=== PATIENT | female | born 1980 | race Caucasian/White ===

== ENCOUNTER 2020-04-15 11:15 | Emergency (ER) | payer OTHER, SELFPAY ==
--- NOTE | ~2020-04-15 | XR_ITS ---
EXAMINATION: XR hand LT min 3V EXAM DATE: 04/15/2020 11:39 INDICATION: Initial encounter following injury, with pain of the left hand. TECHNIQUE: Left hand frontal, lateral and oblique projections obtained and reviewed. There is no riccardo or study for comparison. FINDINGS: Left metacarpal bones are unremarkable. There are no acute fractures or dislocations ident ified. There is no subcutaneous gas. The soft tissue is unremarkable. There are no radiopaque for eign bodies. IMPRESSION: No acute osseous findings. Reviewed, dictated and finalized at location B. IMPRESSION: No acute osseous findings.
[2020-04-15 11:22] VITALS: BP 133/76; PULSE 82; RESP 18; TEMP 36.8; O2SAT 99
--- NOTE | 2020-04-15 11:28 | ED.GENADULT ---
HPI - General Adult General Chief complaint: Extremity Injury, Upper Stated complaint: left hand vs ceiling fan Time Seen by Provider: 04/15/20 11:31 Source: patient Mode of arrival: ambulatory Limitations: no limitations History of Present Illness HPI narrative: 39-year-old female patient presents to the [facility] with complaints of left hand pain. Patient states that she was making her daughter's bunk bed on the top bunk this morning and states when she went to go and throw up the blanket her left hand hit a ceiling fan that was on. Patient states that she did take some Tylenol about 8 AM this morning after it happen as well has been putting ice on it. Patient states the pain is mostly to the left index and middle fingers. Denies any numbness or tingling to the area. Denies any wrist pain. Related Data Home Medications Medication Instructions Recorded Confirmed celecoxib 100 mg PO DAILY 04/15/20 04/15/20 fluoxetine 20 mg PO DAILY 04/15/20 04/15/20 Allergies Allergy/AdvReac Type Severity Reaction Status Date / Time metoclopramide Allergy Mild ANXIETY Verified 04/15/20 11:32 MEPERIDINE HCL Allergy Intermediate Vomiting Uncoded 06/13/19 19:24 Review of Systems Review of Systems: Narrative: CONSTITUTIONAL: Denies fever, chills, or sweats. EYES: Denies visual changes, redness, or discharge. ENT: Denies rhinorrhea, congestion, sore throat, or otalgia. CARDIOVASCULAR: Denies chest pain, palpitations, or edema. RESPIRATORY: Denies cough or dyspnea. GASTROINTESTINAL: Denies abdominal pain, nausea, vomiting, or diarrhea. GENITOURINARY: Denies dysuria or hematuria. SKIN: Denies rash or itching. MUSCULOSKELETAL: Denies back pain, joint pain, or myalgia. Positive left hand pain NEUROLOGIC: Denies headache, numbness, or weakness. PSYCHIATRIC: Denies anxiety or depression. [facility] Past Medical History Medical History (Updated 04/15/20 @ 12:03 by WYATT Barreto) Anxiety Bipolar disorder Cervical lesion Depression Gastric ulcer GERD (gastroesophageal reflux disease) Gestational diabetes Surgical History Surgical History (Updated 04/15/20 @ 11:33 by WYATT Barreto) History of orthopedic surgery R CTRx2, right ulnar nerve transposition, L CTR Right knee patella fracture Hx of cholecystectomy Hx of tonsillectomy Comments At the time of my signature I agree with nursing past medical history, surgical, social, and family history. There is no relevant family history pertinent to the presenting complaint. Exam Narrative: Exam Narrative: GENERAL: Well-appearing, well-nourished, and in no acute distress. HEAD: Normocephalic, atraumatic. EYES: PERRLA and EOMI. ENT: Nares clear, no rhinorrhea or epistaxis. Mucous membranes moist. NECK: Supple. No lymphadenopathy CHEST: Clear to auscultation. No respiratory distress. HEART: Regular rate and rhythm. No murmur heard. Normal peripheral pulses. ABDOMEN: Soft, nontender, nondistended, normal active bowel sounds. EXTREMITIES: The L hand is without obvious asymmetry or deformity when compared to the R hand. No swelling, erythema, atrophy, or obvious deformity. No open wounds, nail avulsion, tissue avulsion, partial or complete amputation, subungual hematoma, bony deformity. Patient does have swelling and redness noted to the left index finger from the PIP joint to the MIP joint area with tenderness noted to the area. Patient also does have slight swelling but no erythema noted to the left middle finger over the MIP and PIP joint area. Decrease cascade of fingers of the index and middle finger on the left hand. Decrease in flexion and normal extension of fingers. Patient is right-hand dominant. FDS and FDP intact aganist restistance. Pulses and cap refill. SKIN: Warm, dry, no rash. NEURO: No focal deficits. Alert and oriented x3. Course Reevaluation(s) Reevaluation #1: Reevaluated patient after her x-ray had resulted. Discussed with her that her x-ray is negative
== END 2020-04-15 12:05 | disposition home or self-care (01) ==
PROVIDERS: Emergency Provider Nurse Practitioner Family
DX: S69.82XA Other specified injuries of left wrist, hand and finger(s), initial encounter (principal); W22.8XXA Striking against or struck by other objects, initial encounter; F41.9 Anxiety disorder, unspecified; F32.9 Major depressive disorder, single episode, unspecified; K21.9 Gastro-esophageal reflux disease without esophagitis
CPT/HCPCS: 29130; 73130; 99213; G0463

== ENCOUNTER 2022-07-29 10:03 | Emergency (ER) | payer OTHER, SELFPAY ==
[2022-07-29 10:11] VITALS: BP 117/77; PULSE 65; RESP 16; TEMP 36.3; O2SAT 99
--- NOTE | 2022-07-29 10:36 | ED.URI ---
HPI - URI/Sore Throat General Chief Complaint: Upper Respiratory Infection Stated Complaint: Sore Throat Time Seen by Provider: 07/29/22 10:37 Source: patient and RN notes reviewed Mode of arrival: ambulatory Limitations: no limitations History of Present Illness HPI Narrative: 42-year-old female presenting for complaint of sore throat and headache, body aches, sinus pressure/congestion, cough, fever/chills. onset 3 days. Endorses 3 of her children have strep throat. She denies shortness of breath, wheezing, nausea, vomiting, diarrhea. She is taking [id number] medication without relief. Smokes 1PPD. MD elicited complaint: cough Related Data Home Medications Medication Instructions Recorded Confirmed fluoxetine 20 mg capsule 20 mg PO DAILY 04/15/20 07/29/22 baclofen 10 mg tablet 10 mg PO TID 07/29/22 07/29/22 gabapentin 300 mg capsule 300 mg PO BID 07/29/22 07/29/22 Allergies Allergy/AdvReac Type Severity Reaction Status Date / Time metoclopramide Allergy Mild ANXIETY Verified 07/29/22 10:26 MEPERIDINE HCL Allergy Intermediate Vomiting Uncoded 07/29/22 10:26 Review of Systems Review of Systems: ROS per HPI PMFSH Past Medical History Medical History Anxiety Bipolar disorder Cervical lesion Depression Gastric ulcer GERD (gastroesophageal reflux disease) Gestational diabetes Surgical History Surgical History History of orthopedic surgery R CTRx2, right ulnar nerve transposition, L CTR Right knee patella fracture Hx of cholecystectomy Hx of tonsillectomy Exam Narrative: GENERAL: Ill-appearing, nontoxic EYES: PERRLA, conjunctivae clear ENT: Mucous membranes moist. sinus congestion. TMs pearly orellana with light reflex bilaterally; no tragal tenderness. Oropharynx erythematous without lesions or exudate, tonsils absent. no drooling, no hoarseness, no trismus, uvula midline. NECK: Supple. No lymphadenopathy CHEST: Clear to auscultation, breath sounds equal. No wheezing, rhonchi, rales, or stridor. No respiratory distress, speaks in full sentences. HEART: Regular rate and rhythm. No murmur heard. SKIN: Warm, dry, Scattered scabs over arms and legs. NEURO: Alert and oriented x3. PSYCH: Normal mood and affect Course Course Emergency Course: Patient is aware of diagnosis, understands and agrees to treatment plan. Anticipatory guidance given. Patient agrees to follow-up as directed and is aware of reasons to seek care at the emergency department. Portions of this record may have been created with voice recognition software Level of Care: Express Care Visit Vital Signs Vital signs: Vital Signs Temperature 97.3 F L 07/29/22 10:11 Pulse Rate 65 07/29/22 10:11 Respiratory Rate 16 07/29/22 10:11 Blood Pressure 117/77 07/29/22 10:11 Pulse Oximetry 99 07/29/22 10:11 Oxygen Delivery Room Air 07/29/22 10:11 Temperature 97.3 F L 07/29/22 10:11 Pulse Rate 65 07/29/22 10:11 Respiratory Rate 16 07/29/22 10:11 Blood Pressure 117/77 07/29/22 10:11 Pulse Oximetry 99 07/29/22 10:11 Oxygen Delivery Room Air 07/29/22 10:11 reviewed MDM - URI/Sore Throat Differential Diagnosis Differential diagnosis: Likely upper respiratory infection, sinusitis and viral infection Lab Data Labs: Influenza A Screen Negative Reference Range: Negative Influenza B Screen Negative Reference Range: Negative Strep Screen Presumptive Negative *(Reference Range: Negative)* Discharge Plan Discharge Clinical Impression: Upper respiratory infection Patient Disposition: Home, Self-Care Condition: Stable Instructions: Viral Syndrome (ED) Additional Instructions: flu and covid
== END 2022-07-29 11:00 | disposition home or self-care (01) ==
PROVIDERS: Emergency Provider Nurse Practitioner Family
DX: J06.9 Acute upper respiratory infection, unspecified (principal); Z20.822 Contact with and (suspected) exposure to COVID-19; K21.9 Gastro-esophageal reflux disease without esophagitis; F41.9 Anxiety disorder, unspecified; F32.A Depression, unspecified
CPT/HCPCS: 87081; 87426; 87804; 87880; 99213; C9803; G0463

== ENCOUNTER 2022-09-24 12:36 | Emergency (ER) | payer OTHER, SELFPAY ==
--- NOTE | ~2022-09-24 | XR_ITS ---
EXAMINATION: XR chest 2V DATE: 09/24/2022 13:39 INDICATION: Shortness of breath and cough TECHNIQUE: PA and lateral views of the chest were obtained. COMPARISON: None FINDINGS: The lungs are clear with no focal airspace opacities, pulmonary edema, pleural effusion or pneumothor ax. The cardiomediastinal silhouette is normal. Mild thoracic spondylosis. Cholecystectomy clips in t he upper abdomen. IMPRESSION: 1. No acute cardiopulmonary disease. Reviewed, dictated and finalized at location L. EE MACHINE TECHNICIAN
[2022-09-24 12:45] VITALS: BP 119/77; PULSE 82; RESP 20; TEMP 36.7; O2SAT 99
--- NOTE | 2022-09-24 12:59 | ED.URI ---
HPI - URI/Sore Throat General Chief Complaint: Upper Respiratory Infection Stated Complaint: Chest Congestion/Headache Time Seen by Provider: 09/24/22 12:59 Source: patient, RN notes reviewed and old records reviewed Mode of arrival: ambulatory Limitations: no limitations History of Present Illness HPI Narrative: 42 year old female with complaints of chest congestion, cough for the past 2 weeks with some sinus headache and drainage no sore throat with highest fever of 100F..Patient reports that she made appointments with her PCP and got rescheduled 3 times so decided to come to urgent care. Patient reports that she has been taking Mucinex DM, Benadryl and Tylenol and Ibuprofen with no improvement in her symptoms. Patient has long history of tobacco abuse. MD elicited complaint: cough, rhinorrhea and nasal congestion Pertinent past history: pneumonia and other (tobacco abuse) Onset (ago): week(s) (2) Pain scale (0-10): 6 Able to tolerate fluids by mouth: Yes Treatments prior to arrival: other (albuterol inhaler) Related Data Home Medications Medication Instructions Recorded Confirmed fluoxetine 20 mg capsule 20 mg PO DAILY 04/15/20 09/24/22 baclofen 10 mg tablet 10 mg PO TID 07/29/22 09/24/22 gabapentin 300 mg capsule 300 mg PO TID 07/29/22 09/24/22 famotidine 40 mg tablet 40 mg PO DAILY 09/24/22 09/24/22 omeprazole 40 mg capsule,delayed 40 mg PO DAILY 09/24/22 09/24/22 release Allergies Allergy/AdvReac Type Severity Reaction Status Date / Time metoclopramide Allergy Mild ANXIETY Verified 09/24/22 12:52 MEPERIDINE HCL Allergy Intermediate Vomiting Uncoded 09/24/22 12:52 Review of Systems Review of Systems: CONSTITUTIONAL: Reports malaise, chills, sweats, or fever. EYES: Denies visual changes, redness, or discharge. ENT: Reports rhinorrhea, congestion, sinus pain,no otalgia or sore throat. CARDIOVASCULAR: Denies chest pain, palpitations, or edema. RESPIRATORY: Reports harsh cough.? dyspnea and wheezing has been using inhaler GASTROINTESTINAL: Denies abdominal pain, nausea, vomiting, diarrhea SKIN: Denies rash or itching. MUSCULOSKELETAL: Denies myalgia. NEUROLOGIC:reports headache. All systems reviewed & are unremarkable except as noted in HPI and below PMFSH Past Medical History Medical History Anxiety Bipolar disorder Bronchitis Cervical lesion Depression Gastric ulcer GERD (gastroesophageal reflux disease) Gestational diabetes Surgical History Surgical History History of orthopedic surgery R CTRx2, right ulnar nerve transposition, L CTR Right knee patella fracture Hx of cholecystectomy Hx of tonsillectomy Social History Social History Smoking packs per day: 1 Smoking cigarettes per day: 20.0 Smoking status: Current every day smoker Tobacco type: cigarettes Gender identity (if verbalized by the patient): Female Comments At time of signature, agree with nursing past medical, surgical, social and family history. There is no relevant family history pertinent to the presenting complaint Exam Narrative: GENERAL: Well-appearing, well-nourished, and in no acute distress. HEAD: Normocephalic EYES: PERRLA, conjunctivae clear ENT: Nares clear, turbinates edematous and erythematous, clear to light yellow discharge. Mucous membranes moist. TM pearly orellana with dull light reflex bilaterally; no tragal tenderness. Oropharynx erythematous without lesions. Tonsils not present no throat exudate, no drooling, no hoarseness, no trismus, uvula midline post nasal drainage present.. NECK: Supple. No lymphadenopathy CHEST: coarse breath sounds on auscultation, breath sounds equal. No wheezing, rhonchi, rales, or stridor. No respiratory distress, speaks in full sentences,harsh cough dry and productive, SAO2 99% on room air. HE
[2022-09-24] MEDS: ALBUTEROL SULFATE NEB 2.5 MG/3 ML INH INHALATION (13:07)
[2022-09-24] MEDS: IPRATROPIUM BR 0.02% INH SOLN 0.5 MG/2.5 ML VIAL INHALATION (13:08)
[2022-09-24 13:40] VITALS: PULSE 75; RESP 20; O2SAT 100
== END 2022-09-24 14:05 | disposition home or self-care (01) ==
PROVIDERS: Emergency Provider Registered Nurse
DX: J06.9 Acute upper respiratory infection, unspecified (principal); R05.9 Cough, unspecified; K21.9 Gastro-esophageal reflux disease without esophagitis; F17.210 Nicotine dependence, cigarettes, uncomplicated; F41.9 Anxiety disorder, unspecified; F32.A Depression, unspecified
CPT/HCPCS: 71046; 94640; 99213; G0463

== ENCOUNTER 2023-06-06 09:31 | Emergency (ER) | payer OTHER, SELFPAY ==
[2023-06-06 09:44] VITALS: BP 120/76; PULSE 92; RESP 20; TEMP 36.6; O2SAT 97
--- NOTE | 2023-06-06 10:02 | ED.GENADULT ---
HPI - General Adult General Chief complaint: Upper Respiratory Infection Stated complaint: thinks she has flu Source: patient Mode of arrival: ambulatory Limitations: no limitations History of Present Illness HPI narrative: Patient presents for evaluation of sick symptoms for last 4 days. Symptoms include fever, chills, generalized body aches, nonproductive cough, nausea and shortness of breath. No otalgia, chest pain, vomiting or diarrhea. No recent sick contacts to her knowledge. She smokes 1/2 ppd. She has been taking mucinex for her symptoms. Related Data Home Medications Medication Instructions Recorded Confirmed fluoxetine 20 mg capsule 20 mg PO DAILY 04/15/20 06/06/23 baclofen 10 mg tablet 10 mg PO TID 07/29/22 06/06/23 gabapentin 300 mg capsule 300 mg PO TID 07/29/22 06/06/23 famotidine 40 mg tablet 40 mg PO DAILY 09/24/22 06/06/23 omeprazole 40 mg capsule,delayed 40 mg PO DAILY 09/24/22 06/06/23 release Allergies Allergy/AdvReac Type Severity Reaction Status Date / Time metoclopramide Allergy Mild ANXIETY Verified 06/06/23 09:55 MEPERIDINE HCL Allergy Intermediate Vomiting Uncoded 09/24/22 12:52 Review of Systems Review of Systems: CONSTITUTIONAL: Reports fever and chills. EYES: Denies visual changes, redness, or discharge. ENT: Denies rhinorrhea, congestion, sore throat, or otalgia. CARDIOVASCULAR: Denies chest pain, palpitations, or edema. RESPIRATORY: Reports cough and shortness of breath. GASTROINTESTINAL: Reports nausea. Denies abdominal pain, vomiting, or diarrhea. GENITOURINARY: Denies dysuria or hematuria. SKIN: Denies rash or itching. MUSCULOSKELETAL: Reports generalized body aches. NEUROLOGIC: Denies headache, numbness, dizziness, or weakness. PSYCHIATRIC: Denies anxiety or depression. [facility] Past Medical History Medical History (Updated 06/06/23 @ 10:56 by WYATT Stevenson, TANYA) Anxiety Bipolar disorder Bronchitis Cervical lesion Depression Gastric ulcer GERD (gastroesophageal reflux disease) Gestational diabetes Surgical History Surgical History H/O hernia repair History of orthopedic surgery R CTRx2, right ulnar nerve transposition, L CTR Right knee patella fracture Hx of cholecystectomy Hx of tonsillectomy Family History Family History Mother Family history non-contributory Social History Social History Smoking packs per day: 0.5 Smoking cigarettes per day: 10.0 Smoking status: Current every day smoker Tobacco type: cigarettes Substance use: current Substance use type: marijuana Other substance usage details: social use marijuana Living arrangements: with family Gender identity (if verbalized by the patient): Female Sexual Orientation (if Verbalized by the Patient): Straight or Heterosexual Spiritual care concerns: No Exam Narrative: GENERAL: Well-appearing, well-nourished, and in no acute distress. HEAD: Normocephalic, atraumatic. EYES: PERRLA and EOMI. ENT: Nares clear, no rhinorrhea or epistaxis. Mucous membranes moist. Posterior pharyngeal erythema. Oropharynx without tonsillar hypertrophy exudate or other lesions. Bilateral TMs pearly orellana nonbulging NECK: Supple. No adenopathy or masses. No carotid bruits or JVD CHEST: Cough present. Mild wheezing noted in all lung myers posteriorly HEART: Regular rate and rhythm. No murmur heard. Normal peripheral pulses. ABDOMEN: Soft, nontender, nondistended, normal active bowel sounds. EXTREMITIES: Normal range of motion. No edema. SKIN: Warm, dry, no rash. NEURO: No focal deficits. Alert and oriented x3. PSYCH: Normal mood and affect. Course Course Emergency Course: This is a 42-year-old female who presented for evaluation of sick symptoms. Strep, COVID, influenza were all negative. Sh
[2023-06-06] MEDS: methylPREDNISolone SOD SUCC 125 MG VIAL IM (10:18)
[2023-06-06] MEDS: ALBUTEROL SULFATE NEB 2.5 MG/3 ML INH INHALATION (10:19)
[2023-06-06] MEDS: IPRATROPIUM BR 0.02% INH SOLN 0.5 MG/2.5 ML VIAL INHALATION (10:19)
== END 2023-06-06 11:10 | disposition home or self-care (01) ==
PROVIDERS: Emergency Provider Nurse Practitioner
DX: R06.2 Wheezing (principal); J02.9 Acute pharyngitis, unspecified; F41.9 Anxiety disorder, unspecified; F32.A Depression, unspecified; F17.210 Nicotine dependence, cigarettes, uncomplicated; Z79.899 Other long term (current) drug therapy; Z20.822 Contact with and (suspected) exposure to COVID-19
CPT/HCPCS: 87081; 87426; 87804; 87880; 94640; 96372; 99213; C9803; G0463; J2930

== ENCOUNTER 2023-09-02 10:23 | Emergency (ER) | payer OTHER, SELFPAY ==
[2023-09-02 10:38] VITALS: BP 129/82; PULSE 84; RESP 16; TEMP 36.5; O2SAT 100
--- NOTE | 2023-09-02 11:07 | ED.NAVMDI ---
HPI - Nausea/Vomiting/Diarrhea General Chief complaint: Nausea/Vomiting/Diarrhea Stated complaint: nausea Time Seen by Provider: 09/02/23 11:07 Source: patient, RN notes reviewed and old records reviewed Mode of arrival: ambulatory Limitations: no limitations History of Present Illness HPI Narrative: 43-year-old female presents to the [facility] with complaints of nausea vomiting since 4:00 a.m.. States that she took her daily omeprazole, no other treatment prior to arrival Denies eating much of anything yesterday Denies any chest pain, abdominal pain. No urinary symptoms. No CVA tenderness. Denies fevers. Related Data Home Medications Medication Instructions Recorded Confirmed fluoxetine 20 mg capsule 20 mg PO DAILY 04/15/20 06/06/23 baclofen 10 mg tablet 10 mg PO TID 07/29/22 06/06/23 gabapentin 300 mg capsule 300 mg PO TID 07/29/22 06/06/23 famotidine 40 mg tablet 40 mg PO DAILY 09/24/22 06/06/23 omeprazole 40 mg capsule,delayed 40 mg PO DAILY 09/24/22 06/06/23 release Allergies Allergy/AdvReac Type Severity Reaction Status Date / Time metoclopramide Allergy Mild ANXIETY Verified 06/06/23 09:55 MEPERIDINE HCL Allergy Intermediate Vomiting Uncoded 09/24/22 12:52 Review of Systems Review of Systems: All systems reviewed & are unremarkable except as noted in HPI and below Constitutional: Constitutional: Reports no additional constitutional complaints Eyes: Eyes: Reports no additional eye complaints ENT: Reports system reviewed and no additional complaints, except as documented Cardiovascular: Cardiovascular: Reports no additional cardiovascular complaints, Denies chest pain and Denies dyspnea Respiratory: Respiratory: Reports no additional respiratory complaints, Denies chest congestion, Denies cough and Denies dyspnea Gastrointestinal: Gastrointestinal: Reports as per HPI, Denies abdominal pain, Denies diarrhea, Reports nausea and Reports vomiting Musculoskeletal: Musculoskeletal: Reports no additional musculoskeletal complaints Integumentary/Breasts: Skin/Breast: Reports system reviewed and no additional complaints, except as docu Neurologic: Reports system reviewed and no additional complaints, except as documented Psychiatric: Psychiatric: Reports no additional psychiatric complaints Allergic/Immunologic: Allergic/Immunologic: Reports no additional allergic/immunologic complaints PMFSH Past Medical History Medical History Anxiety Bipolar disorder Bronchitis Cervical lesion Depression Gastric ulcer GERD (gastroesophageal reflux disease) Gestational diabetes Surgical History Surgical History H/O hernia repair History of orthopedic surgery R CTRx2, right ulnar nerve transposition, L CTR Right knee patella fracture Hx of cholecystectomy Hx of tonsillectomy Family History Family History Mother Family history non-contributory Social History Social History Smoking packs per day: 0.5 Smoking cigarettes per day: 10.0 Smoking status: Current every day smoker Tobacco type: cigarettes Substance use: current Substance use type: marijuana Other substance usage details: social use marijuana Living arrangements: with family Gender identity (if verbalized by the patient): Female Sexual Orientation (if Verbalized by the Patient): Straight or Heterosexual Spiritual care concerns: No Comments At the time of my signature, I reviewed and agree with the nursing past medical, surgical, social, and family history. There is no relevant family history pertinent to the patient complaint. Exam Const: General: cooperative, healthy appearing, comfortable, no acute distress, well developed, alert and well nourished Nutritional Appearance: well nourished Orientation/co
== END 2023-09-02 11:20 | disposition home or self-care (01) ==
PROVIDERS: Emergency Provider Nurse Practitioner
DX: R11.2 Nausea with vomiting, unspecified (principal); F17.210 Nicotine dependence, cigarettes, uncomplicated; F12.90 Cannabis use, unspecified, uncomplicated; K21.9 Gastro-esophageal reflux disease without esophagitis; F41.9 Anxiety disorder, unspecified; F32.A Depression, unspecified
CPT/HCPCS: 99213; G0463

== ENCOUNTER 2024-05-05 13:19 | Emergency (ER) | payer OTHER, SELFPAY ==
--- NOTE | ~2024-05-05 | XR_ITS ---
XR hip RT min 2V 05/05/2024 13:55 Indication: Hip pain after fall Procedure: 4 views right hip Comparison: No prior studies for comparison. Findings: No fracture, subluxation or dislocation. No significant soft tissue abnormality. No foreign bodies. Impression: 1: No significant bone or joint abnormality. Reviewed, dictated and finalized at location B. Impression: 1: No significant bone or joint abnormality.
--- NOTE | ~2024-05-05 | XR_ITS ---
XR shoulder LT min 2V 05/05/2024 13:56 INDICATION: Left shoulder pain PROCEDURE: 4 views left shoulder COMPARISON: No prior studies for comparison. FINDINGS: Fracture, dislocation or subluxation is not identified. The soft tissues appear within norm al limits. No foreign bodies are identified. IMPRESSION: 1: NO ACUTE BONE OR JOINT ABNORMALITY IDENTIFIED. Reviewed, dictated and finalized at location B.
[2024-05-05 13:25] VITALS: BP 143/86; PULSE 76; RESP 16; TEMP 36.9; O2SAT 98
--- NOTE | 2024-05-05 13:38 | ED.LOWEXIN ---
HPI - Extremity Injury (Lower) General Chief Complaint: Fall Stated Complaint: Fall Injury/Left Shoulder/Right Hip Time Seen by Provider: 05/05/24 13:39 Source: patient Mode of arrival: ambulatory Limitations: no limitations History of Present Illness HPI Narrative: 43 y/o female presented for c/o pain to the left shoulder and right hip following an injury last night. States she tripped over her dog, and fell against the door striking the left shoulder and the back of the right hip. Took a Tylenol #3. Denies pain radiating into the hips or legs, down the left arm, numbness, tingling, weakness of the extremities, or change in gait, saddle paresthesia or loss of bowel or bladder. Related Data Home Medications Medication Instructions Recorded Confirmed fluoxetine 20 mg capsule 20 mg PO DAILY 04/15/20 06/06/23 baclofen 10 mg tablet 10 mg PO TID 07/29/22 06/06/23 gabapentin 300 mg capsule 300 mg PO TID 07/29/22 06/06/23 famotidine 40 mg tablet 40 mg PO DAILY 09/24/22 06/06/23 omeprazole 40 mg capsule,delayed 40 mg PO DAILY 09/24/22 06/06/23 release Allergies Allergy/AdvReac Type Severity Reaction Status Date / Time metoclopramide [From Reglan] Allergy Hallucinati Verified 05/05/24 13:35 ng Review of Systems Review of Systems: CONSTITUTIONAL: Denies body aches, fever, chills CARDIOVASCULAR: Denies chest pain, palpitations, or edema. RESPIRATORY: Denies cough or dyspnea. SKIN: Denies rash, itching, or wounds. MUSCULOSKELETAL: Reports pain to the left shoulder and right hip NEUROLOGIC: Denies headache, numbness, tingling, or weakness. All systems reviewed & are unremarkable except as noted in HPI and below PMFSH Past Medical History Medical History Anxiety Bipolar disorder Bronchitis Cervical lesion Depression Gastric ulcer GERD (gastroesophageal reflux disease) Gestational diabetes Surgical History Surgical History H/O hernia repair History of orthopedic surgery R CTRx2, right ulnar nerve transposition, L CTR Right knee patella fracture Hx of cholecystectomy Hx of tonsillectomy Family History Family History Mother Family history non-contributory Social History Social History Smoking packs per day: 0.5 Smoking cigarettes per day: 10.0 Smoking status: Current every day smoker Tobacco type: cigarettes Substance use: current Substance use type: marijuana Other substance usage details: social use marijuana Living arrangements: with family Gender identity (if verbalized by the patient): Female Sexual Orientation (if Verbalized by the Patient): Straight or Heterosexual Spiritual care concerns: No Comments At time of signature, I have reviewed and agree with nursing past medical, surgical, social and family history unless otherwise noted. Please see nursing chart for further information. There is no relevant family history pertinent to the presenting complaint Exam Narrative: GENERAL: Well-appearing CHEST: Speaks in full sentences. No respiratory distress. HEART: Regular rate and rhythm. Normal and equal peripheral pulses. EXTREMITIES: LUE has normal strength and sensation, normal range of motion at shoulder, but endorses pain with movement. Tender with palpation to posterior deltoid and over scapula. No ecchymosis, No open wounds, skin tenting, or obvious deformity; alignment normal, pulse palpable and equal bilaterally, skin warm, dry, pink. Capillary refill less than 3 seconds. RLE has normal strength and sensation, normal range of motion at hip, able to tolerate sitting to standing but endorses pain with movement. Tender with palpation to posterior hip. Pedal pulses equal bilaterally. No swelling. SKIN: Warm, dry NEURO: Alert and oriented x3.
== END 2024-05-05 14:41 | disposition home or self-care (01) ==
PROVIDERS: Emergency Provider Nurse Practitioner Family
DX: M25.512 Pain in left shoulder (principal); M25.551 Pain in right hip; F17.210 Nicotine dependence, cigarettes, uncomplicated; F12.90 Cannabis use, unspecified, uncomplicated; K21.9 Gastro-esophageal reflux disease without esophagitis; F41.9 Anxiety disorder, unspecified; F32.A Depression, unspecified
CPT/HCPCS: 73030; 73502; 99214; G0463

== ENCOUNTER 2024-10-23 08:24 | Emergency (ER) | payer OTHER, SELFPAY ==
[2024-10-23 08:28] VITALS: BP 119/81; PULSE 75; RESP 20; TEMP 36.5; O2SAT 97
--- NOTE | 2024-10-23 08:31 | ED_ITS ---
HPI - Nausea/Vomiting/Diarrhea General Chief complaint: Nausea/Vomiting/Diarrhea Stated complaint: throwing up,fever,BU[place] Time Seen by Provider: 10/23/24 08:31 Source: family and RN notes reviewed Mode of arrival: ambulatory Limitations: no limitations History of Present Illness HPI Narrative: 44-year-old female presents with concern for nausea and vomiting that started overnight. She denies abdominal pain. Reports an episode of diarrhea. She denies any known sick contacts. She denies taking any medication for her symptoms. She denies cold symptoms, fever. MD elicited complaint: vomiting Related Data Home Medications ?Medication ?Instructions ?Recorded ?Confirmed ?Last Taken ?Type fluoxetine 20 mg capsule 20 mg PO DAILY 04/15/20 10/23/24 Unknown History baclofen 10 mg tablet 10 mg PO TID 07/29/22 10/23/24 Unknown History gabapentin 300 mg capsule 300 mg PO TID 07/29/22 10/23/24 Unknown History famotidine 40 mg tablet 40 mg PO DAILY 09/24/22 06/06/23 Unknown History omeprazole 40 mg capsule,delayed 40 mg PO DAILY 09/24/22 10/23/24 Unknown History release albuterol sulfate 90 mcg/actuation inhalation 10/23/24 Unknown History aerosol inhaler celecoxib 100 mg capsule mg 10/23/24 Unknown History estradiol 0.05 mg/24 hr weekly 10/23/24 Unknown History transdermal patch Allergies Allergy/AdvReac Type Severity Reaction Status Date / Time metoclopramide (From Reglan) Allergy Hallucinati Verified 10/23/24 08:40 ng Review of Systems Review of Systems: CONSTITUTIONAL: Denies malaise, chills, sweats, or fever. ENT: Denies rhinorrhea, congestion, sinus pain, otalgia or sore throat. CARDIOVASCULAR: Denies chest pain, palpitations, or edema. RESPIRATORY: Denies cough or dyspnea. GASTROINTESTINAL: Denies abdominal pain, bloody, or mucous stools. Reports nausea and vomiting, 1 episode of diarrhea GENITOURINARY: Denies dysuria or hematuria. SKIN: Denies rash or itching. MUSCULOSKELETAL: Denies myalgia. NEUROLOGIC: Denies numbness, weakness, or headache. [facility] Past Medical History Medical History Anxiety Bipolar disorder Bronchitis Cervical lesion Depression Gastric ulcer GERD (gastroesophageal reflux disease) Gestational diabetes Surgical History Surgical History H/O hernia repair History of orthopedic surgery R CTRx2, right ulnar nerve transposition, L CTR Right knee patella fracture Hx of cholecystectomy Hx of tonsillectomy Family History Family History Mother Family history non-contributory Social History Social History Smoking packs per day: 0.5 Smoking cigarettes per day: 10.0 Smoking status: Current every day smoker Tobacco type: cigarettes Substance use: current Substance use type: marijuana Other substance usage details: social use marijuana Living arrangements: with family Gender identity (if verbalized by the patient): Female Sexual Orientation (if Verbalized by the Patient): Straight or Heterosexual Spiritual care concerns: No Comments At time of signature, agree with nursing past medical, surgical, social and family history. There is no relevant family history pertinent to the presenting complaint Exam Narrative: GENERAL: Well-appearing, well-nourished, and in no acute distress. HEAD: Normocephalic, atraumatic. EYES: PERRLA, sclera clear, and EOMI. No nystagmus. ENT: Nares clear, turbinates pink, no rhinorrhea or epistaxis. Mucous membranes moist. NECK: Supple. CHEST: No respiratory distress. Clear to auscultation. No bony deformities, no asymmetry. Speaks in full sentences. HEART: Regular rate and rhythm. No murmur heard. Normal peripheral pulses. ABDOMEN: Soft, nontender, nondistended, normal active bowel sounds, no palpable masses. EXTREMITIES: Normal range of motion. No edema. Normal strength and sensation. SKIN: Warm, dry, no visible rash. NEURO: Alert and oriented x3. PSYCH: Normal mood and affect Course Course Emergency Course: Parent understands and agrees to treatment plan. Anticipatory guidance given. Parent agrees to follow-up as directed and understands reasons follow-up with primary care provider or to go the emergency room Portions of this record may have been created with voice recognition software Level of Care: Express Care Visit Vital Signs Vital signs: Vital Signs Temperature 97.7 F 10/23/24 08:28 Pulse Rate 75 10/23/24 08:28 Respiratory Rate 20 10/23/24 08:28 Blood Pressure 119/81 10/23/24 08:28 Pulse Oximetry 97 10/23/24 08:28 Oxygen Delivery Room Air 10/23/24 08:28 Temperature 97.7 F 10/23/24 08:28 Pulse Rate 75 10/23/24 08:28 Respiratory Rate 20 10/23/24 08:28 Blood Pressure 119/81 10/23/24 08:28 Pulse Oximetry 97 10/23/24 08:28 Oxygen Delivery Room Air 10/23/24 08:28 Vital signs reviewed MDM - Nausea/Vomiting/Diarrhea MDM Narrative Medical decision making narrative: No evidence of pancreatitis, AAA, cholecystitis, choledocholithiasis, cholangitis, mesenteric ischemia, small bowel obstruction, diverticulitis, colitis, appendicitis, or pelvic etiology such as ovarian or ectopic . Patient has no history of H. pylori, chronic aspirin NSAID or corticosteroid use, chronic alcohol use, no history of inflammatory bowel disease, no history of active abdominal infection or malignancy. Patient has no history of hernia or intra-abdominal surgeries, patient denies absence of flatus, constipation, melena, hematemesis. Patient denies post-prandial pain. No pain-out of proportion. Exam findings show no acute concerns or changes; patient is non-toxic appearing and is in no distress. Patient is appropriate for outpatient treatment and follow-up. Critical Care Time Critical Care Time Critical Care Time: No Discharge Plan Discharge Clinical Impression: Nausea and vomiting Patient Disposition: Home, Self-Care Condition: Stable Instructions: Acute Nausea and Vomiting (ED) Additional Instructions: Stay hydrated. Take small sips of fluid containing electrolytes frequently. You should go to the hospital if you experience return of persistent nausea and vomiting that does not resolve and does not allow you to tolerate any food or fluids, persistent fevers for greater than 2-3 more days, increasing abdominal pain that persists despite medications, persistent diarrhea, dizziness, syncope (fainting), or for any other concerns. Patient Language: Austrian Prescriptions: New promethazine 25 mg tablet 25 mg PO TID PRN (Reason: nausea and vomiting) Qty: 14 0RF No Action fluoxetine 20 mg capsule 20 mg PO DAILY baclofen 10 mg tablet 10 mg PO TID gabapentin 300 mg capsule 300 mg PO TID famotidine 40 mg tablet 40 mg PO DAILY omeprazole 40 mg capsule,delayed release(DR/EC) 40 mg PO DAILY estradiol 0.05 mg/24 hr patch weekly albuterol sulfate 90 mcg/actuation HFA aerosol inhaler INHALATION celecoxib 100 mg capsule promethazine 25 mg tablet 25 mg PO TID PRN (Reason: nausea and vomiting) Qty: 5 0RF Follow-up/Referrals: PHYSICIAN NOT ON STAFF,NONSTAFF [Primary Care Provider] - Stand Alone Forms: Work/School Release IP Time of Disposition: 08:58 Quality NIHSS Nursing Documentation ED NIHSS nursing documentation: reviewed/agree
--- OUTSIDE RECORDS SUMMARY | 2024-10-23 08:41 | XMS_ITS | Encounter Summary ---
Author Organization [facility] Healthcare Address [address] [place] [id number] Care Team Providers Care Shift Foreman Name Role Phone Hugo Jaquez MD Primary Care Provider [phone] Hugo Jaquez MD Unavailable [phone] Kimberly Jc NP Primary Care Provide r Kimberly Jc NP Primary Care Provide r Encounter Details Date Type Department Care Team (Late st Contact Info) Description 07/16/2019 Documentation [facility] Social Work [address] [place] [address] Jazmyn Levy LCSW Social History Tobacco Use Types Packs/Day Years Used Date Smoking Tobacco: Every Day Cigarettes Smokeless Tobacco: Never Alcohol Use Standard Drinks/Week Comments No 0 (1 standard drink = 0.6 oz pur e alcohol) AUDIT-C Answer Date Recorded Frequency of Alcohol Consumption Never 06/17/2019 Average Number of Drinks Not on file 019 Frequency of Binge Drinking Never 05/30 Comments No Sex and Gender Information Value Date Recorded Sex Assigned at Not on file Legal Sex Female 6:40 PM INTERN ARCHITECT Gender Identity Not on file Sexual Orientation Not on file documented as of this encounter Miscellaneous Notes * Plan of Care - Jazmyn Levy MSW - 07/16/2019 3:07 PM CST SW Assessment Reason for Admission Patient, Barbra Mendez, : 1980, was admitted on 07/13/2019 to L&D for contractions. Patient was positive for THC. Identified problem and Social Work referral for resources. Medical History Barbra Mendez is a 39 y.o. at 36w5d who presented to L&D for contractions. Her was complicated by h/o PP hemorrhage, AMA, h/o PTL, HSV, h/o GDM, Rh- status, and fetus with bilateral club feet. She was found to be 7cm dilated and breech presentation. She was admitted for CS and for a level 1 CS. She underwent a primary low transverse section. Delivery was uncomplicated. Patient has a medical hx of anemia, B12 deficiency, cervical dysplasia, and anxiety disorder. HOSPITAL CLERK at [facility] in [place], [place] with Dr. Hugo Jaquez and pt will call tomorrow 07/17 to make an appointment. Medical insurance coverage is through [facility] [employer] and Medicaid [place]. Information Baby boy was born on 07/13/2019 at EGA 36.5 weeks and named baby Lawrence Hernandez. Delivery was . [place] weighed 5lbs 5oz. will be breast feed. This is mother's fifth child. Patient has a 19 year old girl, 11 year old boy, 8 year old, 15 month old, and . Pt???s 19 year old lives in [place] with her grandmother (pt???s mother). Social History Current address is [address] [place] [address], [facility] where she lives with spouse, Juan Mendez([phone]), and four children. Currently [phone] is the best phone number for future contact. Income source for the household is from employment. Juan works daytime caregiver 4; 12 hour shifts at [employer]. 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 Pt???s sister and Aunt are able to provide assistance with children. Father of the baby, Juna Mendez, phone number [phone]. FOB is supportive and lives in household. Pt and Juan have been for 20 years. Mental Health History MOB describes her mood during as good. Patient does take medication for anxiety. Social Work and MOB discussed the signs and symptoms of both Baby Blues and Depression. Social Work discussed and normalized increase in emotions and the importance of self-care. Social Work reviewed the importance of sleep and acceptance of help from others if available. Resources for counseling discussed and contact encouraged if needed. MOB engaged in conversation and demonstrates knowledge. Substance Use History MOB denies any substance use. MOB smokes daily and denies ETOH use. MOB reported positive THC from being around other who were smoking marijuana and denied using. Strengths MOB is open and receptive to Social Work intervention. MOB has a good support system that consist of her spouse, sister, aunt, and two older children. Barriers to Discharge Transportation and discharge medication have been arranged. No barriers for discharge indicated at this time. Resources Provided and Goals Addressed SW provided MOB with depression resources. Safe Discharge Plan There are no concerns for a safe discharge for with family. Social Work will follow for support and additional needs should they arise. Brass Sorter informed MOB of hotline due to positive THC and possible follow up from [facility]. MOB voiced understanding. Jazmyn Levy LCSW PRJaida RN ARCHITECT * Plan of Care - Jazmyn Levy MSW - 07/16/2019 3:07 PM CST CLARENCE made hotline call to [facility] at . Intake milieu therapist was Charles Wilkinson and report #[id number]. Charles discussed no action would be taken, but it would be noted in the system if there is any other cases open. Jazmyn Levy LCSW PRN RN ARCHITECT documented in this encounter Plan of Treatment Not on file documented as of this encounter Visit Diagnoses Not on filedocumented in this encounter Care Teams Shift Foreman Relationship Specialty Start Date End Date Hugo Jaquez MD PCP - General 03/16/19 11/18/20 Kimberly Jc NP [address] [place] [address] PCP - General Emergency Medicine 11/22/20 Kimberly Jc NP [address] [place] [address] PCP - General 11/19/20 11/21/20 Hugo Jaquez MD Siding Stapler Obstetrics and Gynecology 04/12/19 documented as of this encounter
--- OUTSIDE RECORDS SUMMARY | 2024-10-23 08:41 | XMS_ITS | Encounter Summary ---
Author Organization [facility] Address [address] [place] [address] Phone Care Team Providers Care Digital Solution Architect Name Role Phone Kimberly Jc APRN, CNP Primary Care P rovider Mack Owens MD Unavailable Timmy Ibarra Primary Care Provider [phone] Francisco Javier Ivey MD Unavailable Reason for Visit * Reason Comments Medication Refill Encounter Details Date Type Department Care Team (Late st Contact Info) Description 02/01/2024 Refill [facility] - Primary Care - [facility] [address] [place] [address] Timmy Ibarra PAC [address] [place] [address] Medication Refill Social History Tobacco Use Types Packs/Day Years Used Date Smoking Tobacco: Every Day Cigarettes 1.5 32.1 Started: 1994 Smokeless Tobacco: Never Comments:Down to quarter pac k Alcohol Use Standard Drinks/Week Comments No 0 (1 standard drink = 0.6 oz pur e alcohol) [facility] Utilities Answer Date Recorded In the past 12 months has e electric, gas, oil, or water company threatened to shut off services in your home? Yes 09/03/2023 Social Connection and Isolat ion Panel [NHANES] Answer Date Recorded In a typical week, how many times do you talk on the phone with family, friends, or neighbors? More than three times a week 09/03/2023 How often do you get togethe r with friends or relatives? Once a week 09/03/2023 How often do you attend chur ch or christian services? Never 09/03/2023 Do you belong to any clubs o r organizations such as pentecostal groups, unions, fraternal or athletic groups, or school groups? No 09/03/2023 How often do you attend meet ings of the clubs or organizations you belong to? Never 09/03/2023 Are you , , di vorced, , never , or living with a partner? 09/03/2023 AUDIT-C Answer Date Recorded Q1: How often do you have a drink containing alcohol? Never 09/03/2023 Q2: How many drinks containi ng alcohol do you have on a typical day when you are drinking? Patient does not drink Q3: How often do you have si x or more drinks on one occasion? Never 09/03/2023 Overall Financial Resource Strain (CARDIA) Answe r Date Recorded How hard is it for you to pa y for the very basics like food, housing, medical care, and heating? Hard 09/03/2023 PHQ-2 Answer Date Recorded PHQ-2 Score 0 05/13/2019 [facility] - Occupational Stress Questionnaire Answer Date Recorded Do you feel stress - tense, restless, nervous, or anxious, or unable to sleep at night because your mind is troubled all the time - these days? Very much 09/03/2023 Exercise Vital Sign Answer Date Recorde d On average, how many days pe r week do you engage in moderate to strenuous exercise (like a brisk walk)? 6 days 09/03/2023 On average, how many minutes do you engage in exercise at this level? 100 min 09/03/2023 Hunger Vital Sign Answer Date Recorded Within the past 12 months, y ou worried that your food would run out before you got the money to buy more. Often true 09/03/19 24 Within the past 12 months, t he food you bought just didn't last and you didn't have money to get more. Often true 09/03/2023 PRAPARE - Transportation Answer Date Re corded In the past 12 months, has l ack of transportation kept you from medical appointments or from getting medications? No 12/2023 In the past 12 months, has l ack of transportation kept you from meetings, work, or from getting things needed for daily living? No 09/03/2023 Housing Stability Vital Sign Answer Mike e Recorded In the last 12 months, was t here a time when you were not able to pay the mortgage or rent on time? Yes 09/03/2023 In the last 12 months, how many places have you lived? 1 09/03/2023 In the last 12 months, was t here a time when you did not have a steady place to sleep or slept in a long term (including now)? No 09/03/2023 Education Answer Date Recorded What is the highest level of school you have completed or the highest degree you have received? Some college, no degree 10/16/2021 Sexually Active Control Partners Comments Not Currently Abstinence Male Comments No Sex and Gender Information Value Date Recorded Sex Assigned at Not on file Legal Sex Female 11:15 PM CDT Gender Identity Not on file Sexual Orientation Not on file documented as of this encounter Miscellaneous Notes * Telephone Encounter - Cornelio Harrison RN - 02/01/2024 9:03 AM CDT Medication(s) refilled and signed per [facility] Chronic Medication Refill Standing Order for Pediatricand Adult Patients. Requested Prescriptions Pending Prescriptions Disp Refills celecoxib (CeleBREX) 100 MG Capsule [Pharmacy Med Name: CELECOXIB 100MG CAPSULES] 90 Capsule 1 Sig: TAKE 1 CAPSULE BY MOUTH TWICE DAILY NSAIDs Protocol Passed - 02/01/2024 8:23 AM Passed - Normal serum creatinine in past 12 months CREATININE, BLOOD Date Value Ref Range Status 04/14/2023 0.84 0.60 - 1.00 mg/dL Final Passed - No positive test in the past 12 months or most recent test was negative Passed - Visit with relevant provider in past 12 months or upcoming 90 days Recent Visits Date Type Provider Dept 10/20/23 Office Visit Timmy Ibarra, PAC [facility] 10/08/23 Office Visit Timmy Ibarra, PAC [facility] 09/03/23 Office Visit [facility]my Ibarra, PAC [facility] 07/29/23 Office Visit Arcelia Leija, PAC [facility] 06/17/23 Office Visit Arcelia Leija, PAC [facility] 02/22/23 Office Visit Kimberly Jc APRN, STRATEGY MANAGER [facility] Showing recent visits within past 365 days and meeting all other requirements Future Appointments No visits were found meeting these conditions. Showing future appointments within next 90 days and meeting all other requirements Passed - No active on record Passed - No matching NSAID med order in past 45 days No matching medication orders between 12/18/2023 9:03 AM and 02/01/2024 9:03 AM Passed - AST less than 55 or ALT less than 90 in past 12 months SGOT (AST) Date Value Ref Range Status 02/05/2023 18 <=32 U/L Final SGPT (ALT) Date Value Ref Range Status 02/05/2023 12 <=41 U/L Final Passed - HGB greater than 10 or HCT greater than 30 in past 12 months HEMOGLOBIN (HGB) Date Value Ref Range Status 09/03/2023 15.2 12.0 - 15.8 g/dL Final HEMATOCRIT (HCT) Date Value Ref Range Status 09/03/2023 44.6 36.0 - 47.0 % Final documented in this encounter Plan of Treatment Upcoming Encounters Date Type Department Care Team (Late st Contact Info) Description 11/06/2024 7:00 AM CDT [facility] [place] [id number] Timmy Ibarra, PAC [address] [facility] [place] [id number] Discharge Disposition: Discharged to home or Selfcare documented as of this encounter Visit Diagnoses Diagnosis Pain in both hands documented in this encounter Additional Health Concerns Assessment Noted Time PHQ-9 Depression Total Score: 0 06/10/20 18 9:00 AM CDT documented as of this encounter Care Teams Digital Solution Architect Relationship Specialty Start Date End Date Kimberly Jc APRN, STRATEGY MANAGER [address] [place] [address] PCP - General Advanced Practice Nurse 02/14/20 Timmy Ibarra, PAC [address] [place] [address] PCP - General Physician Water Superintendent 02/17/24 Mack Owens MD [address] [address] Consulting Physician Colon and Rectal Surgery 11/23/22 Francisco Javier Ivey MD [address] [place] [address] Consulting Physician Neurological Surgery 03/07/24 documented as of this encounter
--- OUTSIDE RECORDS SUMMARY | 2024-10-23 08:41 | XMS_ITS | Referral Summary ---
Author Organization [facility] Address [address] [place] [address] Care Team Providers Care Aquatic Laborer Name Role Phone Hugo Jaquez MD Unavailable Kimberly Jc NP Primary Care Provide r Allergies Active Allergy Reactions Criticality Noted Date Comments Bee Pollen Anaphylaxis High 11/08/2020 Metoclopramide Hallucinations Medium 09/01/2017 Medications FLUoxetine (PROzac) 20 mg capsuleIndicati ons:depression, and anxiety Take 1 capsule (20 mg total) by mouth math coach before breakfast 9 Active naloxone (NARCAN) 4 mg/actuation spray,non-aeros ol Administer 1 spray into affected nostril(s) as needed for opioid reversal or respiratory depression 1 each 1 Active Additional Information Patient taking differently:1 spray nasal As needed,opioid reversal, Indications: risk mitigation for opioid overdose, Informant: Self, Reported on 10/25/2023 gabapentin (NEURONTIN) 300 mg capsule TAKE 2 CAPSULES(600 MG) BY MOUTH THREE TIMES DAILY 180 capsule 3 1 Active Additional Information Patient taking differently: 600 mg oral 3 times daily, Indications: Neuropathic Pain, Informant: Self, Reported on 10/25/2023 omeprazole (PriLOSEC) 40 mg capsuleIndicati ons:Laryngeal spasm Take 1 capsule (40 mg total) by mouth daily 30 capsule 11 3 Active Additional Information Patient taking differently:40 mg oralDaily (early AM), Indications: Treatment of Non-Bleeding Gastric Disorder, Informant: Self, Reported on 10/25/2023 baclofen (LIORESAL) 10 mg tabletIndicatio ns:Muscle Spasticity of Spinal Origin Take 1 tablet (10 mg total) by mouth 3 (three) times a day 4 Active albuterol HFA (PROVENTIL HFA,VENTOLIN HFA,PROAIR HFA) 90 mcg/actuation inhalerIndicati ons:Acute Asthma Attack Inhale 2 puffs every 4 (four) hours as needed for wheezing or shortness of breath 4 Active Veozah tablet tablet Take 1 tablet (45 mg total) by mouth daily 4 Active promethazine (PHENERGAN) 25 mg tablet 4 Active ondansetron (ZOFRAN) 4 mg tabletIndicatio ns:n/v Take 1 tablet (4 mg total) by mouth every 8 (eight) hours as needed for nausea or vomiting 4 Active traMADoL (ULTRAM) 50 mg tabletIndicatio ns:Pain Take 1 tablet (50 mg total) by mouth every 6 (six) hours as needed for pain 4 Active acetaminophen (TYLENOL) 500 mg tablet Take 2 tablets (1,000 mg total) by mouth every 6 (six) hours as needed for pain 30 tablet 2 4 Active oxyCODONE (ROXICODONE) 5 mg immediate release tabletIndicatio ns:Pain Take 1 tablet (5 mg total) by mouth every 6 (six) hours as needed for pain 21 tablet 4 Active polyethylene glycol (MIRALAX) 17 gram/dose bulk powder Take 17 g by mouth daily 595 g 4 Active estradioL (CLIMARA) 0.05 mg/24 hrIndications:V asomotor Symptoms associated with Menopause Place 1 patch on the skin once a week 4 patch 11 4 11/22/19 25 Active Active Problems Problem Noted Date Diagnosed Date High grade squamous intraepi thelial lesion (HGSIL), grade 3 ALESSANDRO, on biopsy of cervix 10/12/2023 Non-recurrent bilateral inguinal hernia 05/28/20 23 Laryngeal spasm 09/09/2022 Voice hoarseness 09/09/2022 Assessment & Plan (09/09/2022 12:22 PM COTTON BUYER): Increase omeprazole to 40 mg daily Start Pepcid 40 mg daily Call if no improvement in 3 months LPR discussed and Handout provided Insomnia secondary to chronic pain 01/15/2021 Lumbar radiculopathy 01/10/2021 DDD (degenerative disc disease), lumbar 01/11/20 21 Lumbar disc herniation 12/16/2020 H/O section 07/13/2019 Overview (07/16/2019): # ID: Afebrile. No signs/symptoms of infection. #HSV: on chronic suppression at 36 weeks, BLE negative. Valtrex d/c'ed PP. #HSIL: pap at IOB with primary HSIL, for PP colpo # Heme: EBL 150 mL. No symptoms acute blood loss anemia. Hgb 12.8>10.6 postop. #Rh negative: s/p rhogam with primary, baby Rh+, s/p PP rhogam #h/o PPH: prior delivery she had a large clot and required an immediate D&C and then a repeat D&C a week later, likely retained placenta. Uncomplicated CS this delivery. #Anxiety: on Prozac 20mg qdaily, will continue , mood stable # CV/Pulm: Vital signs stable, within normal limits. # GI/: Tolerating PO. Voiding spontaneously # Pain: Controlled with above regimen. # Post DVT prophylaxis: Patient has the following moderate risk factors: Age>35 and Smoker. Her post prophylaxis plan is SCDs and early ambulation # MOC: s/p BTL # MOF: undecided # Disposition: Desires discharge home today if baby ok to go History of gestational diabetes 04/27/2019 Overview (07/07/2019): In G2, not on insulin. Did not have GDM in more recent pregnancies [x] gtt wnl History of hemorrhage 04/27/2019 Overview (06/23/2019): Patient reports that after placental delivery and epidural removal, but while she was still in her delivery room, she passed a 7 pound blood clot and continued bleeding. She was taken for an emergent D&C. Per op note, there was concern based on manual exam for retained placenta due to focal accreta. The D&C controlled her bleeding and she was discharged. She then represented with bleeding a week or so later with increased bleeding and had another D&C at that time. She then had no further complications. She did not require a blood transfusion. The operative notes from both cases are in the Media tab but the pathology reports are not available. She denies any history of easy bruising and has light periods so is unlikely to have a disorder like vWD. The most likely etiology seems to be retained placenta. Plan for delivery at [facility] Her placentation appears normal on US thus far [x] CBC 06/18/19 HGB 11.7 At time of delivery, we would recommend T&Cx2, active management of the 3rd stage, and uterotonics at the bedside to prevent uterine atony. HSIL on Pap smear of cervix 04/27/2019 Overview (04/27/2019): Pap at IOB with HSIL. S/p colpo with Dr. Jaquez at 11w without bx. Reinforced importance of postprtum f/u for cervical dysplasia and colpo with bx. History of delivery 04/27/2019 Overview (05/23/2019): Reports her son (G2) was born at 36w after ROM and PTL. She states her water always breaks at 36-37w. Given her GA at PTD and GA at presentation, did not offer Ashanti however we did group home counselor patient on recurrence risk of PTD. Anxiety disorder 04/12/2009 Overview (04/27/2019): On Prozac 20mg daily. Stable. S/p counseling of risk of respiratory depression. Assessment & Plan (07/07/2019 1:34 PM COTTON BUYER): Reports mood has been good on current dose. Assessment & Plan (05/25/2019 1:21 PM CDT): Reports mood has been good Resolved Problems Problem Noted Date Diagnosed Date Resolved Date Rule out PTL 06/18/2019 08/10/2019 Overview (06/28/2019): 06/18/19: Patient presented to OSH for painful contractions every 2-3 minutes. Patient was given Magnesium at OSH which helped spaced her contractions to an irregular pattern. -s/p BMZ at 2249 -s/p Mg 4 gram bolus then 3 grams/hour at OSH, stopped in transport -s/p Stadol 1 mg x1 dose -On admission, contractions irregular on toco and patient not subjectively feeling -Will plan to monitor patient through BMZ dosing on cEFM overnight -No indication for tocolysis at this time given patient is not making manager change several OSH checks and admission exam -No indication for PCN at this time. BGS swab collected -GC/CT collected 06/21/19 [facility] visit: Contractions began this morning, are every 10 minutes, and more severe than they were before. Initial SVE 1/L/H, same as previous. Few contractions on toco. Repeat SVE 1/L/H. Patient reports spontaneous subjective improvement in intensity and frequency of contractions. No e/o PTL. Prec given. 06/28/19 [facility] visit: contractions initially Q10-15 minutes in the setting of nausea and vomiting x4 today. Nausea resolved with zofran. Jack po. Contractions resolved with IVF. SVE 1.5/0/Ballot (same as previous). Urine unremarkable. No e/o PTL, abruption, UTI. Likely r/t dehydration. PTL precautions given. Club foot, , affecting care of mother, antepartum 04/27/2019 08/10/2019 Overview (06/23/2019): Specialized anatomy performed with evidence of bilateral club foot. We discussed that club foot can be associated with genetic abnormalities and discussed options for further testing. She had low risk cfDNA. She declines amniocentesis at this time. - Serial growths and assessment of LE movement q4w [x] Peds ortho Unwanted fertility 04/27/2019 9 Overview (05/23/2019): Desires pp BTL (private insurance) previously counseled Rh negative state in antepartum period 04/27/2019 08/10/2019 Overview (07/07/2019): IOB labs without antibody [x] s/p RhoGam with primary HSV (herpes simplex virus) infection 04/27/2019 08/10/2019 Overview (07/07/2019): HSV antibodies positive. Patient denies recent outbreak [x] for suppression at 36w- reports compliance Antepartum multigravida of a dvanced maternal age 0804/18/2019 08/10/2019 Overview (05/23/2019): Previously counseled S/p low risk NIPT For serial growths, twice weekly testing and delivery at 39 weeks unless indicated sooner. Assessment & Plan (07/07/2019 1:36 PM COTTON BUYER): Patient has not been getting 2x/weekly testing. Reviewed importance again today to prevent stillbirth. She has also not been seen by her primary OBGYN in several weeks. Reviewed the importance of weekly f/u appointments to ensure her health and the health of her baby. Of note patient had a scheduled NST today following her appointment and she left without having it done. Assessment & Plan (05/25/2019 1:29 PM CDT): Reviewed with patient plan for 2x/weekly testing Supervision of high-risk pre gnancy, unspecified trimester 04/17/2019 08/10/2019 Overview (07/07/2019): [x] Co-management vs. [] Full [facility] Care; Referring Provider: Hugo Jaquez [x] Dating Criteria: US 12/08/18 with LUCIO 08/05/19 [x] Labs: Rh [B-], Ab [negative], Rubella [immune], HIV [negative], HepBSAg [non-reactive], RPR [non-reactive], GC/CT [negative/negative] [x] Genetic Screening: NIPT negative [x] CBC/Hgb 15.4/46.4/plt 358 [x] UCx: neg [x] Pap: high grade squamous intraepithelial lesion 2nd Tri Labs: [x] Anatomy ultrasound: bilateral club foot, otherwise WNL [x] CBC/1hr gtt at 24-28wks: 12.3/36.4/plt 346; GTT 05/23/19: 129 [x] Flu Shot (Apr-Jul): [x] Tdap (27-36wks): [x] Rhogam at 28 wks (if Rh neg): with primary 3rd Tri Labs: [x] CBC/RPR/T&S: RPR 05/25/19: Non reactive [x] GBS: POSITIVE [] HIV- performed with primary, records requested today Counselling [x] MOD: Anticipate , IOL scheduled 07/29 at 0800 [address]] [address] of delivery: [facility] [x] MOC: desire PP BTL, has both private and [place] medicaid- BTL papers signed 07/07. If she delivers at the time of her scheduled IOL they will not be mature. Patient aware. [x] Method of feeding: breast/bottle [x] Fabric Awning Repairer: [x] PP Depression Discussed: Type 2 diabetes mellitus 01/13/2014 Overview (12/04/2016): DMII WO CMP UNCNTRLD Hyperlipidemia 04/12/2009 04/27/2019 Immunizations Immunization Administration Dates Next Due COVID-19 mRNA (Emulation and Verification Engineering) 0.3 m L (30 mcg) vaccine (12 years and up) 10/08/2023 Influenza, Quadrivalent, Padma l Culture-based MDCK, Antibiotic Free, Intramuscular 05/25/2019 Influenza, Quadrivalent, Spl it, Preservative Free, Intradermal 01/06/2012 Influenza, Quadrivalent, Spl it, Preservative Free, Intramuscular 09/03/2023,06/30/2021,10/03/2020,06/10 Influenza, Trivalent, Adjuva nted, Intramuscular 01/06/2012 Influenza, Trivalent, IM (MDV) 01/06/2012 PPD TEST 06/17/2018 Pneumococcal Conjugate Pcv20 10/08/2023 Pneumococcal Polysaccharide PPV23 06/10/2018,04/2012 Rho (D) Immune Globulin 04/14/2018,03/29/2018 Rho (D) Immune Globulin, IV or IM 04/14/2018, Td, adsorbed 10/08/2010 Tdap 05/25/2019,04/16/2018,10/08/2010 Social History Tobacco Use Types Packs/Day Years Used Date Smoking Tobacco: Every Day Cigarettes 1 32.1 Started: 1992 Passive Smoke Exposure: Past Smokeless Tobacco: Never Tobacco Cessation:Ready to Q uit: Not Asked; Counseling Given: Not Answered Alcohol Use Standard Drinks/Week Comments No 0 (1 standard drink = 0.6 oz pur e alcohol) AUDIT-C Answer Date Recorded Q1: How often do you have a drink containing alcohol? Never 11/05/2023 Q2: How many drinks containi ng alcohol do you have on a typical day when you are drinking? Patient does not drink Q3: How often do you have si x or more drinks on one occasion? Never 11/05/2023 PHQ-2 Answer Date Recorded PHQ-2 Total Score (If total score is 3 or more points, staff should administer the PHQ-9) 0 01/10/2021 Personal Safety Answer Date Recorded Have you ever been in or are you currently in a harmful physical or emotional relationship or is someone making you feel afraid or unsafe? Denies 11/05/2023 Comments No Sex and Gender Information Value Date Recorded Sex Assigned at Not on file Legal Sex Female 6:40 PM COTTON BUYER Gender Identity Not on file Sexual Orientation Not on file Last Filed Vital Signs Vital Sign Reading Time Taken Comments Blood Pressure 138/74 11/22/2023 9:47 AM CDT Pulse 82 11/22/2023 9:47 AM CDT Temperature 36.9 C (98.5 F) 11/22/2023 9:47 AM CDT Respiratory Rate 16 11/22/2023 9:47 AM CDT Oxygen Saturation 97% 11/22/2023 9:47 AM CDT Inhaled Oxygen Concentration - - Weight 69.9 kg (154 lb 1.6 oz) 11/22/2023 9:47 A M CDT Height 167.6 cm (5' 5.98 ) 11/22/2023 9:47 AM CD T Body Mass Index 24.88 11/22/2023 9:47 AM CDT Plan of Treatment Not on file Goals Goal Patient Goal Type Associated Problems Recent Progress Patient-Stated? Author [facility] No Koltno Bowden, RN Note: Bending, standing, lifting, sitting with minimal to no pain. Procedures Procedure Name Priority Date/Time Associated Diagnosis Comments HEPATITIS C ANTIBODY Routine 04/11/2019 from Last 3 Months or Most Recently Relevant to Health Maintenance Results * Hepatitis C antibody (04/11/2019) SCRIBED HCV ab non-reacti ve Blood specimen (specimen) Hugo Jaquez MD LAB MICROBIOLOGY - GENERAL OR DERABLES Final Result from Last 3 Months or Most Recently Relevant to Health Maintenance Insurance Advance Directives For more information, please contact: [phone] Documents on File Type Date Recorded Patient Composing Machine Operator Expl anation ADVANCE DIRECTIVE 11/05/2023 6:51 AM * Full Code (Latest Code Status on File) Date Activated Date Inactivated Comments 07/13/2019 11:56 AM 07/16/2019 6:50 PM * Full Code Date Activated Date Inactivated Comments 07/13/2019 9:24 AM 07/13/2019 11:56 AM Full CPR in case of cardiopulmonary arrest * Full Code Date Activated Date Inactivated Comments 06/17/2019 7:53 PM 06/18/2019 5:47 AM Full CPR i n case of cardiopulmonary arrest Care Teams Aquatic Laborer Relationship Specialty Start Date End Date Kimberly Jc NP [address] [place] [address] PCP - General Emergency Medicine 11/22/20 Hugo Jaquez MD On Air Personality Obstetrics and Gynecology 04/12/19
--- OUTSIDE RECORDS SUMMARY | 2024-10-23 08:41 | XMS_ITS | Encounter Summary ---
Author Organization [facility] Address [address] [place] [address] Phone Care Team Providers Care Spinner Concrete Pipe Name Role Phone Kimberly Jc APRN, SYSTEM CONTROLLER Primary Care P rovider Mack Owens MD Unavailable Timmy Ibarra Primary Care Provider [phone] Francisco Javier Ivey MD Unavailable Reason for Visit * Reason Comments Medication Refill Encounter Details Date Type Department Care Team (Late st Contact Info) Description 05/04/2022 Refill [facility] - [facility] - [place] [address] [place] [address] Kimberly Jc APRN, SYSTEM CONTROLLER [address] [place] [address] Medication Refill Social History Tobacco Use Types Packs/Day Years Used Date Smoking Tobacco: Every Day Cigarettes 0.3 15 Smokeless Tobacco: Never Alcohol Use Standard Drinks/Week Comments No 0 (1 standard drink = 0.6 oz pur e alcohol) PHQ-2 Answer Date Recorded PHQ-2 Score 0 05/13/2019 Education Answer Date Recorded What is the [...] encounter Miscellaneous Notes * Telephone Encounter - Linda Miles RN - 05/05/2022 12:16 PM CDT Refill request too soon. documented in this encounter Plan of Treatment Upcoming Encounters Date Type Department Care Team (Late st Contact Info) Description 11/06/2024 7:00 AM CDT Appointment [facility] [address] [place] [id number] Timmy Ibarra PAC [address] [place] [address] Discharge Disposition: Discharged to home or Selfcare documented as of this encounter Visit Diagnoses Not on filedocumented in this encounter Additional Health Concerns Assessment Noted Time PHQ-9 Depression Total Score: 0 06/10/20 18 9:00 AM CDT documented as of this encounter Care Teams Spinner Concrete Pipe Relationship Specialty Start Date End Date Kimberly Jc APRN, CNP [address] [place], [place] [id number] PCP - General Advanced Practice Nurse 02/14/20 Timmy Ibarra PAC [address] [place] [address] PCP - General Physician Grain Elevator Agent 02/17/24 Mack Owens MD [address] [address] Consulting Physician Colon and Rectal Surgery 11/23/22 Francisco Javier Ivey MD [address] [place] [address] Consulting Physician Neurological Surgery 03/07/24 documented as of this encounter
--- OUTSIDE RECORDS SUMMARY | 2024-10-23 08:41 | XMS_ITS | Clinical Summary ---
Author Organization [facility] Address [address] [place] [address] Phone Care Team Providers Care Insurance Follow Up Rep Name Role Phone FLORES OLIVEIRA, HENRRY Aguilera Unavailable [phone] Reason for Visit and Chief Complaint previous history of abnormal Pap smear - The Chief Complaint is: Eloise pt's Aunt present today. Return in 2 weeks to review colp/bx results Problems Includes: Problems addressed during this encounter and other active Problems Current Visit Onset Date Resolved Date Provider Conditio n Status History of Abnormal Pap Smear 03/27/2019 Unknown HENRRY TANNER MD Resolved Last Documented On 10/29/2021 11:32AM ; [facility] Note: was Closed. History of Depression 03/27/2019 Unknown HENRRY TANNER MD Resolved Last Documented On 10/29/2021 11:32AM ; [facility] Note: was Closed. History of Hematologic Disorders 03/27/2019 Unknown HENRRY TANNER MD Resolved Last Documented On 10/29/2021 11:32AM ; [facility] Note: was Closed. Tobacco Use 03/27/2019 Unknown HENRRY TANNER MD Resolved Last Documented On 10/29/2021 11:32AM ; [facility] Note: was Closed. Past Visits Onset Date Resolved Date Provider Condition Status Cervical Dysplasia: Severe 09/21/2023 HENRRY TANNER MD Active Last Documented On 09/21/2023 5:17PM ; [facility] Note: Unchanged Anal Fissure 03/17/2023 ENDER FRANKLIN R N JOCELYN BC Active Last Documented On 3 12:10PM ; [facility] Intervertebral Disc Degeneration 03/17/2023 CHAPO FRANKLIN RN NP BC Active Last Documented On 3 12:09PM ; [facility] Ovarian Cyst 03/17/2023 ENDER FRANKLIN RN NP B C Active Last Documented On 3 12:10PM ; [facility] Amenorrhea 03/25/2021 HENRRY TANNER MD Active Last Documented On 1 2:52PM ; [facility] Note: Unchanged Contact Dermatitis of Perineum 03/25/2021 HENRRY TANNER MD Active Last Documented On 1 2:52PM ; [facility] Note: Unchanged Oth mental disorders comp pr egnancy, second trimester 04/11/2019 HENRRY TANNER MD Active Last Documented On 9 2:33PM ; [facility] Note: Unchanged Plan of Treatment No Plan of Treatment Recorded Assessments Includes: Assessments from this encounter Findings - Ventral hernia without obstruction or gangrene - Last Documented On 04/26/2023 1:48PM ; [facility] - Cervical dysplasia--moderate (ALESSANDRO II) - Last Documented On 04/26/2023 1:48PM ; [facility] - Cervical dysplasia--severe (ALESSANDRO III) - Last Documented On 04/26/2023 1:48PM ; [facility] Medical Equipment - Implanted Devices Includes: Current Devices No Medical Equipment Recorded Medications Includes: Medications discussed during this encounter and other current Medications Discontinued / Stopped on this date HENRRY TANNER MD on 09/28/2019 PROzac 20 MG Oral Capsule Provider: ALANNA TANNER MD Diagnosis: Other mental dis orders complicating the puerperium Last Documented On 04/26/2023 1:03PM By Taye Bradley Jaja ; [facility] Current Medications (continue as prescribed) Veozah 45 MG Oral Tablet 09/21/2023 Provider: Diagnosis: Last Documented On 4 10:20AM By DOV MAYERS ; [facility] Albuterol Sulfate (5 MG/ML) 0.5% Inhalation Nebulization solution 03/03/2023 Provider: Diagnosis: Last Documented On 03/03/2023 12:59PM By Shalini Price ; [facility] Phenergan 25 mg Oral Tablet 03/03/2023 Provider: Diagnosis: Last Documented On 3 1:28PM By ENDER TESFAYE ; [facility] FLUoxetine HCl 20 MG Oral Capsule 07/21/2021 Provide r: MARIVEL LAW NP Diagnosis: Last Documented On 04/26/2023 1:03PM By Taye Bradley Jaja ; [facility] Gabapentin 300 MG Oral Capsule 03/25/2021 Provider: Diagnosis: 2 capsules tid Last Documented On 1 2:06PM By DOV JOHNSON Jaja ; [facility] Omeprazole 20 MG Oral Capsule Delayed Release 09/28/19 Provider: Diagnosis: Last Documented On 0 10:46AM By DOV JOHNSON Jaja ; [facility] Past Medications on file Veozah 45 MG Oral Tablet 03/17/2023 - 06/15/2023 Provi alvin: ENDER FRANKLIN RN JOCELYN Diagnosis: Flushing One tablet daily Last Documented On 3 11:49AM By ENDER TESFAYE ; [facility] Sulfamethoxazole-Trimethopri m 800-160 MG Oral Tablet 03/03/2023 - 03/10/2023 Provider: ENDER MARTÍNEZ Diagnosis: Furuncle, unspecified One tablet twice a day ONE TAB 2 TIMES A DAY WIT H FOOD Last Documented On 3 1:25PM By ENDER TESFAYE ; [facility] Medications Administered Includes: Administered Medications from this encounter No Administered Medications Recorded Vital Signs Includes: Vital Signs from this encounter Vital Name 04/26/2023 12:58P Blood Pressure Sitting L 116/80 BP Cuff Size Regular Temp-Temporal 98.3 Height (in) 66 Weight (lb) 147 Body Mass Index 23.7 Body Surface Area 1.8 Last Documented: On 04/26/2023 1:05PM ; [facility] Results Includes: Results discussed during this encounter No Results Recorded For Specified Dates History of Present Illness Includes: History of Present Illness from this encounter PIA HIGGINS is a 42 year old female. - Allergy list reviewed - Medication list reviewed - Patient denies any problems from the procedure Pt had discharge for 1-2 days. She is having menstural like cramps. Steady since the bx. Tylenol 1000 mg 2-3 x per day 'everyday' - Previous colposcopy on 04/13/23. No lesions were seen externally to biopsy. An ECC was done. 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 She presents to discuss options for management Social History Description Last Updated Tobacco use was 20 Smoked a pack a day prior to , down to 8-10 a day in preg, back up to one ppd since preg: NTQS 04/26/2023 Last Documented On 3 1:48PM ; [facility] Sexually active 04/13/2023 Last Documented On 3 12:56PM ; [facility] Smoking status : Current everyday smoker 04/13/2023 Last Documented On 3 12:56PM ; [facility] Marital history 03/17/2023 Last Documented On 3 12:56PM ; [facility] Not using alcohol 03/17/2023 Last Documented On 3 12:56PM ; [facility] Not using drugs 03/17/2023 Last Documented On 3 12:56PM ; [facility] Sexually active with 1 partners in the l ast year 03/17/2023 Last Documented On 3 12:56PM ; [facility] control is being practiced BTL Last Documented On 3 12:56PM ; [facility] Procedures and Surgical History Includes: Procedures from this encounter Procedures Code Diagnosis Performing Provider Service L ocation Service Date Clinical summary provided to patient Last Documented On 3 1:32PM ; [facility] abnormal Pap smear: atypical squamous ce lls of undetermined significance Last Documented On 3 1:12PM ; [facility] Surgical History Last Updated Previous colposcopy 9 Dr Veronica Price-Julia No Bx; 04/13/23 TCK 04/26/2023 Last Documented On 3 1:48PM ; [facility] History of tubal ligation bilateral salp ingectomy 04/13/2023 Last Documented On 3 12:56PM ; [facility] Surgical / procedural histor y Laparoscopic marsupialization of ovarian cyst x3 ~left and right hand carpal tunnel- 2009 ~epidural x 2- 202003/25/2021 Last Documented On 3 12:56PM ; [facility] Dilation + Curettage 06/16/17 03/29/2019 Last Documented On 3 12:56PM ; [facility] History of cholecystectomy 03/29/2019 Last Documented On 3 12:56PM ; [facility] Tonsillectomy with adenoidectomy 019 Last Documented On 3 12:56PM ; [facility] History of surgery Tonseilectomy 019 Last Documented On 3 12:56PM ; [facility] Medical History Includes: Medical History addressed during this encounter Description Last Updated Last mammogram date: 201009/21/2023 Last Documented On 3 12:56PM ; [facility] section 09/21/2023 Last Documented On 3 12:56PM ; [facility] Last pap smear date 03/17/2023 09/21/2023 Last Documented On 3 12:56PM ; [facility] LMP: 04/03/2023 and before that was 3 04/13/2023 Last Documented On 3 12:56PM ; [facility] Result: abnormal ASC-US HR HPV+ 04/13/20 23 Last Documented On 3 12:56PM ; [facility] Primary Care Provider: Marivel slaughter NP 03/03/2023 Last Documented On 3 12:56PM ; [facility] Contraception: bilateral salpingectomy w ith c/s 03/25/2021 Last Documented On 3 12:56PM ; [facility] Para 5 03/25/2021 Last Documented On 3 12:56PM ; [facility] History of colonoscopy fiberoptic was pe rformed 2008 [facility] 03/25/2021 Last Documented On 3 12:56PM ; [facility] History of cervical Pap smear 12/04/2018 03/25/2021 Last Documented On 3 12:56PM ; [facility] Baby thriving C/S [facility] 36- 5/7 weeks 6# 0wai Hernandez 09/28/2019 Last Documented On 3 12:56PM ; [facility] Result: normal 03/29/2019 Last Documented On 3 12:56PM ; [facility] Vaginal delivery x 4 03/29/2019 Last Documented On 3 12:56PM ; [facility] History of human papilloma virus infecti on 06/02/17 03/29/2019 Last Documented On 3 12:56PM ; [facility] Aborta 1 03/29/2019 Last Documented On 3 12:56PM ; [facility] 6 03/29/2019 Last Documented On 3 12:56PM ; [facility] History of Abnormal Pap Smear 11/29/2018: HGSIL; 01/18/2019: colp but no bx; 03/27/2019 Last Documented On 3 12:56PM ; [facility] History of depression depres raza dx'd at 13, meds since 19 y old: prior lexapro, effexor in the past, prozac: now for lthe last 10 yrs: pt likes; 03/27/2019 Last Documented On 3 12:56PM ; [facility] History of hematologic disorder B-12 and iron shots after last delivery 03/27/2019 Last Documented On 3 12:56PM ; [facility] Family History Includes: Family History addressed during this encounter Description Last Updated Maternal grandfather's history of diabet es mellitus MGF 03/29/2019 Last Documented On 3 12:56PM ; [facility] Spouse name: Thony 03/29/2019 Last Documented On 3 12:56PM ; [facility] Family history of hypertension mom and d ad 03/29/2019 Last Documented On 3 12:56PM ; [facility] Review of Systems Includes: Review of Systems from this encounter No Review of Systems Recorded Mental Status Includes: Mental Status from this encounter No Mental Status Recorded Functional Status Includes: Functional Status from this encounter No Functional Status Recorded Physical Exam Includes: Physical Exam from this encounter Allergies Includes: Active Allergies Substance Type Reaction Onset Date Resolved Date Statu s Reglan Allergy Hallucinations 03/27/2019 Acti ve Last Documented On 4 10:17AM ; [facility] Chantix Allergy 03/17/2023 Active Last Documented On 4 10:17AM ; [facility] Encounters Encounter Provider Location Date Check-In Time Check-Out Time Diagnosis FOLLOW UP HENRRY TANNER MD [facility] 3 12:49PM 1:45PM Cervical Dysplasia--mode rate (Alessandro II),Cervical Dysplasia--venkata re (Alessandro III),Ventral Hernia Without Obstruction Or Gangrene Insurance Includes: Active Insurance Policies Plan Name Member ID Group # Subscriber Relationship Effect flo Dates 1 - [facility] [id number] THONY HIGGINS Clinical Notes Includes: Clinical Notes from this encounter * Progress note Date Encounter Last Documented by 04/26/2023 FOLLOW UP Last documented on 04/26/2023; 2:54 PM, HENRRY TANNER MD; [facility] Active Problems & Conditions - Amenorrhea - Anal Fissure - Contact Dermatitis of Perineum - Intervertebral Disc Degeneration - Oth mental disorders comp , second trimester - Ovarian Cyst Chief Complaint The Chief Complaint is: Eloise pt's Aunt present today. Return in 2 weeks to review colp/bx results. Reason For Visit Previous history of abnormal Pap smear. History of Present Illness MARTITA HIGGINS is a 42 year old female. - Allergy list reviewed - Medication list reviewed - Patient denies any problems from the procedure Pt had discharge for 1-2 days. She is having menstural like cramps. Steady since the bx. Tylenol 1000 mg 2-3 x per day 'everyday' - Previous colposcopy on 04/13/23. No lesions were seen externally to biopsy. An ECC was done. 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 She presents to discuss options for management Current Medication - Albuterol Sulfate (5 MG/ML) 0.5% Inhalation Nebulization solution 0 days, 0 refills - FLUoxetine HCl 20 MG Oral Capsule 30 days, 0 refills - Gabapentin 300 MG Oral Capsule 2 capsules tid, 0 days, 0 refills - Methocarbamol 500 MG Oral Tablet bid, 0 days, 0 refills - Omeprazole 20 MG Oral Capsule Delayed Release 0 days, 0 refills - Phenergan 25 mg Oral Tablet 25 mg 0 days, 0 refills - Veozah 45 MG Oral Tablet One tablet daily, 30 days, 2 refills Past Medical/Surgical History Other: Primary Care Provider: Marivel Law NP Reported: LMP: 04/03/2023 and before that was 12/2022, Last pap smear date 03/17/2023 result: abnormal ASC-US HR HPV+, Last mammogram date: 2010 result: normal, and Contraception: bilateral salpingectomy with c/s. Surgical / Procedural: Surgical / procedural history Laparoscopic marsupialization of ovarian cyst x3 left and right hand carpal tunnel- 2008 epidural x 2- 2020. Previous colposcopy 01/18/2019 Dr Veronica Hernandez No Bx; 04/13/23 TCK, Tonsillectomy with adenoidectomy, and Dilation + Curettage 06/16/17. : Baby thriving C/S [facility] 36- 5/7 weeks 6# 0oz Lawrence Hernandez , 6, para 5, aborta 1, history of the : vaginal delivery x 4, and section. Other: Colonoscopy fiberoptic was performed 2008 [facility]. Cervical Pap smear 12/04/2018 Diagnoses: Abnormal Pap Smear 11/29/2018: HGSIL; 01/18/2019: colp but no bx; Depression depression dx'd at 13, meds since 19 y old: prior lexapro, effexor in the past, prozac: now for lthe last 10 yrs: pt likes; Human papilloma virus infection 06/02/17. Hematologic disorder B-12 and iron shots after last delivery Surgical: - Surgery Tonseilectomy - Cholecystectomy - Tubal ligation bilateral salpingectomy Social History Tobacco use: Tobacco use was 18 Smoked a pack a day prior to , down to 8-10 a day in preg, back up to one ppd since preg: NTQS and smoking status: Current everyday smoker. Alcohol: Not using alcohol. Drug Use: Not using drugs. Marital: Marital history . Sexual: Sexually active with 1 partners in the last year and control is being practiced BTL. Allergies - Chantix - Reglan Reaction: Hallucinations Family History Spouse name: Thony Systemic hypertension mom and dad Maternal grandfather's: Diabetes mellitus MGF Physical Findings - Vitals taken 04/26/2023 12:58 pm BP-Sitting L 116/80 mmHg BP Cuff Size Regular Temp-Temporal 98.3 F Height 66 in Weight 147 lbs Body Mass Index 23.7 kg/m2 Body Surface Area 1.8 m2 Abdomen: Hernia: - A ventral hernia was discovered on pt's right. It is reproducible with pt cough and pt can feel it as directed. - A tender ventral hernia was discovered. Genitalia: External: - Genitalia showed no abnormalities. Pelvic: Vagina: - Normal. - No vaginal discharge was observed. Cervix: - Normal. - No cervical discharge. - Showed no lesion: open and admits a cytobrush. - Not tender. Uterus: - Normal. - Not enlarged. - Not tender. Uterine Adnexae: - Normal Tenderness is not with the pelvic structures, it is in the anterior abdominal wall. This is the pain pt has been referring to per pt report. No further physical exam is performed Tests Pathology: Cytology: Abnormal Pap smear: atypical squamous cells of undetermined significance. Assessment - Ventral hernia without obstruction or gangrene - Cervical dysplasia--moderate (ALESSANDRO II) - Cervical dysplasia--severe (ALESSANDRO III) Therapy - Clinical summary provided to patient. Discussed Options for management were discussed including doing nothing ---not recommended. Serial pap smears are discussed - doing pap smear every year till we have 3 negatives. LEEP conization is discussed. The [employer] pamphlet on LEEP was given and discussed. A 4th option of hysterectomy had been discussed. Questions were answered. Patient expresses understanding and elects LEEP cone. Reviewed that her hernia hurts more with activity. She confirms that. It is worse with carrying heavy things: groceries, kids with diaper bags, and supplies. It is worse with coughing and sneezing. Discussed that when it hurts bad enough to consider surgery: a general surgeon is who fixes them. Meanwhile she needs to decrease her heavy lifting. She should quit smoking as we have discussed in the past. 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 NTQS. Plan StartCited - Other Follow-up needs LEEP in 5 weeks (60 min/RP) EndCited
--- OUTSIDE RECORDS SUMMARY | 2024-10-23 08:41 | XMS_ITS | Clinical Summary ---
Author Organization [facility] Address [address] [place] [address] Phone Care Team Providers Care Substation Wireman Name Role Phone HENRRY TANNER MD Unavailable [phone] Reason for Visit and Chief Complaint The Chief Complaint is: LEEP Problems Includes: Problems addressed during this encounter and other active Problems Current Visit Onset Date Resolved Date Provider Conditio n Status Cervical Dysplasia: Severe 09/21/2023 HENRRY TANNER MD Active Last Documented On 09/21/2023 5:17PM ; [facility] Note: Unchanged History of Abnormal Pap Smear 03/27/2019 Unknown HENRRY TANNER MD Resolved Last Documented On 10/29/2021 11:32AM ; [facility] Note: was Closed. History of Depression 03/27/2019 Unknown HENRRY TANNER MD Resolved Last Documented On 10/29/2021 11:32AM ; [facility] Note: was Closed. History of Hematologic Disorders 03/27/2019 Unknown HENRRY TANNER MD Resolved Last Documented On 10/29/2021 11:32AM ; [facility] Note: was Closed. Tobacco Use 03/27/2019 Unknown HENRRY TANNER MD Resolved Last Documented On 10/29/2021 11:32AM ; [facility] Note: was Closed. Past Visits Onset Date Resolved Date Provider Condition Status Anal Fissure 03/17/2023 ENDER Farias C Active Last Documented On 07/19/202 3 12:10PM ; [facility] Intervertebral Disc Degeneration 03/17/2023 CHAPO FRANKLIN RN WHNP BC Active Last Documented On 3 12:09PM ; [facility] Ovarian Cyst 03/17/2023 ENDER FRANKLIN RN WHNP B C Active Last Documented On 3 12:10PM ; [facility] Amenorrhea 03/25/2021 HENRRY TANNER MD Active Last Documented On 1 2:52PM ; [facility] Note: Unchanged Contact Dermatitis of Perineum 03/25/2021 HENRRY TANNER MD Active Last Documented On 1 2:52PM ; [facility] Note: Unchanged Oth mental disorders comp pr egnancy, second trimester 04/11/2019 HENRRY TANNER MD Active Last Documented On 9 2:33PM ; [facility] Note: Unchanged Plan of Treatment Pending Tests Order Diagnosis Results Due Ordering Petr rojas In office procedures - OB LEEP Carcinoma in situ of cervix, unspecified 09/07/23 HENRRY TANNER MD Last Documented On 3 2:52PM ; [facility] Education and Decision Aids were provided during visit for: INFORMED CONSENT DISCUSSION: Prior to the procedure the risks of LEEP were discussed with the patient, including but not limited to bleeding (both during the procedure and in the first 2 weeks following), infection, cervical stenosis, and inadequate margins requiring a repeat procedure. The benefits of obtaining excisional biopsy results and possible resolution of cervical dysplasia were communicated. The alternatives of watchful waiting with repeat colposcopy in two months, or cone biopsy in the ambulatory surgery center were discussed. Patient expressed understanding of the above and consented to the procedure Last Documented On 3 2:45PM ; [facility] Assessments Includes: Assessments from this encounter Findings - Severe cervical dysplasia (ALESSANDRO III) - Last Documented On 08/24/2023 2:53PM ; [facility] Instructions Includes: Instructions from this encounter Education and Decision Aids were provided during visit for: INFORMED CONSENT DISCUSSION: Prior to the procedure the risks of LEEP were discussed with the patient, including but not limited to bleeding (both during the procedure and in the first 2 weeks following), infection, cervical stenosis, and inadequate margins requiring a repeat procedure. The benefits of obtaining excisional biopsy results and possible resolution of cervical dysplasia were communicated. The alternatives of watchful waiting with repeat colposcopy in two months, or cone biopsy in the ambulatory surgery center were discussed. Patient expressed understanding of the above and consented to the procedure Last Documented On 3 2:45PM ; [facility] Medical Equipment - Implanted Devices Includes: Current Devices No Medical Equipment Recorded Medications Includes: Medications discussed during this encounter and other current Medications Discontinued / Stopped on this date on 03/25/2021 Methocarbamol 500 MG Oral Tablet Provider : Diagnosis: Last Documented On 3 2:05PM By DOV MAYERS ; [facility] Current Medications (continue as prescribed) Veozah 45 MG Oral Tablet 09/21/2023 Provider: Diagnosis: Last Documented On 4 10:20AM By DOV MAYERS ; [facility] Albuterol Sulfate (5 MG/ML) 0.5% Inhalation Nebulization solution 03/03/2023 Provider: Diagnosis: Last Documented On 03/03/2023 12:59PM By Shalini Price ; [facility] Phenergan 25 mg Oral Tablet 03/03/2023 Provider: Diagnosis: Last Documented On 3 1:28PM By ENDER TESFAYE ; [facility] FLUoxetine HCl 20 MG Oral Capsule 07/21/2021 Provide r: MARIVEL LAW NP Diagnosis: Last Documented On 04/26/2023 1:03PM By Taye MAYERS ; [facility] Gabapentin 300 MG Oral Capsule 03/25/2021 Provider: Diagnosis: 2 capsules tid Last Documented On 1 2:06PM By DOV MAYERS ; [facility] Omeprazole 20 MG Oral Capsule Delayed Release 09/28/19 Provider: Diagnosis: Last Documented On 0 10:46AM By DOV MAYERS ; [facility] Past Medications on file Veozah 45 MG Oral Tablet 03/17/2023 - 06/15/2023 Provi alvin: ENDER TONEY Diagnosis: Flushing One tablet daily Last Documented On 3 11:49AM By ENDER GOULDBC ; [facility] Sulfamethoxazole-Trimethopri m 800-160 MG Oral Tablet 03/03/2023 - 03/10/2023 Provider: ENDER FRANKLIN RN JOCELYN Diagnosis: Furuncle, unspecified One tablet twice a day ONE TAB 2 TIMES A DAY WIT H FOOD Last Documented On 3 1:25PM By ENDER FRANKLIN JOCELYN- ; [facility] Medications Administered Includes: Administered Medications from this encounter No Administered Medications Recorded Vital Signs Includes: Vital Signs from this encounter Vital Name 08/24/2023 01:57P Blood Pressure Sitting (mmHg) 126/78 Temp-Oral (F) 97.8 Height (in) 66 Weight (lb) 148.2 Body Mass Index 23.9 Body Surface Area 1.8 Last Documented: On 08/24/2023 2:07PM ; [facility] Results Includes: Results discussed during this encounter No Results Recorded For Specified Dates History of Present Illness Includes: History of Present Illness from this encounter PIA HIGGINS is a 43 year old female. - Allergy list reviewed - Medication list reviewed - Severe cervical dysplasia (ALESSANDRO III): pt had ASCUS pap with positive HR HPV testing on pap from 03/17/23. She then had colp done on 04/13/23. No lesions were seen to biopsy externally but the ECC was positive for ALESSANDRO 2-3. Options for management are discussed. She has had a chance to review the ACOG LEEP pamphlet and presents back for LEEP Social History Description Last Updated Current smoker 08/24/2023 Last Documented On 3 2:53PM ; [facility] Tobacco use was 20 Smoked a pack a day prior to , down to 8-10 a day in preg, back up to one ppd since preg 08/24/2023 Last Documented On 3 2:53PM ; [facility] Sexually active 04/13/2023 Last Documented On 3 1:55PM ; [facility] Marital history 03/17/2023 Last Documented On 3 1:55PM ; [facility] Not using alcohol 03/17/2023 Last Documented On 3 1:55PM ; [facility] Not using drugs 03/17/2023 Last Documented On 3 1:55PM ; [facility] Sexually active with 1 partners in the l ast year 03/17/2023 Last Documented On 3 1:55PM ; [facility] control is being practiced BTL Last Documented On 3 1:55PM ; [facility] Sexually active 6 weeks 09/28 Last Documented On 3 1:55PM ; [facility] Smoking Status Unknown Procedures and Surgical History Includes: Procedures from this encounter Procedures Code Diagnosis Performing Provider Service Location Service Date Loop electrode excision of cervix (LEEP) : The patient was placed in the dorsal lithotomy position and a LEEP speculum with side wall protection was inserted. The cervix was visualized with and without Acetic acid (5%) wash and with and without green filtered light applied to the cervix to enhance visualization of any visible lesions. 18 ml of 2% lidocaine with epinephrine was injected via a 22 g spinal needle circumferentially in the cervix. A 15 x 12 mm loop electrode was used to excise a cylindrical specimen from the cervix. It is inked at 12 o'clock to orient the tissue for the pathologist. A deeper endocervical pass is taken with a 10 x 10 mm electorode. It is also inked at 12. A ball electrode was used as needed to cauterize any points of bleeding . Monsol's solution was applied to the cervix via a long swab. EBL = 1 mm. Complications: none. Specimens were sent to pathology. She is not to have anything in the vagina till all of the discharge quits. Follow-up will be in 2-3 weeks. The pathology results will be reviewed at that time [id number] Last Documented On 3 2:51PM ; [facility] Surgical History Last Updated Previous colposcopy 9 Dr Veronica Hernandez No Bx; 04/13/23 TCK 04/26/2023 Last Documented On 3 1:55PM ; [facility] History of tubal ligation bilateral salp ingectomy 04/13/2023 Last Documented On 3 1:55PM ; [facility] Surgical / procedural histor y Laparoscopic marsupialization of ovarian cyst x3 ~left and right hand carpal tunnel- 2008 ~epidural x 2- 202003/25/2021 Last Documented On 3 1:55PM ; [facility] Dilation + Curettage 06/16/17 03/29/2019 Last Documented On 3 1:55PM ; [facility] History of cholecystectomy 03/29/2019 Last Documented On 3 1:55PM ; [facility] Tonsillectomy with adenoidectomy 019 Last Documented On 3 1:55PM ; [facility] History of surgery Tonseilectomy 019 Last Documented On 3 1:55PM ; [facility] Medical History Includes: Medical History addressed during this encounter Description Last Updated section 09/21/2023 Last Documented On 3 1:55PM ; [facility] Last pap smear date 03/17/2023 09/21/2023 Last Documented On 3 1:55PM ; [facility] Last mammogram date: 05/04/2023 3 Last Documented On 3 2:53PM ; [facility] LMP: 04/03/2023 and before that was 3 04/13/2023 Last Documented On 3 1:55PM ; [facility] Result: abnormal ASC-US HR HPV+ 04/13/20 23 Last Documented On 3 1:55PM ; [facility] Primary Care Provider: Marivel slaughter NP 03/03/2023 Last Documented On 3 1:55PM ; [facility] Contraception: bilateral salpingectomy w ith c/s 03/25/2021 Last Documented On 3 1:55PM ; [facility] Para 5 03/25/2021 Last Documented On 3 1:55PM ; [facility] History of colonoscopy fiberoptic was pe rformed 2008 [facility] 03/25/2021 Last Documented On 3 1:55PM ; [facility] Baby thriving C/S [facility] 36- 5/7 weeks 6# 0wai Hernandez 09/28/2019 Last Documented On 3 1:55PM ; [facility] Infant is bottle-feeding 09/28/2019 Last Documented On 3 1:55PM ; [facility] Result: normal 03/29/2019 Last Documented On 3 1:55PM ; [facility] Vaginal delivery x 4 03/29/2019 Last Documented On 3 1:55PM ; [facility] History of human papilloma virus infecti on 06/02/17 03/29/2019 Last Documented On 3 1:55PM ; [facility] A colonoscopy was performed 2009 019 Last Documented On 3 1:55PM ; [facility] Aborta 1 03/29/2019 Last Documented On 3 1:55PM ; [facility] 6 03/29/2019 Last Documented On 3 1:55PM ; [facility] History of Abnormal Pap Smear 11/29/2018: HGSIL; 01/18/2019: colp but no bx; 03/27/2019 Last Documented On 3 1:55PM ; [facility] History of depression depres raza dx'd at 13, meds since 19 y old: prior lexapro, effexor in the past, prozac: now for lthe last 10 yrs: pt likes; 03/27/2019 Last Documented On 3 1:55PM ; [facility] History of hematologic disorder B-12 and iron shots after last delivery 03/27/2019 Last Documented On 3 1:55PM ; [facility] Family History Includes: Family History addressed during this encounter Description Last Updated Maternal grandfather's history of diabet es mellitus MGF 03/29/2019 Last Documented On 3 1:55PM ; [facility] Spouse name: Thony 03/29/2019 Last Documented On 3 1:55PM ; [facility] Family history of hypertension mom and d ad 03/29/2019 Last Documented On 3 1:55PM ; [facility] Review of Systems Includes: Review of Systems [...] ve Last Documented On 4 10:17AM ; [facility] Chantix Allergy 03/17/2023 Active Last Documented On 4 10:17AM ; [facility] Encounters Encounter Provider Location Date Check-In Time Check-Out Time Diagnosis PROCEDURE OFFICE HENRRY TANNER MD [facility] 08/24/20 1:54PM 2:47PM Cervical Dysplasia: Severe Insurance Includes: Active Insurance Policies Plan Name Member ID Group # Subscriber Relationship Effect flo Dates 1 - [facility] [id number] THONY HIGGINS Clinical Notes Includes: Clinical Notes from this encounter * Progress note Date Encounter Last Documented by 08/24/2023 PROCEDURE OFFICE Last documented on 08/24/2023; 2:53 PM, HENRRY TANNER MD; [facility] Active Problems & Conditions - Amenorrhea - Anal Fissure - Contact Dermatitis of Perineum - Intervertebral Disc Degeneration - Oth mental disorders comp , second trimester - Ovarian Cyst Chief Complaint The Chief Complaint is: LEEP. History of Present Illness MARTITA HIGGINS is a 43 year old female. - Allergy list reviewed - Medication list reviewed - Severe cervical dysplasia (ALESSANDRO III): pt had ASCUS pap with positive HR HPV testing on pap from 03/17/23. She then had colp done on 04/13/23. No lesions were seen to biopsy externally but the ECC was positive for ALESSANDRO 2-3. Options for management are discussed. She has had a chance to review the ACOG LEEP pamphlet and presents back for LEEP Current Medication - Albuterol Sulfate (5 MG/ML) 0.5% Inhalation Nebulization solution 0 days, 0 refills - FLUoxetine HCl 20 MG Oral Capsule 30 days, 0 refills - Gabapentin 300 MG Oral Capsule 2 capsules tid, 0 days, 0 refills - Omeprazole 20 MG Oral Capsule Delayed Release 0 days, 0 refills - Phenergan 25 mg Oral Tablet 25 mg 0 days, 0 refills Past Medical/Surgical History Other: Primary Care Provider: Marivel Law NP Reported: LMP: 04/03/2023 and before that was 12/2022, Last pap smear date 03/17/2023 result: abnormal ASC-US HR HPV+, Last mammogram date: 05/04/2023 result: normal, and Contraception: bilateral salpingectomy with c/s. Surgical / Procedural: Surgical / procedural history Laparoscopic marsupialization of ovarian cyst x3 left and right hand carpal tunnel- 2008 epidural x 2- 2020. Previous colposcopy 01/18/2019 Dr Veronica Price-Julia No Bx; 04/13/23 TCK, Tonsillectomy with adenoidectomy, and Dilation + Curettage 06/16/17. Tests: A colonoscopy was performed 2009. Dietary: is bottle-feeding. : Baby thriving C/S [facility] 36- 5/7 weeks 6# 0oz Lawrence Hernandez , 6, para 5, aborta 1, history of the : vaginal delivery x 4, and section. Other: Diaignostic fiberoptic colonoscopy 2008 [facility] Diagnoses: Abnormal Pap Smear 11/29/2018: HGSIL; 01/18/2019: [...] preg, back up to one ppd since preg and current smoker. Alcohol: Not using alcohol. Drug Use: Not using drugs. Marital: Marital history . Sexual: Sexually active 6 weeks , with 1 partners in the last year, and control is being practiced BTL. Allergies - Chantix - Reglan Reaction: Hallucinations Family History Spouse name: Thony Systemic hypertension mom and dad Maternal grandfather's: Diabetes mellitus MGF Physical Findings - Vitals taken 08/24/2023 01:57 pm BP-Sitting 126/78 mmHg Temp-Oral 97.8 F Height 66 in Weight 148 lbs 3.2 oz Body Mass Index 23.9 kg/m2 Body Surface Area 1.8 m2 Assessment - Severe cervical dysplasia (ALESSANDRO III) Therapy - Loop electrode excision of cervix (LEEP): The patient was placed in the dorsal lithotomy position and a LEEP speculum with side wall protection was inserted. The cervix was visualized with and without Acetic acid (5%) wash and with and without green filtered light applied to the cervix to enhance visualization of any visible lesions. 18 ml of 2% lidocaine with epinephrine was injected via a 22 g spinal needle circumferentially in the cervix. A 15 x 12 mm loop electrode was used to excise a cylindrical specimen from the cervix. It is inked at 12 o'clock to orient the tissue for the pathologist. A deeper endocervical pass is taken with a 10 x 10 mm electorode. It is also inked at 12. A ball electrode was used as needed to cauterize any points of bleeding . Monsol's solution was applied to the cervix via a long swab. EBL = 1 mm. Complications: none. Specimens were sent to pathology. She is not to have anything in the vagina till all of the discharge quits. Follow-up will be in 2-3 weeks. The pathology results will be reviewed at that time. Counseling/Education INFORMED CONSENT DISCUSSION: Prior to the procedure the risks of LEEP were discussed with the patient, including but not limited to bleeding (both during the procedure and in the first 2 weeks following), infection, cervical stenosis, and inadequate margins requiring a repeat procedure. The benefits of obtaining excisional biopsy results and possible resolution of cervical dysplasia were communicated. The alternatives of watchful waiting with repeat colposcopy in two months, or cone biopsy in the ambulatory surgery center were discussed. Patient expressed understanding of the above and consented to the procedure. Plan StartCited - Carcinoma in situ of cervix, unspecified In office procedures/OB: LEEP EndCited StartCited - Other Follow-up return in 2-3 wks to review LEEP results (30 min) EndCited
--- OUTSIDE RECORDS SUMMARY | 2024-10-23 08:41 | XMS_ITS | Encounter Summary ---
Author Organization [facility] Address [address] [place] [id number] Care Team Providers Care Customer Relations Assistant Name Role Phone Hugo Jaquez MD Unavailable Kimberly Jc NP Primary Care Provide r Encounter Details Date Type Department Care Team (Late st Contact Info) Description 12/18/2020 Telephone [facility] 2 [facility] [address] [place] [address] Vitaly Lopez MD [address] [place] [address] [address] [place] [address] Social History Tobacco Use Types Packs/Day Years [...] on file 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
--- OUTSIDE RECORDS SUMMARY | 2024-10-23 08:41 | XMS_ITS | Clinical Summary ---
Author Organization [facility] Address [address] [place] [address] Phone Care Team Providers Care Pull Up Hand Name Role Phone FLORES OLIVEIRA, HENRRY Aguilera Unavailable [phone] Reason for Visit and Chief Complaint CHART UPDATE Problems Includes: Problems addressed during this encounter and other active Problems Current Visit Onset Date Resolved Date Provider Conditio n Status History of Abnormal Pap Smear 03/27/2019 Unknown HENRRY TANNER MD Resolved Last Documented On 10/29/2021 11:32AM ; [facility] Note: was Closed. History of Depression 03/27/2019 Unknown HENRRY TANNER MD Resolved Last Documented On 10/29/2021 11:32AM ; [facility] Note: was Closed. History of Hematologic Disorders 03/27/2019 Unknown HENRRY TANNER MD Resolved Last Documented On 10/29/2021 11:32AM ; [facility] Note: was Closed. Past Visits Onset Date Resolved Date Provider Condition Status Cervical Dysplasia: Severe 09/21/2023 HENRRY TANNER MD Active Last Documented On 09/21/2023 5:17PM ; [facility] Note: Unchanged Anal Fissure 03/17/2023 ENDER Sena JOCELYN Active Last Documented On 3 12:10PM ; [facility] Intervertebral Disc Degeneration 03/17/2023 CHAPO FRANKLIN RN JOCELYN Active Last Documented On 3 12:09PM ; [facility] Ovarian Cyst 03/17/2023 ENDER TONEY B C Active Last Documented On 3 12:10PM ; [facility] Amenorrhea 03/25/2021 HENRRY TANNER MD Active Last Documented On 1 2:52PM ; [facility] Note: Unchanged Contact Dermatitis of Perineum 03/25/2021 HENRRY TANNER MD Active Last Documented On 1 2:52PM ; [facility] Note: Unchanged Oth mental disorders comp pr egnancy, second trimester 04/11/2019 HENRRY TANNER MD Active Last Documented On 9 2:33PM ; [facility] Note: Unchanged Plan of Treatment Pending Tests Order Diagnosis Results Due Ordering P rovider Radiology @ other - Ultrasound Pelvic U/S w/TVT (TransVag) Unspecified ovarian cyst, unspecified side 05/05/23 ENDER FRANKLIN RN JOCELYN BC Last Documented On 3 8:24AM ; [facility] Lab RENAL FUNCTION PANEL 06/15/23 KAVYA TONEY Last Documented On 3 11:52AM ; [facility] Assessments Includes: Assessments from this encounter Findings - [N83.209 - Unspecified ovarian cyst, unspecified side] Hemorrhagic ovarian cyst - Last Documented On 04/21/2023 8:22AM ; [facility] Medical Equipment - Implanted Devices Includes: Current Devices No Medical Equipment Recorded Medications Includes: Medications discussed during this encounter and other current Medications Current Medications (continue as prescribed) Veozah 45 MG Oral Tablet 09/21/2023 Provider: Diagnosis: Last Documented On 4 10:20AM By DOV MAYERS ; [facility] Albuterol Sulfate (5 MG/ML) 0.5% Inhalation Nebulization solution 03/03/2023 Provider: Diagnosis: Last Documented On 03/03/2023 12:59PM By Shalini Price ; [facility] Phenergan 25 mg Oral Tablet 03/03/2023 Provider: Diagnosis: Last Documented On 3 1:28PM By ENDER TESFAYE ; [facility] FLUoxetine HCl 20 MG Oral Capsule 07/21/2021 Provide r: MARIVEL LAW NP Diagnosis: Last Documented On 04/26/2023 1:03PM By Taye Bradley Jaja ; [facility] Gabapentin 300 MG Oral Capsule 03/25/2021 Provider: Diagnosis: 2 capsules tid Last Documented On 1 2:06PM By DOV MAYERS ; [facility] Omeprazole 20 MG Oral Capsule Delayed Release 09/28/19 Provider: Diagnosis: Last Documented On 0 10:46AM By DOV JOHNSON Jaja ; [facility] Past Medications on file Veozah 45 MG Oral Tablet 03/17/2023 - 06/15/2023 Provi alvin: ENDER FRANKLIN RN JOCELYN Diagnosis: Flushing One tablet daily Last Documented On 3 11:49AM By ENDER FRANKLIN RADHA ; [facility] Sulfamethoxazole-Trimethopri m 800-160 MG Oral Tablet 03/03/2023 - 03/10/2023 Provider: ENDER FRANKLIN RN JOCELYN BC Diagnosis: Furuncle, unspecified One tablet twice a day ONE TAB 2 TIMES A DAY WIT H FOOD Last Documented On 3 1:25PM By ENDER FRANKLIN RADHA ; [facility] Medications Administered Includes: Administered Medications from this encounter No Administered Medications Recorded Results Includes: Results discussed during this encounter No Results Recorded For Specified Dates History of Present Illness Includes: History of Present Illness from this encounter No History of Present Illness Recorded Social History No Social History Recorded - Smoking Status Unknown Procedures and Surgical History Surgical History Last Updated Previous colposcopy 01/18/2019 Dr Anselmo Hernandez No Bx 04/26/2023 Last Documented On 3 8:11AM ; [facility] History of tubal ligation bilateral salp ingectomy 04/13/2023 Last Documented On 3 8:11AM ; [facility] Surgical / procedural histor y Laparoscopic marsupialization of ovarian cyst x3 ~left and right hand carpal tunnel- 2009 ~epidural x 2- 202003/25/2021 Last Documented On 3 8:11AM ; [facility] Dilation + Curettage 06/16/17 03/29/2019 Last Documented On 3 8:11AM ; [facility] History of cholecystectomy 03/29/2019 Last Documented On 3 8:11AM ; [facility] Tonsillectomy with adenoidectomy 019 Last Documented On 3 8:11AM ; [facility] History of surgery Tonseilectomy 019 Last Documented On 3 8:11AM ; [facility] Medical History Includes: Medical History addressed during this encounter Description Last Updated Last mammogram date: 201009/21/2023 Last Documented On 3 8:11AM ; [facility] section 09/21/2023 Last Documented On 3 8:11AM ; [facility] Last pap smear date 03/17/2023 09/21/2023 Last Documented On 3 8:11AM ; [facility] LMP: 04/03/2023 and before that was 3 04/13/2023 Last Documented On 3 8:11AM ; [facility] Result: abnormal ASC-US HR HPV+ 04/13/20 23 Last Documented On 3 8:11AM ; [facility] A mammogram was performed 03/17/2023 Last Documented On 3 8:11AM ; [facility] Primary Care Provider: Marivel slaughter NP 03/03/2023 Last Documented On 3 8:11AM ; [facility] Contraception: bilateral salpingectomy w ith c/s 03/25/2021 Last Documented On 3 8:11AM ; [facility] Para 5 03/25/2021 Last Documented On 3 8:11AM ; [facility] History of colonoscopy fiberoptic was pe rformed 2008 [facility] 03/25/2021 Last Documented On 3 8:11AM ; [facility] History of cervical Pap smear 12/04/2018 03/25/2021 Last Documented On 3 8:11AM ; [facility] Baby thriving C/S [facility] 36- 5/7 weeks 6# 0wai Hernandez 09/28/2019 Last Documented On 3 8:11AM ; [facility] Infant is bottle-feeding 09/28/2019 Last Documented On 3 8:11AM ; [facility] Result: normal 03/29/2019 Last Documented On 3 8:11AM ; [facility] Vaginal delivery x 4 03/29/2019 Last Documented On 3 8:11AM ; [facility] History of human papilloma virus infecti on 06/02/17 03/29/2019 Last Documented On 3 8:11AM ; [facility] A colonoscopy was performed 2009 019 Last Documented On 3 8:11AM ; [facility] Aborta 1 03/29/2019 Last Documented On 3 8:11AM ; [facility] 6 03/29/2019 Last Documented On 3 8:11AM ; [facility] History of Abnormal Pap Smear 11/29/2018: HGSIL; 01/18/2019: colp but no bx; 03/27/2019 Last Documented On 3 8:11AM ; [facility] History of depression depres raza dx'd at 13, meds since 19 y old: prior lexapro, effexor in the past, prozac: now for lthe last 10 yrs: pt likes; 03/27/2019 Last Documented On 3 8:11AM ; [facility] History of hematologic disorder B-12 and iron shots after last delivery 03/27/2019 Last Documented On 3 8:11AM ; [facility] Family History Includes: Family History addressed during this encounter Description Last Updated Maternal grandfather's history of diabet es mellitus MGF 03/29/2019 Last Documented On 3 8:11AM ; [facility] Spouse name: Thony 03/29/2019 Last Documented On 3 8:11AM ; [facility] Family history of hypertension mom and d ad 03/29/2019 Last Documented On 3 8:11AM ; [facility] Review of Systems Includes: Review of Systems from this encounter No Review of Systems Recorded Mental Status Includes: Mental Status from this encounter No Mental Status Recorded Functional Status Includes: Functional Status from this encounter No Functional Status Recorded Physical Exam Includes: Physical Exam from this encounter No Physical Exam Recorded Allergies Includes: Active Allergies Substance Type Reaction Onset Date Resolved Date Statu s Reglan Allergy Hallucinations 03/27/2019 Acti ve Last Documented On 4 10:17AM ; [facility] Chantix Allergy 03/17/2023 Active Last Documented On 4 10:17AM ; [facility] Encounters Encounter Provider Location Date Check-In Time Check- Out Time Diagnosis CHART UPDATE ENDER FRANKLIN RN JOCELYN 3 8:11AM 11:59PM Ovarian Cyst Hemorrhagic Insurance Includes: Active Insurance Policies Plan Name Member ID Group # Subscriber Relationship Effect flo Dates 1 - [facility] [id number] THONY HIGGINS Clinical Notes Includes: Clinical Notes from this encounter * Progress note Date Encounter Last Documented by 04/21/2023 CHART UPDATE Last documented on 04/21/2023; 8:22 AM, ENDER FARNKLIN RN JOCELYN ; [facility] Active Problems & Conditions - N91.2 - Amenorrhea - K60.2 - Anal Fissure - L25.9 - Contact Dermatitis of Perineum - Intervertebral Disc Degeneration - O99.342 - Oth mental disorders comp , second trimester - Ovarian Cyst Current Medication - Albuterol Sulfate (5 MG/ML) 0.5% Inhalation Nebulization solution 0 days, 0 refills - Gabapentin 300 MG Oral Capsule 2 capsules tid, 0 days, 0 refills - Methocarbamol 500 MG Oral Tablet bid, 0 days, 0 refills - Omeprazole 20 MG Oral Capsule Delayed Release 0 days, 0 refills - Phenergan 25 mg Oral Tablet 25 mg 0 days, 0 refills - PROzac 20 MG Oral Capsule 1 capsule daily, 30 days, 3 refills - Veozah 45 MG Oral Tablet [...] 2- 2020. Previous colposcopy 01/18/2019 Dr Veronica Price-Ali No Bx, Tonsillectomy with adenoidectomy, and Dilation + Curettage 06/16/17. Tests: A mammogram was performed and a colonoscopy was performed 2009. Dietary: is bottle-feeding. : Baby thriving C/S [facility] 36- 5/7 weeks 6# 0oz Lawrence Hernandez [...] - Cholecystectomy - Tubal ligation bilateral salpingectomy Allergies - Chantix - Reglan Reaction: Hallucinations Family History Spouse name: Thony Systemic hypertension mom and dad Maternal grandfather's: Diabetes mellitus MGF Tests 04/14/23 TV TA U/S = uterus 4.2 x 4.6 x 7.9 cm endometrial stripe = 6 mm R ovary = 2.0 x 2.3 x 3.6 cm R ovarian cyst = 1.7 cm probable hemorrhagic cyst L ovary = 1.2 x 2.1 x 2.2 cm Assessment - [N83.209 - Unspecified ovarian cyst, unspecified side] Hemorrhagic ovarian cyst Plan StartCited - Other PHY ORDER/COMMENT Please inform pt pelvic U/S indicates R ovarian hemorrhagic cyst. Order in chart to repeat scan in 8 weeks. Please see breast task and inquire if pt has obtained her diagnostic mammogram. Thanks EndCited StartCited - Unspecified ovarian cyst, unspecified side Radiology @ other/Ultrasound: Pelvic U/S w/TVT (TransVag) Instructions: repeat scan in 8 weeks for R ovarian hemorrhagic cyst EndCited
--- OUTSIDE RECORDS SUMMARY | 2024-10-23 08:41 | XMS_ITS | Encounter Summary ---
Author Organization [facility] Address [address] [place] [address] Phone Care Team Providers Care Electric Motor Fitter Name Role Phone Kimberly Jc APRN, FOREIGN EXCHANGE SERVICES MANAGER Primary Care P rovider Mack Owens MD Unavailable Timmy Ibarra Primary Care Provider [phone] Francisco Javier Ivey MD Unavailable [phone] Reason for Visit * Reason Comments Medication Refill Encounter Details Date Type Department Care Team (Late st Contact Info) Description 08/06/2022 Refill [facility] - Primary Care - [place] [address] [place] [address] Kimberly Jc APRN, FOREIGN EXCHANGE SERVICES MANAGER [address] [place] [address] Medication Refill Social History Tobacco [...] on file Sexual Orientation Not on file COVID-19 Exposure Response Date Recorded In the last 10 days, have yo u been in contact with someone who was confirmed or suspected to have Coronavirus/COVID-19? No / Unsure 07/30/2022 11:58 AM WALLPAPER HANGER HELPER documented as of this encounter Miscellaneous Notes * Telephone Encounter - Linda Miles RN - 08/06/2022 11:47 AM WALLPAPER HANGER HELPER Duplicate request. PAPER HANGER HELPER documented in this encounter Plan of Treatment Upcoming Encounters Date Type Department Care Team (Late st Contact Info) Description 11/06/2024 7:00 AM CDT Appointment [facility] [address] [place] [address] Timmy Ibarra PAC [address] [place] [address] Discharge Disposition: Discharged to home or Selfcare documented as of this encounter Visit Diagnoses Not on filedocumented in this encounter Additional Health Concerns Assessment Noted Time PHQ-9 Depression Total Score: 0 06/10/20 18 9:00 AM CDT documented as of this encounter Care Teams Electric Motor Fitter Relationship Specialty Start Date End Date Kimberly Jc APRN, FOREIGN EXCHANGE SERVICES MANAGER [address] [place], [place] [id number] PCP - General Advanced Practice Nurse 02/14/20 Timmy Ibarra PAC [address] [place] [id number] PCP - General Physician Fuel Quality Tech 02/17/24 Mack Owens MD [address] [address] Consulting Physician Colon and Rectal Surgery 11/23/22 Francisco Javier Ivey MD [address] [place] [address] Consulting Physician Neurological Surgery 03/07/24 documented as of this encounter
--- OUTSIDE RECORDS SUMMARY | 2024-10-23 08:41 | XMS_ITS | Encounter Summary ---
Author Organization [facility] Address [address] [place] [address] Phone Care Team Providers Care Resort Desk Clerk Name Role Phone Kimberly Jc APRN, WAITER/WAITRESS COCKTAIL LOUNGE Primary Care P rovider Mack Owens MD Unavailable Timmy Ibrara Primary Care Provider [phone] Francisco Javier Ivey MD Unavailable Reason for Visit * Reason Comments Medication Refill Encounter Details Date Type Department Care Team (Late st Contact Info) Description 05/11/2022 Refill [facility] - Primary Care - [place] [address] [place] [address] Kimberly Jc APRN, WAITER/WAITRESS COCKTAIL LOUNGE [address] [place] [address] Medication Refill Social History Tobacco [...] encounter Miscellaneous Notes * Telephone Encounter - Alexa Arreaga RN - 05/11/2022 10:29 AM CDT Refill too soon. Patient should have a refill on file at pharmacy. documented in this encounter Plan of Treatment Upcoming Encounters Date Type Department Care Team (Late st Contact Info) Description 11/06/2024 7:00 AM CDT Appointment [facility] MRI [address] [place] [phone] Timmy Ibarra PAC [address] [place] [address] Discharge Disposition: Discharged to home or Selfcare documented as of this encounter Visit Diagnoses Not on filedocumented in this encounter Additional Health Concerns Assessment Noted Time PHQ-9 Depression Total Score: 0 06/10/20 18 9:00 AM CDT documented as of this encounter Care Teams Resort Desk Clerk Relationship Specialty Start Date End Date Kimberly Jc APRN, WAITER/WAITRESS COCKTAIL LOUNGE [address] [place] [address] PCP - General Advanced Practice Nurse 02/14/20 Timmy Ibarra PAC [address] [place] [address] PCP - General Physician Application Development Consultant 02/17/24 Mack Owens MD [address] [address] Consulting Physician Colon and Rectal Surgery 11/23/22 Francisco Javier Ivey MD [address] [place] [address] Consulting Physician Neurological Surgery 03/07/24 documented as of this encounter
--- OUTSIDE RECORDS SUMMARY | 2024-10-23 08:41 | XMS_ITS ---
Care Plan - [facility] Created on: October 23, 2024 MARTITA HIGGINS : 1980 Sex: Female Author Organization [facility] Address [address] [place] [address] Phone Care Team Providers Care Animator Name Role Phone FLORES OLIVEIRA, HENRRY C Unavailable [phone]
--- OUTSIDE RECORDS SUMMARY | 2024-10-23 08:41 | XMS_ITS | Encounter Summary ---
Author Organization [facility] Address [address] [place] [address] Phone Care Team Providers Care Extracorporeal Technician Name Role Phone Kimberly Jc APRN, GENERAL ADMINISTRATOR Primary Care P rovider Mack Owens MD Unavailable Timmy Ibarra Primary Care Provider [phone] Francisco Javier Ivey MD Unavailable Reason for Visit * Reason Comments Medication Refill Encounter Details Date Type Department Care Team (Late st Contact Info) Description 05/06/[address] [facility] - Primary Care - [place] [address] [place] [address] Kimberly Jc APRN, GENERAL ADMINISTRATOR [address] [place] [address] Medication Refill Social History Tobacco [...] encounter Miscellaneous Notes * Telephone Encounter - Ranjana Hernandez RN - 05/06/2022 8:15 AM CDT Refill too soon documented in this encounter Plan of Treatment Upcoming Encounters Date Type Department Care Team (Late st Contact Info) Description 11/06/2024 7:00 AM CDT [facility] [address] [place] [phone] Timmy Ibarra PAC [address] [place] [address] Discharge Disposition: Discharged to home or Selfcare documented as of this encounter Visit Diagnoses Diagnosis Generalized anxiety disorder documented in this encounter Additional Health Concerns Assessment Noted Time PHQ-9 Depression Total Score: 0 06/10/20 18 9:00 AM CDT documented as of this encounter Care Teams Extracorporeal Technician Relationship Specialty Start Date End Date Kimberly Jc APRN, CNP [address] [place], [place] [id number] PCP - General Advanced Practice Nurse 02/14/20 Timmy Ibarra PAC [address] [place] [address] PCP - General Physician Pantograph I Engraver 02/17/24 Mack Owens MD [address] [facility] [address] [address] Consulting Physician Colon and Rectal Surgery 11/23/22 Francisco Javier Ivey MD [address] [place] [address] Consulting Physician Neurological Surgery 03/07/24 documented as of this encounter
--- OUTSIDE RECORDS SUMMARY | 2024-10-23 08:41 | XMS_ITS ---
Author Organization [facility] Address [address] [place] [address] Care Team Providers Care Supervisor Braiding Name Role Phone Hugo Jaquez MD Unavailable [phone] Kimberly Jc NP Primary Care Provide r Active Problems Problem Noted Date Diagnosed Date High grade squamous intraepi thelial lesion (HGSIL), grade 3 ALESSANDRO, on biopsy of cervix 10/12/2023 Non-recurrent bilateral inguinal hernia 05/28/20 23 Laryngeal spasm 09/09/2022 Voice hoarseness 09/09/2022 Assessment & Plan (09/09/2022 12:22 PM ZANJERO): Increase omeprazole to 40 mg daily Start [...] be retained placenta. Plan for delivery at [facility] Her placentation appears normal on US [...] and GA at presentation, did not offer [place] however we did family service counselor patient on recurrence risk of PTD. Anxiety disorder 04/12/2009 Overview (04/27/2019): On Prozac 20mg daily. Stable. S/p counseling of risk of respiratory depression. Assessment & Plan (07/07/2019 1:34 PM ZANJERO): Reports mood has been good on current dose. Assessment & Plan (05/25/2019 1:21 PM CDT): Reports mood has been good Current Treatment and Therapy Plans No current plan information found. Past Treatment and Therapy Plans No past plan information found. Lifetime Dose Tracking * Chemical Lifetime Dose Automatic Entry Manual Entr y Fluoro Time 0.717 minutes 0.717 minutes 0 minutes Air kerma at the reference point (Ka,r) 10.75 mGy 1 0.75 mGy 0 mGy Resolved Problems Problem Noted Date Diagnosed Date [...] this time given patient is not making mash filter cloth changer several OSH checks and admission exam -No indication for PCN at this time. BGS swab collected -GC/CT collected 06/21/19 [facility] visit: Contractions began this morning, are every 10 minutes, and more severe than they were before. Initial SVE 1/L/H, same as previous. Few contractions on toco. Repeat SVE 1/L/H. Patient reports spontaneous subjective improvement in intensity and frequency of contractions. No e/o PTL. Prec given. 06/28/19 [facility] visit: contractions initially Q10-15 minutes in the [...] sooner. Assessment & Plan (07/07/2019 1:36 PM ZANJERO): Patient has not been getting 2x/weekly testing. [...] Overview (07/07/2019): [x] Co-management vs. [] Full [facility] Care; Referring Provider: Hugo Jaquez [x] [...] aware. [x] Method of feeding: breast/bottle [x] System Safety Engineer: [x] PP Depression Discussed: Type 2 diabetes mellitus 01/13/2014 Overview (12/04/2016): DMII WO CMP UNCNTRLD Hyperlipidemia 04/12/2009 04/27/2019
--- OUTSIDE RECORDS SUMMARY | 2024-10-23 08:41 | XMS_ITS | Clinical Summary ---
Author Organization [facility] Address [address] [place] [address] Care Team Providers Care Staff Appraiser Name Role Phone Hugo Jaquez MD Unavailable Kimberly Jc NP Primary Care Provide r Allergies Active Allergy Reactions Criticality Noted Date Comments Bee Pollen Anaphylaxis High 11/08/2020 Metoclopramide Hallucinations Medium 09/01/2017 Medications FLUoxetine (PROzac) 20 mg capsuleIndicati ons:depression, and anxiety Take 1 capsule (20 mg total) by mouth early childhood educator aide before breakfast 9 Active naloxone (NARCAN) 4 [...] 09/09/2022 Assessment & Plan (09/09/2022 12:22 PM WINDOW/DISTRIBUTION CLERK): Increase omeprazole to 40 mg daily Start [...] be retained placenta. Plan for delivery at [facility] Her placentation appears normal on US thus [...] did not offer Ashanti however we did director of counseling patient on recurrence risk of PTD. Anxiety disorder 04/12/2009 Overview (04/27/2019): On Prozac 20mg daily. Stable. S/p counseling of risk of respiratory depression. 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 BGS swab collected -GC/CT collected 06/21/19 [facility] visit: Contractions began this morning, are every 10 minutes, and more severe than they were before. Initial SVE 1/L/H, same as previous. Few contractions on toco. Repeat SVE 1/L/H. Patient reports spontaneous subjective improvement in intensity and frequency of contractions. No e/o PTL. Prec given. 06/28/19 [facility] visit: contractions initially Q10-15 minutes in the [...] sooner. Assessment & Plan (07/07/2019 1:36 PM WINDOW/DISTRIBUTION CLERK): Patient has not been getting 2x/weekly testing. [...] Overview (07/07/2019): [x] Co-management vs. [] Full [facility] Care; Referring Provider: Hugo Jaquez [x] [...] aware. [x] Method of feeding: breast/bottle [x] Transliterator: [x] PP Depression Discussed: Type 2 diabetes mellitus 01/13/2014 Overview (12/04/2016): DMII WO CMP UNCNTRLD Hyperlipidemia 04/12/2009 04/27/2019 Immunizations Immunization Administration Dates Next Due COVID-19 mRNA (Clay.io) 0.3 m L (30 mcg) vaccine (12 [...] IM 04/14/2018, Td, adsorbed 10/08/2010 Tdap 05/25/2019,04/16/2018,10/08/2010 Surgical History Surgery Date Site/Laterality Comments CARPAL TUNNEL RELEASE Carpal tunnel release CARPAL TUNNEL RELEASE 08/30/1997 - 08/29/1998 Carpal tunnel release CHOLECYSTECTOMY DILATION AND CURETTAGE OF UTERUS 2016 and 2017 TONSILLECTOMY 08/30/1980 - 08/29/1981 OVARIAN CYST SURGERY x2 Medical History Medical History Date Comments Hx Other Medical 2011 bi-polar Hx Other Medical 2002 ulna nerve relo cation Endometriosis Endometriosis - (Added by TW Conv) Depression HPV (human papilloma virus) infection Abnormal ECG Anemia Anxiety Bipolar disorder (HCC) Cancer (CMS/HCC) (HCC) Rheumatoid arthritis (HCC) Peptic ulceration PONV (postoperative nausea and vomiting) Family History Medical History Relation Name Comments Heart disease Father Heart disease; Hypertension Father Hypertension; Thyroid disease Father Thyroid diso rder; Diabetes Maternal Grandfather Breast cancer Mother Cancer, breast ; Hypertension Mother Hypertension; Thyroid disease Mother Thyroid diso rder; Diabetes type II Paternal Grandfather Sophie betes -Type 2; Hypertension Sister Hypertension; Relation Name Status Comments Father Maternal Grandfather Mother Paternal Grandfather Sister Social History Tobacco Use Types Packs/Day Years [...] on file Legal Sex Female 6:40 PM WINDOW/DISTRIBUTION CLERK Gender Identity Not on file Sexual Orientation Not on file Obstetrics History Para Term AB IAB SAB Ectopic Multiple Livin g Live Births 6 5 3 2 1 1 0 5 5 Date Outcome GA Total Labor Labor/2nd/3rd Weight Sex Type Anes PTL Almaz A1 A5 Name Clin 1999 Term 38w 0d 2.523 kg (5 lb 9 oz) F Vag-S pont Local Livin g Leon 2007 36w 0d 2.551 kg (5 lb 10 oz) M Vag-S pont Epidur al Y Livin g [place] 2010 Term 39w 0d 2.41 kg (5 lb 5 oz) F Vag-S pont Livin g Hanna 2017 Term 37w 0d 2.807 kg (6 lb 3 oz) F Vag-S pont Epidur al Livin g Maribel Complications:Post He morrhage 2017 SAB D&C 2018 36w 5d 0h 03m 0h 03m 2.722 kg (6 lb) M CS-LT ranv Spinal N Livin g 8 9 Dinora GUPTA OMARIA D I Scot michel, Aleksandra Dorsey MD Complications:None Delivery Location:[facility] Main C ampus ([facility] L AND D PROCEDURE) Last Filed Vital Signs Vital Sign Reading [...] 11/22/2023 9:47 AM CDT Plan of Treatment Health Maintenance Due Date Last Done Comments Cervical Cancer Screening 1978 Colon Cancer Screening-Colonoscopy 1978 Hepatitis B Screening 1996 Regular Well Visit/Exam 18-64 1996 Depression Screening 01/10/2022 01/10/2021, 01/11/20 21 Covid-19 Vaccine (2023- season) 2024 10/08/2023, 04/14/2021, 03/17/2021 Breast Cancer Screening-Mammogram 05/04/2024 05/04/2023, 05/04/2023 DTaP/Tdap/Td Vaccine (4 - Td or Tdap) 05/25/2029 05/25/2019, 04/16/2018, 10/08/2010, Additional history exists Hepatitis C Screening Completed 04/11/2019 Pneumococcal vaccine <65 Completed 024, 06/10/2018, 01/06/2012 Influenza Vaccine Completed 05/19/2024, , 06/30/2021, Additional history exists HPV Vaccines Aged Out No longer eligi ble based on patient's age to complete this topic Goals Goal Patient Goal Type Associated Problems Recent Progress Patient-Stated? Author [facility] Kolton Hendricks, RN Note: Bending, standing, lifting, sitting with [...] Advance Directives For more information, please contact: [phone] Documents on File Type Date Recorded Patient Portable Irrigation Operator Expl anation ADVANCE DIRECTIVE 11/05/2023 6:51 [...] n case of cardiopulmonary arrest Care Teams Staff Appraiser Relationship Specialty Start Date End Date Kimberly Jc NP [address] [place] [address] PCP - General Emergency Medicine 11/22/20 Hugo Jaquez MD [facility] Obstetric[facility] Gynecology 04/12/19
--- OUTSIDE RECORDS SUMMARY | 2024-10-23 08:41 | XMS_ITS | Encounter Summary ---
Author Organization [facility] Address [address] [place] [address] Phone Care Team Providers Care Rotary Drill Rig Operator Name Role Phone Kimberly Jc APRN, FRANCHISE BROKER Primary Care P rovider Mack Owens MD Unavailable Timmy Ibarra Primary Care Provider [phone] Francisco Javier Ivey MD Unavailable Reason for Visit * Reason Comments Medication Refill Encounter Details Date Type Department Care Team (Late st Contact Info) Description 11/18/2022 Refill [facility] - Primary Care - [facility] [address] [place] [address] Kimberly Jc APRN, FRANCHISE BROKER [address] [place] [address] Medication Refill Social History Tobacco [...] suspected to have Coronavirus/COVID-19? No / Unsure 11/18/2022 9:16 AM CDT documented as of this encounter Miscellaneous Notes * Telephone Encounter - Ranjana Hernandez RN - 11/18/2022 11:19 AM CDT gabapentin (NEURONTIN) 300 MG Capsule 270 Capsule 1 08/06/2022 Refill too soon documented in this encounter Plan of Treatment Upcoming Encounters Date Type Department Care Team (Late st Contact Info) Description 11/06/2024 7:00 AM CDT Appointment [facility] MRI [address] [place] [address] Timmy Ibarra PAC [address] [place] [address] Discharge Disposition: Discharged to home or Selfcare documented as of this encounter Visit Diagnoses Not on filedocumented in this encounter Additional Health Concerns Assessment Noted Time PHQ-9 Depression Total Score: 0 06/10/20 18 9:00 AM CDT documented as of this encounter Care Teams Rotary Drill Rig Operator Relationship Specialty Start Date End Date Kimberly Jc, HYDROGENATION OPERATOR, FRANCHISE BROKER [address] [place] [address] PCP - General Advanced Practice Nurse 02/14/20 Timmy Ibarra PAC [address] [place] [address] PCP - General Physician Casino Manager 02/17/24 Mack Owens MD [id number] [address] Consulting Physician Colon and Rectal Surgery 11/23/22 Francisco Javier Ivey MD [address] [place] [address] Consulting Physician Neurological Surgery 03/07/24 documented as of this encounter
--- OUTSIDE RECORDS SUMMARY | 2024-10-23 08:41 | XMS_ITS | Clinical Summary ---
Author Organization [facility] Address [address] [place] [address] Phone Care Team Providers Care Coppersmith Apprentice Name Role Phone FLORES OLIVEIRA, HENRRY Aguilera Unavailable [phone] Reason for Visit and Chief Complaint [Patient Encounter] Problems Includes: Problems addressed during this encounter and other active Problems All Visits Onset Date Resolved Date Provider Condition S tatus Cervical Dysplasia: Severe 09/21/2023 HENRRY TANNER MD Active Last Documented On 09/21/2023 5:17PM ; [facility] Note: Unchanged Anal Fissure 03/17/2023 ENDER Sena JOCELYN MARTÍNEZ Active Last Documented On 3 12:10PM ; [facility] Intervertebral Disc Degeneration 03/17/2023 CHAPO FRANKLIN RN JOCELYN BC Active Last Documented On 3 12:09PM ; [facility] Ovarian Cyst 03/17/2023 ENDER FRANKLIN RN JOCELYN B C Active Last Documented On 3 12:10PM ; [facility] Amenorrhea 03/25/2021 HENRRY TANNER MD Active Last Documented On 1 2:52PM ; [facility] Note: Unchanged Contact Dermatitis of Perineum 03/25/2021 HENRRY TANNER MD Active Last Documented On 1 2:52PM ; [facility] Note: Unchanged Oth mental disorders comp pr egnancy, second trimester 04/11/2019 HENRRY TANNER MD Active Last Documented On 9 2:33PM ; [facility] Note: Unchanged Plan of Treatment No Plan of Treatment Recorded Assessments Includes: Assessments from this encounter No Assessments Recorded Medical Equipment - Implanted Devices Includes: Current Devices No Medical Equipment Recorded Medications Includes: Medications discussed during this encounter and other current Medications Current Medications (continue as prescribed) Veozah 45 MG Oral Tablet 09/21/2023 Provider: Diagnosis: Last Documented On 4 10:20AM By DOV MAYERS ; [facility] Albuterol Sulfate (5 MG/ML) 0.5% Inhalation Nebulization solution 03/03/2023 Provider: Diagnosis: Last Documented On 03/03/2023 12:59PM By Shalini Price ; [facility] Phenergan 25 mg Oral Tablet 03/03/2023 Provider: Diagnosis: Last Documented On 3 1:28PM By ENDER GOULD ; [facility] FLUoxetine HCl 20 MG Oral Capsule 07/21/2021 Provide r: MARIVEL LAW NP Diagnosis: Last Documented On 04/26/2023 1:03PM By Taye MAYERS ; [facility] Gabapentin 300 MG Oral Capsule 03/25/2021 Provider: Diagnosis: 2 capsules tid Last Documented On 1 2:06PM By DOV MAYERS ; [facility] Omeprazole 20 MG Oral Capsule Delayed Release 09/28/19 Provider: Diagnosis: Last Documented On 0 10:46AM By DOV MAYERS ; [facility] Medications Administered Includes: Administered Medications from this encounter No Administered Medications Recorded Results Includes: Results discussed during this encounter No Results Recorded For Specified Dates History of Present Illness Includes: History of Present Illness from this encounter No History of Present Illness Recorded Social History No Social History Recorded - Smoking Status Unknown Medical History Includes: Medical History addressed during this encounter No Medical History Recorded Family History Includes: Family History addressed during this encounter No Family History Recorded Review of Systems Includes: Review of Systems [...] ve Last Documented On 4 10:17AM ; [facility] Chantix Allergy 03/17/2023 Active Last Documented On 4 10:17AM ; [facility] Encounters Encounter Provider Location Date Check-In Time Check- Out Time Diagnosis [Patient Encounter] HENRRY TANNER MD [facility] 3 10:02AM 11:59PM Insurance Includes: Active Insurance Policies Plan Name Member ID Group # Subscriber Relationship Effect flo Dates 1 - R [id number] THONY HIGGINS Clinical Notes Includes: Clinical Notes from this encounter No Clinical Notes Recorded
--- OUTSIDE RECORDS SUMMARY | 2024-10-23 08:42 | XMS_ITS | Encounter Summary ---
Author Organization [facility] Address [address] [place] [address] Phone Care Team Providers Care Kiln Drawer Name Role Phone Kimberly Jc APRN, CNP Primary Care P rovider Mack Owens MD Unavailable Timmy Ibarra [facility] Primary Care Provider [phone] Francisco Javier Ivey MD Unavailable Reason for Visit * Reason Comments Medication Refill Encounter Details Date Type Department Care Team (Late st Contact Info) Description 10/07/2023 Refill [facility] - General Surgery [facility] [address] [phone] Mack Owens MD [address] [address] Medication Refill Social History Tobacco Use Types Packs/Day Years Used Date Smoking Tobacco: Every Day Cigarettes 1.5 32.1 Started: 1994 Smokeless Tobacco: Never Comments:Down to quarter [facility] k Alcohol Use Standard Drinks/Week Comments No 0 (1 standard drink = 0.6 oz pur e alcohol) [facility] Utilities Answer Date Recorded In the past [...] often do you attend chur ch or lutheran services? Never 09/03/2023 Do you belong to any clubs o r organizations such as advent groups, unions, fraternal or athletic groups, or [...] Answer Date Recorded PHQ-2 Score 0 05/13/2019 [facility] - Occupational Stress [...] place to sleep or slept in a usp (including now)? No 09/03/2023 Education Answer Date [...] encounter Miscellaneous Notes * Telephone Encounter - Sydni Lindsey RN - 10/08/2023 8:21 AM ANTIQUE CLOCKS REPAIRER Spoke with patient via telephone call, patient stated that she has an appt with PCP today and will request refill from her. QUE CLOCKS REPAIRER documented in this encounter Plan of Treatment Upcoming Encounters Date Type Department Care Team (Late st Contact Info) Description 11/06/2024 7:00 AM CDT Appointment [facility] MRI [address] [place] [phone] Timmy Ibarra, PAC [address] [place] [address] Discharge Disposition: Discharged to home or Selfcare documented as of this encounter Visit Diagnoses Diagnosis Non-recurrent bilateral inguinal hernia without obstruction or gangrene documented in this encounter Additional Health Concerns Assessment Noted Time PHQ-9 Depression Total Score: 0 06/10/20 18 9:00 AM CDT documented as of this encounter Care Teams Kiln Drawer Relationship Specialty Start Date End Date Kimberly Jc APRN, RESIDENTIAL SUPERVISOR [address] [place] [address] PCP - General Advanced Practice Nurse 02/14/20 Timmy Ibarra, PAC [address] [place] [address] PCP - General Physician Manager Oncology 02/17/24 Mack Owens MD [address] [address] Consulting Physician Colon and Rectal Surgery 11/23/22 Francisco Javier Ivey MD [address] [place] [address] Consulting Physician Neurological Surgery 03/07/24 documented as of this encounter
--- OUTSIDE RECORDS SUMMARY | 2024-10-23 08:42 | XMS_ITS | Encounter Summary ---
Author Organization [facility] Address [address] [place] [address] Phone Care Team Providers Care Dressage Judge Name Role Phone Mack Owens MD Unavailable Timmy Ibarra [facility] Primary Care Provider Francisco Javier Ivey MD Unavailable [phone] Reason for Visit * Reason Comments Medication Refill Encounter Details Date Type Department Care Team (Late st Contact Info) Description 10/05/2024 Refill [facility] - Primary Care - [facility] [address] [place] [address] [facility] [address] [place] [address] Medication Refill Social History Tobacco Use Types Packs/Day Years Used Date Smoking Tobacco: Every Day Cigarettes 1 32.1 Started: 1992 Smokeless Tobacco: Never Comments:Down to quarter pac k Alcohol Use Standard Drinks/Week Comments No 0 (1 standard drink = 0.6 oz pur e alcohol) [facility] Utilities Answer Date Recorded In the past 12 months has [employer], gas, oil, or water company threatened to shut off services in your home? Yes 03/05/2024 Social Connection and Isolation Panel [NHANES] A nswer Date Recorded In a typical week, how many times do you talk on the phone with family, friends, or neighbors? Twice a week 03/05/2024 How often do you get together with friends or re latives? Once a week 03/05/2024 How often do you attend taoism or pentecostal serv ices? Never 03/05/2024 Do you belong to any clubs o r organizations such as taoism groups, unions, fraternal or athletic groups, or school groups? No 03/05/2024 How often do you attend meet ings of the clubs or organizations you belong to? Never 03/05/2024 Are you , , di vorced, , never , or living with a partner? 03/05/2024 AUDIT-C Answer Date Recorded Q1: How often do you have a drink containing alcohol? Never 03/05/2024 Q2: How many drinks containi ng alcohol do you have on a typical day when you are drinking? Patient does not drink Q3: How often do you have si x or more drinks on one occasion? Never 03/05/2024 Overall Financial Resource Strain (CARDIA) Answe r Date Recorded How hard is it for you to pa y for the very basics like food, housing, medical care, and heating? Very hard 03/05/2024 PHQ-2 Answer Date Recorded Total Score - Questions 1-9 0 05/30 [facility] - Occupational Stress Questionnaire Answer Date Recorded Do you feel stress - tense, restless, nervous, or anxious, or unable to sleep at night because your mind is troubled all the time - these days? Very much 03/05/2024 Exercise Vital Sign Answer Date Recorde d On average, how many days pe r week do you engage in moderate to strenuous exercise (like a brisk walk)? 4 days 03/05/2024 On average, how many minutes do you engage in exercise at this level? 60 min 03/05/2024 Hunger Vital Sign Answer Date Recorded Within the past 12 months, y ou worried that your food would run out before you got the money to buy more. Often true 03/05/20 24 Within the past 12 months, t he food you bought just didn't last and you didn't have money to get more. Often true 03/05/2024 PRAPARE - Transportation Answer Date Re corded In the past 12 months, has l ack of transportation kept you from medical appointments or from getting medications? No 02/2024 In the past 12 months, has l ack of transportation kept you from meetings, work, or from getting things needed for daily living? No 03/05/2024 Housing Stability Vital Sign Answer Mike e [...] place to sleep or slept in a half-way (including now)? No 09/03/2023 Housing Stability Vital Sign Answer Mike e Recorded In the last 12 months, was t here a time when you were not able to pay the mortgage or rent on time? Yes 03/05/2024 In the past 12 months, how m any times have you moved where you were living? 0 03/05/2024 At any time in the past [address] [facility], were you homeless or living in a half-way (including now)? No 03/05/2024 Education Answer Date Recorded What is the [...] encounter Miscellaneous Notes * Telephone Encounter - Ara Hanna RN - 10/05/2024 3:45 PM SENIOR COPYWRITER duplicate OR COPYWRITER documented in this encounter Plan of Treatment Upcoming Encounters Date Type Department Care Team (Late st Contact Info) Description 11/06/2024 7:00 AM CDT Appointment [facility] MRI [address] [place] [phone] Timmy Ibarra, PAC [address] [place] [address] Discharge Disposition: Discharged to home or Selfcare documented as of this encounter Visit Diagnoses Diagnosis Bronchitis Bronchitis, not specified as acute or chronic Acute cough SOB (shortness of breath) Shortness of breath documented in this encounter Additional Health Concerns Assessment Noted Time PHQ-9 Depression Total Score: 0 06/15/20 9:15 AM CDT documented as of this encounter Care Teams Dressage Judge Relationship Specialty Start Date End Date Timmy Ibarra, PAC [address] [place] [address] PCP - General Physician Preparatory Technician 02/17/24 Mack Owens MD #[address] [address] Consulting Physician Colon and Rectal Surgery 11/23/22 Francisco Javier Ivey MD [address] [place] [address] Consulting Physician Neurological Surgery 03/07/24 documented as of this encounter
--- OUTSIDE RECORDS SUMMARY | 2024-10-23 08:42 | XMS_ITS | Clinical Summary ---
Author Organization [facility] Address [address] [place] [address] Phone Care Team Providers Care Real Estate Broker Name Role Phone Mack Owens MD Unavailable Timmy Ibarra Primary Care Provider Francisco Javier Ivey MD Unavailable [phone] Allergies Active Allergy Reactions Criticality Noted Date Comments Bee Pollen Anaphylaxis 11/08/2020 Metoclopramide Hallucinations 09/01/2017 Medications fluticasone (Flonase) 50 MCG/ACT SuspensionIndicat ions:Acute non-recurrent maxillary sinusitis 1-2 Sprays by Nasal route daily. Use in each nostril as directed. 16 g 2 07/30/20 22 Active omeprazole (PriLOSEC) 40 MG CAPSULE DELAYED RELEASE daily. 06/05/20 23 Active estradiol (CLIMARA) 0.05 MG/24HR PATCH WEEKLY APPLY 1 PATCH TOPICALLY TO THE SKIN 1 TIME A WEEK Active traMADol (ULTRAM) 50 MG TabletIndications :Contusion of left shoulder, initial encounter,Contusi on of left hip, initial encounter Take 1 Tablet by mouth every 8 hours as needed for Moderate or more severe pain. 12 Tablet 05/27/20 24 Active Additional Information Patient not taking.Reported on 10/12/2024 losartan (COZAAR) 50 MG TabletIndications :Primary hypertension Take 1 Tablet by mouth daily. 90 Tablet 3 06/15/20 24 Active gabapentin (NEURONTIN) 300 MG Capsule TAKE 2 CAPSULES BY MOUTH THREE TIMES DAILY 540 Capsule 1 07/03/20 24 Active celecoxib (CeleBREX) 100 MG CapsuleIndication s:Pain in both hands TAKE 1 CAPSULE BY MOUTH TWICE DAILY 90 Capsule 1 07/31/20 24 Active FLUoxetine (PROzac) 20 MG CapsuleIndication s:Generalized anxiety disorder TAKE 1 CAPSULE BY MOUTH DAILY 90 Capsule 08/20/20 24 Active albuterol 108 (90 Base) MCG/ACT Aerosol SolutionIndicatio ns:Cough, unspecified type INHALE 2 PUFFS EVERY 4 HOURS NEEDED FOR WHEEZING OR COUGH 18 g 2 09/14/19 25 Active baclofen (LIORESAL) 10 MG TabletIndications :Chronic left-sided low back pain with left-sided sciatica TAKE 1 TABLET BY MOUTH THREE TIMES DAILY 270 Tablet 09/19/19 25 Active naproxen (NAPROSYN) 500 MG Tablet Take 1 Tablet by mouth 2 times daily as needed for Moderate or more severe pain. 20 Tablet 05/27/20 24 025 Discontin ued(Med List Clean Up) predniSONE (DELTASONE) 10 MG TabletIndications :Bronchitis,Acute cough,SOB (shortness of breath) Take 4 tab PO daily x 2 days, 3 tab PO daily x 2 days, 2 tab PO daily x 2 day, 1 tab PO daily x 2 days. 20 Tablet 06/22/20 24 025 Discontin ued(Med List Clean Up) LORazepam (ATIVAN) 0.5 MG TabletIndications :Claustrophobia Take one tablet 60 min prior to MRI 1 Tablet 08/03/20 24 025 Discontin ued(Med List Clean Up) HYDROcodone-aceta minophen (NORCO) 5-325 MG TabletIndications :Acute bilateral low back pain with bilateral sciatica,Lumbar radiculopathy Take 1 Tablet by mouth every 8 hours as needed for Severe pain. 30 Tablet 09/11/19 25 025 Discontin ued(Reord er) HYDROcodone-aceta minophen (NORCO) 5-325 MG TabletIndications :Acute bilateral low back pain with bilateral sciatica,Lumbar radiculopathy Take 1 Tablet by mouth every 8 hours as needed for Severe pain. 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 S/p colpo with Dr. Jaquez at 11w without bx. Reinforced importance of postprtum f/u for cervical dysplasia and colpo with bx. History of hemorrhage 04/27/2019 Overview (10/02/2019): In G2, not on insulin. Did not have GDM in more recent pregnancies [x] gtt wnl Patient reports that after placental delivery and [...] be retained placenta. Plan for delivery at [facility] Her placentation appears normal on US thus far [x] CBC 06/18/19 HGB 11.7 At time of delivery, we would recommend T&Cx2, active management of the 3rd stage, and uterotonics at the bedside to prevent uterine atony. Iron deficiency anemia 06/17/2018 B12 deficiency 06/17/2018 Cervical dysplasia 06/10/2018 Anxiety disorder 04/12/2009 Encounters Date Type Department Care Team Description 10/21/2024 Refill [facility] - [facility] - [place] [address] [place] [address] Timmy Ibarra, PAC Medication Refill 10/12/2024 1:45 PM ONLINE FACILITATOR Office Visit [facility] - [facility] - [place] [address] [place] [phone] Timmy Ibarra, PAC Abrasion of left upper extremity, initial encounter (Primary Dx); Strain of abdominal muscle, initial encounter; Positive DA (antinuclear antibody); History of hernia repair Discharge Disposition: Discharged to home or Selfcare 10/12/2024 Travel 10/12/2024 Nurse Triage [address] [phone] Timmy Ibarra, PAC Advice Only; Fall 10/05/2024 [facility] [place] [address] [place] [address] Timmy Ibarra, PAC Medication Refill 10/05/2024 MyChart RX Renewal [facility] [place] [address] [place] [address] Timmy Ibarra, PAC Medication Renewal Declined 10/05/2024 Nurse Triage [address] [phone] Timmy Ibarra, PAC Shortness of Breath 09/23/2024 Refill [facility] [place] [address] [place] [address] Timmy Ibarra, PAC Medication Refill 09/19/2024 Refill [facility] [place] [address] [place] [address] Timmy Ibarra, PAC Medication Refill 09/14/2024 Refill [facility] [place] [address] [place] [address] Kimberly Jc APRN, UNIVERSITY TUTOR Medication Refill 08/17/2024 Refill [facility] - [place] [address] [place] [address] Timmy Ibarra, PAC Medication Refill 07/29/2024 [facility] [place] [address] [place] [address] Timmy Ibarra, PAC Medication Refill 07/25/2024 [facility] [address] [place] [phone] Timmy Ibarra, PAC Medication Refill 07/25/2024 Telephone [facility] [address] [place] [phone] Timmy Ibarra, PAC Referral 07/25/2024 MyChart RX Renewal [facility] - [address] [address] Timmy Ibarra, PAC Medication Renewal Reviewed 07/24/2024 Telephone [facility] [address] [place] [phone] Timmy Ibarra, PAC Advice Only from Last 3 Months Immunizations Immunization Administration Dates Next Due Covid-19, Mrna, Lnp-s, PF, 1 00 mcg/0.5 mL Dose ([facility]) 04/14/2021,03/17/2021 Covid-19, Mrna, Lnp-s, Pf, Greg-sucrose, 30 Mcg/0.3 Ml (Pfizer) 10/08/2023 Influenza Vaccine greater than 3 yrs 05/25/2019 Influenza Vaccine, Quadrivalent, PF 12/2023,06/30/2021,10/03/2020,06/10 Influenza, Injectable, Mdck,quadrivalent,with Preservative 05/25/2019 Influenza, Seasonal, Injecta ble, Undefined 01/06/2012 Influenza, Trivalent, Adjuvanted, PF 01/06/2012 Influenza,Split Virus,Trivalent,Injectable,PF 05/19/2024 Pneumococcal Vaccine Adult - 23 Valent 8,01/06/2012 Pneumococcal conjugate PCV20 , polysaccharide RUF360 conjugate, adjuvant, PF 10/08/2023 RHO(D) Immune Globulin- IV Or IM 04/14/2018,03/01 Rho(d) Immune Globulin - Im 04/14/2018, TDAP Vaccine 05/25/2019,04/16/2018,10/08/2010 Td (Adult) 10/08/2010 Tuberculin Skin Test; Purifi ed Protein Derivative Solutiol 06/17/2018 Family History Medical History Relation Name Comments No Known Problems Brother 1 No Known Problems Brother 2 Autism Daughter 1 No Known Problems Daughter 2 No Known Problems Daughter 3 Hypertension Father Erich fairless Diabetes Maternal Grandfather Shree Holloway Hypertension Maternal Grandfather Shree Holloway Cirrhosis Maternal Grandmother Hypertension Mother Shree Holloway No Known Problems Paternal Grandfather Alzheimer's Disease Paternal Grandmother No Known Problems Sister Autism Son 1 Autism Son 2 Relation Name Status Comments Brother 1 Alive Brother 2 Alive Daughter 1 Alive Daughter 2 Alive Daughter 3 Alive Father Erich fairless Alive Maternal Grandfather Shree Holloway Maternal Grandmother Mother Shree Holloway Alive Paternal Grandfather Alive Paternal Grandmother Sister Alive Son 1 Alive Son 2 Alive Social History Tobacco Use Types Packs/Day Years Used Date Smoking Tobacco: Every Day Cigarettes 1 32.1 Started: 1992 Smokeless Tobacco: Never Tobacco Cessation:Ready to Q uit: Not Asked; Counseling Given: Not Answered Comments:Down to quarter pack Alcohol Use Standard Drinks/Week Comments No 0 (1 standard drink = 0.6 oz pur e alcohol) [facility] Serious USAities Answer Date Recorded In the past 12 months has [employer] electric, gas, oil, or water company threatened to shut off services in your home? Yes 10/12/2024 Social Connection and Isolat ion Panel [NHANES] Answer Date Recorded In a typical week, how many times do you talk on the phone with family, friends, or neighbors? More than three times a week 10/12/2024 How often do you get togethe r with friends or relatives? Once a week 10/12/2024 How often do you attend chur ch or lutheran services? Never 10/12/2024 Do you belong to any clubs o r organizations such as gnosticist groups, unions, fraternal or athletic groups, or school groups? No 10/12/2024 How often do you attend meet ings of the clubs or organizations you belong to? Never 10/12/2024 Are you , , di vorced, , never , or living with a partner? 10/12/2024 AUDIT-C Answer Date Recorded Q1: How often do you have a drink containing alcohol? Never 10/12/2024 Q2: How many drinks containi ng alcohol do you have on a typical day when you are drinking? Patient does not drink Q3: How often do you have si x or more drinks on one occasion? Never 10/12/2024 Overall Financial Resource Strain (CARDIA) Answe r Date Recorded How hard is it for you to pa y for the very basics like food, housing, medical care, and heating? Hard 10/12/2024 PHQ-2 Answer Date Recorded Total Score - Questions 1-9 0 09/30 [facility] - Occupational Stress Questionnaire Answer Date Recorded Do you feel stress - tense, restless, nervous, or anxious, or unable to sleep at night because your mind is troubled all the time - these days? To some extent 10/12/2024 Exercise Vital Sign Answer Date Recorde d On average, how many days pe r week do you engage in moderate to strenuous exercise (like a brisk walk)? 7 days 10/12/2024 On average, how many minutes do you engage in exercise at this level? 30 min 10/12/2024 Hunger Vital Sign Answer Date Recorded Within the past 12 months, y ou worried that your food would run out before you got the money to buy more. Often true 10/12/19 25 Within the past 12 months, t he food you bought just didn't last and you didn't have money to get more. Often true 10/12/2024 PRAPARE - Transportation Answer Date Re corded In the past 12 months, has l ack of transportation kept you from medical appointments or from getting medications? No 09/30 In the past 12 months, has l ack of transportation kept you from meetings, work, or from getting things needed for daily living? No 10/12/2024 Housing Stability Vital Sign Answer Mike e [...] place to sleep or slept in a care home (including now)? No 09/03/2023 Housing Stability Vital Sign Answer Mike e Recorded In the last 12 months, was t here a time when you were not able to pay the mortgage or rent on time? Yes 10/12/2024 In the past 12 months, how m any times have you moved where you were living? 0 10/12/2024 At any time in the past 12 m [facility], were you homeless or living in a care home (including now)? No 10/12/2024 Education Answer Date Recorded What is the [...] Sign Reading Time Taken Comments Blood Pressure 174/88 10/12/2024 1:31 PM ONLINE FACILITATOR Pulse 76 10/12/2024 1:31 PM ONLINE FACILITATOR Temperature 36.9 C (98.4 F) 10/12/2024 1:31 PM ONLINE FACILITATOR Respiratory Rate 18 10/12/2024 1:31 PM ONLINE FACILITATOR Oxygen Saturation 98% 10/12/2024 1:31 PM ONLINE FACILITATOR Inhaled Oxygen Concentration - - Weight 69.4 kg (153 lb) 10/12/2024 1:31 PM ONLINE FACILITATOR Height 167.6 cm (5' 6 ) 06/09/2024 12:08 PM CDT Body Mass Index 24.69 06/09/2024 12:08 PM CDT Plan of Treatment Upcoming Encounters Date Type Department Care Team (Late st Contact Info) Description 11/06/2024 7:00 AM CDT Appointment [facility] [place] [address] Timmy Ibarra, PAC [address] [place] [address] Discharge Disposition: Discharged to home or Selfcare Health Maintenance Due Date Last Done Comments Hepatitis C Virus (HCV) Screening 1978 Hepatitis B Immunization (1 of 3 - 19+ 3-dose series) 1997 HPV/Cotest 2008 Cervical Cancer Screening (CCS) 06/11/2021 Pap Smear 06/11/2021 06/11/2018 SARS-COV-2 Immunization ( season) 2024 10/08/2023, 04/14/2021, 03/17/2021 Mammogram 05/04/2024 05/04/2023 Colonoscopy 08/05/2028 08/05/2023, 08/05/2023 Colorectal Cancer Screening 08/05/2028 Td Immunization Every 10 Years (Adults With 1 Tdap) 05/25/2029 05/25/2019, 04/16/2018, 10/08/2010, Additional history exists Respiratory Syncytial Virus (RSV) Immunization (Adult) (1 - 1-dose 75+ series) 2053 08/05/2023 DTaP/Tdap/Td Immunization Discontinued 2018, 04/16/2018, 10/08/2010, Additional history exists Discussion re Starting/Frequency of Mammograms Completed 05/04/2023 Pneumococcal Immunization Combined Completed 10/08/2023, 06/10/2018, 01/06/2012 Influenza Immunization Completed , 09/03/2023, 06/30/2021, Additional history exists Meningococcal Immunization (ACWY) Aged Out No longer eligible based on patient's age to complete this topic Rotavirus Immunization Aged Out No lo nger eligible based on patient's age to complete this topic Medical Devices Implanted Type Area Plastic Extruding Machine Operator Device Identifier Shelf Expiration Date Model / Serial / Lot Staple Tacker Optifix At - [id number] Implanted:Qty : 1 on 05/28/2023 by Mack Owens MD at [facility] IMPLANT Bilateral: Inguinal [employer] 10/27/2024 [id number] / [id number] / [id number] Mesh Srg 3dmax 6x4in Groin Left Contour Seal Edge Strl Polyp Lg 3d Curve Lapscp Inguinal Hernia - [id number] Implanted:Qty : 1 on 05/28/2023 by Mack Owens MD at [facility] IMPLANT Left: Inguinal [employer] 10/27/2027 [id number] / [id number] / [id number] Mesh Srg 3dmax 6x4in Groin Right Contour Seal Edge Strl Polyp Lg 3d Curve Lapscp Inguinal Hernia - [id number] Implanted:Qty : 1 on 05/28/2023 by Mack Owens MD at [facility] IMPLANT Left: Inguinal [employer] 06/26/2025 [id number] / [id number] / [id number] Procedures Procedure Name Priority Date/Time Associated Diagnosis Comments BRENNAN DIAG BILATERAL DIGITAL W CAD W ZOE Routine 05/04/2023 2:15 PM CDT Mastodynia from Last 3 Months or Most Recently Relevant to Health Maintenance Results * BRENNAN DIAG BILATERAL DIGITAL W CAD W ZOE (05/04/2023 2:15 PM CDT) Anatomical Region Laterality Modality breast Bilateral Mammography 05/04/2023 1:48 PM CDT Narrative 05/04/2023 3:09 PM CDT - BRENNAN DIAG BILATERAL DIGITAL W CAD W ZOE - BRENNAN US BREAST LIMITED LT BILATERAL DIGITAL DIAGNOSTIC MAMMOGRAM 3D/2D WITH CAD WITH MEDIOLATERAL OBLIQUE CRANIOCAUDAL AND LEFT ULTRASOUND: 05/04/2023 The study was acquired using digital technology and interpreted from soft copy. Current study was also evaluated with ICAD version 7.2. 2D digital mammographic views, as well as 3D digital tomosynthesis were performed in the CC and MLO projections. CLINICAL: Provider noticed a red warm bump on the patient's left breast 6-8 weeks ago. She took antibotics and it seems to have resolved. The area was marked with a palpable marker today. Personal history of cervical cancer. Maternal grandmother had breast and ovarian cancers. COMPARISONS: Comparison is made to exams dated: 10/05/2012 and 12/20/2012 [facility]. BREAST TISSUE:The tissue of both breasts is heterogeneously dense. This may lower the sensitivity of mammography. FINDINGS: No significant masses or calcifications are seen in either breast on the mammogram or targeted left ultrasound. At the palpable area of concern at the 12 o'clock position of the left breast, 3 cm from the nipple, dense breast tissue is present. The technologist measured a possible lymph node at the 1 o'clock position, 4 cm from nipple. IMPRESSION: OVERALL STUDY BIRADS: 2 BENIGN There is no mammographic or sonographic evidence of malignancy. A 1 year screening mammogram is recommended. The results and recommendations were discussed with the patient. Electronically signed by: Cain Donohue M.D. ll/:05/04/2023 14:50:03 Criminal Justice Program Director(s): Kristie Bradley, RT(R)(M), [facility]; Cathy Clarke RDMS OBGYN, [facility] letter sent: Normal Exam Reading location: [place] OVERALL STUDY BIRADS: 2 Benign Procedure Note Cain Donohue MD - 05/04/2023 - BRENNNA DIAG BILATERAL DIGITAL W CAD W ZOE - BRENNAN US BREAST LIMITED LT BILATERAL DIGITAL DIAGNOSTIC MAMMOGRAM 3D/2D WITH CAD WITH MEDIOLATERAL OBLIQUE CRANIOCAUDAL AND LEFT ULTRASOUND: 05/04/2023 The study was acquired using digital technology and interpreted from soft copy. Current study was also evaluated with ICAD version 7.2. 2D digital mammographic views, as well as 3D digital tomosynthesis were performed in the CC and MLO projections. CLINICAL: Provider noticed a red warm bump on the patient's left breast 6-8 weeks ago. She took antibotics and it seems to have resolved. The area was marked with a palpable marker today. Personal history of cervical cancer. Maternal grandmother had breast and ovarian cancers. COMPARISONS: Comparison is made to exams dated: 10/05/2012 and 12/20/2012 [facility]. BREAST TISSUE:The tissue of both breasts is heterogeneously dense. This may lower the sensitivity of mammography. FINDINGS: No significant masses or calcifications are seen in either breast on the mammogram or targeted left ultrasound. At the palpable area of concern at the 12 o'clock position of the left breast, 3 cm from the nipple, dense breast tissue is present. The technologist measured a possible lymph node at the 1 o'clock position, 4 cm from nipple. IMPRESSION: OVERALL STUDY BIRADS: 2 BENIGN There is no mammographic or sonographic evidence of malignancy. A 1 year screening mammogram is recommended. The results and recommendations were discussed with the patient. Electronically signed by: Cain Donohue M.D. ll/:05/04/2023 14:50:03 Criminal Justice Program Director(s): Kristie Bradley, RT(R)(M), [facility]; Cathy Clarke, SERVANDO OBGYN, [facility] letter sent: Normal Exam Reading location: [place] OVERALL STUDY BIRADS: 2 Benign us Cynthia Serrano APRN, UNIVERSITY TUTOR IMG MAMMO ORDERABLES Fi nal Result from Last 3 Months or Most Recently Relevant to Health Maintenance Insurance [facility] Advance Directives * Full Code (Latest Code Status on File) Date Activated Date Inactivated Comments 04/01/2018 5:30 PM 04/02/2018 12:35 AM CPR-Full Flora tment: FULL ARREST: Attempt Resuscitation/CPR wit intubation and mechanical ventilation. PRE-ARREST: Use entire range of life support measures to stabilize the patient. Care Teams Real Estate Broker Relationship Specialty Start Date End Date Timmy Ibarra, PAC [address] [place] [phone] PCP - General Physician Washroom Cleaner 02/17/24 Mack Owens MD [address] [address] Consulting Physician Colon and Rectal Surgery 11/23/22 Francisco Javier Ivey MD [address] [place] [address] Consulting Physician Neurological Surgery 03/07/24
--- OUTSIDE RECORDS SUMMARY | 2024-10-23 08:42 | XMS_ITS | Encounter Summary ---
Author Organization [facility] Address [address] [place] [address] Phone Care Team Providers Care Table Keeper Name Role Phone Kimberly Jc APRN, KIRILL Primary Care P rovider Mack Owens MD Unavailable Timmy Ibarra [facility] Primary Care Provider [phone] Francisco Javier Ivey MD Unavailable Reason for Visit * Reason Comments Medication Refill Encounter Details Date Type Department Care Team (Late st Contact Info) Description 11/07/2023 Refill [facility] - Primary Care - [place] [address] [place] [address] Kimberly Jc APRN, SHIP PAINTER HELPER [address] [place] [address] Medication Refill Social History Tobacco Use Types Packs/Day Years Used Date Smoking Tobacco: Every Day Cigarettes 1.5 32.1 Started: 1992 Smokeless Tobacco: Never Comments:Down to quarter [facility] Alcohol Use Standard Drinks/Week Comments No 0 (1 standard drink = 0.6 oz pur e alcohol) [facility] Utilities Answer Date Recorded In [...] often do you attend chur ch or buddhism services? Never 09/03/2023 Do you belong to any clubs o r organizations such as evangelical groups, unions, fraternal or athletic groups, or [...] Answer Date Recorded PHQ-2 Score 0 05/13/2019 [facility] ional Health - Occupational [...] in a half-way (including now)? No 09/03/2023 Education Answer Date [...] as of this encounter Plan of Treatment Upcoming Encounters Date Type Department Care Team (Late st Contact Info) Description 11/06/2024 7:00 AM CDT Appointment [facility] MRI [address] [place] [address] Timmy Ibarra PAC [address] [place] [phone] Discharge Disposition: Discharged to home or Selfcare documented as of this encounter Visit Diagnoses Diagnosis Cough, unspecified type documented in this encounter Additional Health Concerns Assessment Noted Time PHQ-9 Depression Total Score: 0 06/10/20 18 9:00 AM CDT documented as of this encounter Care Teams Table Keeper Relationship Specialty Start Date End Date Kimberly Jc APRN, KIRILL [address] [place] [address] PCP - General Advanced Practice Nurse 02/14/20 Timmy Ibarra, PAC [address] [place] [address] PCP - General Physician Line Fisher 02/17/24 Mack Owens MD [address] [address] Consulting Physician Colon and Rectal Surgery 11/23/22 Francisco Javier Ivey MD [address] [place] [address] Consulting Physician Neurological Surgery 03/07/24 documented as of this encounter
--- OUTSIDE RECORDS SUMMARY | 2024-10-23 08:42 | XMS_ITS | Encounter Summary ---
Author Organization [facility] Address [address] [place] [address] Phone Care Team Providers Care Wheelchair Van Operator First Responder Name Role Phone Kimberly Jc APRN, INVESTOR RELATIONS ANALYST Primary Care P rovider Mack Owens MD Unavailable Timmy Ibarra Primary Care Provider [phone] Francisco Javier Ivey MD Unavailable [phone] Reason for Visit * Reason Comments Medication Refill Encounter Details Date Type Department Care Team (Late st Contact Info) Description 03/04/2023 Refill [facility] - Primary Care - [facility] [address] [place] [address] Kimberly Jc APRN, INVESTOR RELATIONS ANALYST [address] [place] [address] Medication Refill Social History Tobacco Use Types Packs/Day Years Used Date Smoking Tobacco: Every Day Cigarettes 1.5 32.1 Started: 1994 Smokeless Tobacco: Never Alcohol Use Standard Drinks/Week [...] suspected to have Coronavirus/COVID-19? No / Unsure 02/22/2023 1:43 PM CDT documented as of this encounter Plan of Treatment Upcoming Encounters Date Type Department Care Team (Late st Contact Info) Description 11/06/2024 7:00 AM CDT Appointment [facility] MRI [address] [place] [address] Timmy Ibarra PAC [address] [place] [address] Discharge Disposition: Discharged to home or Selfcare documented as of this encounter Visit Diagnoses Not on filedocumented in this encounter Additional Health Concerns Assessment Noted Time PHQ-9 Depression Total Score: 0 06/10/20 18 9:00 AM CDT documented as of this encounter Care Teams Wheelchair Van Operator First Responder Relationship Specialty Start Date End Date Kimberly Jc APRN, CNP [address] [place], [place] [id number] PCP - General Advanced Practice Nurse 02/14/20 Timmy Ibarra PAC [address] [place] [address] PCP - General Physician Information Assurance Specialist 02/17/24 Mack Owens MD [address] [address] Consulting Physician Colon and Rectal Surgery 11/23/22 Francisco Javier Ivey MD [address] [place] [address] Consulting Physician Neurological Surgery 03/07/24 documented as of this encounter
--- OUTSIDE RECORDS SUMMARY | 2024-10-23 08:42 | XMS_ITS | Encounter Summary ---
Author Organization [facility] Address [address] [place] [address] Phone Care Team Providers Care Foundry Worker Name Role Phone Mack Owens MD Unavailable Timmy Ibarra [facility] Primary Care Provider [phone] Francisco Javier Ivey MD Unavailable Reason for Visit * Reason Comments Medication Refill Encounter Details Date Type Department Care Team (Late st Contact Info) Description 10/21/2024 Refill [facility] - Primary Care - [place] [address] [place] [address] [facility] [address] [place] [address] Medication Refill Social History Tobacco Use Types Packs/Day Years Used Date Smoking Tobacco: Every Day Cigarettes 1 32.1 Started: 1994 Smokeless Tobacco: Never Comments:Down to quarter pac k Alcohol Use Standard Drinks/Week Comments No 0 (1 standard drink = 0.6 oz pur e alcohol) [facility] Utilities Answer Date Recorded In the past 12 months has [employer], gas, oil, or water company threatened to [...] often do you attend chur ch or scientologist services? Never 10/12/2024 Do you belong to any clubs o r organizations such as yazdanism groups, unions, fraternal or athletic groups, or [...] Total Score - Questions 1-9 0 09/30 [facility] [place] of Occupat ional Health - Occupational Stress [...] place to sleep or slept in a jail (including now)? No 09/03/2023 Housing Stability Vital Sign Answer Mike e Recorded In the last 12 months, was t here a time when you were not able to pay the mortgage or rent on time? Yes 10/12/2024 In the past 12 months, how m any times have you moved where you were living? 0 10/12/2024 At any time in the past 12 m [facility], were you homeless or living in a jail (including now)? No 10/12/2024 Education Answer Date [...] encounter Miscellaneous Notes * Telephone Encounter - Nadeen Stone RN - 10/23/2024 7:55 AM CONDITIONER TUMBLER OPERATOR Refill not appropriate. Refused. ITIONER TUMBLER OPERATOR documented in this encounter Plan of Treatment Upcoming Encounters Date Type Department Care Team (Late st Contact Info) Description 11/06/2024 7:00 AM CDT [facility] [address] [place] [address] Timmy Ibarra, PAC [address] [place] [address] Discharge Disposition: Discharged to home or Selfcare documented as of this encounter Visit Diagnoses Diagnosis Selina documented in this encounter Additional Health Concerns Assessment Noted Time PHQ-9 Depression Total Score: 0 10/12/19 25 1:31 PM CONDITIONER TUMBLER OPERATOR documented as of this encounter Care Teams Foundry Worker Relationship Specialty Start Date End Date Timmy Ibarra, PAC [address] [place] [id number] PCP - General Physician Brusher Operator 02/17/24 Mack Owens MD [address] [address] Consulting Physician Colon and Rectal Surgery 11/23/22 Francisco Javier Ivey MD [address] [place] [address] Consulting Physician Neurological Surgery 03/07/24 documented as of this encounter
--- OUTSIDE RECORDS SUMMARY | 2024-10-23 08:42 | XMS_ITS | Encounter Summary ---
Author Organization [facility] Address [address] [place] [address] Phone Care Team Providers Care Reliability Engineer Name Role Phone Kimberly Jc APRN, BASKET TURNER Primary Care P rovider Mack Owens MD Unavailable Timmy Ibarra Primary Care Provider [phone] Francisco Javier Ivey MD Unavailable Reason for Visit * Reason Comments Medication Refill Encounter Details Date Type Department Care Team (Late st Contact Info) Description 01/12/2022 Refill [facility] - Primary Care - [facility] [address] [place] [address] Kimberly Jc APRN, BASKET TURNER [address] [place] [address] Medication Refill Social History Tobacco [...] suspected to have Coronavirus/COVID-19? No / Unsure 12/17/2021 10:31 AM CDT documented as of this encounter Miscellaneous Notes * Telephone Encounter - Linda Miles RN - 01/12/2022 9:06 AM CDT Refill request too soon. documented in this encounter Plan of Treatment Upcoming Encounters Date Type Department Care Team (Late st Contact Info) Description 11/06/2024 7:00 AM CD[facility] [address] [place] [address] Timmy Ibarra PAC [address] [place] [address] Discharge Disposition: Discharged to home or Selfcare documented as of this encounter Visit Diagnoses Diagnosis Chronic left-sided low back pain with left-sided sciatica documented in this encounter Additional Health Concerns Infection Onset Date Last Indicated Resolved Time COVID - 19 02/02/2022 02/02/2022 02/12/2022 12:1 6 AM CDT Assessment Noted Time PHQ-9 Depression Total Score: 0 06/10/20 18 9:00 AM CDT documented as of this encounter Care Teams Reliability Engineer Relationship Specialty Start Date End Date Kimberly Jc APRN, BASKET TURNER [address] [place] [address] PCP - General Advanced Practice Nurse 02/14/20 Timmy Ibarra PAC [address] [place] [address] PCP - General Physician Account Manager [employer] 02/17/24 Mack Owens MD [address] [address] Consulting Physician Colon and Rectal Surgery 11/23/22 Francisco Javier Ivey MD [address] [place] [address] Consulting Physician Neurological Surgery 03/07/24 documented as of this encounter
--- OUTSIDE RECORDS SUMMARY | 2024-10-23 08:42 | XMS_ITS | Encounter Summary ---
Author Organization [facility] Address [address] [place] [address] Phone Care Team Providers Care Vat Operator Name Role Phone Kimberly Jc APRN, HOSPITALITY JOB TITLES Primary Care P rovider Mack Owens MD Unavailable Timmy Ibarra Primary Care Provider [phone] Francisco Javier Ivey MD Unavailable [phone] Reason for Visit * Reason Comments Medication Refill Encounter Details Date Type Department Care Team (Late st Contact Info) Description 03/04/2023 Refill [facility] - Primary Care - [facility] [address] [place] [address] Kimberly Jc APRN, HOSPITALITY JOB TITLES [address] [place] [address] Medication Refill Social History Tobacco [...] PM CDT documented as of this encounter Miscellaneous Notes * Telephone Encounter - Kierra Pickard, RN - 03/04/2023 10:54 AM CDT Duplicate request. documented in this encounter Plan of Treatment Upcoming Encounters Date Type Department Care Team (Late st Contact Info) Description 11/06/2024 7:00 AM CDT Appointment [facility] MRI [address] [place] [address] Timmy Ibarra PAC [address] [place] [address] Discharge Disposition: Discharged to home or Selfcare documented as of this encounter Visit Diagnoses Diagnosis Chronic left-sided low back pain with left-sided sciatica documented in this encounter Additional Health Concerns Assessment Noted Time PHQ-9 Depression Total Score: 0 06/10/20 18 9:00 AM CDT documented as of this encounter Care Teams Vat Operator Relationship Specialty Start Date End Date Kimberly Jc APRN, HOSPITALITY JOB TITLES [address] [place] [address] PCP - General Advanced Practice Nurse 02/14/20 Timmy Ibarra PAC [address] [place] [address] PCP - General Physician Doughnut Maker 02/17/24 Mack Owens MD [id number] [address] Consulting Physician Colon and Rectal Surgery 11/23/22 Francisco Javier Ivey MD [address] [place] [address] Consulting Physician Neurological Surgery 03/07/24 documented as of this encounter
--- OUTSIDE RECORDS SUMMARY | 2024-10-23 08:42 | XMS_ITS | Clinical Summary ---
Author Organization [facility] Address [address] [place] [address] Phone Care Team Providers Care Forder Operator Name Role Phone HENRRY TANNER MD Unavailable [phone] Reason for Visit and Chief Complaint The Chief Complaint is: 2-3 weeks to review Leep results; Leep on 08/24/23 Problems Includes: Problems addressed during this encounter and other active Problems Current Visit Onset Date Resolved Date Provider Conditio n Status Cervical Dysplasia: Severe 09/21/2023 HENRRY TANNER MD Active Last Documented On 09/21/2023 5:17PM ; [facility] Note: Unchanged History of Abnormal Pap Smear 03/27/2019 Unknown HENRRY TANNER MD Resolved Last Documented On 10/29/2021 11:32AM ; [facility] Note: was Closed. History of Depression 03/27/2019 Unknown HENRRY TANNER MD Resolved Last Documented On 10/29/2021 11:32AM ; [facility] Note: was Closed. History of Hematologic Disorders 03/27/2019 Unknown HENRRY TANNER MD Resolved Last Documented On 10/29/2021 11:32AM ; [facility] Note: was Closed. Past Visits Onset Date Resolved Date Provider Condition Status Anal Fissure 03/17/2023 ENDER TONEY B C Active Last Documented On 12:10PM ; [facility] Intervertebral Disc Degeneration 03/17/2023 CHAPO TONEY BC Active Last Documented On 3 12:09PM ; [facility] Ovarian Cyst 03/17/2023 ENDER TONEY B C Active Last Documented On 3 12:10PM ; [facility] Amenorrhea 03/25/2021 HENRRY TANNER MD Active Last Documented On 1 2:52PM ; [facility] Note: Unchanged Contact Dermatitis of Perineum 03/25/2021 HENRRY TANNER MD Active Last Documented On 1 2:52PM ; [facility] Note: Unchanged Oth mental disorders comp pr egnancy, second trimester 04/11/2019 HENRRY TANNER MD Active Last Documented On 9 2:33PM ; [facility] Note: Unchanged Plan of Treatment No Plan of Treatment Recorded Assessments Includes: Assessments from this encounter Findings - Severe cervical dysplasia (ALESSANDRO III) - Last Documented On 09/21/2023 5:19PM ; [facility] Medical Equipment - Implanted Devices Includes: Current Devices No Medical Equipment Recorded Medications Includes: Medications discussed during this encounter and other current Medications Current Medications (continue as prescribed) Veozah 45 MG Oral Tablet 09/21/2023 Provider: Diagnosis: Last Documented On 4 10:20AM By DOV MAYERS ; [facility] Albuterol Sulfate (5 MG/ML) 0.5% Inhalation Nebulization solution 03/03/2023 Provider: Diagnosis: Last Documented On 03/03/2023 12:59PM By Shalini Pirce ; [facility] Phenergan 25 mg Oral Tablet 03/03/2023 Provider: Diagnosis: Last Documented On 3 1:28PM By ENDER TESFAYE ; [facility] FLUoxetine HCl 20 MG Oral Capsule 07/21/2021 Provide r: MARIVEL LAW NP Diagnosis: Last Documented On 04/26/2023 1:03PM By Taye MAYERS ; [facility] Gabapentin 300 MG Oral Capsule 03/25/2021 Provider: Diagnosis: 2 capsules tid Last Documented On 1 2:06PM By DOV MAYERS ; [facility] Omeprazole 20 MG Oral Capsule Delayed Release 09/28/19 Provider: Diagnosis: Last Documented On 0 10:46AM By DOV MAYERS ; [facility] Past Medications on file Veozah 45 MG Oral Tablet 03/17/2023 - 06/15/2023 Provi alvin: ENDER FRANKLIN RN JOCELYN Diagnosis: Flushing One tablet daily Last Documented On 3 11:49AM By ENDER FRANKLIN GURU ; [facility] Sulfamethoxazole-Trimethopri m 800-160 MG Oral Tablet 03/03/2023 - 03/10/2023 Provider: ENDER TONEY Diagnosis: Furuncle, unspecified One tablet twice a day ONE TAB 2 TIMES A DAY WIT H FOOD Last Documented On 3 1:25PM By ENDER TESFAYE ; [facility] Medications Administered Includes: Administered Medications from this encounter No Administered Medications Recorded Vital Signs Includes: Vital Signs from this encounter Vital Name 09/21/2023 10:08A Blood Pressure Sitting (mmHg) 104/60 Temp-Oral (F) 98.2 Height (in) 66 Weight (lb) 148 Body Mass Index 23.9 Body Surface Area 1.8 Last Documented: On 09/21/2023 10:17A M ; [facility] Results Includes: Results discussed during this encounter No Results Recorded For Specified Dates History of Present Illness Includes: History of Present Illness from this encounter PIA HIGGINS is a 43 year old female. - Allergy list reviewed - Medication list reviewed Pt had LEEP done on 08/24/23. Pt denies any problems with the LEEP. Path report shows ALESSANDRO 2 in the cone. The deeper pass has ALESSANDRO 2-3 that extends to the endocervical margin. Options for management are discussed Social History Description Last Updated Sexually active 04/13/2023 Last Documented On 4 10:09AM ; [facility] Smoking status : Current everyday smoker 04/13/2023 Last Documented On 4 10:09AM ; [facility] Marital history 03/17/2023 Last Documented On 4 10:09AM ; [facility] Not using alcohol 03/17/2023 Last Documented On 4 10:09AM ; [facility] Not using drugs 03/17/2023 Last Documented On 4 10:09AM ; [facility] Sexually active with 1 partners in the l ast year 03/17/2023 Last Documented On 4 10:09AM ; [facility] control is being practiced BTL Last Documented On 4 10:09AM ; [facility] Sexually active 6 weeks 09/28 Last Documented On 4 10:09AM ; [facility] Procedures and Surgical History Includes: Procedures from this encounter Procedures Code Diagnosis Performing Provider Service L ocation Service Date Clinical summary provided to patient Last Documented On 4 5:14PM ; [facility] Surgical History Last Updated History of Loop electrode excision of ce rvix (LEEP) 08/24/23 TK 09/21/2023 Last Documented On 4 5:19PM ; [facility] Previous colposcopy 01/18/2019 Dr Anselmo Hernandez No Bx; 04/13/23 TCK 04/26/2023 Last Documented On 4 10:09AM ; [facility] History of tubal ligation bilateral salp ingectomy 04/13/2023 Last Documented On 4 10:09AM ; [facility] Surgical / procedural histor y Laparoscopic marsupialization of ovarian cyst x3 ~left and right hand carpal tunnel- 2008 ~epidural x 2- 202003/25/2021 Last Documented On 4 10:09AM ; [facility] Dilation + Curettage 06/16/17 03/29/2019 Last Documented On 4 10:09AM ; [facility] History of cholecystectomy 03/29/2019 Last Documented On 4 10:09AM ; [facility] Tonsillectomy with adenoidectomy 019 Last Documented On 4 10:09AM ; [facility] History of surgery Tonseilectomy 019 Last Documented On 4 10:09AM ; [facility] Medical History Includes: Medical History addressed during this encounter Description Last Updated Last mammogram date: 05/04/2023 [facility] 09/21 Last Documented On 4 5:19PM ; [facility] section x 1 09/21/2023 Last Documented On 4 5:19PM ; [facility] Last pap smear date 03/17/2023 09/21/2023 Last Documented On 4 5:19PM ; [facility] LMP: 04/03/2023 and before that was 3 04/13/2023 Last Documented On 4 10:09AM ; [facility] Result: abnormal ASC-US HR HPV+ 04/13/20 Last Documented On 4 10:09AM ; [facility] Primary Care Provider: Marivel slaughter NP 03/03/2023 Last Documented On 4 10:09AM ; [facility] Contraception: bilateral salpingectomy w ith c/s 03/25/2021 Last Documented On 4 10:09AM ; [facility] Para 5 03/25/2021 Last Documented On 4 10:09AM ; [facility] History of colonoscopy fiberoptic was pe rformed 2008 [facility] 03/25/2021 Last Documented On 4 10:09AM ; [facility] Baby thriving C/S [facility] 36- 5/7 weeks 6# 0oz Lawrence David 09/28/2019 Last Documented On 4 10:09AM ; [facility] is bottle-feeding 09/28/2019 Last Documented On 4 10:09AM ; [facility] Result: normal 03/29/2019 Last Documented On 4 10:09AM ; [facility] Vaginal delivery x 4 03/29/2019 Last Documented On 4 10:09AM ; [facility] History of human papilloma virus infecti on 06/02/17 03/29/2019 Last Documented On 4 10:09AM ; [facility] A colonoscopy was performed 2009 019 Last Documented On 4 10:09AM ; [facility] Aborta 1 03/29/2019 Last Documented On 4 10:09AM ; [facility] 6 03/29/2019 Last Documented On 4 10:09AM ; [facility] History of Abnormal Pap Smear 11/29/2018: HGSIL; 01/18/2019: colp but no bx; 03/27/2019 Last Documented On 4 10:09AM ; [facility] History of depression depres raza dx'd at 13, meds since 19 y old: prior lexapro, effexor in the past, prozac: now for lthe last 10 yrs: pt likes; 03/27/2019 Last Documented On 4 10:09AM ; [facility] History of hematologic disorder B-12 and iron shots after last delivery 03/27/2019 Last Documented On 4 10:09AM ; [facility] Family History Includes: Family History addressed during this encounter Description Last Updated Maternal grandfather's history of diabet es mellitus MGF 03/29/2019 Last Documented On 4 10:09AM ; [facility] Spouse name: Thony 03/29/2019 Last Documented On 4 10:09AM ; [facility] Family history of hypertension mom and d ad 03/29/2019 Last Documented On 4 10:09AM ; [facility] Review of Systems Includes: Review of [...] ve Last Documented On 4 10:17AM ; [facility] Chantix Allergy 03/17/2023 Active Last Documented On 4 10:17AM ; [facility] Encounters Encounter Provider Location Date Check-In Time Check-Out Time Diagnosis FOLLOW UP HENRRY TANNER MD [facility] 4 10:01AM 10:44AM Cervical Dysplasia: Severe Insurance Includes: Active Insurance Policies Plan Name Member ID Group # Subscriber Relationship Effect flo Dates 1 - R [id number] THONY HIGGINS Clinical Notes Includes: Clinical Notes from this encounter * Progress note Date Encounter Last Documented by 09/21/2023 FOLLOW UP Last documented on 09/21/2023; 5:19 PM, HENRRY TANNER MD; [facility] Active Problems & Conditions - Amenorrhea - Anal Fissure - Cervical Dysplasia: Severe - Contact Dermatitis of Perineum - Intervertebral Disc Degeneration - Oth mental disorders comp , second trimester - Ovarian Cyst Chief Complaint The Chief Complaint is: 2-3 weeks to review Leep results; Leep on 08/24/23. History of Present Illness MARTITA HIGGINS is a 43 year old female. - Allergy list reviewed - Medication list reviewed Pt had LEEP done on 08/24/23. Pt denies any problems with the LEEP. Path report shows ALESSANDRO 2 in the cone. The deeper pass has ALESSANDRO 2-3 that extends to the endocervical margin. Options for management are discussed Current Medication - Albuterol Sulfate (5 MG/ML) [...] refills - Veozah 45 MG Oral Tablet 0 days, 0 refills Pt also reports taking doxycycline, medro pack, tessalon pearls, all for pneumonia.......09/21/22 ed Past Medical/Surgical History Other: Primary Care Provider: Marivel Law NP Reported: LMP: 04/03/2023 and before that was 12/2022, Last pap smear date 03/17/2023 result: abnormal ASC-US HR HPV+, Last mammogram date: 05/04/2023 [facility], result: normal, and Contraception: bilateral salpingectomy with c/s. Surgical / Procedural: Surgical / procedural history Laparoscopic marsupialization of ovarian cyst x3 left and right hand carpal tunnel- 2008 epidural x 2- 2020. Previous colposcopy 01/18/2019 Dr Veronica Price-Julia No Bx; 04/13/23 TCK, Tonsillectomy with adenoidectomy, and Dilation + Curettage 06/16/17. Tests: A colonoscopy was performed 2009. Dietary: is bottle-feeding. : Baby thriving C/S [facility] 36- 5/7 weeks 6# 0wai Hernandez , 6, para 5, aborta 1, history of the : vaginal delivery x 4, and section x 1. Other: Diaignostic fiberoptic colonoscopy 2008 [facility] Diagnoses: [...] - Cholecystectomy - Tubal ligation bilateral salpingectomy - Loop electrode excision of cervix (LEEP) 08/24/23 TK Social History Tobacco use: Smoking status: Current everyday smoker. Alcohol: Not using alcohol. Drug Use: Not using drugs. Marital: Marital history . Sexual: Sexually active 6 weeks , with 1 partners in the last year, and control is being practiced BTL. Allergies - Chantix - Reglan Reaction: Hallucinations Family History Spouse name: Thony Systemic hypertension mom and dad Maternal grandfather's: Diabetes mellitus MGF Physical Findings - Vitals taken 09/21/2023 10:08 am BP-Sitting 104/60 mmHg Temp-Oral 98.2 F Height 66 in Weight 148 lbs Body Mass Index 23.9 kg/m2 Body Surface Area 1.8 m2 No further exam is performed. Assessment - Severe cervical dysplasia (ALESSANDRO III) Therapy - Clinical summary provided to patient. Discussed Options for management are discussed. We could ignore the findings of a positive deeper endocervical margin and hope everything will be fine----not recommended. We could hope that the deeper pass got the very last bad cells or that any remaining bad cells got destroyed by the cautery effecto fo the LEEP electrode: no bad cells remain. We could follow this by simply repeating the pap smear yearly till we have 3 negatives. This could be done with an accompaning ECC. We could go back and do a bigger LEEP to check out that deep margin, but it may already be negative. Hysterectomy could be done. Vag hyst vs LAVH vs TLH could be done with or without robot assistance. We do not have a robot here and if invasion is suspected we don't have the ability to do sentinal lymph node identification. Hysterectomy may be better done by FRAME TENDER/oncology at one of the [facility]. Pt has familiarization with [facility] as she had her last c/s there with bilateral salpingectomy. We will start the consultation process for surgery there. Plan StartCited - Other Follow-up TCK Team will be sending pt to FRAME TENDER/oncology at [facility]; return in 6 months for f/u from FRAME TENDER/oncology (30 min). PHY ORDER/COMMENT need to send referral to FRAME TENDER/oncology at [facility] U: ALESSANDRO 2-3 with positive margins on deeper LEEP tissue: pt already had bilat salpingectomy and at 43 wants hyst. EndCited Practice Management [[id number]] Established outpatient, medically appropriate H&P, low level decision making, 20-29 minutes.
--- OUTSIDE RECORDS SUMMARY | 2024-10-23 08:42 | XMS_ITS | Encounter Summary ---
Author Organization [facility] Address [address] [place] [address] Phone Care Team Providers Care Sql Report Analyst Name Role Phone Kimberly Jc APRN, KIRILL Primary Care P rovider Makc Owens MD Unavailable Timmy Ibarra [facility] Primary Care Provider [phone] Francisco Javier Ivey MD Unavailable Reason for Visit * Reason Comments Medication Refill Encounter Details Date Type Department Care Team (Late st Contact Info) Description 01/19/2024 Refill [facility] - Primary Care - [place] [address] [place] [address] Kimberly Jc APRN, CRACKER AND COOKIE MACHINE OPERATOR [address] [place] [address] Medication Refill Social History Tobacco Use Types Packs/Day Years Used Date Smoking Tobacco: Every Day Cigarettes 1.5 32.1 Started: 1992 Smokeless Tobacco: Never Comments:Down to quarter formerly [facility] k Alcohol Use Standard Drinks/Week Comments No 0 (1 standard drink = 0.6 oz pur e alcohol) [facility] Utilities Answer Date Recorded In the past [...] often do you attend chur ch or gnosticism services? Never 09/03/2023 Do you belong to any clubs o r organizations such as mosque groups, unions, fraternal or athletic groups, or [...] Answer Date Recorded PHQ-2 Score 0 05/13/2019 [facility] - [...] place to sleep or slept in a assisted (including now)? No 09/03/2023 Education Answer Date [...] Telephone Encounter - Cornelio Harrison RN - 01/19/2024 9:41 AM CDT Medication failed the protocol, provider to review and approve the medication order if appropriate. Requested Prescriptions Pending Prescriptions Disp Refills gabapentin (NEURONTIN) 300 MG Capsule [Pharmacy Med Name: GABAPENTIN 300MG CAPSULES] 540 Capsule 1 Sig: TAKE 2 CAPSULES BY MOUTH THREE TIMES DAILY Not Delegated - Anticonvulsants Excluding Benzodiazepines Protocol Failed - 01/19/2024 9:40 AM Failed - This refill cannot be delegated Passed - Visit with relevant provider in past 12 months or upcoming 90 days Recent Visits Date Type Provider Dept 10/20/23 Office Visit Timmy Ibarra, [facility] 10/08/23 Office Visit [facility] Ibarra, [facility] 09/03/23 Office Visit Timmy Ibarra, [facility] 07/29/23 Office Visit Arcelia Leija, [facility] 06/17/23 Office Visit Arcelia Leija, N[facility] 02/22/23 Office Visit Kimberly Jc APRN, [facility] Showing recent visits within past 365 days and meeting all other requirements Future Appointments No visits were found meeting these conditions. Showing future appointments within next 90 days and meeting all other requirements documented in this encounter Plan of Treatment Upcoming Encounters Date Type Department Care Team (Late st Contact Info) Description 11/06/2024 7:00 AM CDT Appointment [facility] [address] [place] [id number] Timmy Ibarra PAC [address] [place] [id number] Discharge Disposition: Discharged to home or Selfcare documented as of this encounter Visit Diagnoses Not on filedocumented in this encounter Additional Health Concerns Assessment Noted Time PHQ-9 Depression Total Score: 0 06/10/20 18 9:00 AM CDT documented as of this encounter Care Teams Sql Report Analyst Relationship Specialty Start Date End Date Kimberly Jc APRN, KIRILL [address] [place], [place] [id number] PCP - General Advanced Practice Nurse 02/14/20 Timmy Ibarra PAC [address] [place] [address] PCP - General Physician S3B Multi Sensor Operator 02/17/24 Mack Owens MD [address] [address] Consulting Physician Colon and Rectal Surgery 11/23/22 Francisco Javier Ivey MD [address] [place] [address] Consulting Physician Neurological Surgery 03/07/24 documented as of this encounter
--- OUTSIDE RECORDS SUMMARY | 2024-10-23 08:42 | XMS_ITS ---
Author Organization [facility] Address [address] [place] [address] Phone Care Team Providers Care Resident Care Director Name Role Phone FLORES OLIVEIRA, HENRRY Aguilera Unavailable [phone] Problems Includes: Active, inactive, and resolved Problems All Visits Onset Date Resolved Date Provider Condition S tatus Cervical Dysplasia: Severe 09/21/2023 HENRRY TANNER MD Active Last Documented On 09/21/2023 5:17PM ; [facility] Note: Unchanged Anal Fissure 03/17/2023 ENDER Sena JOCELYN MARTÍNEZ Active Last Documented On 3 12:10PM ; [facility] Intervertebral Disc Degeneration 03/17/2023 CHAPO FRANKLIN RN JOCELYN MARTÍNEZ Active Last Documented On 3 12:09PM ; [facility] Ovarian Cyst 03/17/2023 ENDER FRANKLIN RN JOCELYN B C Active Last Documented On 3 12:10PM ; [facility] Amenorrhea 03/25/2021 HENRRY TANNER MD Active Last Documented On 03/25/2021 2:52PM ; [facility] Note: Unchanged Contact Dermatitis of Perineum 03/25/2021 HENRRY TANNER MD Active Last Documented On 03/25/2021 2:52PM ; [facility] Note: Unchanged Oth mental disorders comp , second trimester 04/11/2019 HENRRY TANNER MD Active Last Documented On 04/11/2019 2:33PM ; [facility] Note: Unchanged Age 35+ During 03/27/2019 Unknown HENRRY CORTEZ MD Resolved Last Documented On 10/29/2021 11:32AM ; [facility] Note: was Closed. History of Abnormal Pap Smear 03/27/2019 Unknown HENRRY TANNER MD Resolved Last Documented On 10/29/2021 11:32AM ; [facility] Note: was Closed. History of Depression 03/27/2019 Unknown HENRRY TANNER MD Resolved Last Documented On 10/29/2021 11:32AM ; [facility] Note: was Closed. History of Hematologic Disorders 03/27/2019 Unknown HENRRY TANNER MD Resolved Last Documented On 10/29/2021 11:32AM ; [facility] Note: was Closed. Medical History Infections 03/27/2019 Unknown HENRRY LUGO MD Resolved Last Documented On 10/29/2021 11:32AM ; [facility] Note: was Closed. Smoking During 03/27/2019 Unknown HENRRY CORTEZ MD Resolved Last Documented On 10/29/2021 11:32AM ; [facility] Note: was Closed. Tobacco Use 03/27/2019 Unknown HENRRY TANNER MD Resolv ed Last Documented On 10/29/2021 11:32AM ; [facility] Note: was Closed. Plan of Treatment Findings Encounter Date Ordered Clinical summary pro vided to patient WELL WOMAN - ESTABLISHED PT with ENDER FRANKLIN RN JOCELYN 03/17/2023 Last Documented On 3 12:56PM ; [facility] Pending Tests Order Diagnosis Results Due Ordering P rovider Radiology @ other - Ultrasound Pelvic U/S w/TVT (TransVag) Unspecified ovarian cyst, unspecified side 05/05/23 ENDER FRANKLIN RN JOCELYN Last Documented On 3 8:24AM ; [facility] Lab RENAL FUNCTION PANEL 06/15/23 KAVYA FRANKLIN RN JOCELNY Last Documented On 3 11:52AM ; [facility] Instructions to patient Intervention and counseling on cessation of tobacco use Last Documented On 3 11:04AM ; [facility] Instructed to call if excess flo bleeding or abdominal/pelvic pain Last Documented On 3 11:14AM ; [facility] Instructions For Patient: Mo nthly Self Breast Exam Last Documented On 3 11:14AM ; [facility] Recommend diet and exercise at least 30 min three times per week Last Documented On 3 11:14AM ; [facility] Intervention and counseling on cessation of tobacco use Last Documented On 3 1:02PM ; [facility] Education and Decision Aids were provided [...] procedure Last Documented On 3 2:45PM ; [facility] INFORMED CONSENT DISCUSSION: Colposcopy was discussed in detail including risk of post procedure bleeding and infection. Patient is not to have anything in the vagina till all of the discharge quits following the procedure. Patient expressed understanding of the above and consented to the procedure Last Documented On 3 11:56AM ; [facility] Patient Education: Daily adam cium and vitamin D Last Documented On 3 11:14AM ; [facility] INFORMED CONSENT DISCUSSION: Colposcopy was discussed in detail including risk of post procedure bleeding, infection, and risk of pre term labor. Patient is not to have anything in the vagina till all of the disharge quits following the procedure. Patient expressed understanding of the above and consented to the procedure Last Documented On 9 10:42AM ; [facility] Assessments Includes: Assessments for all patient encounters Findings Encounter Date Severe cervical dysplasia (ALESSANDRO III) FOLLOW UP [facility] HENRRY TANNER MD 09/21/2023 Last Documented On 4 5:19PM ; [facility] Severe cervical dysplasia (ALESSANDRO III) PROC EDURE OFFICE with HENRRY TANNER MD 08/24/2023 Last Documented On 3 2:53PM ; [facility] Cervical dysplasia--moderate (ALESSANDRO II) FOLLOW UP with HENRRY TANNER MD 04/26/2023 Last Documented On 3 1:48PM ; [facility] Cervical dysplasia--severe (ALESSANDRO III) FOLLOW UP w ith HENRRY TANNER MD 04/26/2023 Last Documented On 3 1:48PM ; [facility] Ventral hernia without obstr uction or gangrene FOLLOW UP with HENRRY TANNER MD 04/26/2023 Last Documented On 3 1:48PM ; [facility] Hemorrhagic ovarian cyst CHART UPDATE with ENDER FRANKLIN RN [facility] 04/21/2023 Last Documented On 3 8:22AM ; [facility] [Atypical squamous cells of undetermined significance on cytologic smear of cervix (ASC-US)] abnormal Pap smear: atypical squamous cells of undetermined significance COLPOSCOPY with HENRRY TANNER MD 04/13/2023 Last Documented On 3 11:58AM ; [email or web address]] Female pelvic pain WELL WOMAN - ESTABLI SHED PT with ENDER FRANKLIN RN [facility] 03/17/2023 Last Documented On 3 12:56PM ; [facility] Routine gynecological exam w ith abnormal findings WELL WOMAN - ESTABLISHED PT with ENDER FRANKLIN RN [facility] 03/17/2023 Last Documented On 3 12:56PM ; [facility] Screen malignant neoplasm cervix WELL WO MAN - ESTABLISHED PT with ENDER FRANKLIN RN JOCELYN 03/17/2023 Last Documented On 3 12:56PM ; [facility] Furuncle PROBLEM VISIT with ENDER FRANKLIN RN JOCELYN 03/03/2023 Last Documented On 3 1:34PM ; [facility] Skin disorder PROBLEM VISIT with ENDER FRANKLIN RN JOCELYN 03/03/2023 Last Documented On 3 1:34PM ; [facility] [[email or web address]] Amenorrhea PROBLEM VISIT with HENRRY Vergara MD 03/25/2021 Last Documented On 1 2:53PM ; [facility] Contact dermatitis of perineum PROBLEM VISIT trevor TANNER MD 03/25/2021 Last Documented On 1 2:53PM ; [facility] Routine history a nd physical POST VISIT with HENRRY TANNER MD 09/28/2019 Last Documented On 0 11:23AM ; [facility] Abnormal Pap smear: high gra de squamous intraepithelial lesion present COLPOSCOPY with HENRRY TANNER MD 03/29/2019 Last Documented On 9 10:43AM ; [facility] Instructions Includes: Instructions for all patient encounters Instructions to patient Intervention and counseling on cessation of tobacco use Last Documented On 3 11:04AM ; [facility] Instructed to call if excess flo bleeding or abdominal/pelvic pain Last Documented On 3 11:14AM ; [facility] Instructions For Patient: Mo nthly Self Breast Exam Last Documented On 3 11:14AM ; [facility] Recommend diet and exercise at least 30 min three times per week Last Documented On 3 11:14AM ; [facility] Intervention and counseling on cessation of tobacco use Last Documented On 3 1:02PM ; [facility] Education and Decision Aids were provided [...] procedure Last Documented On 3 2:45PM ; [facility] INFORMED CONSENT DISCUSSION: Colposcopy was discussed in detail including risk of post procedure bleeding and infection. Patient is not to have anything in the vagina till all of the discharge quits following the procedure. Patient expressed understanding of the above and consented to the procedure Last Documented On 3 11:56AM ; [facility] Patient Education: Daily adam cium and vitamin D Last Documented On 3 11:14AM ; [facility] INFORMED CONSENT DISCUSSION: Colposcopy was discussed in detail including risk of post procedure bleeding, infection, and risk of pre term labor. Patient is not to have anything in the vagina till all of the disharge quits following the procedure. Patient expressed understanding of the above and consented to the procedure Last Documented On 9 10:42AM ; [facility] Medical Equipment - Implanted Devices Includes: Current and historical Devices No Medical Equipment Recorded Medications Includes: Current and historical Medications Current Medications (continue as prescribed) Veozah 45 MG Oral Tablet 09/21/2023 Provider: Diagnosis: Last Documented On 4 10:20AM By DOV JOHNSON [facility] ; [facility] Albuterol Sulfate (5 MG/ML) 0.5% Inhalation Nebulization solution 03/03/2023 Provider: Diagnosis: Last Documented On 03/03/2023 12:59PM By Shalini Price ; [facility] Phenergan 25 mg Oral Tablet 03/03/2023 Provider: Diagnosis: Last Documented On 3 1:28PM By ENDER GOULD ; [facility] FLUoxetine HCl 20 MG Oral Capsule 07/21/2021 Provide r: MARIVEL LAW NP Diagnosis: Last Documented On 04/26/2023 1:03PM By Taye Bradley Jaja ; [facility] Gabapentin 300 MG Oral Capsule 03/25/2021 Provider: Diagnosis: 2 capsules tid Last Documented On 1 2:06PM By DOV JOHNSON Jaja ; [facility] Omeprazole 20 MG Oral Capsule Delayed Release 09/28/19 20 Provider: Diagnosis: Last Documented On 0 10:46AM By DOV JOHNSON Jaja ; [facility] Past Medications on file Veozah 45 MG Oral Tablet 03/17/2023 - 06/15/2023 Provi alvin: ENDER FRANKLIN RN JOECLYN Diagnosis: Flushing One tablet daily Last Documented On 3 11:49AM By ENDER TESFAYE ; [facility] Sulfamethoxazole-Trimethopri m 800-160 MG Oral Tablet 03/03/2023 - 03/10/2023 Provider: ENDER FRANKLIN RN DAWNA Diagnosis: Furuncle, unspecified One tablet twice a day ONE TAB 2 TIMES A DAY WIT H FOOD Last Documented On 3 1:25PM By ENDER TONEY- ; [facility] HYDROcodone-Acetaminophen 5-325 MG Oral Tablet 0 03/25/2021 - 03/03/2023 Provider: Diagnosis: Last Documented On 03/03/2023 12:58PM By Shalini Price ; [facility] Lisinopril-hydroCHLOROthiazi de 20-12.5 MG Oral Tablet 03/25/2021 - 03/03/2023 Provider: Diagnosis: Last Documented On 03/03/2023 12:57PM By Shalini Price ; [facility] traMADol HCl 50 MG Oral Tablet 03/25/2021 - 03/03/2023 Provider: Diagnosis: tid Last Documented On 03/03/2023 12:57PM By Shalini Price ; [facility] Methocarbamol 500 MG Oral Tablet 03/25/2021 - 08/24/20 Provider: Diagnosis: bid Last Documented On 3 2:05PM By DOV MAYERS ; [facility] PROzac 20 MG Oral Capsule 09/28/2019 - 04/26/2023 Provider: HENRRY Hannah Diagnosis: Other mental dis orders complicating the puerperium 1 capsule daily Last Documented On 04/26/2023 1:03PM By Taye MAYERS ; [facility] PROzac 20 MG Oral Capsule 08/02/2019 - 09/28/2019 Provider: HENRRY Hannah Diagnosis: Other mental dis orders complicating the puerperium 1 capsule daily Last Documented On 09/28/2019 11:22AM By HENRRY TANNER MD ; [facility] Zithromax Z-Ravin 250 MG Oral Tablet 05/12/2019 - 09/28/2019 Provider: HENRRY Hannah Diagnosis: Encounter for alvarez prvsn of normal , third trimester as directed Last Documented On 0 10:45AM By DOV MAYERS ; [facility] PROzac 20MG Oral Capsule 04/11/2019 - 08/02/2019 Provider: HENRRY Hannah Diagnosis: Oth mental disor ders comp , second trimester 1 capsule daily Last Documented On 08/02/2019 12:22PM By HENRRY TANNER MD ; [facility] Multivitamin + DHA 28-0.8 & 200MG Oral Miscellaneous 03/27/2019 - 09/28/2019 Provider: Diagnosis: 1 tablet daily Last Documented On 0 10:45AM By DOV MAYERS ; [facility] PROzac 20MG Oral Capsule 03/27/2019 - 04/11/2019 Provi alvin: Diagnosis: 1 capsule daily Last Documented On 04/11/2019 2:32PM By HENRRY TANNER MD ; [facility] Zantac 150 Maximum Strength Oral Tablet 03/27/2019 - 0 09/28/2019 Provider: Diagnosis: 1 tablet twice daily Last Documented On 0 10:45AM By DOV MAYERS ; [facility] Medications Administered Includes: Administered Medications in patient's chart Medications Administered Diagnosis Date Pro vider RhoGAM Ultra-Filtered Plus 1500 UNIT IM SOSY 05/26/2019 HENRRY TANNER MD Last Documented On 9 3:41PM By LORI TRAVIS LPN ; [facility] Results Includes: Results from 10/23/2023 through 10/23/2024 No Results Recorded For Specified Dates History of Present Illness History of Present Illness not supported for this document type No History of Present Illness Recorded Social History Description Last Updated Current smoker 08/24/2023 Last Documented On 3 2:53PM ; [facility] Tobacco use was 20 Smoked a pack a day prior to , down to 8-10 a day in preg, back up to one ppd since preg 08/24/2023 Last Documented On 3 2:53PM ; [facility] Sexually active 04/13/2023 Last Documented On 3 11:58AM ; [facility] Smoking status : Current everyday smoker 04/13/2023 Last Documented On 3 11:58AM ; [facility] Marital history 03/17/2023 Last Documented On 3 12:56PM ; [facility] Not using alcohol 03/17/2023 Last Documented On 3 12:56PM ; [facility] Not using drugs 03/17/2023 Last Documented On 3 12:56PM ; [facility] Sexually active with 1 partners in the l ast year 03/17/2023 Last Documented On 3 12:56PM ; [facility] control is being practiced BTL Last Documented On 3 12:56PM ; [facility] Sexually active 6 weeks 09/28 Last Documented On 0 11:23AM ; [facility] Procedures and Surgical History Surgical History Last Updated History of Loop electrode excision of ce rvix (LEEP) 08/24/23 TK 09/21/2023 Last Documented On 4 5:19PM ; [facility] Previous colposcopy 01/18/2019 Dr Anselmo Hernandez No Bx; 04/13/23 TCK 04/26/2023 Last Documented On 3 1:48PM ; [facility] History of tubal ligation bilateral salp ingectomy 04/13/2023 Last Documented On 3 11:58AM ; [facility] Surgical / procedural histor y Laparoscopic marsupialization of ovarian cyst x3 ~left and right hand carpal tunnel- 2008 ~epidural x 2- 202003/25/2021 Last Documented On 1 2:53PM ; [facility] Dilation + Curettage 06/16/17 03/29/2019 Last Documented On 9 10:43AM ; [facility] History of cholecystectomy 03/29/2019 Last Documented On 9 10:43AM ; [facility] Tonsillectomy with adenoidectomy 019 Last Documented On 9 10:43AM ; [facility] [[email or web address]] History of surgery 03/27/2019 Last Documented On 9 5:21PM ; [facility] Medical History Includes: Medical History in patient's chart Description Last Updated Last mammogram date: 05/04/2023 [facility] 09/21 Last Documented On 4 5:19PM ; [facility] section x 1 09/21/2023 Last Documented On 4 5:19PM ; [facility] Last pap smear date 03/17/2023 09/21/2023 Last Documented On 4 5:19PM ; [facility] LMP: 04/03/2023 and before that was 3 04/13/2023 Last Documented On 3 11:58AM ; [facility] Result: abnormal ASC-US HR HPV+ 04/13/20 23 Last Documented On 3 11:58AM ; [facility] A mammogram was performed 03/17/2023 Last Documented On 3 12:56PM ; [facility] Primary Care Provider: Marivel slaughter NP 03/03/2023 Last Documented On 3 1:34PM ; [facility] Contraception: bilateral salpingectomy w ith c/s 03/25/2021 Last Documented On 1 2:53PM ; [facility] Para 5 03/25/2021 Last Documented On 1 2:53PM ; [facility] History of colonoscopy fiberoptic was pe rformed 2008 [facility] 03/25/2021 Last Documented On 1 2:53PM ; [facility] History of cervical Pap smear 12/04/2018 03/25/2021 Last Documented On 1 2:53PM ; [facility] Baby thriving C/S [facility] 36- 5/7 weeks 6# 0oz Lawrence Hernandez 09/28/2019 Last Documented On 0 11:23AM ; [facility] is bottle-feeding 09/28/2019 Last Documented On 0 11:23AM ; [facility] Result: normal 03/29/2019 Last Documented On 9 10:43AM ; [facility] Vaginal delivery x 4 03/29/2019 Last Documented On 9 10:43AM ; [facility] History of human papilloma virus infecti on 06/02/17 03/29/2019 Last Documented On 9 10:43AM ; [facility] A colonoscopy was performed 2009 019 Last Documented On 9 10:43AM ; [facility] Aborta 1 03/29/2019 Last Documented On 9 10:43AM ; [facility] 6 03/29/2019 Last Documented On 9 10:43AM ; [facility] History of Abnormal Pap Smear 03/27/2019 Last Documented On 9 5:21PM ; [facility] History of depression 03/27/2019 Last Documented On 9 5:21PM ; [facility] History of hematologic disorder 03/27/20 19 Last Documented On 9 5:21PM ; [facility] Family History Includes: Family History in patient's chart Description Last Updated Maternal grandfather's history of diabet es mellitus MGF 03/29/2019 Last Documented On 9 10:43AM ; [facility] Spouse name: Thony 03/29/2019 Last Documented On 9 10:43AM ; [facility] Family history of hypertension mom and d ad 03/29/2019 Last Documented On 9 10:43AM ; [facility] Review of Systems Review of Systems not supported for this document type No Review of Systems Recorded Mental Status No Mental Status Recorded Functional Status No Functional Status Recorded Physical Exam Physical Exam not supported for this document type No Physical Exam Recorded Allergies Includes: Active, inactive, and resolved Allergies Substance Type Reaction Onset Date Resolved Date Statu s Reglan Allergy Hallucinations 03/27/2019 Acti ve Last Documented On 4 10:17AM ; [facility] Chantix Allergy 03/17/2023 Active Last Documented On 4 10:17AM ; [facility] Insurance Includes: Active Insurance Policies Plan Name Member ID Group # Subscriber Relationship Effect flo Dates 1 - [facility] [id number] THONY HIGGINS Clinical Notes Includes: Signed Clinical Notes starting from 09/18/2022 No Clinical Notes Recorded
== END 2024-10-23 09:01 | disposition home or self-care (01) ==
PROVIDERS: Emergency Provider Nurse Practitioner
DX: R11.2 Nausea with vomiting, unspecified (principal); F17.210 Nicotine dependence, cigarettes, uncomplicated; F12.90 Cannabis use, unspecified, uncomplicated; K21.9 Gastro-esophageal reflux disease without esophagitis; F41.9 Anxiety disorder, unspecified; F32.A Depression, unspecified
CPT/HCPCS: 99211; 99213; G0463

== ENCOUNTER 2024-12-11 12:15 | Emergency (ER) | payer OTHER, SELFPAY ==
[2024-12-11 12:20] VITALS: BP 132/86; PULSE 90; RESP 20; TEMP 36.3; O2SAT 98
--- NOTE | 2024-12-11 12:33 | ED.NAVMDI ---
HPI - Nausea/Vomiting/Diarrhea General Chief complaint: Nausea/Vomiting/Diarrhea Stated complaint: Vomiting Time Seen by Provider: 12/11/24 12:33 Source: patient Mode of arrival: ambulatory Limitations: no limitations History of Present Illness HPI Narrative: 44 yo F presents with c/o N/V/D since 1am. Concerned she has stomach flu or food poisoning. No ABD pain. No fever but states she has had sweats and chills. vomiting stopped approximately 1 hour ago, has been able to keep down water. Reports headache and fatigue. Has not ate any food that concerns her for food poisoning. All systems reviewed and negative except as noted above. Related Data Home Medications ?Medication ?Instructions ?Recorded ?Confirmed ?Last Taken ?Type fluoxetine 20 mg capsule 20 mg PO DAILY 04/15/20 10/23/24 Unknown History baclofen 10 mg tablet 10 mg PO TID 07/29/22 10/23/24 Unknown History gabapentin 300 mg capsule 300 mg PO TID 07/29/22 10/23/24 Unknown History omeprazole 40 mg capsule,delayed 40 mg PO DAILY 09/24/22 10/23/24 Unknown History release albuterol sulfate 90 mcg/actuation inhalation 10/23/24 Unknown History aerosol inhaler celecoxib 100 mg capsule mg 10/23/24 Unknown History estradiol 0.05 mg/24 hr weekly 10/23/24 Unknown History transdermal patch losartan 50 mg tablet mg 12/11/24 Unknown History Allergies Allergy/AdvReac Type Severity Reaction Status Date / Time metoclopramide (From Reglan) Allergy Hallucinati Verified 12/11/24 12:27 ng Review of Systems Review of Systems: CONSTITUTIONAL: Denies fever, Reports chills and sweats. Reports fatigue. EYES: Denies visual changes, redness, or discharge. ENT: Denies rhinorrhea, congestion, sore throat, or otalgia. CARDIOVASCULAR: Denies chest pain, palpitations, or edema. RESPIRATORY: Denies cough or dyspnea. GASTROINTESTINAL: Denies abdominal pain. Reports nausea, vomiting, or diarrhea. GENITOURINARY: Denies dysuria or hematuria. SKIN: Denies rash or itching. MUSCULOSKELETAL: Denies back pain, joint pain, or myalgia. NEUROLOGIC: Denies headache, numbness, or weakness. PSYCHIATRIC: Denies anxiety or depression. All other systems reviewed are negative, except as documented in HPI. [facility] Past Medical History Medical History Anxiety Bipolar disorder Bronchitis Cervical lesion Depression Gastric ulcer GERD (gastroesophageal reflux disease) Gestational diabetes Surgical History Surgical History H/O hernia repair History of orthopedic surgery R CTRx2, right ulnar nerve transposition, L CTR Right knee patella fracture Hx of cholecystectomy Hx of tonsillectomy Family History Family History Mother Family history non-contributory Social History Social History Smoking packs per day: 0.5 Smoking cigarettes per day: 10.0 Smoking status: Current every day smoker Tobacco type: cigarettes Substance use: current Substance use type: marijuana Other substance usage details: social use marijuana Living arrangements: with family Gender identity (if verbalized by the patient): Female Sexual Orientation (if Verbalized by the Patient): Straight or Heterosexual Spiritual care concerns: No Comments At time of signature, agree with nursing past medical, surgical, social and family history. There is no relevant family history pertinent to the presenting complaint. Exam Narrative: GENERAL: This is a well-nourished, well-developed patient, in no apparent distress. HEAD: normocephalic, atraumatic. EYES: PERRL. Sclera clear/white. Vision is grossly intact. EARS: External ears normal, auditory canals clear and without drainage, TMs normal without perforation. Hearing grossly intact. NOSE: External nose normal with no obvious nasal discharge, nares without redness, no rhinorrhea. THROAT: Mucous membranes moist, posterior pharynx clear. NECK: Neck supple, non-tender without lymphadenopathy, masses or thyromegaly. CARDIOVASCULAR: Regular rate and rhythm without murmurs, gallops, or rubs. RESPIRATORY: Clear to auscultation. Breath sounds equal bilaterally. No wheezes, rales, or rhonchi. GASTROINTESTINAL: Abdomen soft, non-tender, nondistended. Bowel sounds are active. No hepato-splenomegaly, or palpable masses. No guarding. SKIN: warm, Dry, intact with no suspicious lesions or rash, good texture and turgor. NEURO: awake, alert, and oriented to person, place and time. There were no obvious focal neurologic abnormalities. EXTREMITIES: No joint tenderness, effusion, or edema noted. Course Course Level of Care: Express Care Visit Vital Signs Vital signs: Vital Signs Temperature 36.3 C L 12/11/24 12:20 Pulse Rate 90 12/11/24 12:20 Respiratory Rate 20 12/11/24 12:20 Blood Pressure 132/86 12/11/24 12:20 Pulse Oximetry 98 12/11/24 12:20 Oxygen Delivery Room Air 12/11/24 12:20 Temperature 36.3 C L 12/11/24 12:20 Pulse Rate 90 12/11/24 12:20 Respiratory Rate 20 12/11/24 12:20 Blood Pressure 132/86 12/11/24 12:20 Pulse Oximetry 98 12/11/24 12:20 Oxygen Delivery Room Air 12/11/24 12:20 reviewed MDM - Nausea/Vomiting/Diarrhea MDM Narrative Medical decision making narrative: patient is well-appearing, nontoxic. Able to keep down Water. No abdominal tenderness on palpation. will treat symptoms with Zofran. Recommend hydration. Please be advised this is a medical document. It is intended for [id number] communication. It is written in medical language and may contain unfamiliar abbreviations or verbiage. Medical documents are intended to carry relevant information, facts as evident, and the clinical opinion of the practitioner at the time of the encounter. This report may have been done utilizing a voice recognition system. Attempts have been made to correct errors. However, there may be uncorrected grammatical, spelling, and recognition errors present. The file time of this note does not necessarily represent the time of service. Differential Diagnosis Differential diagnosis: Likely food poisoning, gastroenteritis and dehydration Discharge Plan Discharge Clinical Impression: Viral gastroenteritis Patient Disposition: Home Condition: Stable Instructions: Gastroenteritis (ED) Additional Instructions: your COVID and influenza test was negative today. Take Zofran as prescribed To treat nausea and vomiting. Take ibuprofen or Tylenol every 6-8 hours as needed for pain. Drink at least 64 oz of water a day. see your doctor if symptoms are not improving. Patient Language: Kiswahili Prescriptions: New ondansetron 4 mg tablet,disintegrating 4 mg PO Q8H PRN (Reason: nausea and vomiting) Qty: 12 0RF No Action fluoxetine 20 mg capsule 20 mg PO DAILY baclofen 10 mg tablet 10 mg PO TID gabapentin 300 mg capsule 300 mg PO TID omeprazole 40 mg capsule,delayed release(DR/EC) 40 mg PO DAILY estradiol 0.05 mg/24 hr patch weekly albuterol sulfate 90 mcg/actuation HFA aerosol inhaler INHALATION celecoxib 100 mg capsule losartan 50 mg tablet Follow-up/Referrals: Fred,Timmy Lorenzo [Primary Care Provider] - Time of Disposition: 12:50
[2024-12-11 12:44] LABS: EDCOVIDSCREEN Negative (Negative)
[2024-12-11 12:45] LABS: EDINFLUASCREEN Negative (Negative); EDINFLUBSCREEN Negative (Negative)
--- OUTSIDE RECORDS SUMMARY | 2024-12-11 13:29 | XMS_ITS | Encounter Summary ---
Author Organization [facility] Address [address] [facility] [place] [address] Phone Care Team Providers Care Winder Helper Name Role Phone Kimberly Jc APRN, CNP Primary Care P rovider Mack Owens MD Unavailable Timmy Ibarra [facility] Primary Care Provider Francisco Javier Ivey MD Unavailable Reason for Visit * Reason Comments Medication Refill Encounter Details Date Type Department Care Team (Late Contact Info) Description 01/19/2024 Refill [facility] - Primary Care - [place] [address] [place] [address] Kimberly Jc APRN, CNP [address] [place] [address] Medication Refill Social History Tobacco Use Types Packs/Day Years Used Date Smoking Tobacco: Every Day Cigarettes 1.5 32.3 Started: 1994 Smokeless Tobacco: Never Comments:Down to quarter pac k Alcohol Use Standard Drinks/Week Comments No 0 (1 standard drink = 0.6 oz pur e alcohol) [facility] Utilities Answer Date Recorded In [...] often do you attend chur ch or church services? Never 09/03/2023 Do you belong to any clubs o r organizations such as cheondoism groups, unions, fraternal or athletic groups, or [...] Answer Date Recorded PHQ-2 Score 0 05/13/2019 [facility] ional Health - [...] place to sleep or slept in a fpc (including now)? No 09/03/2023 Education Answer Date [...] Dept 10/20/23 Office Visit Timmy Ibarra, PAC [facility] 10/08/23 Office Visit Timmy Ibarra, [facility] 09/03/23 Office Visit Timmy Ibarra, [facility] 07/29/23 Office Visit Arcelia Leija, PAC [facility] 06/17/23 Office Visit Arcelia Leija, [facility] 02/22/23 Office Visit Kimberly Jc APRN, [facility] Showing recent visits within past 365 [...] documented as of this encounter Care Teams Winder Helper Relationship Specialty Start Date End Date Kimberly Jc APRN, HAT BLOCKING MACHINE OPERATOR [address] [place] [address] PCP - General Advanced Practice Nurse 02/14/20 Timmy Ibarra, [facility] [address] [place] [address] PCP - General Physician Auto Wash Buffer 02/17/24 Mack Owens MD [address] [address] Consulting Physician Colon and Rectal Surgery 11/23/22 Francisco Javier Ivey MD [address] [place] [address] Consulting Physician Neurological Surgery 03/07/24 documented as of this encounter
--- OUTSIDE RECORDS SUMMARY | 2024-12-11 13:29 | XMS_ITS | Encounter Summary ---
Author Organization [facility] Address [address] [place] [address] Phone Care Team Providers Care Steam Power Plant Operator Name Role Phone Kimberly Jc APRN, CNP Primary Care P rovider Mack Owens MD Unavailable Timmy Ibarra [facility] Primary Care Provider [phone] Francisco Javier Ivey MD Unavailable Reason for Visit * Reason Comments Medication Refill Encounter Details Date Type Department Care Team (Late st Contact Info) Description 11/07/2023 Refill [facility] - Primary Care - [place] [address] [place] [address] Kimberly Jc APRN, CNP [address] [place] [address] Medication Refill Social History Tobacco Use Types Packs/Day Years Used Date Smoking Tobacco: Every Day Cigarettes 1.5 32.3 Started: 1992 Smokeless Tobacco: Never Comments:Down to quarter pac k Alcohol Use Standard Drinks/Week Comments No 0 (1 standard drink = 0.6 oz pur e alcohol) [facility] Utilities Answer Date Recorded In the [...] often do you attend chur ch or worship services? Never 09/03/2023 Do you belong to any clubs o r organizations such as jewish groups, unions, fraternal or athletic groups, or [...] Answer Date Recorded PHQ-2 Score 0 05/13/2019 [facility] Occupat ional Health - Occupational Stress [...] place to sleep or slept in a [place] facility (including now)? No 09/03/2023 Education Answer Date [...] documented as of this encounter Care Teams Steam Power Plant Operator Relationship Specialty Start Date End Date Kimberly Jc APRN, DEVELOPMENT DIRECTOR [address] [place] [address] PCP - General Advanced Practice Nurse 02/14/20 Timmy Ibarra PAC [address] [place] [address] PCP - General Physician Group Underwriter 02/17/24 Mack Owens MD [address] [address] Consulting Physician Colon and Rectal Surgery 11/23/22 Francisco Javier Ivey MD [address] [place] [address] Consulting Physician Neurological Surgery 03/07/24 documented as of this encounter
--- OUTSIDE RECORDS SUMMARY | 2024-12-11 13:29 | XMS_ITS | Encounter Summary ---
Author Organization [facility] Address [address] [place] [address] Care Team Providers Care Freight Service Inspector Name Role Phone Hugo Jaquez MD Primary Care Provider Hugo Jaquez MD Unavailable [phone] Kimberly Jc NP Primary Care Provide r Kimberly Jc NP Primary Care Provide r Encounter Details Date Type Department Care Team (Late st Contact Info) Description 07/16/2019 Documentation [facility] Social Work [address] [place] [address] Jazmyn Levy LCSW Social History Tobacco Use [...] on file Legal Sex Female 6:40 PM PSYCH RN Gender Identity Not on file Sexual Orientation [...] B12 deficiency, cervical dysplasia, and anxiety disorder. RAILROAD COOK at [facility] in [place], [place] with Dr. Hugo Jaquez and pt will call tomorrow 07/17 to make an appointment. Medical insurance coverage is through [facility] [employer] and Medicaid [place]. Information Baby boy was born on 07/13/2021 at EGA 36.5 weeks and named baby Lawrence Hernandez. Delivery was . [place] weighed 5lbs 5oz. [place] will be breast feed. This is mother's fifth child. Patient has a 19 year old girl, 11 year old boy, 8 year old, 15 month old, and . Pt???s 19 year old lives in [place] with her grandmother (pt???s mother). Social History Current address is [address] [place] [address], [facility] where she lives with spouse, Juan Mendez([phone]), and four children. Currently [phone] is the best phone number for future contact. Income source for the household is from employment. Juan works bottom brusher 4; 12 hour shifts at [employer]. 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 Pt???s sister and Aunt are able to provide assistance with children. Father of the baby, Juan Mendez, phone number [phone]. FOB is supportive and lives in household. [...] support and additional needs should they arise. Software Architect informed MOB of hotline due to positive THC and possible follow up from [facility]. MOB voiced understanding. Jazmyn Levy LCSW PRJaida H RN * Plan of Care - Jazmyn Levy MSW - 07/16/2019 3:07 PM CST CLARENCE made hotline call to [facility] at . Intake blaster helper was Charles Wilkinson and report #[id number]. Charles discussed no action would be taken, but it would be noted in the system if there is any other cases open. Jazmyn Levy LCSW PRN H RN documented in this encounter Plan of Treatment Not on file documented as of this encounter Visit Diagnoses Not on filedocumented in this encounter Care Teams Freight Service Inspector Relationship Specialty Start Date End Date Hugo Jaquez MD PCP - General 03/16/19 11/18/20 Kimberly Jc NP [address] [place] [address] PCP - General Emergency Medicine 11/22/20 Kimberly Jc NP [address] [place] [address] PCP - General 11/19/20 11/21/20 Hugo Jaquez MD Executive Administrator Obstetrics and Gynecology 04/12/19 documented as of this encounter
--- OUTSIDE RECORDS SUMMARY | 2024-12-11 13:29 | XMS_ITS | Clinical Summary ---
Author Organization [facility] Address [address] [place] [address] Phone Care Team Providers Care Professor Of Latin American Studies Name Role Phone HENRRY TANNER MD Unavailable [phone] Reason for Visit and Chief Complaint The Chief Complaint is: 2-3 weeks to review Leep results; Leep on 08/24/23 Problems Includes: Problems addressed during this encounter and other active Problems Current Visit Onset Date Resolved Date Provider Conditio n Status Cervical Dysplasia: Severe 09/21/2023 HENRRY TANNER MD Active Last Documented On 09/21/2023 5:17PM ; [facility] Note: Unchanged History of Abnormal Pap Smear 03/27/2019 Unknown HENRRY TANNER MD Resolved Last Documented On 10/29/2021 11:32AM ; [facility] Note: was Closed. History of Depression 03/27/2019 Unknown HENRRY TANNER MD Resolved Last Documented On 10/29/2021 11:32AM ; [facility] Note: was Closed. History of Hematologic Disorders 03/27/2019 Unknown HENRRY TANNER MD Resolved Last Documented On 10/29/2021 11:32AM ; [facility] Note: was Closed. Past Visits Onset Date Resolved Date Provider Condition Status Anal Fissure 03/17/2023 ENDER TONEY B C Active Last Documented On 12:10PM ; [facility] Intervertebral Disc Degeneration 03/17/2023 CHAPO TONEY BC Active Last Documented On 3 12:09PM ; [facility] Ovarian Cyst 03/17/2023 ENDER TONEY B C Active Last Documented On 3 12:10PM ; [facility] Amenorrhea 03/25/2021 HENRRY TANNER MD Active Last Documented On 1 2:52PM ; [facility] Note: Unchanged Contact Dermatitis of Perineum 03/25/2021 HENRRY TANNER MD Active Last Documented On 1 2:52PM ; [facility] Note: Unchanged Oth mental disorders comp pr egnancy, second trimester 04/11/2019 HENRRY TANNER MD Active Last Documented On 9 2:33PM ; [facility] Note: Unchanged Plan of Treatment No Plan of Treatment Recorded Assessments Includes: Assessments from this encounter Findings - Severe cervical dysplasia (ALESSANDRO III) - Last Documented On 09/21/2023 5:19PM ; [facility] Medical Equipment - Implanted Devices Includes: Current Devices No Medical Equipment Recorded Medications Includes: Medications discussed during this encounter and other current Medications Current Medications (continue as prescribed) Veozah 45 MG Oral Tablet 09/21/2023 Provider: Diagnosis: Last Documented On 4 10:20AM By DOV MAYERS ; [facility] Albuterol Sulfate (5 MG/ML) 0.5% Inhalation Nebulization solution 03/03/2023 Provider: Diagnosis: Last Documented On 03/03/2023 12:59PM By Shalini Price ; [facility] Phenergan 25 mg Oral Tablet 03/03/2023 Provider: Diagnosis: Last Documented On 3 1:28PM By ENDER TESFAYE ; [facility] FLUoxetine HCl 20 MG Oral Capsule 07/21/2021 Provide r: MARIVEL LAW NP Diagnosis: Last Documented On 04/26/2023 1:03PM By Taye MAYERS ; [facility] Gabapentin 300 MG Oral Capsule 03/25/2021 Provider: Diagnosis: 2 capsules tid Last Documented On 1 2:06PM By DOV MAYERS ; [facility] Omeprazole 20 MG Oral Capsule Delayed Release 09/28/19 Provider: Diagnosis: Last Documented On 0 10:46AM By DOV MAYERS ; [facility] Past Medications on file Veozah 45 MG Oral Tablet 03/17/2023 - 06/15/2023 Provi alvin: ENDER FRANKLIN RN JOCELYN Diagnosis: Flushing One tablet daily Last Documented On 3 11:49AM By ENDER FRANKLIN GURU ; [facility] Sulfamethoxazole-Trimethopri m 800-160 MG Oral Tablet 03/03/2023 - 03/10/2023 Provider: ENDER TOENY Diagnosis: Furuncle, unspecified One tablet twice a day ONE TAB 2 TIMES A DAY WIT H FOOD Last Documented On 3 1:25PM By ENDER TESFAYE ; [facility] Medications Administered Includes: Administered Medications from this encounter No Administered Medications Recorded Vital Signs Includes: Vital Signs from this encounter Vital Name 09/21/2023 10:08A Blood Pressure Sitting (mmHg) 104/60 Temp-Oral (F) 98.2 Height (in) 66 Weight (lb) 148 Body Mass Index 23.9 Body Surface Area 1.8 Last Documented: On 09/21/2023 10:17A M ; [facility] Results Includes: Results discussed during this [...] 04/13/2023 Last Documented On 4 10:09AM ; [facility] Smoking status : Current everyday smoker 04/13/2023 Last Documented On 4 10:09AM ; [facility] Marital history 03/17/2023 Last Documented On 4 10:09AM ; [facility] Not using alcohol 03/17/2023 Last Documented On 4 10:09AM ; [facility] Not using drugs 03/17/2023 Last Documented On 4 10:09AM ; [facility] Sexually active with 1 partners in the l ast year 03/17/2023 Last Documented On 4 10:09AM ; [facility] control is being practiced BTL Last Documented On 4 10:09AM ; [facility] Sexually active 6 weeks 09/28 Last Documented On 4 10:09AM ; [facility] Procedures and Surgical History Includes: Procedures from this encounter Procedures Code Diagnosis Performing Provider Service L ocation Service Date Clinical summary provided to patient Last Documented On 4 5:14PM ; [facility] Surgical History Last Updated History of Loop electrode excision of ce rvix (LEEP) 08/24/23 TK 09/21/2023 Last Documented On 4 5:19PM ; [facility] Previous colposcopy 01/18/2019 Dr Anselmo Hernandez No Bx; 04/13/23 TCK 04/26/2023 Last Documented On 4 10:09AM ; [facility] History of tubal ligation bilateral salp ingectomy 04/13/2023 Last Documented On 4 10:09AM ; [facility] Surgical / procedural histor y Laparoscopic marsupialization of ovarian cyst x3 ~left and right hand carpal tunnel- 2008 ~epidural x 2- 202003/25/2021 Last Documented On 4 10:09AM ; [facility] Dilation + Curettage 06/16/17 03/29/2019 Last Documented On 4 10:09AM ; [facility] History of cholecystectomy 03/29/2019 Last Documented On 4 10:09AM ; [facility] Tonsillectomy with adenoidectomy 019 Last Documented On 4 10:09AM ; [facility] History of surgery Tonseilectomy 019 Last Documented On 4 10:09AM ; [facility] Medical History Includes: Medical History addressed during this encounter Description Last Updated Last mammogram date: 05/04/2023 [facility] 09/21 Last Documented On 4 5:19PM ; [facility] section x 1 09/21/2023 Last Documented On 4 5:19PM ; [facility] Last pap smear date 03/17/2023 09/21/2023 Last Documented On 4 5:19PM ; [facility] LMP: 04/03/2023 and before that was 3 04/13/2023 Last Documented On 4 10:09AM ; [facility] Result: abnormal ASC-US HR HPV+ 04/13/20 Last Documented On 4 10:09AM ; [facility] Primary Care Provider: Marivel slaughter NP 03/03/2023 Last Documented On 4 10:09AM ; [facility] Contraception: bilateral salpingectomy w ith c/s 03/25/2021 Last Documented On 4 10:09AM ; [facility] Para 5 03/25/2021 Last Documented On 4 10:09AM ; [facility] History of colonoscopy fiberoptic was pe rformed 2008 [facility] 03/25/2021 Last Documented On 4 10:09AM ; [facility] Baby thriving C/S [facility] 36- 5/7 weeks 6# 0oz Lawrence David 09/28/2019 Last Documented On 4 10:09AM ; [facility] is bottle-feeding 09/28/2019 Last Documented On 4 10:09AM ; [facility] Result: normal 03/29/2019 Last Documented On 4 10:09AM ; [facility] Vaginal delivery x 4 03/29/2019 Last Documented On 4 10:09AM ; [facility] History of human papilloma virus infecti on 06/02/17 03/29/2019 Last Documented On 4 10:09AM ; [facility] A colonoscopy was performed 2009 019 Last Documented On 4 10:09AM ; [facility] Aborta 1 03/29/2019 Last Documented On 4 10:09AM ; [facility] 6 03/29/2019 Last Documented On 4 10:09AM ; [facility] History of Abnormal Pap Smear 11/29/2018: HGSIL; 01/18/2019: colp but no bx; 03/27/2019 Last Documented On 4 10:09AM ; [facility] History of depression depres raza dx'd at 13, meds since 19 y old: prior lexapro, effexor in the past, prozac: now for lthe last 10 yrs: pt likes; 03/27/2019 Last Documented On 4 10:09AM ; [facility] History of hematologic disorder B-12 and iron shots after last delivery 03/27/2019 Last Documented On 4 10:09AM ; [facility] Family History Includes: Family History addressed during this encounter Description Last Updated Maternal grandfather's history of diabet es mellitus MGF 03/29/2019 Last Documented On 4 10:09AM ; [facility] Spouse name: Thony 03/29/2019 Last Documented On 4 10:09AM ; [facility] Family history of hypertension mom and d ad 03/29/2019 Last Documented On 4 10:09AM ; [facility] Review of Systems Includes: Review of [...] ve Last Documented On 4 10:17AM ; [facility] Chantix Allergy 03/17/2023 Active Last Documented On 4 10:17AM ; [facility] Encounters Encounter Provider Location Date Check-In Time Check-Out Time Diagnosis FOLLOW UP HENRRY TANNER MD [facility] 4 10:01AM 10:44AM Cervical Dysplasia: Severe Insurance Includes: Active Insurance Policies Plan Name Member ID Group # Subscriber Relationship Effect flo Dates 1 - R [id number] THONY HIGGINS Clinical Notes Includes: Clinical Notes from this encounter * Progress note Date Encounter Last Documented by 09/21/2023 FOLLOW UP Last documented on 09/21/2023; 5:19 PM, HENRRY TANNER MD; [facility] Active Problems & Conditions [...] Tests: A colonoscopy was performed 2009. Dietary: Infant is bottle-feeding. : Baby thriving C/S [facility] 36- 5/7 weeks 6# 0wai Hernandez , [...] identification. Hysterectomy may be better done by EXHIBITIONS AND COLLECTIONS MANAGER/oncology at one of the [facility]. Pt has familiarization with [facility] as she had her last c/s there with bilateral salpingectomy. We will start the consultation process for surgery there. Plan StartCited - Other Follow-up TCK Team will be sending pt to EXHIBITIONS AND COLLECTIONS MANAGER/oncology at [place]; return in 6 months for f/u from EXHIBITIONS AND COLLECTIONS MANAGER/oncology (30 min). PHY ORDER/COMMENT need to send referral to EXHIBITIONS AND COLLECTIONS MANAGER/oncology at [facility] U: ALESSANDRO 2-3 with positive margins on deeper LEEP tissue: pt already had bilat salpingectomy and at 43 wants hyst. EndCited Practice Management [[id number]] Established outpatient, medically appropriate H&P, low level decision making, 20-29 minutes.
--- OUTSIDE RECORDS SUMMARY | 2024-12-11 13:29 | XMS_ITS ---
Care Plan - [facility] Created on: December 11, 2024 MARTITA HIGGINS : 1980 Sex: Female Author Organization [facility] Address [address] [place] [address] Phone Care Team Providers Care Knocker Out Name Role Phone FLORES OLIVEIRA, HENRRY C Unavailable [phone]
--- OUTSIDE RECORDS SUMMARY | 2024-12-11 13:29 | XMS_ITS | Encounter Summary ---
Author Organization [facility] Address [address] [facility] [place] [address] Phone Care Team Providers Care Doweler Name Role Phone Kimberly Jc APRN, CNP Primary Care P rovider Mack Owens MD Unavailable Timmy Ibarra [facility] Primary Care Provider Francisco Javier Ivey MD Unavailable Reason for Visit * Reason Comments Medication Refill Encounter Details Date Type Department Care Team (Late st Contact Info) Description 10/07/2023 Refill [facility] - General Surgery [facility] [address] [phone] Mack Owens MD [address] [address] Medication Refill Social History Tobacco Use Types Packs/Day Years Used Date Smoking Tobacco: Every Day Cigarettes 1.5 32.3 Started: 1992 Smokeless Tobacco: Never Comments:Down to [facility] Alcohol Use Standard Drinks/Week Comments No 0 (1 standard drink = 0.6 oz pur e alcohol) [facility] Utilities Answer Date Recorded In the past 12 months has [employer], gas, oil, or water company threatened [...] often do you attend chur ch or religion services? Never 09/03/2023 Do you belong to any clubs o r organizations such as anabaptist groups, unions, fraternal or athletic groups, or [...] Answer Date Recorded PHQ-2 Score 0 05/13/2019 [facility] - Occupational [...] place to sleep or slept in a alf (including now)? No 09/03/2023 Education Answer Date [...] Sydni Lindsey RN - 10/08/2023 8:21 AM SLUDGE FILTRATION ATTENDANT Spoke with patient via telephone call, patient stated that she has an appt with PCP today and will request refill from her. GE FILTRATION ATTENDANT documented in this encounter Plan of Treatment Not on file documented as of this encounter Visit Diagnoses Diagnosis Non-recurrent bilateral inguinal hernia without obstruction or gangrene documented in this encounter Additional Health Concerns Assessment Noted Time PHQ-9 Depression Total Score: 0 06/10/20 18 9:00 AM CDT documented as of this encounter Care Teams Doweler Relationship Specialty Start Date End Date Kimberly Jc APRN, CERAMICS MACHINE OPERATOR [address] [place] [address] PCP - General Advanced Practice Nurse 02/14/20 Timmy Ibarra, PAC [address] [place] [address] PCP - General Physician Dairy Management Specialist 02/17/24 Mack Owens MD [address] [address] Consulting Physician Colon and Rectal Surgery 11/23/22 Francisco Javier Ivey MD [address] [place] [address] Consulting Physician Neurological Surgery 03/07/24 documented as of this encounter
--- OUTSIDE RECORDS SUMMARY | 2024-12-11 13:29 | XMS_ITS | Encounter Summary ---
Author Organization [facility] Address [address] [place] [address] Care Team Providers Care Clinical Account Liaison Name Role Phone Hugo Jaquez MD Unavailable Kimberly Jc NP Primary Care Provide r Encounter Details Date Type Department Care Team (Late st Contact Info) Description 12/18/2020 Telephone [facility] 2 [facility], [facility] [address] [place] [address] Vitaly Lopez MD [address] [place] [address] [address] [place] [address] Social History Tobacco Use Types Packs/Day Years [...] on file Legal Sex Female 6:40 PM CERTIFIED PROCEDURAL CODER Gender Identity Not on file Sexual Orientation Not on file documented as of this encounter Plan of Treatment Not on file documented as of this encounter Visit Diagnoses Not on filedocumented in this encounter Care Teams Clinical Account Liaison Relationship Specialty Start Date End Date Kimberly Jc NP [address] [place] [address] PCP - General Emergency Medicine 11/22/20 Hugo Jaquez MD Carry In Worker Obstetrics and Gynecology 04/12/19 documented as of this encounter
--- OUTSIDE RECORDS SUMMARY | 2024-12-11 13:29 | XMS_ITS | Clinical Summary ---
Author Organization [facility] Address [address] [place] [address] Care Team Providers Care Railroad Track Mechanic Name Role Phone Hugo Jaquez MD Unavailable Kimberly Jc NP Primary Care Provide r Allergies Active Allergy Reactions Criticality Noted Date Comments Bee Pollen Anaphylaxis High 11/08/2020 Metoclopramide Hallucinations Medium 09/01/2017 Medications FLUoxetine (PROzac) 20 mg capsuleIndicat ions:depressio n,and anxiety Take 1 capsule (20 mg total) by mouth security operations engineer before breakfast 03/10/20 19 Active naloxone (NARCAN) 4 mg/actuation spray,non-aero castro Administer 1 spray into affected nostril(s) as needed for opioid reversal or respiratory depression 1 each 03/18/20 21 Active Additional Information Patient taking differently:1 spray nasal As needed,opioid reversal, Indications: risk mitigation for opioid overdose, Informant: Self, Reported on 10/25/2023 gabapentin (NEURONTIN) 300 mg capsule TAKE 2 CAPSULES(600 MG) BY MOUTH THREE TIMES DAILY 180 capsule 3 05/22/20 21 Active Additional Information Patient taking differently: 600 mg oral 3 times daily, Indications: Neuropathic Pain, Informant: Self, Reported on 10/25/2023 omeprazole (PriLOSEC) 40 mg capsuleIndicat ions:Laryngeal spasm Take 1 capsule (40 mg total) by mouth daily 30 capsule 11 09/09/19 23 Active Additional Information Patient taking differently:40 mg oralDaily (early AM), Indications: Treatment of Non-Bleeding Gastric Disorder, Informant: Self, Reported on 10/25/2023 baclofen (LIORESAL) 10 mg tabletIndicati ons:Muscle Spasticity of Spinal Origin Take 1 tablet (10 mg total) by mouth 3 (three) times a day 09/16/19 24 Active albuterol HFA (PROVENTIL HFA,VENTOLIN HFA,PROAIR HFA) 90 mcg/actuation inhalerIndicat ions:Acute Asthma Attack Inhale 2 puffs every 4 (four) hours as needed for wheezing or shortness of breath 09/05/19 24 Active Veozah tablet tablet Take 1 tablet (45 mg total) by mouth daily 09/06/19 24 Active promethazine (PHENERGAN) 25 mg tablet 09/02/19 24 Active ondansetron (ZOFRAN) 4 mg tabletIndicati ons:n/v Take 1 tablet (4 mg total) by mouth every 8 (eight) hours as needed for nausea or vomiting 10/21/19 24 Active traMADoL (ULTRAM) 50 mg tabletIndicati ons:Pain Take 1 tablet (50 mg total) by mouth every 6 (six) hours as needed for pain 10/20/19 24 Active acetaminophen (TYLENOL) 500 mg tablet Take 2 tablets (1,000 mg total) by mouth every 6 (six) hours as needed for pain 30 tablet 2 11/05/19 24 Active oxyCODONE (ROXICODONE) 5 mg immediate release tabletIndicati ons:Pain Take 1 tablet (5 mg total) by mouth every 6 (six) hours as needed for pain 21 tablet 11/05/19 24 Active polyethylene glycol (MIRALAX) 17 gram/dose bulk powder Take 17 g by mouth daily 595 g 11/05/19 24 Active estradioL (CLIMARA) 0.05 mg/24 hr APPLY 1 PATCH TOPICALLY TO THE SKIN 1 TIME A WEEK 4 patch 11 12/09/19 25 Active estradioL (CLIMARA) 0.05 mg/24 hrIndications: Vasomotor Symptoms associated with Menopause Place 1 patch on the skin once a week 4 patch 11 11/22/19 24 025 Discontinued Active Problems Problem Noted Date Diagnosed Date High grade squamous intraepi thelial lesion (HGSIL), grade 3 ALESSANDRO, on biopsy of cervix 10/12/2023 Non-recurrent bilateral inguinal hernia 05/28/20 23 Laryngeal spasm 09/09/2022 Voice hoarseness 09/09/2022 Assessment & Plan (09/09/2022 12:22 PM AUTO JOB ESTIMATOR): Increase omeprazole to 40 mg daily Start [...] be retained placenta. Plan for delivery at [facility] Her placentation appears normal on US thus [...] did not offer Ashanti however we did corporate travel counselor patient on recurrence risk of PTD. Anxiety disorder 04/12/2009 Overview (04/27/2019): On Prozac 20mg daily. Stable. S/p counseling of risk of respiratory depression. Assessment & Plan (07/07/2019 1:34 PM AUTO JOB ESTIMATOR): Reports mood has been good on current [...] this time given patient is not making pack changer several OSH checks and admission exam -No indication for PCN at this time. BGS swab collected -GC/CT collected 06/21/19 [facility] visit: Contractions began this morning, are every 10 minutes, and more severe than they were before. Initial SVE 1/L/H, same as previous. Few contractions on toco. Repeat SVE 1/L/H. Patient reports spontaneous subjective improvement in intensity and frequency of contractions. No e/o PTL. Prec given. 06/28/19 [facility] visit: contractions initially Q10-15 minutes in the [...] sooner. Assessment & Plan (07/07/2019 1:36 PM AUTO JOB ESTIMATOR): Patient has not been getting 2x/weekly testing. [...] Overview (07/07/2019): [x] Co-management vs. [] Full M Care; Referring Provider: Hugo Jaquez [x] Dating [...] aware. [x] Method of feeding: breast/bottle [x] Hob Machine Operator: [x] PP Depression Discussed: Type 2 diabetes mellitus 01/13/2014 Overview (12/04/2016): DMII WO CMP UNCNTRLD Hyperlipidemia 04/12/2009 04/27/2019 Immunizations Immunization Administration Dates Next Due COVID-19 mRNA ([employer]) 0.3 m L (30 mcg) vaccine (12 [...] ECG Anemia Anxiety Bipolar disorder (HCC) Cancer (HCC) Rheumatoid arthritis (HCC) Peptic ulceration PONV [...] Date Smoking Tobacco: Every Day Cigarettes 1 32.3 Started: 1992 Passive Smoke Exposure: Past Smokeless [...] on file Legal Sex Female 6:40 PM AUTO JOB ESTIMATOR Gender Identity Not on file Sexual Orientation [...] Spinal N Livin g 8 9 Dinora GUPTA, Aleksandra Dorsey MD Complications:None Delivery Location:[facility] Main C ampus ([facility] L AND D PROCEDURE) Last Filed Vital [...] Screening 01/10/2022 01/10/2021, 01/11/20 21 Covid-19 Vaccine (4 - 2023- season) 2024 10/08/2023, 04/14/2021, 03/17/2021 Breast Cancer [...] Progress Patient-Stated? Author [facility] No Kolton Bowden, RN Note: Bending, standing, lifting, sitting [...] Most Recently Relevant to [place] [address] Advance Directives For more information, please contact: [phone] Documents on File Type Date Recorded Patient School Coordinator Expl anation ADVANCE DIRECTIVE 11/05/2023 6:51 AM [...] n case of cardiopulmonary arrest Care Teams Railroad Track Mechanic Relationship Specialty Start Date End Date Kimberly Jc NP [address] [place] [address] PCP - General Emergency Medicine 11/22/20 Hugo Jaquez MD School Program Director Obstetrics and Gynecology 04/12/19
--- OUTSIDE RECORDS SUMMARY | 2024-12-11 13:29 | XMS_ITS | Encounter Summary ---
Author Organization [facility] Address [address] [place] [address] Phone Care Team Providers Care Hobbing Press Operator Name Role Phone Kimberly Jc APRN, KIRILL Primary Care P rovider Mack Owens MD Unavailable Timmy Ibarra Primary Care Provider [phone] Francisco Javier Ivey MD Unavailable Reason for Visit * Reason Comments Medication Refill Encounter Details Date Type Department Care Team (Late st Contact Info) Description 11/18/2022 Refill [facility] - Primary Care - [place] [address] [place] [address] Kimberly Jc APRN, STAMP MACHINE SERVICER [address] [place] [address] Medication Refill Social History Tobacco [...] documented as of this encounter Care Teams Hobbing Press Operator Relationship Specialty Start Date End Date Kimberly Jc APRN, STAMP MACHINE SERVICER [address] [place] [address] PCP - General Advanced Practice Nurse 02/14/20 Timmy Ibarra, PAC [address] [place] [phone] PCP - General Physician Career Development Facilitator 02/17/24 Mack Owens MD [address] [address] Consulting Physician Colon and Rectal Surgery 11/23/22 Francisco Javier Ivey MD [address] [place] [address] Consulting Physician Neurological Surgery 03/07/24 documented as of this encounter
--- OUTSIDE RECORDS SUMMARY | 2024-12-11 13:29 | XMS_ITS | Clinical Summary ---
Author Organization [facility] Address [address] [place] [address] Phone Care Team Providers Care Brazer Furnace Name Role Phone FLORES OLIVEIRA, HENRRY Aguilera Unavailable [phone] Reason for Visit and Chief [...] Resolved Last Documented On 10/29/2021 11:32AM ; [facility] Note: was Closed. History of Depression 03/27/2019 Unknown HENRRY TANNER MD Resolved Last Documented On 10/29/2021 11:32AM ; [facility] Note: was Closed. History of Hematologic Disorders 03/27/2019 Unknown HENRRY TANNER MD Resolved Last Documented On 10/29/2021 11:32AM ; [facility] Note: was Closed. Tobacco Use 03/27/2019 Unknown HENRRY TANNER MD Resolved Last Documented On 10/29/2021 11:32AM ; [facility] Note: was Closed. Past Visits Onset Date Resolved Date Provider Condition Status Cervical Dysplasia: Severe 09/21/2023 HENRRY TANNER MD Active Last Documented On 09/21/2023 5:17PM ; [facility] Note: Unchanged Anal Fissure 03/17/2023 ENDER FRANKLIN R N JOCELYN BC Active Last Documented On 3 12:10PM ; [facility] Intervertebral Disc Degeneration 03/17/2023 CHAPO FRANKLIN RN NP BC Active Last Documented On 3 12:09PM ; [facility] Ovarian Cyst 03/17/2023 ENDER FRANKLIN RN NP B C Active Last Documented On 3 12:10PM ; [facility] Amenorrhea 03/25/2021 HENRRY TANNER MD Active Last Documented On 1 2:52PM ; [facility] Note: Unchanged Contact Dermatitis of Perineum 03/25/2021 HENRRY TANNER MD Active Last Documented On 1 2:52PM ; [facility] Note: Unchanged Oth mental disorders comp pr egnancy, second trimester 04/11/2019 HENRRY TANNER MD Active Last Documented On 9 2:33PM ; [facility] Note: Unchanged Plan of Treatment No Plan of Treatment Recorded Assessments Includes: Assessments from this encounter Findings - Ventral hernia without obstruction or gangrene - Last Documented On 04/26/2023 1:48PM ; [facility] - Cervical dysplasia--moderate (ALESSANDRO II) - Last Documented On 04/26/2023 1:48PM ; [facility] - Cervical dysplasia--severe (ALESSANDRO III) - Last Documented On 04/26/2023 1:48PM ; [facility] Medical Equipment - Implanted Devices Includes: Current Devices No Medical Equipment Recorded Medications Includes: Medications discussed during this encounter and other current Medications Discontinued / Stopped on this date HENRRY TANNER MD on 09/28/2019 PROzac 20 MG Oral Capsule Provider: ALANNA TANNER MD Diagnosis: Other mental dis orders complicating the puerperium Last Documented On 04/26/2023 1:03PM By Taye Bradley Jaja ; [facility] Current Medications (continue as prescribed) Veozah 45 MG Oral Tablet 09/21/2023 Provider: Diagnosis: Last Documented On 4 10:20AM By DOV MAYERS ; [facility] Albuterol Sulfate (5 MG/ML) 0.5% Inhalation Nebulization solution 03/03/2023 Provider: Diagnosis: Last Documented On 03/03/2023 12:59PM By Shalini Price ; [facility] Phenergan 25 mg Oral Tablet 03/03/2023 Provider: Diagnosis: Last Documented On 3 1:28PM By ENDER TESFAYE ; [facility] FLUoxetine HCl 20 MG Oral Capsule 07/21/2021 Provide r: MARIVEL ALW NP Diagnosis: Last Documented On 04/26/2023 1:03PM By Taye Bradley Jaja ; [facility] Gabapentin 300 MG Oral Capsule 03/25/2021 Provider: Diagnosis: 2 capsules tid Last Documented On 1 2:06PM By DOV JOHNSON Jaja ; [facility] Omeprazole 20 MG Oral Capsule Delayed Release 09/28/19 Provider: Diagnosis: Last Documented On 0 10:46AM By DOV JOHNSON Jaja ; [facility] Past Medications on file Veozah 45 MG Oral Tablet 03/17/2023 - 06/15/2023 Provi alvin: ENDER FRANKLIN RN JOCELYN Diagnosis: Flushing One tablet daily Last Documented On 3 11:49AM By ENDER TESFAYE ; [facility] Sulfamethoxazole-Trimethopri m 800-160 MG Oral Tablet 03/03/2023 - 03/10/2023 Provider: ENDER MARTÍNEZ Diagnosis: Furuncle, unspecified One tablet twice a day ONE TAB 2 TIMES A DAY WIT H FOOD Last Documented On 3 1:25PM By ENDER TESFAYE ; [facility] Medications Administered Includes: Administered Medications from this encounter No Administered Medications Recorded Vital Signs Includes: Vital Signs from this encounter Vital Name 04/26/2023 12:58P Blood Pressure Sitting L 116/80 BP Cuff Size Regular Temp-Temporal 98.3 Height (in) 66 Weight (lb) 147 Body Mass Index 23.7 Body Surface Area 1.8 Last Documented: On 04/26/2023 1:05PM ; [facility] Results Includes: Results discussed during this encounter [...] 04/26/2023 Last Documented On 3 1:48PM ; [facility] Sexually active 04/13/2023 Last Documented On 3 12:56PM ; [facility] Smoking status : Current everyday smoker 04/13/2023 Last Documented On 3 12:56PM ; [facility] Marital history 03/17/2023 Last Documented On 3 12:56PM ; [facility] Not using alcohol 03/17/2023 Last Documented On 3 12:56PM ; [facility] Not using drugs 03/17/2023 Last Documented On 3 12:56PM ; [facility] Sexually active with 1 partners in the l ast year 03/17/2023 Last Documented On 3 12:56PM ; [facility] control is being practiced BTL Last Documented On 3 12:56PM ; [facility] Procedures and Surgical History Includes: Procedures from this encounter Procedures Code Diagnosis Performing Provider Service L ocation Service Date Clinical summary provided to patient Last Documented On 3 1:32PM ; [facility] abnormal Pap smear: atypical squamous ce lls of undetermined significance Last Documented On 3 1:12PM ; [facility] Surgical History Last Updated Previous colposcopy 9 Dr Veronica Price-Julia No Bx; 04/13/23 TCK 04/26/2023 Last Documented On 3 1:48PM ; [facility] History of tubal ligation bilateral salp ingectomy 04/13/2023 Last Documented On 3 12:56PM ; [facility] Surgical / procedural histor y Laparoscopic marsupialization of ovarian cyst x3 ~left and right hand carpal tunnel- 2009 ~epidural x 2- 202003/25/2021 Last Documented On 3 12:56PM ; [facility] Dilation + Curettage 06/16/17 03/29/2019 Last Documented On 3 12:56PM ; [facility] History of cholecystectomy 03/29/2019 Last Documented On 3 12:56PM ; [facility] Tonsillectomy with adenoidectomy 019 Last Documented On 3 12:56PM ; [facility] History of surgery Tonseilectomy 019 Last Documented On 3 12:56PM ; [facility] Medical History Includes: Medical History addressed during this encounter Description Last Updated Last mammogram date: 201009/21/2023 Last Documented On 3 12:56PM ; [facility] section 09/21/2023 Last Documented On 3 12:56PM ; [facility] Last pap smear date 03/17/2023 09/21/2023 Last Documented On 3 12:56PM ; [facility] LMP: 04/03/2023 and before that was 3 04/13/2023 Last Documented On 3 12:56PM ; [facility] Result: abnormal ASC-US HR HPV+ 04/13/20 23 Last Documented On 3 12:56PM ; [facility] Primary Care Provider: Marivel slaughter NP 03/03/2023 Last Documented On 3 12:56PM ; [facility] Contraception: bilateral salpingectomy w ith c/s 03/25/2021 Last Documented On 3 12:56PM ; [facility] Para 5 03/25/2021 Last Documented On 3 12:56PM ; [facility] History of colonoscopy fiberoptic was pe rformed 2008 [facility] 03/25/2021 Last Documented On 3 12:56PM ; [facility] History of cervical Pap smear 12/04/2018 03/25/2021 Last Documented On 3 12:56PM ; [facility] Baby thriving C/S [facility] 36- 5/7 weeks 6# 0wai Hernandez 09/28/2019 Last Documented On 3 12:56PM ; [facility] Result: normal 03/29/2019 Last Documented On 3 12:56PM ; [facility] Vaginal delivery x 4 03/29/2019 Last Documented On 3 12:56PM ; [facility] History of human papilloma virus infecti on 06/02/17 03/29/2019 Last Documented On 3 12:56PM ; [facility] Aborta 1 03/29/2019 Last Documented On 3 12:56PM ; [facility] 6 03/29/2019 Last Documented On 3 12:56PM ; [facility] History of Abnormal Pap Smear 11/29/2018: HGSIL; 01/18/2019: colp but no bx; 03/27/2019 Last Documented On 3 12:56PM ; [facility] History of depression depres raza dx'd at 13, meds since 19 y old: prior lexapro, effexor in the past, prozac: now for lthe last 10 yrs: pt likes; 03/27/2019 Last Documented On 3 12:56PM ; [facility] History of hematologic disorder B-12 and iron shots after last delivery 03/27/2019 Last Documented On 3 12:56PM ; [facility] Family History Includes: Family History addressed during this encounter Description Last Updated Maternal grandfather's history of diabet es mellitus MGF 03/29/2019 Last Documented On 3 12:56PM ; [facility] Spouse name: Thony 03/29/2019 Last Documented On 3 12:56PM ; [facility] Family history of hypertension mom and d ad 03/29/2019 Last Documented On 3 12:56PM ; [facility] Review of Systems Includes: Review of Systems [...] ve Last Documented On 4 10:17AM ; [facility] Chantix Allergy 03/17/2023 Active Last Documented On 4 10:17AM ; [facility] Encounters Encounter Provider Location Date Check-In Time Check-Out Time Diagnosis FOLLOW UP HENRRY TANNER MD [facility] 3 12:49PM 1:45PM Cervical Dysplasia--mode rate (Alessandro II),Cervical Dysplasia--venkata re (Alessandro III),Ventral Hernia Without Obstruction Or Gangrene Insurance Includes: Active Insurance Policies Plan Name Member ID Group # Subscriber Relationship Effect flo Dates 1 - [facility] [id number] THONY HIGGINS Clinical Notes Includes: Clinical Notes from this encounter * Progress note Date Encounter Last Documented by 04/26/2023 FOLLOW UP Last documented on 04/26/2023; 2:54 PM, HENRRY TANNER MD; [facility] Active Problems & Conditions - Amenorrhea - [...] + Curettage 06/16/17. : Baby thriving C/S [facility] 36- 5/7 weeks 6# 0oz [...]
--- OUTSIDE RECORDS SUMMARY | 2024-12-11 13:29 | XMS_ITS | Clinical Summary ---
Author Organization [facility] Address [address] [place] [address] Phone Care Team Providers Care Aircraft Instrument Repairer Name Role Phone FLORES OLIVEIRA, HENRRY Aguilera Unavailable [phone] Reason for Visit and Chief Complaint [Patient Encounter] Problems Includes: Problems addressed during this encounter and other active Problems All Visits Onset Date Resolved Date Provider Condition S tatus Cervical Dysplasia: Severe 09/21/2023 HENRRY TANNER MD Active Last Documented On 09/21/2023 5:17PM ; [facility] Note: Unchanged Anal Fissure 03/17/2023 ENDER Sena JOCELYN MARTÍNEZ Active Last Documented On 3 12:10PM ; [facility] Intervertebral Disc Degeneration 03/17/2023 CHAPO FRANKLIN RN JOCELYN BC Active Last Documented On 3 12:09PM ; [facility] Ovarian Cyst 03/17/2023 ENDER FRANKLIN RN JOCELYN B C Active Last Documented On 3 12:10PM ; [facility] Amenorrhea 03/25/2021 HENRRY TANNER MD Active Last Documented On 1 2:52PM ; [facility] Note: Unchanged Contact Dermatitis of Perineum 03/25/2021 HENRRY TANNER MD Active Last Documented On 1 2:52PM ; [facility] Note: Unchanged Oth mental disorders comp pr egnancy, second trimester 04/11/2019 HENRRY TANNER MD Active Last Documented On 9 2:33PM ; [facility] Note: Unchanged Plan of [...] On 4 10:20AM By DOV MAYERS ; [facility] Albuterol Sulfate (5 MG/ML) 0.5% Inhalation Nebulization solution 03/03/2023 Provider: Diagnosis: Last Documented On 03/03/2023 12:59PM By Shalini Price ; [facility] Phenergan 25 mg Oral Tablet 03/03/2023 Provider: Diagnosis: Last Documented On 3 1:28PM By ENDER GOULD ; [facility] FLUoxetine HCl 20 MG Oral Capsule 07/21/2021 Provide r: MARIVEL LAW NP Diagnosis: Last Documented On 04/26/2023 1:03PM By Taye MAYERS ; [facility] Gabapentin 300 MG Oral Capsule 03/25/2021 Provider: Diagnosis: 2 capsules tid Last Documented On 1 2:06PM By DOV MAYERS ; [facility] Omeprazole 20 MG Oral Capsule Delayed Release 09/28/19 Provider: Diagnosis: Last Documented On 0 10:46AM By DOV MAYERS ; [facility] Medications Administered Includes: Administered Medications from [...] ve Last Documented On 4 10:17AM ; [facility] Chantix Allergy 03/17/2023 Active Last Documented On 4 10:17AM ; [facility] Encounters Encounter Provider Location Date Check-In Time Check- Out Time Diagnosis [Patient Encounter] HENRRY TANNER MD [facility] 3 10:02AM 11:59PM Insurance Includes: Active Insurance Policies Plan Name Member ID Group # Subscriber Relationship Effect flo Dates 1 - R [id number] THONY HIGGINS Clinical Notes Includes: Clinical Notes from this encounter No Clinical Notes Recorded
--- OUTSIDE RECORDS SUMMARY | 2024-12-11 13:29 | XMS_ITS | Encounter Summary ---
Author Organization [facility] Address [address] [place] [address] Phone Care Team Providers Care Pupil Personnel Services Director Name Role Phone Kimberly Jc APRN, BOX SPRING MAKER Primary Care P rovider Mack Owens MD Unavailable Timmy Ibarra Primary Care Provider [phone] Francisco Javier Ivey MD Unavailable [phone] Reason for Visit * Reason Comments Medication Refill Encounter Details Date Type Department Care Team (Late st Contact Info) Description 01/12/2022 Refill [facility] - Primary Care - [place] [address] [place] [address] Kimberly Jc APRN, BOX SPRING MAKER [address] [place] [address] Medication Refill Social History Tobacco [...] documented as of this encounter Care Teams Pupil Personnel Services Director Relationship Specialty Start Date End Date Kimberly Jc APRN, [employer] SPRING MAKER [address] [place] [address] PCP - General Advanced Practice Nurse 02/14/20 Timmy Ibarra PAC [address] [place] [phone] PCP - General Physician Medical Biller 02/17/24 Mack Owens MD [address] [address] Consulting Physician Colon and Rectal Surgery 11/23/22 Francisco Javier Ivey MD [address] [place] [address] Consulting Physician Neurological Surgery 03/07/24 documented as of this encounter
--- OUTSIDE RECORDS SUMMARY | 2024-12-11 13:29 | XMS_ITS | Encounter Summary ---
Author Organization [facility] Address [address] [place] [address] Phone Care Team Providers Care Food And Beverage Manager Name Role Phone Kimberly Jc APRN, KIRILL Primary Care P rovider Mack Owens MD Unavailable Timmy Ibarra Primary Care Provider [phone] Francisco Javier Ivey MD Unavailable [phone] Reason for Visit * Reason Comments Medication Refill Encounter Details Date Type Department Care Team (Late st Contact Info) Description 05/11/2022 Refill [facility] - Primary Care - [place] [address] [place] [address] Kimberly Jc APRN, DINING SERVICES DIRECTOR [address] [place] [address] Medication Refill Social History Tobacco [...] documented as of this encounter Care Teams Food And Beverage Manager Relationship Specialty Start Date End Date Kimberly Jc APRN, DINING SERVICES DIRECTOR [address] [place] [address] PCP - General Advanced Practice Nurse 02/14/20 Timmy Ibarra, [facility] [address] [place] [address] PCP - General Physician Commercial Drafter 02/17/24 Mack Owens MD [address] [address] Consulting Physician Colon and Rectal Surgery 11/23/22 Francisco Javier Ivey MD [address] [place] [address] Consulting Physician Neurological Surgery 03/07/24 documented as of this encounter
--- OUTSIDE RECORDS SUMMARY | 2024-12-11 13:29 | XMS_ITS | Clinical Summary ---
Author Organization [facility] Address [address] [place] [address] Phone Care Team Providers Care Machine Heddle Cleaner Name Role Phone HENRRY TANNER MD Unavailable [phone] Reason for Visit and Chief Complaint The Chief Complaint is: LEEP Problems Includes: Problems addressed during this encounter and other active Problems Current Visit Onset Date Resolved Date Provider Conditio n Status Cervical Dysplasia: Severe 09/21/2023 HENRRY TANNER MD Active Last Documented On 09/21/2023 5:17PM ; [facility] Note: Unchanged History of Abnormal Pap Smear 03/27/2019 Unknown HENRRY TANNER MD Resolved Last Documented On 10/29/2021 11:32AM ; [facility] Note: was Closed. History of Depression 03/27/2019 Unknown HENRRY TANNER MD Resolved Last Documented On 10/29/2021 11:32AM ; [facility] Note: was Closed. History of Hematologic Disorders 03/27/2019 Unknown HENRRY TANNER MD Resolved Last Documented On 10/29/2021 11:32AM ; [facility] Note: was Closed. Tobacco Use 03/27/2019 Unknown HENRRY TANNER MD Resolved Last Documented On 10/29/2021 11:32AM ; [facility] Note: was Closed. Past Visits Onset Date Resolved Date Provider Condition Status Anal Fissure 03/17/2023 ENDER Farias C Active Last Documented On 07/19/202 3 12:10PM ; [facility] Intervertebral Disc Degeneration 03/17/2023 CHAPO FRANKLIN RN [facility] BC Active Last Documented On 3 12:09PM ; [facility] Ovarian Cyst 03/17/2023 ENDER FRANKLIN RN [facility] B C Active Last Documented On 3 12:10PM ; [facility] Amenorrhea 03/25/2021 HENRRY TANNER MD Active Last Documented On 1 2:52PM ; [facility] Note: Unchanged Contact Dermatitis of Perineum 03/25/2021 HENRRY TANNER MD Active Last Documented On 1 2:52PM ; [facility] Note: Unchanged Oth mental disorders comp pr egnancy, second trimester 04/11/2019 HENRRY TANNER MD Active Last Documented On 9 2:33PM ; [facility] Note: Unchanged Plan of Treatment Pending Tests Order Diagnosis Results Due Ordering Petr rjoas In office procedures - OB LEEP Carcinoma in situ of cervix, unspecified 09/07/23 HENRRY TANNER MD Last Documented On 3 2:52PM ; [facility] Education and Decision Aids were provided during [...] procedure Last Documented On 3 2:45PM ; [facility] Assessments Includes: Assessments from this encounter Findings - Severe cervical dysplasia (ALESSANDRO III) - Last Documented On 08/24/2023 2:53PM ; [facility] Instructions Includes: Instructions from this encounter Education [...] procedure Last Documented On 3 2:45PM ; [facility] Medical Equipment - Implanted Devices Includes: Current Devices No Medical Equipment Recorded Medications Includes: Medications discussed during this encounter and other current Medications Discontinued / Stopped on this date on 03/25/2021 Methocarbamol 500 MG Oral Tablet Provider : Diagnosis: Last Documented On 3 2:05PM By DOV MAYERS ; [facility] Current Medications (continue as prescribed) Veozah 45 MG Oral Tablet 09/21/2023 Provider: Diagnosis: Last Documented On 4 10:20AM By DOV MAYERS ; [facility] Albuterol Sulfate (5 MG/ML) 0.5% Inhalation Nebulization solution 03/03/2023 Provider: Diagnosis: Last Documented On 03/03/2023 12:59PM By Shalini Price ; [facility] Phenergan 25 mg Oral Tablet 03/03/2023 Provider: Diagnosis: Last Documented On 3 1:28PM By ENDER TESFAYE ; [facility] FLUoxetine HCl 20 MG Oral Capsule 07/21/2021 Provide r: MARIVEL LAW NP Diagnosis: Last Documented On 04/26/2023 1:03PM By Taye MAYERS ; [facility] Gabapentin 300 MG Oral Capsule 03/25/2021 Provider: Diagnosis: 2 capsules tid Last Documented On 1 2:06PM By DOV MAYERS ; [facility] Omeprazole 20 MG Oral Capsule Delayed Release 09/28/19 Provider: Diagnosis: Last Documented On 0 10:46AM By DOV MAYERS ; [facility] Past Medications on file Veozah 45 MG Oral Tablet 03/17/2023 - 06/15/2023 Provi alvin: ENDER TONEY Diagnosis: Flushing One tablet daily Last Documented On 3 11:49AM By ENDER GOULDBC ; [facility] Sulfamethoxazole-Trimethopri m 800-160 MG Oral Tablet 03/03/2023 - 03/10/2023 Provider: ENDER FRANKLIN RN JOCELYN Diagnosis: Furuncle, unspecified One tablet twice a day ONE TAB 2 TIMES A DAY WIT H FOOD Last Documented On 3 1:25PM By ENDER FRANKLIN JOCELYN- ; [facility] Medications Administered Includes: Administered Medications from this encounter No Administered Medications Recorded Vital Signs Includes: Vital Signs from this encounter Vital Name 08/24/2023 01:57P Blood Pressure Sitting (mmHg) 126/78 Temp-Oral (F) 97.8 Height (in) 66 Weight (lb) 148.2 Body Mass Index 23.9 Body Surface Area 1.8 Last Documented: On 08/24/2023 2:07PM ; [facility] Results Includes: Results discussed during this [...] 08/24/2023 Last Documented On 3 2:53PM ; [facility] Tobacco use was 20 Smoked a pack a day prior to , down to 8-10 a day in preg, back up to one ppd since preg 08/24/2023 Last Documented On 3 2:53PM ; [facility] Sexually active 04/13/2023 Last Documented On 3 1:55PM ; [facility] Marital history 03/17/2023 Last Documented On 3 1:55PM ; [facility] Not using alcohol 03/17/2023 Last Documented On 3 1:55PM ; [facility] Not using drugs 03/17/2023 Last Documented On 3 1:55PM ; [facility] Sexually active with 1 partners in the l ast year 03/17/2023 Last Documented On 3 1:55PM ; [facility] control is being practiced BTL Last Documented On 3 1:55PM ; [facility] Sexually active 6 weeks 09/28 Last Documented On 3 1:55PM ; [facility] Smoking Status Unknown Procedures and Surgical History [...] results will be reviewed at that time [id number] Last Documented On 3 2:51PM ; [facility] Surgical History Last Updated Previous colposcopy 9 Dr Veronica Hernandez No Bx; 04/13/23 TCK 04/26/2023 Last Documented On 3 1:55PM ; [facility] History of tubal ligation bilateral salp ingectomy 04/13/2023 Last Documented On 3 1:55PM ; [facility] Surgical / procedural histor y Laparoscopic marsupialization of ovarian cyst x3 ~left and right hand carpal tunnel- 2008 ~epidural x 2- 202003/25/2021 Last Documented On 3 1:55PM ; [facility] Dilation + Curettage 06/16/17 03/29/2019 Last Documented On 3 1:55PM ; [facility] History of cholecystectomy 03/29/2019 Last Documented On 3 1:55PM ; [facility] Tonsillectomy with adenoidectomy 019 Last Documented On 3 1:55PM ; [facility] History of surgery Tonseilectomy 019 Last Documented On 3 1:55PM ; [facility] Medical History Includes: Medical History addressed during this encounter Description Last Updated section 09/21/2023 Last Documented On 3 1:55PM ; [facility] Last pap smear date 03/17/2023 09/21/2023 Last Documented On 3 1:55PM ; [facility] Last mammogram date: 05/04/2023 3 Last Documented On 3 2:53PM ; [facility] LMP: 04/03/2023 and before that was 3 04/13/2023 Last Documented On 3 1:55PM ; [facility] Result: abnormal ASC-US HR HPV+ 04/13/20 23 Last Documented On 3 1:55PM ; [facility] Primary Care Provider: Marivel slaughter NP 03/03/2023 Last Documented On 3 1:55PM ; [facility] Contraception: bilateral salpingectomy w ith c/s 03/25/2021 Last Documented On 3 1:55PM ; [facility] Para 5 03/25/2021 Last Documented On 3 1:55PM ; [facility] History of colonoscopy fiberoptic was pe rformed 2008 [facility] 03/25/2021 Last Documented On 3 1:55PM ; [facility] Baby thriving C/S [facility] 36- 5/7 weeks 6# 0wai Hernandez 09/28/2019 Last Documented On 3 1:55PM ; [facility] Infant is bottle-feeding 09/28/2019 Last Documented On 3 1:55PM ; [facility] Result: normal 03/29/2019 Last Documented On 3 1:55PM ; [facility] Vaginal delivery x 4 03/29/2019 Last Documented On 3 1:55PM ; [facility] History of human papilloma virus infecti on 06/02/17 03/29/2019 Last Documented On 3 1:55PM ; [facility] A colonoscopy was performed 2009 019 Last Documented On 3 1:55PM ; [facility] Aborta 1 03/29/2019 Last Documented On 3 1:55PM ; [facility] 6 03/29/2019 Last Documented On 3 1:55PM ; [facility] History of Abnormal Pap Smear 11/29/2018: HGSIL; 01/18/2019: colp but no bx; 03/27/2019 Last Documented On 3 1:55PM ; [facility] History of depression depres raza dx'd at 13, meds since 19 y old: prior lexapro, effexor in the past, prozac: now for lthe last 10 yrs: pt likes; 03/27/2019 Last Documented On 3 1:55PM ; [facility] History of hematologic disorder B-12 and iron shots after last delivery 03/27/2019 Last Documented On 3 1:55PM ; [facility] Family History Includes: Family History addressed during this encounter Description Last Updated Maternal grandfather's history of diabet es mellitus MGF 03/29/2019 Last Documented On 3 1:55PM ; [facility] Spouse name: Thony 03/29/2019 Last Documented On 3 1:55PM ; [facility] Family history of hypertension mom and d ad 03/29/2019 Last Documented On 3 1:55PM ; [facility] Review of Systems Includes: Review [...] ve Last Documented On 4 10:17AM ; [facility] Chantix Allergy 03/17/2023 Active Last Documented On 4 10:17AM ; [facility] Encounters Encounter Provider Location Date Check-In Time Check-Out Time Diagnosis PROCEDURE OFFICE HENRRY TANNER MD [facility] 08/24/20 1:54PM 2:47PM Cervical Dysplasia: Severe Insurance Includes: Active Insurance Policies Plan Name Member ID Group # Subscriber Relationship Effect flo Dates 1 - [facility] [id number] THONY HIGGINS Clinical Notes Includes: Clinical Notes from this encounter * Progress note Date Encounter Last Documented by 08/24/2023 PROCEDURE OFFICE Last documented on 08/24/2023; 2:53 PM, HENRRY TANNER MD; [facility] Active Problems & Conditions - Amenorrhea - [...] Infant is bottle-feeding. : Baby thriving C/S [facility] 36- 5/7 weeks 6# 0oz Lawrence Hernandez [...]
--- OUTSIDE RECORDS SUMMARY | 2024-12-11 13:29 | XMS_ITS | Encounter Summary ---
Author Organization [facility] Address [address] [place] [address] Phone Care Team Providers Care Yield Improvement Engineer Name Role Phone Kimberly Jc APRN, DIRECTOR ALUMNI RELATIONS Primary Care P rovider Mack Owens MD Unavailable Timmy Ibarra Primary Care Provider Francisco Javier Ivey MD Unavailable Reason for Visit * Reason Comments Medication Refill Encounter Details Date Type Department Care Team (Late st Contact Info) Description 05/06/2022 Refill [facility] - Primary Care - [place] [address] [place] [address] Kimberly Jc APRN, DIRECTOR ALUMNI RELATIONS [address] [place] [address] Medication Refill Social History Tobacco [...] documented as of this encounter Care Teams Yield Improvement Engineer Relationship Specialty Start Date End Date Kimberly Jc APRN, CNP [address] [place] [address] PCP - General Advanced Practice Nurse 02/14/20 Timmy Ibarra PAC [address] [place] [id number] PCP - General Physician Civil Division Deputy Sheriff 02/17/24 Mack Owens MD [address] [address] Consulting Physician Colon and Rectal Surgery 11/23/22 Francisco Javier Ivey MD [address] [place] [address] Consulting Physician Neurological Surgery 03/07/24 documented as of this encounter
--- OUTSIDE RECORDS SUMMARY | 2024-12-11 13:29 | XMS_ITS ---
Author Organization [facility] Address [address] [place] [address] Care Team Providers Care Laser Print Operator Name Role Phone Hugo Jaquez MD Unavailable Kimberly Jc NP Primary Care Provide r Active Problems Problem Noted Date Diagnosed Date High grade squamous intraepi thelial lesion (HGSIL), grade 3 ALESSANDRO, on biopsy of cervix 10/12/2023 Non-recurrent bilateral inguinal hernia 05/28/20 23 Laryngeal spasm 09/09/2022 Voice hoarseness 09/09/2022 Assessment & Plan (09/09/2022 12:22 PM CARPET INSTALLER): Increase omeprazole to 40 mg daily Start [...] placenta. Plan for delivery at [facility] Her placentation appears normal on US [...] and [place] at presentation, did not offer [place] however we did auto travel counselor patient on recurrence risk of PTD. Anxiety disorder 04/12/2009 Overview (04/27/2019): On Prozac 20mg daily. Stable. S/p counseling of risk of respiratory depression. Assessment & Plan (07/07/2019 1:34 PM CARPET INSTALLER): Reports mood has been good on current [...] this time given patient is not making shredding machine knife changer several OSH checks and admission exam -No indication for PCN at this time. BGS swab collected -GC/CT collected 06/21/19 [facility] visit: Contractions began this morning, are every 10 minutes, and more severe than they were before. Initial SVE 1/L/H, same as previous. Few contractions on toco. Repeat SVE 1/L/H. Patient reports spontaneous subjective improvement in intensity and frequency of contractions. No e/o PTL. Prec given. 06/28/19 [facility] visit: contractions initially Q10-15 minutes in the [...] sooner. Assessment & Plan (07/07/2019 1:36 PM CARPET INSTALLER): Patient has not been getting 2x/weekly testing. [...] aware. [x] Method of feeding: breast/bottle [x] Ski Tow Operator: [x] PP Depression Discussed: Type 2 diabetes mellitus 01/13/2014 Overview (12/04/2016): DMII WO CMP UNCNTRLD Hyperlipidemia 04/12/2009 04/27/2019
--- OUTSIDE RECORDS SUMMARY | 2024-12-11 13:29 | XMS_ITS | Clinical Summary ---
Author Organization [facility] Address [address] [place] [address] Phone Care Team Providers Care Senior Oracle Applications Developer Name Role Phone FLORES OLIVEIRA, HENRRY Aguilera Unavailable [phone] Reason for Visit and Chief Complaint CHART UPDATE Problems Includes: Problems addressed during this encounter and other active Problems Current Visit Onset Date Resolved Date Provider Conditio n Status History of Abnormal Pap Smear 03/27/2019 Unknown HENRRY TANNER MD Resolved Last Documented On 10/29/2021 11:32AM ; [facility] Note: was Closed. History of Depression 03/27/2019 Unknown HENRRY TANNER MD Resolved Last Documented On 10/29/2021 11:32AM ; [facility] Note: was Closed. History of Hematologic Disorders 03/27/2019 Unknown HENRRY TANNER MD Resolved Last Documented On 10/29/2021 11:32AM ; [facility] Note: was Closed. Past Visits Onset Date Resolved Date Provider Condition Status Cervical Dysplasia: Severe 09/21/2023 HENRRY TANNER MD Active Last Documented On 09/21/2023 5:17PM ; [facility] Note: Unchanged Anal Fissure 03/17/2023 ENDER Sena JOCELYN Active Last Documented On 3 12:10PM ; [facility] Intervertebral Disc Degeneration 03/17/2023 CHAPO FRANKLIN RN JOCELYN Active Last Documented On 3 12:09PM ; [facility] Ovarian Cyst 03/17/2023 ENDER TONEY B C Active Last Documented On 3 12:10PM ; [facility] Amenorrhea 03/25/2021 HENRRY TANNER MD Active Last Documented On 1 2:52PM ; [facility] Note: Unchanged Contact Dermatitis of Perineum 03/25/2021 HENRRY TANNER MD Active Last Documented On 1 2:52PM ; [facility] Note: Unchanged Oth mental disorders comp pr egnancy, second trimester 04/11/2019 HENRRY TANNER MD Active Last Documented On 9 2:33PM ; [facility] Note: Unchanged Plan of Treatment Pending Tests Order Diagnosis Results Due Ordering P rovider Radiology @ other - Ultrasound Pelvic U/S w/TVT (TransVag) Unspecified ovarian cyst, unspecified side 05/05/23 ENDER FRANKLIN RN JOCELYN BC Last Documented On 3 8:24AM ; [facility] Lab RENAL FUNCTION PANEL 06/15/23 KAVYA TONEY Last Documented On 3 11:52AM ; [facility] Assessments Includes: Assessments from this encounter Findings - [N83.209 - Unspecified ovarian cyst, unspecified side] Hemorrhagic ovarian cyst - Last Documented On 04/21/2023 8:22AM ; [facility] Medical Equipment - Implanted Devices Includes: Current Devices No Medical Equipment Recorded Medications Includes: Medications discussed during this encounter and other current Medications Current Medications (continue as prescribed) Veozah 45 MG Oral Tablet 09/21/2023 Provider: Diagnosis: Last Documented On 4 10:20AM By DOV MAYERS ; [facility] Albuterol Sulfate (5 MG/ML) 0.5% Inhalation Nebulization solution 03/03/2023 Provider: Diagnosis: Last Documented On 03/03/2023 12:59PM By Shalini Price ; [facility] Phenergan 25 mg Oral Tablet 03/03/2023 Provider: Diagnosis: Last Documented On 3 1:28PM By ENDER TESFAYE ; [facility] FLUoxetine HCl 20 MG Oral Capsule 07/21/2021 Provide r: MARIVEL LAW NP Diagnosis: Last Documented On 04/26/2023 1:03PM By Taye Bradley Jaja ; [facility] Gabapentin 300 MG Oral Capsule 03/25/2021 Provider: Diagnosis: 2 capsules tid Last Documented On 1 2:06PM By DOV MAYERS ; [facility] Omeprazole 20 MG Oral Capsule Delayed Release 09/28/19 Provider: Diagnosis: Last Documented On 0 10:46AM By DOV JOHNSON Jaja ; [facility] Past Medications on file Veozah 45 MG Oral Tablet 03/17/2023 - 06/15/2023 Provi alvin: ENDER FRANKLIN RN JOCELYN Diagnosis: Flushing One tablet daily Last Documented On 3 11:49AM By ENDER FRANKLIN RADHA ; [facility] Sulfamethoxazole-Trimethopri m 800-160 MG Oral Tablet 03/03/2023 - 03/10/2023 Provider: ENDER FRANKLIN RN JOCELYN BC Diagnosis: Furuncle, unspecified One tablet twice a day ONE TAB 2 TIMES A DAY WIT H FOOD Last Documented On 3 1:25PM By ENDER FRANKLIN RADHA ; [facility] Medications Administered Includes: Administered Medications [...] 04/26/2023 Last Documented On 3 8:11AM ; [facility] History of tubal ligation bilateral salp ingectomy 04/13/2023 Last Documented On 3 8:11AM ; [facility] Surgical / procedural histor y Laparoscopic marsupialization of ovarian cyst x3 ~left and right hand carpal tunnel- 2009 ~epidural x 2- 202003/25/2021 Last Documented On 3 8:11AM ; [facility] Dilation + Curettage 06/16/17 03/29/2019 Last Documented On 3 8:11AM ; [facility] History of cholecystectomy 03/29/2019 Last Documented On 3 8:11AM ; [facility] Tonsillectomy with adenoidectomy 019 Last Documented On 3 8:11AM ; [facility] History of surgery Tonseilectomy 019 Last Documented On 3 8:11AM ; [facility] Medical History Includes: Medical History addressed during this encounter Description Last Updated Last mammogram date: 201009/21/2023 Last Documented On 3 8:11AM ; [facility] section 09/21/2023 Last Documented On 3 8:11AM ; [facility] Last pap smear date 03/17/2023 09/21/2023 Last Documented On 3 8:11AM ; [facility] LMP: 04/03/2023 and before that was 3 04/13/2023 Last Documented On 3 8:11AM ; [facility] Result: abnormal ASC-US HR HPV+ 04/13/20 23 Last Documented On 3 8:11AM ; [facility] A mammogram was performed 03/17/2023 Last Documented On 3 8:11AM ; [facility] Primary Care Provider: Marivel slaughter NP 03/03/2023 Last Documented On 3 8:11AM ; [facility] Contraception: bilateral salpingectomy w ith c/s 03/25/2021 Last Documented On 3 8:11AM ; [facility] Para 5 03/25/2021 Last Documented On 3 8:11AM ; [facility] History of colonoscopy fiberoptic was pe rformed 2008 [facility] 03/25/2021 Last Documented On 3 8:11AM ; [facility] History of cervical Pap smear 12/04/2018 03/25/2021 Last Documented On 3 8:11AM ; [facility] Baby thriving C/S [facility] 36- 5/7 weeks 6# 0wai Hernandez 09/28/2019 Last Documented On 3 8:11AM ; [facility] Infant is bottle-feeding 09/28/2019 Last Documented On 3 8:11AM ; [facility] Result: normal 03/29/2019 Last Documented On 3 8:11AM ; [facility] Vaginal delivery x 4 03/29/2019 Last Documented On 3 8:11AM ; [facility] History of human papilloma virus infecti on 06/02/17 03/29/2019 Last Documented On 3 8:11AM ; [facility] A colonoscopy was performed 2009 019 Last Documented On 3 8:11AM ; [facility] Aborta 1 03/29/2019 Last Documented On 3 8:11AM ; [facility] 6 03/29/2019 Last Documented On 3 8:11AM ; [facility] History of Abnormal Pap Smear 11/29/2018: HGSIL; 01/18/2019: colp but no bx; 03/27/2019 Last Documented On 3 8:11AM ; [facility] History of depression depres raza dx'd at 13, meds since 19 y old: prior lexapro, effexor in the past, prozac: now for lthe last 10 yrs: pt likes; 03/27/2019 Last Documented On 3 8:11AM ; [facility] History of hematologic disorder B-12 and iron shots after last delivery 03/27/2019 Last Documented On 3 8:11AM ; [facility] Family History Includes: Family History addressed during this encounter Description Last Updated Maternal grandfather's history of diabet es mellitus MGF 03/29/2019 Last Documented On 3 8:11AM ; [facility] Spouse name: Thony 03/29/2019 Last Documented On 3 8:11AM ; [facility] Family history of hypertension mom and d ad 03/29/2019 Last Documented On 3 8:11AM ; [facility] Review of Systems Includes: Review [...] ve Last Documented On 4 10:17AM ; [facility] Chantix Allergy 03/17/2023 Active Last Documented On 4 10:17AM ; [facility] Encounters Encounter Provider Location Date Check-In Time Check- Out Time Diagnosis CHART UPDATE ENDER FRANKLIN RN JOCELYN 3 8:11AM 11:59PM Ovarian Cyst Hemorrhagic Insurance Includes: Active Insurance Policies Plan Name Member ID Group # Subscriber Relationship Effect flo Dates 1 - [facility] [id number] THONY HIGGINS Clinical Notes Includes: Clinical Notes from this encounter * Progress note Date Encounter Last Documented by 04/21/2023 CHART UPDATE Last documented on 04/21/2023; 8:22 AM, ENDER FRANKLIN RN JOCELYN ; [facility] Active Problems & Conditions - N91.2 - [...] Dietary: is bottle-feeding. : Baby thriving C/S [facility] 36- 5/7 weeks 6# 0oz Lawrence Hernandez [...]
--- OUTSIDE RECORDS SUMMARY | 2024-12-11 13:29 | XMS_ITS | Referral Summary ---
Author Organization [facility] Address [address] [place] [address] Care Team Providers Care Budget Officer Name Role Phone Hugo Jaquez MD Unavailable Kimberly Jc NP Primary Care Provide r Allergies Active Allergy Reactions Criticality Noted Date Comments Bee Pollen Anaphylaxis High 11/08/2020 Metoclopramide Hallucinations Medium 09/01/2017 Medications FLUoxetine (PROzac) 20 mg capsuleIndicat ions:depressio n,and anxiety Take 1 capsule (20 mg total) by mouth program evaluation consultant before breakfast 03/10/20 19 Active naloxone (NARCAN) [...] 09/09/2022 Assessment & Plan (09/09/2022 12:22 PM GAME DESIGNER): Increase omeprazole to 40 mg daily Start [...] be retained placenta. Plan for delivery at [facility] Her placentation appears normal on US [...] did not offer Ashanti however we did financial aid counselor patient on recurrence risk of PTD. Anxiety disorder 04/12/2009 Overview (04/27/2019): On Prozac 20mg daily. Stable. S/p counseling of risk of respiratory depression. Assessment & Plan (07/07/2019 1:34 PM GAME DESIGNER): Reports mood has been good on current [...] this time given patient is not making guide changer several OSH checks and admission exam -No indication for PCN at this time. BGS swab collected -GC/CT collected 06/21/19 [facility] visit: Contractions began this morning, are every 10 minutes, and more severe than they were before. Initial SVE 1/L/H, same as previous. Few contractions on toco. Repeat SVE 1/L/H. Patient reports spontaneous subjective improvement in intensity and frequency of contractions. No e/o PTL. Prec given. 06/28/19 [facility] visit: contractions initially Q10-15 minutes in the [...] sooner. Assessment & Plan (07/07/2019 1:36 PM GAME DESIGNER): Patient has not been getting 2x/weekly testing. [...] aware. [x] Method of feeding: breast/bottle [x] Bag Tester: [x] PP Depression Discussed: Type 2 diabetes mellitus 01/13/2014 Overview (12/04/2016): DMII WO CMP UNCNTRLD Hyperlipidemia 04/12/2009 04/27/2019 Immunizations Immunization Administration Dates Next Due COVID-19 mRNA ([employer]) 0.3 m L (30 mcg) vaccine (12 [...] on file Legal Sex Female 6:40 PM GAME DESIGNER Gender Identity Not on file Sexual Orientation [...] Author [facility] No Kolton Bowden, JACINDA Note: Bending, standing, lifting, sitting with minimal [...] Advance Directives For more information, please contact: [phone] Documents on File Type Date Recorded Patient Putty And Patch Worker Expl anation ADVANCE DIRECTIVE 11/05/2023 6:51 AM [...] n case of cardiopulmonary arrest Care Teams Budget Officer Relationship Specialty Start Date End Date Kimberly Jc NP [address] [place] [address] PCP - General Emergency Medicine 11/22/20 Hugo Jaquez MD Fusion Operator Obstetrics and Gynecology 04/12/19
--- OUTSIDE RECORDS SUMMARY | 2024-12-11 13:29 | XMS_ITS | Encounter Summary ---
Author Organization [facility] Address [address] [address] Phone Care Team Providers Care Wood Lathe Operator Name Role Phone Kimberly Jc APRN, CNP Primary Care P rovider Mack Owens MD Unavailable Timmy Ibarra [facility] Primary Care Provider Francisco Javier Ivey MD Unavailable Reason for Visit * Reason Comments Medication Refill Encounter Details Date Type Department Care Team (Late st Contact Info) Description 02/01/2024 Refill [facility] - Primary Care - [place] [address] [place] [address] Timmy Ibarra, [facility] [address] [place] [address] Medication Refill Social History Tobacco Use Types Packs/Day Years Used Date Smoking Tobacco: Every Day Cigarettes 1.5 32.3 Started: 1992 Smokeless Tobacco: Never Comments:Down to quarter pac k Alcohol Use Standard Drinks/Week Comments No 0 (1 standard drink = 0.6 oz pur e alcohol) [facility] Utilities Answer Date Recorded In the [...] often do you attend chur ch or episcopal services? Never 09/03/2023 Do you belong to any clubs o r organizations such as yarsani groups, unions, fraternal or athletic groups, or [...] Answer Date Recorded PHQ-2 Score 0 05/13/2019 [facility] - [...] Date Type Provider Dept 10/20/23 Office Visit iTmmy Ibarra, NAYA [facility] 10/08/23 Office Visit Timmy Ibarra, PAC [facility] 09/03/23 Office Visit Timmy Ibarra, PAC [facility] 07/29/23 Office Visit Arcelia Leija, PAC [facility] 06/17/23 Office Visit Arcelia Leija, [facility] 02/22/23 Office Visit Kimberly Jc APRN, KIRILL [facility] Showing recent visits within past 365 [...] documented as of this encounter Care Teams Wood Lathe Operator Relationship Specialty Start Date End Date Kimberly Jc APRN, KIRILL [address] [place] [address] PCP - General Advanced Practice Nurse 02/14/20 Timmy Ibarra, PAC [address] [place] [id number] PCP - General Physician Sample Book Maker 02/17/24 Mack Owens MD [address] [address] Consulting Physician Colon and Rectal Surgery 11/23/22 Francisco Javier Ivey MD [address] [place] [address] Consulting Physician Neurological Surgery 03/07/24 documented as of this encounter
--- OUTSIDE RECORDS SUMMARY | 2024-12-11 13:29 | XMS_ITS | Encounter Summary ---
Author Organization [facility] Address [address] [place] [place] [address] Phone Care Team Providers Care Fruit Harvest Worker Name Role Phone Kimberly Jc APRN, NATIONAL GUARD MEMBER Primary Care P rovider Mack Owens MD Unavailable Timmy Ibarra Primary Care Provider [phone] Francisco Javier Ivey MD Unavailable Reason for Visit * Reason Comments Medication Refill Encounter Details Date Type Department Care Team (Late st Contact Info) Description 05/04/2022 Refill [facility] - Primary Care - [place] [address] [place] [address] Kimberly Jc APRN, NATIONAL GUARD MEMBER [address] [place] [address] Medication Refill Social History Tobacco [...] documented as of this encounter Care Teams Fruit Harvest Worker Relationship Specialty Start Date End Date Kimberly Jc APRN, NATIONAL GUARD MEMBER [address] [place] [address] PCP - General Advanced Practice Nurse 02/14/20 Timmy Ibarra, PAC [address] [place] [phone] PCP - General Physician Hopper Attendant 02/17/24 Mack Owens MD [address] [address] Consulting Physician Colon and Rectal Surgery 11/23/22 Francisco Javier Ivey MD [address] [place] [address] Consulting Physician Neurological Surgery 03/07/24 documented as of this encounter
--- OUTSIDE RECORDS SUMMARY | 2024-12-11 13:29 | XMS_ITS | Encounter Summary ---
Author Organization [facility] Address [address] [place] [place] [address] Phone Care Team Providers Care Architect Internship Name Role Phone Kimberly Jc APRN, TANK TRUCK ENGINE MECHANIC Primary Care P rovider Mack Owens MD Unavailable Timmy Ibarra Primary Care Provider [phone] Francisco Javier Ivey MD Unavailable Reason for Visit * Reason Comments Medication Refill Encounter Details Date Type Department Care Team (Late st Contact Info) Description 08/06/2022 Refill [facility] - Primary Care - [place] [address] [place] [address] Kimberly Jc APRN, TANK TRUCK ENGINE MECHANIC [address] [place], [place] [id number] Medication Refill Social History Tobacco Use Types [...] Coronavirus/COVID-19? No / Unsure 07/30/2022 11:58 AM SORTING SUPERVISOR documented as of this encounter Miscellaneous Notes * Telephone Encounter - Linda Miles RN - 08/06/2022 11:47 AM SORTING SUPERVISOR Duplicate request. ING SUPERVISOR documented in this encounter Plan of Treatment Not on file documented as of this encounter Visit Diagnoses Not on filedocumented in this encounter Additional Health Concerns Assessment Noted Time PHQ-9 Depression Total Score: 0 06/10/20 18 9:00 AM CDT documented as of this encounter Care Teams Architect Internship Relationship Specialty Start Date End Date Kimberly cJ APRN, TANK TRUCK ENGINE MECHANIC [address] [place] [address] PCP - General Advanced Practice Nurse 02/14/20 Timmy Ibarra, PAC [address] [place] [phone] PCP - General Physician Breakfast And Room Attendant 02/17/24 Mack Owens MD [address] [address] Consulting Physician Colon and Rectal Surgery 11/23/22 Francisco Javier Ivey MD [address] [place] [address] Consulting Physician Neurological Surgery 03/07/24 documented as of this encounter
--- OUTSIDE RECORDS SUMMARY | 2024-12-11 13:29 | XMS_ITS | Clinical Summary ---
Author Organization [facility] Address [address] [place] [address] Phone Care Team Providers Care Setup Technician Name Role Phone Mack Owens MD Unavailable Timmy Ibarra PAC Primary Care Provider Francisco Javier Ivey MD Unavailable [phone] Allergies Active Allergy Reactions Criticality Noted Date Comments Bee Pollen Anaphylaxis 11/08/2020 Metoclopramide Hallucinations 09/01/2017 Medications fluticasone (Flonase) 50 MCG/ACT SuspensionIndic ations:Acute non-recurrent maxillary sinusitis 1-2 Sprays by Nasal route daily. Use in each nostril as directed. 16 g 2 07/30/20 22 Active omeprazole (PriLOSEC) 40 MG CAPSULE DELAYED RELEASE daily. 06/05/20 23 Active estradiol (CLIMARA) 0.05 MG/24HR PATCH WEEKLY APPLY 1 PATCH TOPICALLY TO THE SKIN 1 TIME A WEEK Active traMADol (ULTRAM) 50 MG TabletIndicatio ns:Contusion of left shoulder, initial encounter,Contu raza of left hip, initial encounter Take 1 Tablet by mouth every 8 hours as needed for Moderate or more severe pain. 12 Tablet 05/27/20 24 Active Additional Information Patient not taking.Reported on 10/12/2024 losartan (COZAAR) 50 MG TabletIndicatio ns:Primary hypertension Take 1 Tablet by mouth daily. 90 Tablet 3 06/15/20 24 Active celecoxib (CeleBREX) 100 MG CapsuleIndicati ons:Pain in both hands Take 1 Capsule by mouth 2 times daily. 90 Capsule 1 10/26/19 25 Active gabapentin (NEURONTIN) 300 MG Capsule TAKE 2 CAPSULES BY MOUTH THREE TIMES DAILY 540 Capsule 1 11/14/19 25 Active FLUoxetine (PROzac) 20 MG CapsuleIndicati ons:Generalized anxiety disorder TAKE 1 CAPSULE BY MOUTH DAILY 90 Capsule 11/28/19 25 Active albuterol 108 (90 Base) MCG/ACT Aerosol SolutionIndicat ions:Cough, unspecified type INHALE 2 PUFFS BY MOUTH EVERY 4 HOURS NEEDED FOR WHEEZING OR COUGH 8.5 g 2 11/29/19 25 Active HYDROcodone-rosendo taminophen (NORCO) 5-325 MG TabletIndicatio ns:Chronic bilateral low back pain with bilateral sciatica,Centra l stenosis of spinal canal,Lumbar herniated disc Take 1 Tablet by mouth every 8 hours as needed for Severe pain for up to 14 days. 42 Tablet 11/30/19 25 025 Active baclofen (LIORESAL) 10 MG TabletIndicatio ns:Chronic left-sided low back pain with left-sided sciatica TAKE 1 TABLET BY MOUTH THREE TIMES DAILY 270 Tablet 12/05/19 25 Active gabapentin (NEURONTIN) 300 MG Capsule TAKE 2 CAPSULES BY MOUTH THREE TIMES DAILY 540 Capsule 1 07/03/20 24 025 Discontinued FLUoxetine (PROzac) 20 MG CapsuleIndicati ons:Generalized anxiety disorder TAKE 1 CAPSULE BY MOUTH DAILY 90 Capsule 08/20/20 24 025 Discontinued albuterol 108 (90 Base) MCG/ACT Aerosol SolutionIndicat ions:Cough, unspecified type INHALE 2 PUFFS EVERY 4 HOURS NEEDED FOR WHEEZING OR COUGH 18 g 2 09/14/19 25 025 Discontinued baclofen (LIORESAL) 10 MG TabletIndicatio ns:Chronic left-sided low back pain with left-sided sciatica TAKE 1 TABLET BY MOUTH THREE TIMES DAILY 270 Tablet 09/19/19 25 025 Discontinued Active Problems Problem Noted Date [...] be retained placenta. Plan for delivery at T Her placentation appears normal on US thus far [x] CBC 06/18/19 HGB 11.7 At time of delivery, we would recommend T&Cx2, active management of the 3rd stage, and uterotonics at the bedside to prevent uterine atony. Iron deficiency anemia 06/17/2018 B12 deficiency 06/17/2018 Cervical dysplasia 06/10/2018 Anxiety disorder 04/12/2009 Encounters Date Type Department Care Team Description 12/03/2024 Refill [facility] [place] [address] [place] [address] Timmy Ibarra, [facility] Medication Refill 11/28/2024 10:44 AM CDT - 11/28/2024 11:59 PM CDT Hospital [facility] [address] [place] [address] Timmy Ibarra, PAC Discharge Disposition: Discharged to home or Selfcare 11/28/2024 Results Follow-Up [facility] [place] [address] [place] [phone] Timmy Ibarra, PAC Central stenosis of spinal canal (Primary Dx); Chronic bilateral low back pain with bilateral sciatica; Lumbar herniated disc 11/27/[address] [address] Kimberly Jc APRN, TRAVEL GUIDE Medication Refill 11/27/2024 Travel 11/26/2024 [address] [place] [phone] Timmy Ibarra, PAC Medication Refill 11/13/2024 Refill [facility] - [address] [address] Timmy Ibarra, PAC Medication Refill 11/07/2024 1:23 PM CDT - 11/07/2024 11:59 PM CDT Hospital [facility] [address] [place] [address] Meeta Puri MD Discharge Disposition: Discharged to home or Selfcare 11/07/2024 1:23 PM CDT - 11/07/2024 11:59 PM CDT Hospital [facility] [address] [place] [address] Meeta Puri MD Discharge Disposition: Discharged to home or Selfcare 11/07/2024 1:23 PM CDT - 11/07/2024 11:59 PM CDT Hospital [facility] [address] [place] [address] Meeta Puri MD Discharge Disposition: Discharged to home or Selfcare 11/07/2024 1:23 PM CDT Hospital Encounter [facility] [address] [place] [phone] Meeta Puri MD Discharge Disposition: Discharged to home or Selfcare 11/07/2024 Travel 11/07/2024 Transcribe Orders Formerly named [facility] Patient Access Admitting [address] [place] [phone] Meeta Puri MD Polyarthritis, unspecified (Primary Dx); Raised antibody titer 10/26/2024 MyChart RX Renewal [facility] [address] [place] [address] Timmy Ibarra, PAC Medication Renewal Declined 10/26/2024 Refill [facility] [place] [address] [place] [address] Timmy Ibarra, PAC Medication Refill 10/21/2024 Refill [facility] [place] [address] [place] [address] Timmy Ibarra, PAC Medication Refill 10/12/2024 1:45 PM SOFTWARE TEAM LEADER Office Visit [facility] [place] [address] [place] [address] Timmy Ibarra, PAC Abrasion of left upper extremity, initial encounter (Primary Dx); Strain of abdominal muscle, initial encounter; Positive DA (antinuclear antibody); History of hernia repair Discharge Disposition: Discharged to home or Selfcare 10/12/2024 Travel 10/12/2024 Nurse Triage [facility] [address] [place] [phone] Timmy Ibarra, PAC Advice Only; Fall 10/05/2024 Refill [facility] [place] [address] [place] [address] Timmy Ibarra, PAC Medication Refill 10/05/2024 MyChart RX Renewal [facility] [place] [address] [place] [address] Timmy Ibarra, PAC Medication Renewal Declined 10/05/2024 Nurse Triage [facility] [address] [place] [address] Timmy Ibarra, PAC Shortness of Breath 09/23/2024 [facility] [place] [address] [place] [address] Timmy Ibarra, PAC Medication Refill 09/19/2024 Refill [facility] [place] [address] [place] [address] Timmy Ibarra, PAC Medication Refill 09/14/2024 [facility] [place] [address] [place] [place] [address] Kimberly Jc, REJI, TRAVEL GUIDE Medication Refill from Last 3 Months Immunizations Immunization Administration Dates Next Due Covid-19, Mrna, Lnp-s, PF, 1 00 mcg/0.5 mL Dose ([facility] 04/14/2021,03/17/2021 Covid-19, Mrna, Lnp-s, Pf, Greg-sucrose, 30 Mcg/0.3 Ml (Pfizer) 10/08/2023 Influenza Vaccine greater than 3 yrs 05/25/2019 Influenza Vaccine, Quadrivalent, PF 12/2023,06/30/2021,10/03/2020,06/10 Influenza, Injectable, Mdck,quadrivalent,with Preservative 05/25/2019 Influenza, Seasonal, Injecta ble, Undefined 01/06/2012 Influenza, Trivalent, Adjuvanted, PF 01/06/2012 Influenza,Split Virus,Trivalent,Injectable,PF 05/19/2024 Pneumococcal Vaccine Adult - 23 Valent 8,01/06/2012 Pneumococcal conjugate PCV20 , polysaccharide [id number] conjugate, adjuvant, PF 10/08/2023 RHO(D) Immune Globulin- IV Or IM 04/14/2018,03/01 Rho(d) Immune Globulin - Im 04/14/2018, 8 TDAP Vaccine 05/25/2019,04/16/2018,10/08/2010 Td (Adult) 10/08/2010 Tuberculin [...] Every Day Cigarettes 1 32.3 Started: 1992 Smokeless Tobacco: Never Tobacco Cessation:Ready to Q uit: Not Asked; Counseling Given: Not Answered Comments:Down to quarter pack Alcohol Use Standard Drinks/Week Comments No 0 (1 standard drink = 0.6 oz pur e alcohol) [employer] Answer Date Recorded In the past 12 months has [employer], [employer], or water [employer] threatened to shut off services in your [...] 10/12/2024 How often do you attend chur or yazidism services? Never 10/12/2024 Do you belong to [...] Total Score - Questions 1-9 0 09/30 [facility] Occupational Stress Questionnaire Answer Date Recorded [...] place to sleep or slept in a penitentiary (including now)? No 09/03/2023 Housing Stability Vital Sign Answer Mike e Recorded In the last 12 months, was t here a time when you were not able to pay the mortgage or rent on time? Yes 10/12/2024 In the past 12 months, how m any times have you moved where you were living? 0 10/12/2024 At any time in the past 12 m [facility], were you homeless or living in a penitentiary (including now)? No 10/12/2024 Education Answer Date [...] Comments Blood Pressure 174/88 10/12/2024 1:31 PM SOFTWARE TEAM LEADER Pulse 76 10/12/2024 1:31 PM SOFTWARE TEAM LEADER Temperature 36.9 C (98.4 F) 10/12/2024 1:31 PM SOFTWARE TEAM LEADER Respiratory Rate 18 10/12/2024 1:31 PM SOFTWARE TEAM LEADER Oxygen Saturation 98% 10/12/2024 1:31 PM SOFTWARE TEAM LEADER Inhaled Oxygen Concentration - - Weight 69.4 kg (153 lb) 10/12/2024 1:31 PM SOFTWARE TEAM LEADER Height 167.6 cm (5' 6 ) 06/09/2024 12:08 PM CDT Body Mass Index 24.69 06/09/2024 12:08 PM CDT Plan of Treatment Health Maintenance Due Date Last Done Comments Hepatitis B Immunization (1 of 3 - 19+ 3-dose series) 1997 SARS-COV-2 Immunization ( season) 2024 10/08/2023, 04/14/2021, 03/17/2021 Mammogram 05/04/2024 05/04/2023 Colonoscopy 08/05/2028 08/05/2023, 08/05/2023 Colorectal Cancer Screening 08/05/2028 Td Immunization Every 10 Years (Adults With 1 Tdap) 05/25/2029 05/25/2019, 04/16/2018, 10/08/2010, Additional history exists Respiratory Syncytial Virus (RSV) Immunization (Adult) (1 - 1-dose 75+ series) 2053 08/05/2023 Cervical Cancer Screening (CCS) Discontinued Pap Smear Discontinued 06/11/2018 DTaP/Tdap/Td Immunization Discontinued 2018, 04/16/2018, 10/08/2010, Additional history exists Discussion re Starting/Frequency of Mammograms Completed 05/04/2023 Pneumococcal Immunization Combined Completed 10/08/2023, 06/10/2018, 01/06/2012 Influenza Immunization Completed , 09/03/2023, 06/30/2021, Additional history exists Hepatitis C Virus (HCV) Screening Completed 11/07/2024 HPV/Cotest Discontinued Meningococcal Immunization (ACWY) Aged Out No longer eligible based on patient's age to complete this topic Rotavirus Immunization Aged Out No lo nger eligible based on patient's age to complete this topic Medical Devices Implanted Type Area Jewelry Coater Device Identifier Shelf Expiration Date Model / Serial / Lot Staple Tacker Optifix At - [id number] Implanted:Qty : 1 on 05/28/2023 by Mack Owens MD at [facility] IMPLANT Bilateral: Inguinal [employer] 10/27/2024 [id number] / [id number] / [id number] Mesh Srg 3dmax 6x4in Groin Left Contour Seal Edge Strl Polyp Lg 3d Curve Lapscp Inguinal Hernia - [id number] Implanted:Qty : 1 on 05/28/2023 by Mack Owens MD at [facility] IMPLANT Left: Inguinal [employer] 10/27/2027 [id number] / [id number] / [id number] Mesh Srg 3dmax 6x4in Groin Right Contour Seal Edge Strl Polyp Lg 3d Curve Lapscp Inguinal Hernia - [id number] Implanted:Qty : 1 on 05/28/2023 by Mack Owens MD at [facility] IMPLANT Left: Inguinal [employer] 06/26/2025 [id number] / [id number] / [id number] Procedures Procedure Name Priority Date/Time Associated Diagnosis Comments MRI L-SPINE W/O CONTRAST Routine 11/28/2024 11:29 AM CDT Acute bilateral low back pain with bilateral sciatica XR CERVICAL SPINE LIMITED 2 OR 3 VIEWS (3V OR LESS) Routine 11/07/2024 1:41 PM CDT Polyarthritis, unspecified Raised antibody titer XR HAND 2 VIEWS BILATERAL Routine 11/07/2024 1:40 PM CDT Polyarthritis, unspecified Raised antibody titer XR SACROILIAC JOINTS, COMPLETE Routine 11/07/2024 1:40 PM CDT Polyarthritis, unspecified Raised antibody titer XR FOOT 2 VIEWS BILATERAL Routine 11/07/2024 1:40 PM CDT Polyarthritis, unspecified Raised antibody titer CBC WITH AUTO DIFFERENTIAL Today 11/07/2024 1:26 PM CDT Polyarthropathy Raised antibody titer RHEUMATOID FACTOR (RFQT) QUANT Routine 11/07/2024 1:26 PM CDT Polyarthropathy Raised antibody titer PHOSPHORUS (PO4) Today 11/07/2024 1:26 PM CDT Polyarthropathy Raised antibody titer ANCA SCR, TITER IF POS Today 1:26 PM CDT Polyarthropathy Raised antibody titer SACCHAROMYCES CEREVISIAE ANTIBODY (ASCA), IGA & IGG, SERUM Today 11/07/2024 1:26 PM CDT Polyarthropathy Raised antibody titer CMP (COMPREHENSIVE METABOLIC PANEL) Today 11/07/2024 1:26 PM CDT Polyarthropathy Raised antibody titer IMMUNOGLOBULIN A (IGA) Today 1:26 PM CDT Polyarthropathy Raised antibody titer IMMUNOGLOBULIN G (IGG) Today 1:26 PM CDT Polyarthropathy Raised antibody titer CYCLIC CITRULLINATED PEPTIDE 3 Today 11/07/2024 1:26 PM CDT Polyarthropathy Raised antibody titer INFLAMMATORY BOWEL DISEASE PANEL, SERUM Today 11/07/2024 1:26 PM CDT Polyarthropathy Raised antibody titer KENDALL PANEL Today 11/07/2024 1:26 PM CDT Polyarthropathy Raised antibody titer COMPLETE BLOOD COUNT (CBC) WITH DIFF Today 11/07/2024 1:26 PM CDT Polyarthropathy Raised antibody titer DA SCREEN MULTIPLEX W/REFLEX KENDALL Today 11/07/2024 1:26 PM CDT Polyarthropathy Raised antibody titer C-REACTIVE PROTEIN (CRP) QUANT Today 11/07/2024 1:26 PM CDT Polyarthropathy Raised antibody titer HEPATITIS B SURFACE ANTIBODY (HBSAB) Today 11/07/2024 1:26 PM CDT Polyarthropathy Raised antibody titer HEPATITIS PANEL ACUTE (AHP) Today 11/07/2024 1:26 PM CDT Polyarthropathy Raised antibody titer ERYTHROCYTE SEDIMENTATION RATE (ESR) Today 11/07/2024 1:26 PM CDT Polyarthropathy Raised antibody titer THYROID STIMULATING HORMONE (TSH) Today 11/07/2024 1:26 PM CDT Polyarthropathy Raised antibody titer URIC ACID (BLOOD ASSAY) Today 11/08/19 25 1:26 PM CDT Polyarthropathy Raised antibody titer QUANTIFERON-TB GOLD PLUS Today 11/07/2024 1:26 PM CDT Polyarthropathy Raised antibody titer ANGIOTENSIN CONVERTING ENZYME, ROSENDO Today 11/07/2024 1:26 PM CDT Polyarthropathy Raised antibody titer C3 COMPLEMENT GLOBULIN B-1C Today 11/07/2024 1:26 PM CDT Polyarthropathy Raised antibody titer C4 COMPLEMENT Today 11/07/2024 1:26 PM CDT Polyarthropathy Raised antibody titer HLA B 27 Today 11/07/2024 1:26 PM CDT Polyarthropathy Raised antibody titer ALDOLASE, S, LUZ ALS Today 11/07/2024 1:26 PM CDT Polyarthropathy Raised antibody titer CREATINE KINASE (CK) TOTAL Today 11/07/2024 1:26 PM CDT Polyarthropathy Raised antibody titer BRENNAN DIAG BILATERAL DIGITAL W CAD W ZOE Routine 05/04/2023 2:15 PM CDT Mastodynia from Last 3 Months or Most Recently Relevant to Health Maintenance Results * MRI L-SPINE W/O CONTRAST (11/28/2024 11:29 AM CDT) Anatomical Region Laterality Modality Spine, L-spine N/A Magnetic Resonan ce 11/28/2024 11:5 1 AM CDT Impressions 11/28/2024 11:53 AM CDT IMPRESSION: 1. Numbering schema as discussed above. Radiographic and/or CT imaging of the entirety of the spinal axis to allow for top down counting recommended in advance of any spinal surgeries and/or procedures. 2. Constellation of spondylolisthesis, spondylolysis, spondylosis, and degenerative disc disease of the lumbar spine producing multilevel variable, to include severe, spinal canal stenosis and neural foraminal stenosis as detailed level by level above. 3. Neurosurgery versus Orthopedic Spine Surgery follow-up recommended for further evaluation. Narrative 11/28/2024 11:53 AM CDT EXAM DESCRIPTION: MRI LUMBAR SPINE WITHOUT CONTRAST REASON FOR STUDY: Chronic low back pain with radiation of the bilateral legs to unspecified toes, exacerbated in April 2024 pursuant to trip and fall. Symptoms exacerbated with standing up straight and alleviated when bending over. No provided past medical history. No provided past surgical history. History of steroid injections of unspecified sites (recently?). TECHNIQUE: Sagittal and axial imaging of the lumbar spine includes T1, T2, STIR sequences. Images saved to PACS. Patient motion artifact variably spanning multiple sequences, noting sagittal STIR sequence repeated, compromises evaluation. COMPARISON: Relevant portions of cervical spine radiograph 11/07/2024; relevant portions of two-view chest radiograph 11/07/2024 and 06/06/2024; lumbar spine radiograph 06/06/2024 and 05/19/2024; relevant portions of sacroiliac joints radiograph 11/07/2024; relevant portions of pelvis and left hip radiograph 05/27/2024. FINDINGS: SEGMENTATION: For the purposes of this study, the lowest fully formed intervertebral disc level is labeled L5-S1 (thus preserving numbering schema utilized on prior lumbar spine imaging). Radiographic and/or CT imaging of the entirety of the spinal axis to allow for top down counting recommended in advance of any spinal surgeries and/or procedures. ALIGNMENT: Redemonstration of mild dextrocurvature sweeping the lumbar spine in association with minimal retrolisthesis L4 on L5, grade 1 anterolisthesis L5 on S1, and bilateral L5 pars interarticularis defects. VERTEBRAE: No MR evidence of acute-subacute fracture. Vertebral body heights unchanged. Spondylosis. Marrow signal within normal limits. DISC HEIGHT: Multilevel variable intervertebral disc desiccation and loss of intervertebral disc height of the lower thoracic through lumbar spine. HARDWARE: None in the lumbar spine. CORD/CAUDA: Normal in size and signal intensity with conus medullaris termination at L1, noting bunching of the cauda equina pursuant to below-described compressive disc disease and spondylosis at L1-2. LOWER THORACIC: Incompletely imaged. No stenosis demonstrated. INDIVIDUAL DISC LEVELS: T12-L1: Mild annular disc bulge. Bilateral facet arthropathy. No spinal canal stenosis. No neural foraminal stenosis. L1-2: Annular disc bulge with large central disc protrusion with 1.1 cm inferior migration. Bilateral hypertrophic facet arthropathy, noting slight fluid in the facet joints suggestive of facet synovitis. Marked compromise of the [id number]-[id number]-ydun-right lateral recesses, noting combination of disc and arthropathic facet variable impingement upon the descending bilateral L2 nerve roots. Severe slightly right eccentric spinal canal stenosis with resultant aggregation of the traversing cauda equina in the posteriorly-displaced residual thecal sac. Mild bilateral inferior neural foraminal stenosis. L2-3: Annular disc bulge with left foraminal disc protrusion. Bilateral hypertrophic facet arthropathy, noting slight fluid in the facet joints suggestive of facet synovitis. Mild ligamentum flavum thickening eccentric to the left. Slight compromise of the lgai-mawujmz-dlhk-right lateral recesses. No spinal canal stenosis. Severe proximal left and mild inferior right neural foraminal stenosis, noting variable slight disc contact with the exiting bilateral L2 nerve roots. L3-4: Annular disc bulge with shallow right eccentric central-right foraminal disc protrusion. Bilateral hypertrophic facet arthropathy, noting slight fluid in the facet joints suggestive of facet synovitis. Slight compromise of the bilateral lateral recesses. No spinal canal stenosis. Mild bilateral neural foraminal stenosis. L4-5: Slightly overhanging posterior cortical margin with annular disc bulge and central-right subarticular disc protrusion. Bilateral hypertrophic facet arthropathy. No spinal canal stenosis. No significant neural foraminal stenosis. L5-S1: Uncovering of the intervertebral disc with annular disc bulge. Bilateral hypertrophic facet arthropathy. No spinal canal stenosis. Severe bilateral neural foraminal stenosis, noting combination of inferior pedicular surface, disc, and arthropathic facet variable deformation of the exiting bilateral L5 nerve roots. SACRUM: Visualized upper sacrum intact. VISUALIZED UPPER ABDOMEN: Within limitations of patient motion artifact, no overt evidence of acute abnormality. OTHER: No other significant findings. THIS IS AN ELECTRONICALLY VERIFIED FINAL REPORT 11/28/2024 11:51 AM - Electronically signed by Javi Oliveros M.D. EMILIO: EMILIO Report ID: [id number] [place] Location: [id number] Procedure Note Javi Oliveros MD - 11/28/2024 EXAM DESCRIPTION: MRI LUMBAR SPINE WITHOUT CONTRAST REASON FOR STUDY: Chronic low back pain with radiation of the bilateral legs to unspecified toes, exacerbated in April 2024 pursuant to trip and fall. Symptoms exacerbated with standing up straight and alleviated when bending over. No provided past medical history. No provided past surgical history. History of steroid injections of unspecified sites (recently?). TECHNIQUE: Sagittal and axial imaging of the lumbar spine includes T1, T2, STIR sequences. Images saved to PACS. Patient motion artifact variably spanning multiple sequences, noting sagittal STIR sequence repeated, compromises evaluation. COMPARISON: Relevant portions of cervical spine radiograph 11/07/2024; relevant portions of two-view chest radiograph 11/07/2024 and 06/06/2024; lumbar spine radiograph 06/06/2024 and 05/19/2024; relevant portions of sacroiliac joints radiograph 11/07/2024; relevant portions of pelvis and left hip radiograph 05/27/2024. FINDINGS: SEGMENTATION: For the purposes of this study, the lowest fully formed intervertebral disc level is labeled L5-S1 (thus preserving numbering schema utilized on prior lumbar spine imaging). Radiographic and/or CT imaging of the entirety of the spinal axis to allow for top down counting recommended in advance of any spinal surgeries and/or procedures. ALIGNMENT: Redemonstration of mild dextrocurvature sweeping the lumbar spine in association with minimal retrolisthesis L4 on L5, grade 1 anterolisthesis L5 on S1, and bilateral L5 pars interarticularis defects. VERTEBRAE: No MR evidence of acute-subacute fracture. Vertebral body heights unchanged. Spondylosis. Marrow signal within normal limits. DISC HEIGHT: Multilevel variable intervertebral disc desiccation and loss of intervertebral disc height of the lower thoracic through lumbar spine. HARDWARE: None in the lumbar spine. CORD/CAUDA: Normal in size and signal intensity with conus medullaris termination at L1, noting bunching of the cauda equina pursuant to below-described compressive disc disease and spondylosis at L1-2. LOWER THORACIC: Incompletely imaged. No stenosis demonstrated. INDIVIDUAL DISC LEVELS: T12-L1: Mild annular disc bulge. Bilateral facet arthropathy. No spinal canal stenosis. No neural foraminal stenosis. L1-2: Annular disc bulge with large central disc protrusion with 1.1 cm inferior migration. Bilateral hypertrophic facet arthropathy, noting slight fluid in the facet joints suggestive of facet synovitis. Marked compromise of the wxku-bcvmszf-hhon-right lateral recesses, noting combination of disc and arthropathic facet variable impingement upon the descending bilateral L2 nerve roots. Severe slightly right eccentric spinal canal stenosis with resultant aggregation of the traversing cauda equina in the posteriorly-displaced residual thecal sac. Mild bilateral inferior neural foraminal stenosis. L2-3: Annular disc bulge with left foraminal disc protrusion. Bilateral hypertrophic facet arthropathy, noting slight fluid in the facet joints suggestive of facet synovitis. Mild ligamentum flavum thickening eccentric to the left. Slight compromise of the xbli-axrbzed-erbu-right lateral recesses. No spinal canal stenosis. Severe proximal left and mild inferior right neural foraminal stenosis, noting variable slight disc contact with the exiting bilateral L2 nerve roots. L3-4: Annular disc bulge with shallow right eccentric central-right foraminal disc protrusion. Bilateral hypertrophic facet arthropathy, noting slight fluid in the facet joints suggestive of facet synovitis. Slight compromise of the bilateral lateral recesses. No spinal canal stenosis. Mild bilateral neural foraminal stenosis. L4-5: Slightly overhanging posterior cortical margin with annular disc bulge and central-right subarticular disc protrusion. Bilateral hypertrophic facet arthropathy. No spinal canal stenosis. No significant neural foraminal stenosis. L5-S1: Uncovering of the intervertebral disc with annular disc bulge. Bilateral hypertrophic facet arthropathy. No spinal canal stenosis. Severe bilateral neural foraminal stenosis, noting combination of inferior pedicular surface, disc, and arthropathic facet variable deformation of the exiting bilateral L5 nerve roots. SACRUM: Visualized upper sacrum intact. VISUALIZED UPPER ABDOMEN: Within limitations of patient motion artifact, no overt evidence of acute abnormality. OTHER: No other significant findings. THIS IS AN ELECTRONICALLY VERIFIED FINAL REPORT 11/28/2024 11:51 AM - Electronically signed by Javi Oliveros M.D. EMILIO: EMILIO Report ID: [id number] Reading Location: [place] [id number] IMPRESSION: 1. Numbering schema as discussed above. Radiographic and/or CT imaging of the entirety of the spinal axis to allow for top down counting recommended in advance of any spinal surgeries and/or procedures. 2. Constellation of spondylolisthesis, spondylolysis, spondylosis, and degenerative disc disease of the lumbar spine producing multilevel variable, to include severe, spinal canal stenosis and neural foraminal stenosis as detailed level by level above. 3. Neurosurgery versus Orthopedic Spine Surgery follow-up recommended for further evaluation. Timmy Ibarra [facility] IMG MR ORDERABLES Final Resu lt * XR CERVICAL SPINE LIMITED 2 OR 3 VIEWS (3V OR LESS) (11/07/2024 1:41 PM CDT) Anatomical Region Laterality Modality Spine, C-spine N/A Digital Radiogra phy 11/08/2024 9:30 PM CDT Impressions 11/08/2024 9:33 PM CDT IMPRESSION: No radiographic evidence of inflammatory arthritis. Mild C3-C4, severe C4-C5 and vqih-mh-ngstjqrb C5-C7 degenerative disc disease with bilateral cervical facet and uncovertebral osteoarthritis. Mild bilateral sacroiliac joint osteoarthritis. Soft tissue prominence at the radial aspect of the left long finger distal interphalangeal joint. This is nonspecific and can be correlated with physical exam, and further evaluated with MRI or ultrasound if clinically indicated. Narrative 11/08/2024 9:33 PM CDT EXAM DESCRIPTION: XR HAND 2 VIEWS BILATERAL; XR CERVICAL SPINE LIMITED 2 OR 3 VIEWS (3V OR LESS); XR FOOT 2 VIEWS BILATERAL; XR SACROILIAC JOINTS, COMPLETE REASON FOR STUDY: patient states she recently had blood work done that showed RA. intermittent pain and swelling to joints x 1 year. FINDINGS: Two views each hand, three views sacroiliac joints, three views cervical spine, and two views each foot submitted without comparison. Cervical spine: No acute fracture. No prevertebral soft tissue swelling. Mild straightening of the cervical spine. Mild retrolisthesis of C4 on C6. Mild C3-C4, severe C4-C5 and uyys-vv-duoazvwd C5-C7 degenerative disc disease. Bilateral cervical facet osteoarthritis. Bilateral C4-C5 uncovertebral osteoarthritis. Sacroiliac joints: No erosions. No acute fracture. The foraminal arcades are intact. There is mild sacroiliac joint osteoarthritis. Right hand: No erosions. No acute fracture. Ulnar positive variance is present. Old healed 5th metacarpal fracture is noted. The joint spaces are normal. Left hand: No erosions. No acute fracture. The joint spaces are normal. Soft tissue prominence at the radial aspect of the long finger distal interphalangeal joint is noted. Feet: No erosions. No acute fracture. The joint spaces are normal. THIS IS AN ELECTRONICALLY VERIFIED FINAL REPORT 11/08/2024 9:30 PM - Electronically signed by Chuy RÍOS: MICHOACANO Report ID: [id number] Reading Location: [id number] Procedure Note Chuy Overton MD - 11/08/2024 EXAM DESCRIPTION: XR HAND 2 VIEWS BILATERAL; XR CERVICAL SPINE LIMITED 2 OR 3 VIEWS (3V OR LESS); XR FOOT 2 VIEWS BILATERAL; XR SACROILIAC JOINTS, COMPLETE REASON FOR STUDY: patient states she recently had blood work done that showed RA. intermittent pain and swelling to joints x 1 year. FINDINGS: Two views each hand, three views sacroiliac joints, three views cervical spine, and two views each foot submitted without comparison. Cervical spine: No acute fracture. No prevertebral soft tissue swelling. Mild straightening of the cervical spine. Mild retrolisthesis of C4 on C6. Mild C3-C4, severe C4-C5 and kitr-xn-qvrnxrhr C5-C7 degenerative disc disease. Bilateral cervical facet osteoarthritis. Bilateral C4-C5 uncovertebral osteoarthritis. Sacroiliac joints: No erosions. No acute fracture. The foraminal arcades are intact. There is mild sacroiliac joint osteoarthritis. Right hand: No erosions. No acute fracture. Ulnar positive variance is present. Old healed 5th metacarpal fracture is noted. The joint spaces are normal. Left hand: No erosions. No acute fracture. The joint spaces are normal. Soft tissue prominence at the radial aspect of the long finger distal interphalangeal joint is noted. Feet: No erosions. No acute fracture. The joint spaces are normal. THIS IS AN ELECTRONICALLY VERIFIED FINAL REPORT 11/08/2024 9:30 PM - Electronically signed by Chuy RÍOS: MICHOACANO Report ID: [id number] Reading Location: [id number] IMPRESSION: No radiographic evidence of inflammatory arthritis. Mild C3-C4, severe C4-C5 and bvyn-vi-vzmzpjwc C5-C7 degenerative disc disease with bilateral cervical facet and uncovertebral osteoarthritis. Mild bilateral sacroiliac joint osteoarthritis. Soft tissue prominence at the radial aspect of the left long finger distal interphalangeal joint. This is nonspecific and can be correlated with physical exam, and further evaluated with MRI or ultrasound if clinically indicated. Meeta Puri MD IMG DIAGNOSTIC ORDERABLES Delaney l Result * XR HAND 2 VIEWS BILATERAL (11/07/2024 1:40 PM CDT) Anatomical Region Laterality Modality UPPER EXTREMITY, hand Bilateral Digital Ra diography 11/08/2024 9:30 PM CDT Impressions 11/08/2024 9:33 PM CDT IMPRESSION: No radiographic evidence of inflammatory arthritis. Mild C3-C4, severe C4-C5 and wvoh-dj-bigpuzvx C5-C7 degenerative disc disease with bilateral cervical facet and uncovertebral osteoarthritis. Mild bilateral sacroiliac joint osteoarthritis. Soft tissue prominence at the radial aspect of the left long finger distal interphalangeal joint. This is nonspecific and can be correlated with physical exam, and further evaluated with MRI or ultrasound if clinically indicated. Narrative 11/08/2024 9:33 PM CDT EXAM DESCRIPTION: XR HAND 2 VIEWS BILATERAL; XR CERVICAL SPINE LIMITED 2 OR 3 VIEWS (3V OR LESS); XR FOOT 2 VIEWS BILATERAL; XR SACROILIAC JOINTS, COMPLETE REASON FOR STUDY: patient states she recently had blood work done that showed RA. intermittent pain and swelling to joints x 1 year. FINDINGS: Two views each hand, three views sacroiliac joints, three views cervical spine, and two views each foot submitted without comparison. Cervical spine: No acute fracture. No prevertebral soft tissue swelling. Mild straightening of the cervical spine. Mild retrolisthesis of C4 on C6. Mild C3-C4, severe C4-C5 and vxdn-cc-dmnpuwlv C5-C7 degenerative disc disease. Bilateral cervical facet osteoarthritis. Bilateral C4-C5 uncovertebral osteoarthritis. Sacroiliac joints: No erosions. No acute fracture. The foraminal arcades are intact. There is mild sacroiliac joint osteoarthritis. Right hand: No erosions. No acute fracture. Ulnar positive variance is present. Old healed 5th metacarpal fracture is noted. The joint spaces are normal. Left hand: No erosions. No acute fracture. The joint spaces are normal. Soft tissue prominence at the radial aspect of the long finger distal interphalangeal joint is noted. Feet: No erosions. No acute fracture. The joint spaces are normal. THIS IS AN ELECTRONICALLY VERIFIED FINAL REPORT 11/08/2024 9:30 PM - Electronically signed by Chuy Overton M.D. MF: MICHOACANO Report ID: [id number] Reading Location: [id number] Procedure Note Chuy Overton MD - 11/08/2024 EXAM DESCRIPTION: XR HAND 2 VIEWS BILATERAL; XR CERVICAL SPINE LIMITED 2 OR 3 VIEWS (3V OR LESS); XR FOOT 2 VIEWS BILATERAL; XR SACROILIAC JOINTS, COMPLETE REASON FOR STUDY: patient states she recently had blood work done that showed RA. intermittent pain and swelling to joints x 1 year. FINDINGS: Two views each hand, three views sacroiliac joints, three views cervical spine, and two views each foot submitted without comparison. Cervical spine: No acute fracture. No prevertebral soft tissue swelling. Mild straightening of the cervical spine. Mild retrolisthesis of C4 on C6. Mild C3-C4, severe C4-C5 and iqxl-eo-twhpaatz C5-C7 degenerative disc disease. Bilateral cervical facet osteoarthritis. Bilateral C4-C5 uncovertebral osteoarthritis. Sacroiliac joints: No erosions. No acute fracture. The foraminal arcades are intact. There is mild sacroiliac joint osteoarthritis. Right hand: No erosions. No acute fracture. Ulnar positive variance is present. Old healed 5th metacarpal fracture is noted. The joint spaces are normal. Left hand: No erosions. No acute fracture. The joint spaces are normal. Soft tissue prominence at the radial aspect of the long finger distal interphalangeal joint is noted. Feet: No erosions. No acute fracture. The joint spaces are normal. THIS IS AN ELECTRONICALLY VERIFIED FINAL REPORT 11/08/2024 9:30 PM - Electronically signed by Chuy Overton M.D. MF: MICHOACANO Report ID: [id number] Reading Location: [id number] IMPRESSION: No radiographic evidence of inflammatory arthritis. Mild C3-C4, severe C4-C5 and aldw-by-inthhywx C5-C7 degenerative disc disease with bilateral cervical facet and uncovertebral osteoarthritis. Mild bilateral sacroiliac joint osteoarthritis. Soft tissue prominence at the radial aspect of the left long finger distal interphalangeal joint. This is nonspecific and can be correlated with physical exam, and further evaluated with MRI or ultrasound if clinically indicated. Meeta Puri MD IMTello DIAGNOSTIC ORDERABLES Delaney l Result * XR SACROILIAC JOINTS, COMPLETE (11/07/2024 1:40 PM CDT) Anatomical Region Laterality Modality Spine, Sacroiliac joint N/A Digital Radiography 11/08/2024 9:30 PM CDT Impressions 11/08/2024 9:33 PM CDT IMPRESSION: No radiographic evidence of inflammatory arthritis. Mild C3-C4, severe C4-C5 and hhch-xe-pbviigkk C5-C7 degenerative disc disease with bilateral cervical facet and uncovertebral osteoarthritis. Mild bilateral sacroiliac joint osteoarthritis. Soft tissue prominence at the radial aspect of the left long finger distal interphalangeal joint. This is nonspecific and can be correlated with physical exam, and further evaluated with MRI or ultrasound if clinically indicated. Narrative 11/08/2024 9:33 PM CDT EXAM DESCRIPTION: XR HAND 2 VIEWS BILATERAL; XR CERVICAL SPINE LIMITED 2 OR 3 VIEWS (3V OR LESS); XR FOOT 2 VIEWS BILATERAL; XR SACROILIAC JOINTS, COMPLETE REASON FOR STUDY: patient states she recently had blood work done that showed RA. intermittent pain and swelling to joints x 1 year. FINDINGS: Two views each hand, three views sacroiliac joints, three views cervical spine, and two views each foot submitted without comparison. Cervical spine: No acute fracture. No prevertebral soft tissue swelling. Mild straightening of the cervical spine. Mild retrolisthesis of C4 on C6. Mild C3-C4, severe C4-C5 and uaro-jp-jkbezgxa C5-C7 degenerative disc disease. Bilateral cervical facet osteoarthritis. Bilateral C4-C5 uncovertebral osteoarthritis. Sacroiliac joints: No erosions. No acute fracture. The foraminal arcades are intact. There is mild sacroiliac joint osteoarthritis. Right hand: No erosions. No acute fracture. Ulnar positive variance is present. Old healed 5th metacarpal fracture is noted. The joint spaces are normal. Left hand: No erosions. No acute fracture. The joint spaces are normal. Soft tissue prominence at the radial aspect of the long finger distal interphalangeal joint is noted. Feet: No erosions. No acute fracture. The joint spaces are normal. THIS IS AN ELECTRONICALLY VERIFIED FINAL REPORT 11/08/2024 9:30 PM - Electronically signed by Chuy RÍOS: MICHOACANO Report ID: [id number] Reading Location: [place] [id number] Procedure Note Chuy Overton MD - 11/08/2024 EXAM DESCRIPTION: XR HAND 2 VIEWS BILATERAL; XR CERVICAL SPINE LIMITED 2 OR 3 VIEWS (3V OR LESS); XR FOOT 2 VIEWS BILATERAL; XR SACROILIAC JOINTS, COMPLETE REASON FOR STUDY: patient states she recently had blood work done that showed RA. intermittent pain and swelling to joints x 1 year. FINDINGS: Two views each hand, three views sacroiliac joints, three views cervical spine, and two views each foot submitted without comparison. Cervical spine: No acute fracture. No prevertebral soft tissue swelling. Mild straightening of the cervical spine. Mild retrolisthesis of C4 on C6. Mild C3-C4, severe C4-C5 and dxhe-ny-lsuefssl C5-C7 degenerative disc disease. Bilateral cervical facet osteoarthritis. Bilateral C4-C5 uncovertebral osteoarthritis. Sacroiliac joints: No erosions. No acute fracture. The foraminal arcades are intact. There is mild sacroiliac joint osteoarthritis. Right hand: No erosions. No acute fracture. Ulnar positive variance is present. Old healed 5th metacarpal fracture is noted. The joint spaces are normal. Left hand: No erosions. No acute fracture. The joint spaces are normal. Soft tissue prominence at the radial aspect of the long finger distal interphalangeal joint is noted. Feet: No erosions. No acute fracture. The joint spaces are normal. THIS IS AN ELECTRONICALLY VERIFIED FINAL REPORT 11/08/2024 9:30 PM - Electronically signed by Chuy Overton M.D. MF: MICHOACANO Report ID: [id number] Reading Location: [id number] IMPRESSION: No radiographic evidence of inflammatory arthritis. Mild C3-C4, severe C4-C5 and gikm-zy-ahyfryzy C5-C7 degenerative disc disease with bilateral cervical facet and uncovertebral osteoarthritis. Mild bilateral sacroiliac joint osteoarthritis. Soft tissue prominence at the radial aspect of the left long finger distal interphalangeal joint. This is nonspecific and can be correlated with physical exam, and further evaluated with MRI or ultrasound if clinically indicated. us Meeta Puri MD IMG DIAGNOSTIC ORDERABLES Delaney l Result * XR FOOT 2 VIEWS BILATERAL (11/07/2024 1:40 PM CDT) Anatomical Region Laterality Modality LOWER EXTREMITY, foot Bilateral Digital Ra diography 11/08/2024 9:30 PM CDT Impressions 11/08/2024 9:33 PM CDT IMPRESSION: No radiographic evidence of inflammatory arthritis. Mild C3-C4, severe C4-C5 and bhuv-dv-jwlswryu C5-C7 degenerative disc disease with bilateral cervical facet and uncovertebral osteoarthritis. Mild bilateral sacroiliac joint osteoarthritis. Soft tissue prominence at the radial aspect of the left long finger distal interphalangeal joint. This is nonspecific and can be correlated with physical exam, and further evaluated with MRI or ultrasound if clinically indicated. Narrative 11/08/2024 9:33 PM CDT EXAM DESCRIPTION: XR HAND 2 VIEWS BILATERAL; XR CERVICAL SPINE LIMITED 2 OR 3 VIEWS (3V OR LESS); XR FOOT 2 VIEWS BILATERAL; XR SACROILIAC JOINTS, COMPLETE REASON FOR STUDY: patient states she recently had blood work done that showed RA. intermittent pain and swelling to joints x 1 year. FINDINGS: Two views each hand, three views sacroiliac joints, three views cervical spine, and two views each foot submitted without comparison. Cervical spine: No acute fracture. No prevertebral soft tissue swelling. Mild straightening of the cervical spine. Mild retrolisthesis of C4 on C6. Mild C3-C4, severe C4-C5 and sfsx-ak-srybdkik C5-C7 degenerative disc disease. Bilateral cervical facet osteoarthritis. Bilateral C4-C5 uncovertebral osteoarthritis. Sacroiliac joints: No erosions. No acute fracture. The foraminal arcades are intact. There is mild sacroiliac joint osteoarthritis. Right hand: No erosions. No acute fracture. Ulnar positive variance is present. Old healed 5th metacarpal fracture is noted. The joint spaces are normal. Left hand: No erosions. No acute fracture. The joint spaces are normal. Soft tissue prominence at the radial aspect of the long finger distal interphalangeal joint is noted. Feet: No erosions. No acute fracture. The joint spaces are normal. THIS IS AN ELECTRONICALLY VERIFIED FINAL REPORT 11/08/2024 9:30 PM - Electronically signed by Chuy Overton M.D. MF: MICHOACANO Report ID: [id number] Reading Location: [id number] Procedure Note Chuy Overton MD - 11/08/2024 EXAM DESCRIPTION: XR HAND 2 VIEWS BILATERAL; XR CERVICAL SPINE LIMITED 2 OR 3 VIEWS (3V OR LESS); XR FOOT 2 VIEWS BILATERAL; XR SACROILIAC JOINTS, COMPLETE REASON FOR STUDY: patient states she recently had blood work done that showed RA. intermittent pain and swelling to joints x 1 year. FINDINGS: Two views each hand, three views sacroiliac joints, three views cervical spine, and two views each foot submitted without comparison. Cervical spine: No acute fracture. No prevertebral soft tissue swelling. Mild straightening of the cervical spine. Mild retrolisthesis of C4 on C6. Mild C3-C4, severe C4-C5 and kbks-zl-snnjyxfe C5-C7 degenerative disc disease. Bilateral cervical facet osteoarthritis. Bilateral C4-C5 uncovertebral osteoarthritis. Sacroiliac joints: No erosions. No acute fracture. The foraminal arcades are intact. There is mild sacroiliac joint osteoarthritis. Right hand: No erosions. No acute fracture. Ulnar positive variance is present. Old healed 5th metacarpal fracture is noted. The joint spaces are normal. Left hand: No erosions. No acute fracture. The joint spaces are normal. Soft tissue prominence at the radial aspect of the long finger distal interphalangeal joint is noted. Feet: No erosions. No acute fracture. The joint spaces are normal. THIS IS AN ELECTRONICALLY VERIFIED FINAL REPORT 11/08/2024 9:30 PM - Electronically signed by Chuy Overton M.D. MF: MICHOACANO Report ID: [id number] Reading Location: [place] [id number] IMPRESSION: No radiographic evidence of inflammatory arthritis. Mild C3-C4, severe C4-C5 and buxt-ti-trcgwdkf C5-C7 degenerative disc disease with bilateral cervical facet and uncovertebral osteoarthritis. Mild bilateral sacroiliac joint osteoarthritis. Soft tissue prominence at the radial aspect of the left long finger distal interphalangeal joint. This is nonspecific and can be correlated with physical exam, and further evaluated with MRI or ultrasound if clinically indicated. us Meeta Puri MD IMG DIAGNOSTIC ORDERABLES Delaney l Result * CYCLIC CITRULLINATED PEPTIDE 3 (11/07/2024 1:26 PM CDT) CCP IGG <0.5 <3.0 U/mL 11/07/2024 10:22 PM CDT [facility] Blood Venipuncture / Unknown 11/07/2024 1:26 PM CDT 11/07/2024 1:51 PM CDT Narrative [facility] - 11/07/2024 10:22 PM CDT Antibody testing was performed by multiplex flow immunoassay on the [employer] platform. us Meeta Puri MD IMMUNOLOGY ORDERABLES Final Re sult [facility] [address] [place] [address], * (ABNORMAL) SACCHAROMYCES CEREVISIAE ANTIBODY (ASCA), IGA & IGG, SERUM (11/07/2024 1:26 PM CDT) ASCA IGA 7.3 <20.1 Units 11/09/2024 1:02 PM CDT [facility] Comment: 0.0-20.0 Negative 20.1-24.9 Equivocal >=25.0 Positive ASCA IGG 49.1(H) <20.1 Units 11/09/2024 1:02 PM CDT [facility] Comment: 0.0-20.0 Negative 20.1-24.9 Equivocal >=25.0 Positive Blood Venipuncture / Unknown 11/07/2024 1:26 PM CDT 11/07/2024 1:51 PM CDT Narrative [facility] - 11/09/2024 1:02 PM CDT Performed by enzyme-linked immunosorbent assay (BRITNEY). us Meeta Puri MD IMMUNOLOGY ORDERABLES Final Re sult [facility] [address] [place] [address], [place] * QUANTIFERON-TB GOLD PLUS (11/07/2024 1:26 PM CDT) NIL CONTROL 0.01 <8.01 IU/mL 11/09/2024 9:12 AM CDT [facility] TB ANTIGEN 1 0.01 <0.35 IU/mL 11/09/2024 9:12 AM CDT [facility] TB ANTIGEN 2 0.02 <0.35 IU/mL 11/09/2024 9:12 AM CDT [facility] MITOGEN CONTROL 9.99 >0.49 IU/mL 11/10/19 9:12 AM CDT [facility] INTEPRETATION TB NEGATIVE NEGATIVE, NEGATIVE (TB antigen response less than 25% of internal negative control value) 11/09/2024 9:12 AM CDT [facility] Comment:No immune response t o Mycobacterium tuberculosis antigens was noted. M. tuberculosis infection unlikely. Blood Venipuncture / Unknown 11/07/2024 1:26 PM CDT 11/07/2024 1:52 PM CDT Narrative [facility] - 11/09/2024 9:12 AM CDT A POSITIVE QUANTIFERON-TB GOLD PLUS RESULT SHOULD NOT BE THE SOLE OR DEFINITIVE BASIS FOR DETERMINING INFECTION WITH M.TUBERCULOSIS. Diagnosing or excluding tuberculosis disease, and assessing the probability of LTBI, requires a combination of epidemiological, historical, medical and diagnostic findings (e.g., acid fast bacilli (AFB) smear and culture, chest xray) that should be taken into account when interpreting QFT-Plus results. Furthermore, the magnitude of the measured gamma interferon level cannot be correlated to stage or degree of infection, level of immune responsiveness, or likelihood for progression to active disease. The Nil control adjusts for background (e.g., elevated levels of circulating gamma interferon or presence of heterophile antibodies). The Mitogen control serves as an internal positive control and verifies each specimen tested can produce a gamma interferon response. Low mitogen may occur with insufficient lymphocytes, reduced lymphocyte activity due to improper specimen handling, filling/mixing of the mitogen tube, or inability of the patient's lymphocytes to generate gamma interferon. Infection with other Mycobacteria, including M. kansasii, M. szulgai, and M. marinum, may cause false positive results. A negative QuantiFERON-TB Gold Plus result does not preclude the possibility of M. tuberculosis infection or tuberculosis disease: false negative results can be due to incorrect blood sample collection/ improper handling of the specimen, stage of infection (e.g., specimen obtained prior to the development of cellular immune response), co-morbid conditions which affect immune function, or other individual immunological factors. The minimum number of lymphocytes required for a reliable test has not been established and may also be variable. Diagnostic testing for Mycobacterium tuberculosis using Interferon Gamma Release Assays should follow applicable published guidelines, including when testing in populations such as children, women, and HIV-infected or otherwise immunocompromised individuals. https://www.cdc.gov/tb/publications/guidelines/testing.htm Meeta Puri MD IMMUNOLOGY ORDERABLES Final Re sult [facility] [address] [place] [address], * CBC WITH AUTO DIFFERENTIAL (11/07/2024 1:26 PM CDT) WBC 9.51 4.00 - 12.00 10(3)/mcL 11/07/2024 2:43 PM CDT [facility] RBC 4.65 3.80 - 5.30 10(6)/mcL 11/07/2024 2:43 PM CDT [facility] HEMOGLOBIN (HGB) 14.4 12.0 - 15.8 g/dL 11/07/2024 2:43 PM CDT [facility] HEMATOCRIT (HCT) 41.6 36.0 - 47.0 % 11/07/2024 2:43 PM CDT [facility] MCV 89.5 82.0 - 96.0 fL 11/07/2024 2:43 PM CDT [facility] MCH 31.0 26.0 - 34.0 pg 11/07/2024 2:43 PM CDT [facility] MCHC 34.6 31.0 - 36.0 g/dL 11/07/2024 2:43 PM CDT [facility] PLATELET COUNT 269 140 - 440 10(3)/mcL 11/07/2024 2:43 PM CDT [facility] RDW 14.1 11.8 - 15.5 % 11/07/2024 2:43 PM CDT [facility] MPV 10.3 9.7 - 12.4 fL 11/07/2024 2:43 PM CDT [facility] NEUTROPHILS 67.6 47.0 - 73.0 % 11/07/2024 2:43 PM CDT [facility] LYMPHOCYTES 24.2 18.0 - 42.0 % 11/07/2024 2:43 PM CDT [facility] MONOCYTES 5.7 4.0 - 12.0 % 11/07/2024 2:43 PM CDT [facility] EOSINOPHILS 1.9 0.0 - 5.0 % 11/07/2024 2:43 PM CDT [facility] BASOPHILS 0.6 0.0 - 1.0 % 11/07/2024 2:43 PM CDT [facility] ABSOLUTE NEUTROPHILS 6.43 1.60 - 7.70 10(3)/mcL 11/07/2024 2:43 PM CDT [facility] ABSOLUTE LYMPHOCYTES 2.30 1.30 - 3.20 10(3)/mcL 11/07/2024 2:43 PM CDT [facility] ABSOLUTE MONOCYTES 0.54 0.20 - 1.00 10(3)/mcL 11/07/2024 2:43 PM CDT [facility] ABSOLUTE EOSINOPHIL 0.18 0.00 - 0.40 10(3)/mcL 11/07/2024 2:43 PM CDT [facility] ABSOLUTE BASOPHILS 0.06 0.00 - 0.10 10(3)/mcL 11/07/2024 2:43 PM CDT [facility] NRBC PER 100 WBC 0 11/08/19 2:43 PM CDT [facility] RESULTS ARE CONSISTENT WITH PERIPHERAL SMEAR REVIEW Yes 11/07/2024 2:43 PM CDT [facility] Blood Venipuncture / Unknown 11/07/2024 1:26 PM CDT 11/07/2024 1:52 PM CDT Narrative [facility] - 11/07/2024 2:43 PM CDT macrocytes Meeta Puri MD HEMATOLOGY ORDERABLES Final Re sult [facility] [address] [place] [address] * HLA B 27 (11/07/2024 1:26 PM CDT) Pathologist [facility] HLA B27 Negative Negative 11/08/2024 2:07 PM CDT [facility] Blood Venipuncture / Unknown 11/07/2024 1:26 PM CDT 11/07/2024 1:52 PM CDT Meeta Puri MD IMMUNOLOGY ORDERABLES Final Re sult [facility] [address] [place] [address], [place] * ANCA SCR, TITER IF POS (11/07/2024 1:26 PM CDT) ANCA IFA SCREEN <1:20 <1:20 titer 11/09/19 25 1:43 PM CDT [facility] ANCA TITER Not Applicable <1:20, Not Applicable titer 11/08/2024 1:43 PM CDT [facility] ANCA PATTERN Not Applicable 11/08/2024 1:43 PM CDT [facility] Comment: Antineutrophil cytoplasmic antibodies (ANCA) are found in the sera of patients with necrotizing vasculitides and hence, serve as an aid to the diagnosis of these disorders. ANCA react with enzymes in the cytoplasmic granules of human neutrophils including proteinase 3 (PR3), myeloperoxidase (MPO), elastase, and cathepsin G. ANCA can occur in patients with autoimmune vasculitis including Granulomatosis with polyangiitis (GPA) (formerly Dhaval's granulomatosis) , microscopic polyangiitis (MPA), or organ limited variants, and bowel diseases and other autoimmune disorders. Detection of ANCA is a well-established diagnostic test for the evaluation of patients suspected of having autoimmune vasculitis. Antibodies to PR3 occur in patients with WG (both classical WG and limited WG) and produce a characteristic pattern of granular cytoplasmic fluorescence on ethanol-fixed neutrophils called the cANCA pattern. Antibodies to MPO occur predominantly in patients with MPA and produce a pattern of perinuclear cytoplasmic fluorescence on ethanol-fixed neutrophils called the pANCA pattern. The presence of an antinuclear antibody (DA) may mimic a pANCA on ethanol-fixed neutrophils. When used for diagnosis, it is recommended that specific tests for proteinase 3 (PR3) ANCA and myelperoxidase (MPO) ANCA be performed in addition to testing for cANCA and pANCA. cANCA titer may be useful for monitoring treatment response in patients with WG (systemic or organ-limited disease). Increasing titer suggests relapse of disease while a decreasing titer suggests successful treatment. Blood Venipuncture / Unknown 11/07/2024 1:26 PM CDT 11/07/2024 1:51 PM CDT us Meeta Puri MD IMMUNOLOGY ORDERABLES Final Re sult [facility] [address] [place] [address], [place] * ALDOLASE, S, LUZ ALS (11/07/2024 1:26 PM CDT) ALDOLASE 6.5 <7.7 U/L 11/09/2024 9:14 AM CDT [facility] Comment: ADDITIONAL INFORMATION This test has been modified from the community development coordinator's instructions. Its performance characteristics were determined by [facility] in a manner consistent with CLIA requirements. This test has not been cleared or approved by the U.S. Food and Drug Administration. Test Performed by: [place] [id number] Oven Stripper: Tree Galeana Ph.D.; CLIA# [id number] Blood Venipuncture / Unknown 11/07/2024 1:26 PM CDT 11/07/2024 1:52 PM CDT Meeta Puri MD LAB SEND OUTS Final Result Performing Organization Address City/[facility]/ZIP Co de Phone Number [facility] [place] * ANGIOTENSIN CONVERTING ENZYME, ROSENDO (11/07/2024 1:26 PM CDT) Pathologist [facility] ANGIO CONV ENZY 36 16 - 85 U/L 11/09/2024 1:45 PM CDT [facility] Comment: Test Performed by: [place] [id number] Oven Stripper: Tree Galeana Ph.D.; CLIA# [id number] Blood Venipuncture / Unknown 11/07/2024 1:26 PM CDT 11/07/2024 1:51 PM CDT Meeta Puri MD LAB SEND OUTS Final Result Performing Organization Address [facility]/ZIP Co de Phone Number [facility] [place] * URIC ACID (BLOOD ASSAY) (11/07/2024 1:26 PM CDT) Pathologist [facility] URIC ACID 4.4 2.5 - 6.2 mg/dL 11/07/2024 2:21 PM CDT [facility] Blood Venipuncture / Unknown 11/07/2024 1:26 PM CDT 11/07/2024 1:51 PM CDT us Meeta Puri MD CHEMISTRY ORDERABLES Final Res ult Performing Organization Address City/[facility]/ZIP Co de Phone Number [facility] [address] [place] [address] * THYROID STIMULATING HORMONE (TSH) (11/07/2024 1:26 PM CDT) TSH 0.605 0.300 - 5.000 mIU/L 11/07/2024 2:35 PM CDT [facility] Blood Venipuncture / Unknown 11/07/2024 1:26 PM CDT 11/07/2024 1:51 PM CDT Meeta Puri MD CHEMISTRY ORDERABLES Final Res ult Performing Organization Address [facility] Co de Phone Number [facility] [address] [place] [address] * (ABNORMAL) ERYTHROCYTE SEDIMENTATION RATE (ESR) (11/07/2024 1:26 PM CDT) ESR (SED RATE, ERYTHROCYTE SEDIMENTATION RATE) 32(H) <20 mm/h 11/07/2024 2:10 PM CDT [facility] Comment: Patients presenting with increased level of fibrinogen, gamma globulins, or abnormally shaped RBCs could affect the results for the erythrocyte sedimentation rate (ESR). Results should be clinically correlated. Blood Venipuncture / Unknown 11/07/2024 1:26 PM CDT 11/07/2024 1:52 PM CDT us Meeta Puri MD HEMATOLOGY ORDERABLES Final Re sult [facility] [address] [place] [address] * RHEUMATOID FACTOR (RFQT) QUANT (11/07/2024 1:26 PM CDT) [facility] RHEUMATOID FACTOR QT <13 <30 IU/mL 11/07/2024 2:18 PM CDT [facility] Blood Venipuncture / Unknown 11/07/2024 1:26 PM CDT 11/07/2024 1:51 PM CDT Narrative [facility] - 11/07/2024 2:18 PM CDT RHEUMATOID FACTORS CAN BE FOUND IN RHEUMATOID ARTHRITIS, SYPHILIS, VIRAL INFECTIONS, LEPROSY, CHRONIC LIVER DISEASE, NEOPLASMS, AND OTHER INFLAMMATORY CONDITIONS. RF PREVALENCE ALSO INCREASES WITH AGE. THUS A POSITIVE TEST IS NOT RESTRICTED TO RA. CONVERSELY, A NEGATIVE TEST DOES NOT RULE OUT RA, RHEUMATOID FACTORS ARE NOT DETECTABLE IN 10% OF ADULTS WITH THE DISEASE. Meeta Puri MD CHEMISTRY ORDERABLES Final Res ult [facility] [address] [place] [address] * PHOSPHORUS (PO4) (11/07/2024 1:26 PM CDT) [facility] PHOSPHORUS 3.5 2.5 - 4.5 mg/dL 11/07/2024 2:21 PM CDT [facility] Blood Venipuncture / Unknown 11/07/2024 1:26 PM CDT 11/07/2024 1:51 PM CDT Meeta uPri MD CHEMISTRY ORDERABLES Final Res ult [facility] [address] [place] [address] * IMMUNOGLOBULIN G (IGG) (11/07/2024 1:26 PM CDT) [facility] IMMUNOGLOBULIN G 788 552 - 1,631 mg/dL 11/07/2024 11:19 PM CDT [facility] Blood Venipuncture / Unknown 11/07/2024 1:26 PM CDT 11/07/2024 1:52 PM CDT us Meeta Puri MD CHEMISTRY ORDERABLES Final Res ult Performing Organization Address City/[facility]/ZIP Co de Phone Number [facility] [address] [place] [address], [place] * IMMUNOGLOBULIN A (IGA) (11/07/2024 1:26 PM CDT) [facility] IMMUNOGLOBULIN A 94 65 - 421 mg/dL 11/07/2024 9:36 PM CDT [facility] Blood Venipuncture / Unknown 11/07/2024 1:26 PM CDT 11/07/2024 1:51 PM CDT us Meeta Puri MD CHEMISTRY ORDERABLES Final Res ult Performing Organization Address City/[facility] Co de Phone Number [facility] [address] [place] [address], [place] * HEPATITIS PANEL ACUTE (AHP) (11/07/2024 1:26 PM CDT) [facility] HEPATITIS A IGM ANTIBODY NON DETECTED NON DETECTED 11/07/2024 9:54 PM CDT [facility] Comment: IGM Antibodies to HAV not detected. Does not exclude early acute or recovered HAV infection. HEP B CORE AB (IGM) NON DETECTED NON DETECTED 11/07/2024 9:54 PM CDT [facility] Comment:IGM anti-HBC not det ected. Does not exclude the possibility of exposure to or infection with HBV. HEPATITIS B SURFACE ANTIGEN NON DETECTED NON DETECTED 11/07/2024 9:54 PM CDT [facility] Comment:A nonreactive test r esult does not exclude the possibility of exposure to or infection with Hepatitis B virus. A nonreactive test result in individuals with prior exposure to hepatitis B may be due to antigen levels below the detection limit of this assay or lack of antigen reactivity to the antibodies in this assay. hepatitis C antibody 0.21 <1 S/CO 11/07/2024 9:54 PM CDT [facility] Comment: Signal/Cutoff ratio < 0.79 is Nondetected Signal/Cutoff ratio 0.80-0.99 is Grayzone Signal/Cutoff ratio > 0.99 is Detected Supplemental assays are recommended if signal/cutoff ratio is >/=1.00. Signal/cutoff ratio result >/= 5.00 is 97% predictive of positivity for recombinant immunoblot assay (RIBA) and will be reported to the [place] Department of Public [facility] as required. Blood Venipuncture / Unknown 11/07/2024 1:26 PM CDT 11/07/2024 1:51 PM CDT Meeta Puri MD HEMATOLOGY ORDERABLES Final Re sult Performing Organization Address City/[facility]/ZIP Co de Phone Number [facility] [address] [place] [address], [place] * HEPATITIS B SURFACE ANTIBODY (HBSAB) (11/07/2024 1:26 PM CDT) HEPATITIS B SURFACE ANTIBODY 3,617.89 mIU/mL 11/07/2024 11:55 PM CDT [facility] Comment: Detected Range: >12.00 Individual is considered immune to HBV infection Blood Venipuncture / Unknown 11/07/2024 1:26 PM CDT 11/07/2024 1:51 PM CDT Meeta Puri MD CHEMISTRY ORDERABLES Final Res ult Performing Organization Address [facility] Co de Phone Number [facility] [address] [place] [address], [place] * (ABNORMAL) KENDALL PANEL (11/07/2024 1:26 PM CDT) DNA AB, DOUBLE STRAND 8(H) <5 IU/mL 11/07/2024 10:22 PM CDT [facility] Comment: <= 4 Negative 5-9 Indeterminate >= 10 Positive CHROMATIN AB <0.2 <1.0 AI 11/07/2024 10:22 PM CDT [facility] RIBOSOMAL P AB <0.2 <1.0 AI 11/07/2024 10:22 PM CDT [facility] SS-A <0.2 <1.0 AI 11/07/2024 10:22 PM CDT [facility] SS-B <0.2 <1.0 AI 11/07/2024 10:22 PM CDT [facility] CENTROMERE B AB <0.2 <1.0 AI 10:22 PM CDT [facility] SM ANTIBODY <0.2 <1.0 AI 11/07/2024 10:22 PM CDT [facility] SM HOB MILL OPERATOR <0.2 <1.0 AI 11/07/2024 10:22 PM CDT [facility] HOB MILL OPERATOR AB <0.2 <1.0 AI 11/07/2024 10:22 PM CDT [facility] SCL-70 <0.2 <1.0 AI 11/07/2024 10:22 PM CDT [facility] ENA-1 <0.2 <1.0 AI 11/07/2024 10:22 PM CDT [facility] Blood Venipuncture / Unknown 11/07/2024 1:26 PM CDT 11/07/2024 1:51 PM CDT Narrative [facility] - 11/07/2024 10:22 PM CDT Antibody testing was performed by multiplex flow immunoassay on the tenfarms platform. us Meeta Puir MD IMMUNOLOGY ORDERABLES Final Re sult [facility] [address] [place] [address], * CREATINE KINASE (CK) TOTAL (11/07/2024 1:26 PM CDT) CK (CPK) 83 29 - 168 U/L 11/07/2024 2:21 PM CDT [facility] Blood Venipuncture / Unknown 11/07/2024 1:26 PM CDT 11/07/2024 1:51 PM CDT us Meeta Puri MD HEMATOLOGY ORDERABLES Final Re sult [facility] [address] [place] [address] * (ABNORMAL) CMP (COMPREHENSIVE METABOLIC PANEL) (11/07/2024 1:26 PM CDT) SODIUM 139 136 - 145 mmol/L 11/07/2024 2:21 PM CDT [facility] POTASSIUM 4.3 3.5 - 5.1 mmol/L 11/07/2024 2:21 PM CDT [facility] CHLORIDE 109(H) 98 - 107 mmol/L 11/07/2024 2:21 PM CDT [facility] CO2, VENOUS 22 22 - 30 mmol/L 11/07/2024 2:21 PM CDT [facility] ANION GAP 12.3 <18.0 mmol/L 11/07/2024 2:21 PM CDT [facility] GLUCOSE 73 70 - 99 mg/dL 11/07/2024 2:21 PM CDT [facility] BUN 11 5 - 18 mg/dL 11/07/2024 2:21 PM CDT [facility] CREATININE, BLOOD 0.87 0.60 - 1.00 mg/dL 11/07/2024 2:21 PM CDT [facility] BUN/CREATININE RATIO 13 12 - 20 ratio 11/07/2024 2:21 PM CDT [facility] TOTAL PROTEIN 7.0 6.0 - 8.0 g/dL 11/07/2024 2:21 PM CDT [facility] ALBUMIN 4.0 3.5 - 5.0 g/dL 11/07/2024 2:21 PM CDT [facility] A/G RATIO 1.3 1.0 - 2.2 11/07/2024 2:21 PM CDT [facility] CALCIUM 8.9 8.7 - 10.5 mg/dL 11/07/2024 2:21 PM CDT [facility] T BILI 0.2 0.2 - 1.2 mg/dL 11/07/2024 2:21 PM CDT [facility] SGOT (AST) 23 <43 U/L 11/07/2024 2:21 PM CDT [facility] SGPT (ALT) 22 <56 U/L 11/07/2024 2:21 PM CDT [facility] ALKALINE PHOSPHATASE 113 40 - 150 U/L 11/07/2024 2:21 PM CDT [facility] IS THE PATIENT REQUIRED TO BE FASTING? No 11/07/2024 2:21 PM CDT [facility] GFR, ESTIMATED >60 >=60 11/07/2024 2:21 PM CDT [facility] Comment: Creatinine Clearance is the preferred criteria for selecting drug dose adjustments in renally impaired patients. The GFR is provided as additional pertinent clinical information. GFR is reported in mL/min/1.73 sq m. Calculation based on the Chronic Kidney Disease Epidemiology Collaboration (CKD- EPI) equation refit without adjustment for race. GFR, EST. >60 >=60 025 2:21 PM CDT [facility] GFR, EST. NONAFRICAN >60 >=60 11/07/2024 2:21 PM CDT [facility] Blood Venipuncture / Unknown 11/07/2024 1:26 PM CDT 11/07/2024 1:51 PM CDT us Meeta Puri MD CHEMISTRY ORDERABLES Final Res ult [facility] [address] [place] [address] * C4 COMPLEMENT (11/07/2024 1:26 PM CDT) C4 COMPLEMENT 21 15 - 57 mg/dL 11/07/2024 9:36 PM CDT [facility] Blood Venipuncture / Unknown 11/07/2024 1:26 PM CDT 11/07/2024 1:51 PM CDT Meeta Puri MD CHEMISTRY ORDERABLES Final Res ult [facility] [address] [place] [address], [place] * C3 COMPLEMENT GLOBULIN B-1C (11/07/2024 1:26 PM CDT) C3 COMPLEMENT 126 83 - 193 mg/dL 11/07/2024 9:36 PM CDT [facility] Blood Venipuncture / Unknown 11/07/2024 1:26 PM CDT 11/07/2024 1:51 PM CDT Meeta Puri MD CHEMISTRY ORDERABLES Final Res ult Performing Organization Address [facility]/ZIP Co de Phone Number [facility] [address] [place] [address], [place] * C-REACTIVE PROTEIN (CRP) QUANT (11/07/2024 1:26 PM CDT) C-REACTIVE PROTEIN 0.47 <0.50 mg/dL 11/07/2024 2:21 PM CDT [facility] Blood Venipuncture / Unknown 11/07/2024 1:26 PM CDT 11/07/2024 1:51 PM CDT us Meeta Puri MD CHEMISTRY ORDERABLES Final Res ult [facility] [address] [place] [address] * DA SCREEN MULTIPLEX W/REFLEX KENDALL (11/07/2024 1:26 PM CDT) DA SCR MULTIPLEX Negative Negative, See comment 11/07/2024 10:22 PM CDT [facility] Blood Venipuncture / Unknown 11/07/2024 1:26 PM CDT 11/07/2024 1:51 PM CDT Narrative [facility] - 11/07/2024 10:22 PM CDT Antibody testing was performed by multiplex flow immunoassay on the tenfarms platform. us Meeta Puri MD IMMUNOLOGY ORDERABLES Final Re sult [facility] [address] [place] [address], [place] * BRENNAN DIAG BILATERAL DIGITAL W CAD [...] made to exams dated: 10/05/2012 and 12/20/2012 [facility]. BREAST TISSUE:The tissue of both breasts is [...] signed by: Cain Donohue M.D. ll/:05/04/2023 14:50:03 Sail Repairer(s): Kristie Bradley, RT(R)(M), [facility]; Cathy Clarke, SKYEIL OBGYN, [facility] letter sent: Normal Exam Reading location: [facility]: 2 Benign Procedure Note Cain Donohue MD - 05/04/2023 - BRENNAN DIAG BILATERAL DIGITAL W CAD [...] made to exams dated: 10/05/2012 and 12/20/2012 [facility]. BREAST TISSUE:The tissue of both breasts is [...] signed by: Cain Donohue M.D. ll/:05/04/2023 14:50:03 Sail Repairer(s): RT Sisi(R)(M), [facility]; Cathy Clarke RDMS OBGYN, [facility] letter sent: Normal Exam Reading location: [facility]: 2 Benign us Cynthia Serrano APRN, TRAVEL GUIDE IMG MAMMO ORDERABLES Fi nal Result from Last 3 Months or Most Recently Relevant to Health Maintenance Insurance [facility] Advance Directives * Full Code (Latest Code Status on File) Date Activated Date Inactivated Comments 04/01/2018 5:30 PM 04/02/2018 12:35 AM CPR-Full Flora tment: FULL ARREST: Attempt Resuscitation/CPR wit intubation and mechanical ventilation. PRE-ARREST: Use entire range of life support measures to stabilize the patient. Care Teams Setup Technician Relationship Specialty Start Date End Date Timmy Ibarra, PAC [address] [place] [phone] PCP - General Physician Drying Tunnel Operator 02/17/24 Mack Owens MD [address] [place] [id number] Consulting Physician Colon and Rectal Surgery 11/23/22 Francisco Javier Ivey MD [address] [place] [address] Consulting Physician Neurological Surgery 03/07/24
--- OUTSIDE RECORDS SUMMARY | 2024-12-11 13:30 | XMS_ITS | Encounter Summary ---
Author Organization [facility] Address [address] [place] [address] Phone Care Team Providers Care Roll Weigher Name Role Phone Mack Owens MD Unavailable Timmy Ibarra [facility] Primary Care Provider [phone] Francisco Javier Ivey MD Unavailable Reason for Visit * Reason Comments Medication Refill Encounter Details Date Type Department Care Team (Late st Contact Info) Description 10/05/2024 Refill [facility] - Primary Care - [place] [address] [place] [address] Timmy Ibarra, [facility] [address] [place] [address] Medication Refill Social History Tobacco Use Types Packs/Day Years Used Date Smoking Tobacco: Every Day Cigarettes 1 32.3 Started: 1994 Smokeless Tobacco: Never Comments:Down to quarter pac k Alcohol Use Standard Drinks/Week Comments No 0 (1 standard drink = 0.6 oz pur e alcohol) [facility] Utilities Answer Date Recorded In [...] week 03/05/2024 How often do you attend buddhism or buddhist serv ices? Never 03/05/2024 Do you belong to any clubs o r organizations such as buddhism groups, unions, fraternal or athletic groups, or [...] Total Score - Questions 1-9 0 05/30 [facility]at [facility] - Occupational Stress Questionnaire Answer Date [...] place to sleep or slept in a mcc (including now)? No 09/03/2023 Housing Stability Vital Sign Answer Mike e Recorded In the last 12 months, was t here a time when you were not able to pay the mortgage or rent on time? Yes 03/05/2024 In the past 12 months, how m any times have you moved where you were living? 0 03/05/2024 At any time in the past 12 m [facility], were you homeless or living in a mcc (including now)? No 03/05/2024 Education Answer Date [...] Ara Hanna RN - 10/05/2024 3:45 PM COP WINDER duplicate WINDER documented in this encounter Plan of Treatment Not on file documented as of this encounter Visit Diagnoses Diagnosis Bronchitis Bronchitis, not specified as acute or chronic Acute cough SOB (shortness of breath) Shortness of breath documented in this encounter Additional Health Concerns Assessment Noted Time PHQ-9 Depression Total Score: 0 06/15/20 24 9:15 AM CDT documented as of this encounter Care Teams Roll Weigher Relationship Specialty Start Date End Date Timmy Ibarra, PAC [address] [place] [phone] PCP - General Physician Corset Maker 02/17/24 Mack Owens MD [address] [address] Consulting Physician Colon and Rectal Surgery 11/23/22 Francisco Javier Ivey MD [address] [place] [address] Consulting Physician Neurological Surgery 03/07/24 documented as of this encounter
--- OUTSIDE RECORDS SUMMARY | 2024-12-11 13:30 | XMS_ITS | Encounter Summary ---
Author Organization [facility] Address [address] [place] [address] Phone Care Team Providers Care Buckle Attacher Name Role Phone Kimberly Jc APRN, KIRILL Primary Care P rovider Mack Owens MD Unavailable Timmy Ibarra Primary Care Provider Francisco Javier Ivey MD Unavailable Reason for Visit * Reason Comments Medication Refill Encounter Details Date Type Department Care Team (Late st Contact Info) Description 03/04/2023 Refill [facility] - Primary Care - [place] [address] [place] [address] Kimberly Jc APRN, FLOOR SCRUBBER [address] [place], [place] [id number] Medication Refill Social History Tobacco Use Types Packs/Day Years Used Date Smoking Tobacco: Every Day Cigarettes 1.5 32.3 Started: 1994 Smokeless Tobacco: Never Alcohol Use [...] documented as of this encounter Care Teams Buckle Attacher Relationship Specialty Start Date End Date Kimberly Jc, SNACK STEWARDESS, FLOOR SCRUBBER [address] [place] [address] PCP - General Advanced Practice Nurse 02/14/20 Timmy Ibarra, PAC [address] [place] [phone] PCP - General Physician Assistant Professor Of Psychology 02/17/24 Mack Owens MD [address] [address] Consulting Physician Colon and Rectal Surgery 11/23/22 Francisco Javier Ivey MD [address] [place] [address] Consulting Physician Neurological Surgery 03/07/24 documented as of this encounter
--- OUTSIDE RECORDS SUMMARY | 2024-12-11 13:30 | XMS_ITS | Clinical Summary ---
Author Organization [facility] Address [address] [place] [address] Phone Care Team Providers Care Dairy Inspector Name Role Phone FLORES OLIVEIRA, HENRRY Aguilera Unavailable [phone] Reason for Visit and Chief Complaint CHART UPDATE Problems Includes: Problems addressed during this encounter and other active Problems Current Visit Onset Date Resolved Date Provider Conditio n Status History of Abnormal Pap Smear 03/27/2019 Unknown HENRRY TANNER MD Resolved Last Documented On 10/29/2021 11:32AM ; [facility] Note: was Closed. History of Depression 03/27/2019 Unknown HENRRY TANNER MD Resolved Last Documented On 10/29/2021 11:32AM ; [facility] Note: was Closed. History of Hematologic Disorders 03/27/2019 Unknown HENRRY TANNER MD Resolved Last Documented On 10/29/2021 11:32AM ; [facility] Note: was Closed. Past Visits Onset Date Resolved Date Provider Condition Status Cervical Dysplasia: Severe 09/21/2023 HENRRY TANNER MD Active Last Documented On 09/21/2023 5:17PM ; [facility] Note: Unchanged Anal Fissure 03/17/2023 ENDER Sena JOCELYN Active Last Documented On 3 12:10PM ; [facility] Intervertebral Disc Degeneration 03/17/2023 CHAPO FRANKLIN RN JOCELYN Active Last Documented On 3 12:09PM ; [facility] Ovarian Cyst 03/17/2023 ENDER TONEY B C Active Last Documented On 3 12:10PM ; [facility] Amenorrhea 03/25/2021 HENRRY TANNER MD Active Last Documented On 1 2:52PM ; [facility] Note: Unchanged Contact Dermatitis of Perineum 03/25/2021 HENRRY TANNER MD Active Last Documented On 1 2:52PM ; [facility] Note: Unchanged Oth mental disorders comp pr egnancy, second trimester 04/11/2019 HENRRY TANNER MD Active Last Documented On 9 2:33PM ; [facility] Note: Unchanged Plan of Treatment Pending Tests Order Diagnosis Results Due Ordering P rovider Radiology @ other - Ultrasound Pelvic U/S w/TVT (TransVag) Unspecified ovarian cyst, unspecified side 05/05/23 ENDER FRANKLIN RN JOCELYN BC Last Documented On 3 8:24AM ; [facility] Lab RENAL FUNCTION PANEL 06/15/23 KAVYA TONEY Last Documented On 3 11:52AM ; [facility] Assessments Includes: Assessments from this encounter Findings - [N83.209 - Unspecified ovarian cyst, unspecified side] Hemorrhagic ovarian cyst - Last Documented On 04/21/2023 8:22AM ; [facility] Medical Equipment - Implanted Devices Includes: Current Devices No Medical Equipment Recorded Medications Includes: Medications discussed during this encounter and other current Medications Current Medications (continue as prescribed) Veozah 45 MG Oral Tablet 09/21/2023 Provider: Diagnosis: Last Documented On 4 10:20AM By DOV MAYERS ; [facility] Albuterol Sulfate (5 MG/ML) 0.5% Inhalation Nebulization solution 03/03/2023 Provider: Diagnosis: Last Documented On 03/03/2023 12:59PM By Shalini Price ; [facility] Phenergan 25 mg Oral Tablet 03/03/2023 Provider: Diagnosis: Last Documented On 3 1:28PM By ENEDR TESFAYE ; [facility] FLUoxetine HCl 20 MG Oral Capsule 07/21/2021 Provide r: MARIVEL LAW NP Diagnosis: Last Documented On 04/26/2023 1:03PM By Taye Bradley Jaja ; [facility] Gabapentin 300 MG Oral Capsule 03/25/2021 Provider: Diagnosis: 2 capsules tid Last Documented On 1 2:06PM By DOV MAYERS ; [facility] Omeprazole 20 MG Oral Capsule Delayed Release 09/28/19 Provider: Diagnosis: Last Documented On 0 10:46AM By DOV JOHNSON Jaja ; [facility] Past Medications on file Veozah 45 MG Oral Tablet 03/17/2023 - 06/15/2023 Provi alvin: ENDER FRANKLIN RN JOCELYN Diagnosis: Flushing One tablet daily Last Documented On 3 11:49AM By ENDER FRANKLIN RADHA ; [facility] Sulfamethoxazole-Trimethopri m 800-160 MG Oral Tablet 03/03/2023 - 03/10/2023 Provider: ENDER FRANKLIN RN JOCELYN BC Diagnosis: Furuncle, unspecified One tablet twice a day ONE TAB 2 TIMES A DAY WIT H FOOD Last Documented On 3 1:25PM By ENDER FRANKLIN RADHA ; [facility] Medications Administered Includes: Administered Medications from this [...] 04/26/2023 Last Documented On 3 8:11AM ; [facility] History of tubal ligation bilateral salp ingectomy 04/13/2023 Last Documented On 3 8:11AM ; [facility] Surgical / procedural histor y Laparoscopic marsupialization of ovarian cyst x3 ~left and right hand carpal tunnel- 2009 ~epidural x 2- 202003/25/2021 Last Documented On 3 8:11AM ; [facility] Dilation + Curettage 06/16/17 03/29/2019 Last Documented On 3 8:11AM ; [facility] History of cholecystectomy 03/29/2019 Last Documented On 3 8:11AM ; [facility] Tonsillectomy with adenoidectomy 019 Last Documented On 3 8:11AM ; [facility] History of surgery Tonseilectomy 019 Last Documented On 3 8:11AM ; [facility] Medical History Includes: Medical History addressed during this encounter Description Last Updated Last mammogram date: 201009/21/2023 Last Documented On 3 8:11AM ; [facility] section 09/21/2023 Last Documented On 3 8:11AM ; [facility] Last pap smear date 03/17/2023 09/21/2023 Last Documented On 3 8:11AM ; [facility] LMP: 04/03/2023 and before that was 3 04/13/2023 Last Documented On 3 8:11AM ; [facility] Result: abnormal ASC-US HR HPV+ 04/13/20 23 Last Documented On 3 8:11AM ; [facility] A mammogram was performed 03/17/2023 Last Documented On 3 8:11AM ; [facility] Primary Care Provider: Marivel slaughter NP 03/03/2023 Last Documented On 3 8:11AM ; [facility] Contraception: bilateral salpingectomy w ith c/s 03/25/2021 Last Documented On 3 8:11AM ; [facility] Para 5 03/25/2021 Last Documented On 3 8:11AM ; [facility] History of colonoscopy fiberoptic was pe rformed 2008 [facility] 03/25/2021 Last Documented On 3 8:11AM ; [facility] History of cervical Pap smear 12/04/2018 03/25/2021 Last Documented On 3 8:11AM ; [facility] Baby thriving C/S [facility] 36- 5/7 weeks 6# 0wai Hernandez 09/28/2019 Last Documented On 3 8:11AM ; [facility] Infant is bottle-feeding 09/28/2019 Last Documented On 3 8:11AM ; [facility] Result: normal 03/29/2019 Last Documented On 3 8:11AM ; [facility] Vaginal delivery x 4 03/29/2019 Last Documented On 3 8:11AM ; [facility] History of human papilloma virus infecti on 06/02/17 03/29/2019 Last Documented On 3 8:11AM ; [facility] A colonoscopy was performed 2009 019 Last Documented On 3 8:11AM ; [facility] Aborta 1 03/29/2019 Last Documented On 3 8:11AM ; [facility] 6 03/29/2019 Last Documented On 3 8:11AM ; [facility] History of Abnormal Pap Smear 11/29/2018: HGSIL; 01/18/2019: colp but no bx; 03/27/2019 Last Documented On 3 8:11AM ; [facility] History of depression depres raza dx'd at 13, meds since 19 y old: prior lexapro, effexor in the past, prozac: now for lthe last 10 yrs: pt likes; 03/27/2019 Last Documented On 3 8:11AM ; [facility] History of hematologic disorder B-12 and iron shots after last delivery 03/27/2019 Last Documented On 3 8:11AM ; [facility] Family History Includes: Family History addressed during this encounter Description Last Updated Maternal grandfather's history of diabet es mellitus MGF 03/29/2019 Last Documented On 3 8:11AM ; [facility] Spouse name: Thony 03/29/2019 Last Documented On 3 8:11AM ; [facility] Family history of hypertension mom and d ad 03/29/2019 Last Documented On 3 8:11AM ; [facility] Review of Systems Includes: Review of Systems [...] ve Last Documented On 4 10:17AM ; [facility] Chantix Allergy 03/17/2023 Active Last Documented On 4 10:17AM ; [facility] Encounters Encounter Provider Location Date Check-In Time Check- Out Time Diagnosis CHART UPDATE ENDER FRANKLIN RN JOCELYN 3 8:11AM 11:59PM Ovarian Cyst Hemorrhagic Insurance Includes: Active Insurance Policies Plan Name Member ID Group # Subscriber Relationship Effect flo Dates 1 - [facility] [id number] THONY HIGGINS Clinical Notes Includes: Clinical Notes from this encounter * Progress note Date Encounter Last Documented by 04/21/2023 CHART UPDATE Last documented on 04/21/2023; 8:22 AM, ENDER FRANKLIN RN JOCELYN ; [facility] Active Problems & Conditions - N91.2 - [...] Dietary: is bottle-feeding. : Baby thriving C/S [facility] 36- 5/7 weeks 6# 0oz [...]
--- OUTSIDE RECORDS SUMMARY | 2024-12-11 13:30 | XMS_ITS | Clinical Summary ---
Author Organization [facility] Address [address] [place] [address] Phone Care Team Providers Care Visual Merchandising Associate Name Role Phone HENRRY TANNER MD Unavailable [phone] Reason for Visit and Chief Complaint The Chief Complaint is: LEEP Problems Includes: Problems addressed during this encounter and other active Problems Current Visit Onset Date Resolved Date Provider Conditio n Status Cervical Dysplasia: Severe 09/21/2023 HENRRY TANNER MD Active Last Documented On 09/21/2023 5:17PM ; [facility] Note: Unchanged History of Abnormal Pap Smear 03/27/2019 Unknown HENRRY TANNER MD Resolved Last Documented On 10/29/2021 11:32AM ; [facility] Note: was Closed. History of Depression 03/27/2019 Unknown HENRRY TANNER MD Resolved Last Documented On 10/29/2021 11:32AM ; [facility] Note: was Closed. History of Hematologic Disorders 03/27/2019 Unknown HENRRY TANNER MD Resolved Last Documented On 10/29/2021 11:32AM ; [facility] Note: was Closed. Tobacco Use 03/27/2019 Unknown HENRRY TANNER MD Resolved Last Documented On 10/29/2021 11:32AM ; [facility] Note: was Closed. Past Visits Onset Date Resolved Date Provider Condition Status Anal Fissure 03/17/2023 ENDER Farias C Active Last Documented On 07/19/202 3 12:10PM ; [facility] Intervertebral Disc Degeneration 03/17/2023 CHAPO FRANKLIN RN WHNP BC Active Last Documented On 3 12:09PM ; [facility] Ovarian Cyst 03/17/2023 ENDER FRANKLIN RN WHNP B C Active Last Documented On 3 12:10PM ; [facility] Amenorrhea 03/25/2021 HENRRY TANNER MD Active Last Documented On 1 2:52PM ; [facility] Note: Unchanged Contact Dermatitis of Perineum 03/25/2021 HENRRY TANNER MD Active Last Documented On 1 2:52PM ; [facility] Note: Unchanged Oth mental disorders comp pr egnancy, second trimester 04/11/2019 HENRRY TANNER MD Active Last Documented On 9 2:33PM ; [facility] Note: Unchanged Plan of Treatment Pending Tests Order Diagnosis Results Due Ordering Petr rojas In office procedures - OB LEEP Carcinoma in situ of cervix, unspecified 09/07/23 HENRRY TANNER MD Last Documented On 3 2:52PM ; [facility] Education and Decision Aids were provided during [...] procedure Last Documented On 3 2:45PM ; [facility] Assessments Includes: Assessments from this encounter Findings - Severe cervical dysplasia (ALESSANDRO III) - Last Documented On 08/24/2023 2:53PM ; [facility] Instructions Includes: Instructions from this encounter Education [...] procedure Last Documented On 3 2:45PM ; [facility] Medical Equipment - Implanted Devices Includes: Current Devices No Medical Equipment Recorded Medications Includes: Medications discussed during this encounter and other current Medications Discontinued / Stopped on this date on 03/25/2021 Methocarbamol 500 MG Oral Tablet Provider : Diagnosis: Last Documented On 3 2:05PM By DOV MAYERS ; [facility] Current Medications (continue as prescribed) Veozah 45 MG Oral Tablet 09/21/2023 Provider: Diagnosis: Last Documented On 4 10:20AM By DOV MAYERS ; [facility] Albuterol Sulfate (5 MG/ML) 0.5% Inhalation Nebulization solution 03/03/2023 Provider: Diagnosis: Last Documented On 03/03/2023 12:59PM By Shalini Price ; [facility] Phenergan 25 mg Oral Tablet 03/03/2023 Provider: Diagnosis: Last Documented On 3 1:28PM By ENDER TESFAYE ; [facility] FLUoxetine HCl 20 MG Oral Capsule 07/21/2021 Provide r: MARIVEL LAW NP Diagnosis: Last Documented On 04/26/2023 1:03PM By Taye MAYERS ; [facility] Gabapentin 300 MG Oral Capsule 03/25/2021 Provider: Diagnosis: 2 capsules tid Last Documented On 1 2:06PM By DOV MAYERS ; [facility] Omeprazole 20 MG Oral Capsule Delayed Release 09/28/19 Provider: Diagnosis: Last Documented On 0 10:46AM By DOV MAYERS ; [facility] Past Medications on file Veozah 45 MG Oral Tablet 03/17/2023 - 06/15/2023 Provi alvin: ENDER TONEY Diagnosis: Flushing One tablet daily Last Documented On 3 11:49AM By ENDER GOULDBC ; [facility] Sulfamethoxazole-Trimethopri m 800-160 MG Oral Tablet 03/03/2023 - 03/10/2023 Provider: ENDER FRANKLIN RN JOCELYN Diagnosis: Furuncle, unspecified One tablet twice a day ONE TAB 2 TIMES A DAY WIT H FOOD Last Documented On 3 1:25PM By ENDER FRANKLIN JOCELYN- ; [facility] Medications Administered Includes: Administered Medications from this encounter No Administered Medications Recorded Vital Signs Includes: Vital Signs from this encounter Vital Name 08/24/2023 01:57P Blood Pressure Sitting (mmHg) 126/78 Temp-Oral (F) 97.8 Height (in) 66 Weight (lb) 148.2 Body Mass Index 23.9 Body Surface Area 1.8 Last Documented: On 08/24/2023 2:07PM ; [facility] Results Includes: Results discussed during this encounter [...] 08/24/2023 Last Documented On 3 2:53PM ; [facility] Tobacco use was 20 Smoked a pack a day prior to , down to 8-10 a day in preg, back up to one ppd since preg 08/24/2023 Last Documented On 3 2:53PM ; [facility] Sexually active 04/13/2023 Last Documented On 3 1:55PM ; [facility] Marital history 03/17/2023 Last Documented On 3 1:55PM ; [facility] Not using alcohol 03/17/2023 Last Documented On 3 1:55PM ; [facility] Not using drugs 03/17/2023 Last Documented On 3 1:55PM ; [facility] Sexually active with 1 partners in the l ast year 03/17/2023 Last Documented On 3 1:55PM ; [facility] control is being practiced BTL Last Documented On 3 1:55PM ; [facility] Sexually active 6 weeks 09/28 Last Documented On 3 1:55PM ; [facility] Smoking Status Unknown Procedures and Surgical History [...] results will be reviewed at that time [id number] Last Documented On 3 2:51PM ; [facility] Surgical History Last Updated Previous colposcopy 9 Dr Veronica Hernandez No Bx; 04/13/23 TCK 04/26/2023 Last Documented On 3 1:55PM ; [facility] History of tubal ligation bilateral salp ingectomy 04/13/2023 Last Documented On 3 1:55PM ; [facility] Surgical / procedural histor y Laparoscopic marsupialization of ovarian cyst x3 ~left and right hand carpal tunnel- 2008 ~epidural x 2- 202003/25/2021 Last Documented On 3 1:55PM ; [facility] Dilation + Curettage 06/16/17 03/29/2019 Last Documented On 3 1:55PM ; [facility] History of cholecystectomy 03/29/2019 Last Documented On 3 1:55PM ; [facility] Tonsillectomy with adenoidectomy 019 Last Documented On 3 1:55PM ; [facility] History of surgery Tonseilectomy 019 Last Documented On 3 1:55PM ; [facility] Medical History Includes: Medical History addressed during this encounter Description Last Updated section 09/21/2023 Last Documented On 3 1:55PM ; [facility] Last pap smear date 03/17/2023 09/21/2023 Last Documented On 3 1:55PM ; [facility] Last mammogram date: 05/04/2023 3 Last Documented On 3 2:53PM ; [facility] LMP: 04/03/2023 and before that was 3 04/13/2023 Last Documented On 3 1:55PM ; [facility] Result: abnormal ASC-US HR HPV+ 04/13/20 23 Last Documented On 3 1:55PM ; [facility] Primary Care Provider: Marivel slaughter NP 03/03/2023 Last Documented On 3 1:55PM ; [facility] Contraception: bilateral salpingectomy w ith c/s 03/25/2021 Last Documented On 3 1:55PM ; [facility] Para 5 03/25/2021 Last Documented On 3 1:55PM ; [facility] History of colonoscopy fiberoptic was pe rformed 2008 [facility] 03/25/2021 Last Documented On 3 1:55PM ; [facility] Baby thriving C/S [facility] 36- 5/7 weeks 6# 0wai Hernandez 09/28/2019 Last Documented On 3 1:55PM ; [facility] Infant is bottle-feeding 09/28/2019 Last Documented On 3 1:55PM ; [facility] Result: normal 03/29/2019 Last Documented On 3 1:55PM ; [facility] Vaginal delivery x 4 03/29/2019 Last Documented On 3 1:55PM ; [facility] History of human papilloma virus infecti on 06/02/17 03/29/2019 Last Documented On 3 1:55PM ; [facility] A colonoscopy was performed 2009 019 Last Documented On 3 1:55PM ; [facility] Aborta 1 03/29/2019 Last Documented On 3 1:55PM ; [facility] 6 03/29/2019 Last Documented On 3 1:55PM ; [facility] History of Abnormal Pap Smear 11/29/2018: HGSIL; 01/18/2019: colp but no bx; 03/27/2019 Last Documented On 3 1:55PM ; [facility] History of depression depres raza dx'd at 13, meds since 19 y old: prior lexapro, effexor in the past, prozac: now for lthe last 10 yrs: pt likes; 03/27/2019 Last Documented On 3 1:55PM ; [facility] History of hematologic disorder B-12 and iron shots after last delivery 03/27/2019 Last Documented On 3 1:55PM ; [facility] Family History Includes: Family History addressed during this encounter Description Last Updated Maternal grandfather's history of diabet es mellitus MGF 03/29/2019 Last Documented On 3 1:55PM ; [facility] Spouse name: Thony 03/29/2019 Last Documented On 3 1:55PM ; [facility] Family history of hypertension mom and d ad 03/29/2019 Last Documented On 3 1:55PM ; [facility] Review of Systems Includes: Review of Systems [...] ve Last Documented On 4 10:17AM ; [facility] Chantix Allergy 03/17/2023 Active Last Documented On 4 10:17AM ; [facility] Encounters Encounter Provider Location Date Check-In Time Check-Out Time Diagnosis PROCEDURE OFFICE HENRRY TANNER MD [facility] 08/24/20 1:54PM 2:47PM Cervical Dysplasia: Severe Insurance Includes: Active Insurance Policies Plan Name Member ID Group # Subscriber Relationship Effect flo Dates 1 - [facility] [id number] THONY HIGGINS Clinical Notes Includes: Clinical Notes from this encounter * Progress note Date Encounter Last Documented by 08/24/2023 PROCEDURE OFFICE Last documented on 08/24/2023; 2:53 PM, HENRRY TANNER MD; [facility] Active [...] Infant is bottle-feeding. : Baby thriving C/S [facility] 36- 5/7 weeks 6# 0oz Lawrence [...]
--- OUTSIDE RECORDS SUMMARY | 2024-12-11 13:30 | XMS_ITS | Clinical Summary ---
Author Organization [facility] Address [address] [place] [address] Phone Care Team Providers Care Finishing Machine Operator Automatic Name Role Phone FLORES OLIVEIRA, HENRRY Aguilera Unavailable [phone] Reason for Visit and Chief Complaint [Patient Encounter] Problems Includes: Problems addressed during this encounter and other active Problems All Visits Onset Date Resolved Date Provider Condition S tatus Cervical Dysplasia: Severe 09/21/2023 HENRRY TANNER MD Active Last Documented On 09/21/2023 5:17PM ; [facility] Note: Unchanged Anal Fissure 03/17/2023 ENDER Sena JOCELYN MARTÍNEZ Active Last Documented On 3 12:10PM ; [facility] Intervertebral Disc Degeneration 03/17/2023 CHAPO FRANKLIN RN JOCELYN BC Active Last Documented On 3 12:09PM ; [facility] Ovarian Cyst 03/17/2023 ENDRE FRANKLIN RN JOCELYN B C Active Last Documented On 3 12:10PM ; [facility] Amenorrhea 03/25/2021 HENRRY TANNER MD Active Last Documented On 1 2:52PM ; [facility] Note: Unchanged Contact Dermatitis of Perineum 03/25/2021 HENRRY TANNER MD Active Last Documented On 1 2:52PM ; [facility] Note: Unchanged Oth mental disorders comp pr egnancy, second trimester 04/11/2019 HENRRY TANNER MD Active Last Documented On 9 2:33PM ; [facility] Note: Unchanged Plan of Treatment [...] On 4 10:20AM By DOV MAYERS ; [facility] Albuterol Sulfate (5 MG/ML) 0.5% Inhalation Nebulization solution 03/03/2023 Provider: Diagnosis: Last Documented On 03/03/2023 12:59PM By Shalini Price ; [facility] Phenergan 25 mg Oral Tablet 03/03/2023 Provider: Diagnosis: Last Documented On 3 1:28PM By ENDER GOULD ; [facility] FLUoxetine HCl 20 MG Oral Capsule 07/21/2021 Provide r: MARIVEL LAW NP Diagnosis: Last Documented On 04/26/2023 1:03PM By Taye MAYERS ; [facility] Gabapentin 300 MG Oral Capsule 03/25/2021 Provider: Diagnosis: 2 capsules tid Last Documented On 1 2:06PM By DOV MAYERS ; [facility] Omeprazole 20 MG Oral Capsule Delayed Release 09/28/19 Provider: Diagnosis: Last Documented On 0 10:46AM By DOV MAYERS ; [facility] Medications Administered Includes: Administered [...] ve Last Documented On 4 10:17AM ; [facility] Chantix Allergy 03/17/2023 Active Last Documented On 4 10:17AM ; [facility] Encounters Encounter Provider Location Date Check-In Time Check- Out Time Diagnosis [Patient Encounter] HENRRY TANNER MD [facility] 3 10:02AM 11:59PM Insurance Includes: Active Insurance Policies Plan Name Member ID Group # Subscriber Relationship Effect flo Dates 1 - R [id number] THONY HIGGINS Clinical Notes Includes: Clinical Notes from this encounter No Clinical Notes Recorded
--- OUTSIDE RECORDS SUMMARY | 2024-12-11 13:30 | XMS_ITS | Encounter Summary ---
Author Organization [facility] Address [address] [place] [address] Phone Care Team Providers Care Surfacing Machine Operator Name Role Phone Kimberly Jc APRN, KIRILL Primary Care P rovider Mack Owens MD Unavailable Timmy Ibarra Primary Care Provider Francisco Javier Ivey MD Unavailable [phone] Reason for Visit * Reason Comments Medication Refill Encounter Details Date Type Department Care Team (Late st Contact Info) Description 03/04/2023 Refill [facility] - Primary Care - [place] [address] [place] [address] Kimberly Jc APRN, [employer] [address], [place] [id number] Medication Refill Social History Tobacco Use Types [...] documented as of this encounter Care Teams Surfacing Machine Operator Relationship Specialty Start Date End Date Kimberly Jc APRN, [employer] [address] [place] [address] PCP - General Advanced Practice Nurse 02/14/20 Timmy Ibarra PAC [address] [place] [id number] PCP - General Physician Command And Control Officer 02/17/24 Mack Owens MD [address] [address] Consulting Physician Colon and Rectal Surgery 11/23/22 Francisco Javier Ivey MD [address] [place] [address] Consulting Physician Neurological Surgery 03/07/24 documented as of this encounter
--- OUTSIDE RECORDS SUMMARY | 2024-12-11 13:30 | XMS_ITS ---
Care Plan - [facility] Created on: December 11, 2024 MARTITA HIGGINS : 1980 Sex: Female Author Organization [facility] Address [address] [place] [address] Phone Care Team Providers Care Lay Out Former Name Role Phone FLORES OLIVEIRA, HENRRY C Unavailable [phone]
--- OUTSIDE RECORDS SUMMARY | 2024-12-11 13:31 | XMS_ITS | Clinical Summary ---
Author Organization [facility] Address [address] [place] [address] Phone Care Team Providers Care Production Tech Name Role Phone FLORES OLIVEIRA, HENRRY Aguilera Unavailable [phone] Reason for Visit and Chief [...] Resolved Last Documented On 10/29/2021 11:32AM ; [facility] Note: was Closed. History of Depression 03/27/2019 Unknown HENRRY TANNER MD Resolved Last Documented On 10/29/2021 11:32AM ; [facility] Note: was Closed. History of Hematologic Disorders 03/27/2019 Unknown HENRRY TANNER MD Resolved Last Documented On 10/29/2021 11:32AM ; [facility] Note: was Closed. Tobacco Use 03/27/2019 Unknown HENRRY TANNER MD Resolved Last Documented On 10/29/2021 11:32AM ; [facility] Note: was Closed. Past Visits Onset Date Resolved Date Provider Condition Status Cervical Dysplasia: Severe 09/21/2023 HENRRY TANNER MD Active Last Documented On 09/21/2023 5:17PM ; [facility] Note: Unchanged Anal Fissure 03/17/2023 ENDER FRANKLIN R N JOCELYN BC Active Last Documented On 3 12:10PM ; [facility] Intervertebral Disc Degeneration 03/17/2023 CHAPO FRANKLIN RN NP BC Active Last Documented On 3 12:09PM ; [facility] Ovarian Cyst 03/17/2023 ENDER FRANKLIN RN NP B C Active Last Documented On 3 12:10PM ; [facility] Amenorrhea 03/25/2021 HENRRY TANNER MD Active Last Documented On 1 2:52PM ; [facility] Note: Unchanged Contact Dermatitis of Perineum 03/25/2021 HENRRY TANNER MD Active Last Documented On 1 2:52PM ; [facility] Note: Unchanged Oth mental disorders comp pr egnancy, second trimester 04/11/2019 HENRRY TANNER MD Active Last Documented On 9 2:33PM ; [facility] Note: Unchanged Plan of Treatment No Plan of Treatment Recorded Assessments Includes: Assessments from this encounter Findings - Ventral hernia without obstruction or gangrene - Last Documented On 04/26/2023 1:48PM ; [facility] - Cervical dysplasia--moderate (ALESSANDRO II) - Last Documented On 04/26/2023 1:48PM ; [facility] - Cervical dysplasia--severe (ALESSANDRO III) - Last Documented On 04/26/2023 1:48PM ; [facility] Medical Equipment - Implanted Devices Includes: Current Devices No Medical Equipment Recorded Medications Includes: Medications discussed during this encounter and other current Medications Discontinued / Stopped on this date HENRRY TANNER MD on 09/28/2019 PROzac 20 MG Oral Capsule Provider: ALANNA TANNER MD Diagnosis: Other mental dis orders complicating the puerperium Last Documented On 04/26/2023 1:03PM By Taye Bradley Jaja ; [facility] Current Medications (continue as prescribed) Veozah 45 MG Oral Tablet 09/21/2023 Provider: Diagnosis: Last Documented On 4 10:20AM By DOV MAYERS ; [facility] Albuterol Sulfate (5 MG/ML) 0.5% Inhalation Nebulization solution 03/03/2023 Provider: Diagnosis: Last Documented On 03/03/2023 12:59PM By Shalini Price ; [facility] Phenergan 25 mg Oral Tablet 03/03/2023 Provider: Diagnosis: Last Documented On 3 1:28PM By ENDER TESFAYE ; [facility] FLUoxetine HCl 20 MG Oral Capsule 07/21/2021 Provide r: MARIVEL LAW NP Diagnosis: Last Documented On 04/26/2023 1:03PM By Taye Bradley Jaja ; [facility] Gabapentin 300 MG Oral Capsule 03/25/2021 Provider: Diagnosis: 2 capsules tid Last Documented On 1 2:06PM By DOV JOHNSON Jaja ; [facility] Omeprazole 20 MG Oral Capsule Delayed Release 09/28/19 Provider: Diagnosis: Last Documented On 0 10:46AM By DOV JOHNSON Jaja ; [facility] Past Medications on file Veozah 45 MG Oral Tablet 03/17/2023 - 06/15/2023 Provi alvin: ENDER FRANKLIN RN JOCELYN Diagnosis: Flushing One tablet daily Last Documented On 3 11:49AM By ENDER TESFAYE ; [facility] Sulfamethoxazole-Trimethopri m 800-160 MG Oral Tablet 03/03/2023 - 03/10/2023 Provider: ENDER MARTÍNEZ Diagnosis: Furuncle, unspecified One tablet twice a day ONE TAB 2 TIMES A DAY WIT H FOOD Last Documented On 3 1:25PM By ENDER TESFAYE ; [facility] Medications Administered Includes: Administered Medications from this encounter No Administered Medications Recorded Vital Signs Includes: Vital Signs from this encounter Vital Name 04/26/2023 12:58P Blood Pressure Sitting L 116/80 BP Cuff Size Regular Temp-Temporal 98.3 Height (in) 66 Weight (lb) 147 Body Mass Index 23.7 Body Surface Area 1.8 Last Documented: On 04/26/2023 1:05PM ; [facility] Results Includes: Results discussed during this encounter [...] 04/26/2023 Last Documented On 3 1:48PM ; [facility] Sexually active 04/13/2023 Last Documented On 3 12:56PM ; [facility] Smoking status : Current everyday smoker 04/13/2023 Last Documented On 3 12:56PM ; [facility] Marital history 03/17/2023 Last Documented On 3 12:56PM ; [facility] Not using alcohol 03/17/2023 Last Documented On 3 12:56PM ; [facility] Not using drugs 03/17/2023 Last Documented On 3 12:56PM ; [facility] Sexually active with 1 partners in the l ast year 03/17/2023 Last Documented On 3 12:56PM ; [facility] control is being practiced BTL Last Documented On 3 12:56PM ; [facility] Procedures and Surgical History Includes: Procedures from this encounter Procedures Code Diagnosis Performing Provider Service L ocation Service Date Clinical summary provided to patient Last Documented On 3 1:32PM ; [facility] abnormal Pap smear: atypical squamous ce lls of undetermined significance Last Documented On 3 1:12PM ; [facility] Surgical History Last Updated Previous colposcopy 9 Dr Veronica Price-Julia No Bx; 04/13/23 TCK 04/26/2023 Last Documented On 3 1:48PM ; [facility] History of tubal ligation bilateral salp ingectomy 04/13/2023 Last Documented On 3 12:56PM ; [facility] Surgical / procedural histor y Laparoscopic marsupialization of ovarian cyst x3 ~left and right hand carpal tunnel- 2009 ~epidural x 2- 202003/25/2021 Last Documented On 3 12:56PM ; [facility] Dilation + Curettage 06/16/17 03/29/2019 Last Documented On 3 12:56PM ; [facility] History of cholecystectomy 03/29/2019 Last Documented On 3 12:56PM ; [facility] Tonsillectomy with adenoidectomy 019 Last Documented On 3 12:56PM ; [facility] History of surgery Tonseilectomy 019 Last Documented On 3 12:56PM ; [facility] Medical History Includes: Medical History addressed during this encounter Description Last Updated Last mammogram date: 201009/21/2023 Last Documented On 3 12:56PM ; [facility] section 09/21/2023 Last Documented On 3 12:56PM ; [facility] Last pap smear date 03/17/2023 09/21/2023 Last Documented On 3 12:56PM ; [facility] LMP: 04/03/2023 and before that was 3 04/13/2023 Last Documented On 3 12:56PM ; [facility] Result: abnormal ASC-US HR HPV+ 04/13/20 23 Last Documented On 3 12:56PM ; [facility] Primary Care Provider: Marivel slaughter NP 03/03/2023 Last Documented On 3 12:56PM ; [facility] Contraception: bilateral salpingectomy w ith c/s 03/25/2021 Last Documented On 3 12:56PM ; [facility] Para 5 03/25/2021 Last Documented On 3 12:56PM ; [facility] History of colonoscopy fiberoptic was pe rformed 2008 [facility] 03/25/2021 Last Documented On 3 12:56PM ; [facility] History of cervical Pap smear 12/04/2018 03/25/2021 Last Documented On 3 12:56PM ; [facility] Baby thriving C/S [facility] 36- 5/7 weeks 6# 0wai Hernandez 09/28/2019 Last Documented On 3 12:56PM ; [facility] Result: normal 03/29/2019 Last Documented On 3 12:56PM ; [facility] Vaginal delivery x 4 03/29/2019 Last Documented On 3 12:56PM ; [facility] History of human papilloma virus infecti on 06/02/17 03/29/2019 Last Documented On 3 12:56PM ; [facility] Aborta 1 03/29/2019 Last Documented On 3 12:56PM ; [facility] 6 03/29/2019 Last Documented On 3 12:56PM ; [facility] History of Abnormal Pap Smear 11/29/2018: HGSIL; 01/18/2019: colp but no bx; 03/27/2019 Last Documented On 3 12:56PM ; [facility] History of depression depres raza dx'd at 13, meds since 19 y old: prior lexapro, effexor in the past, prozac: now for lthe last 10 yrs: pt likes; 03/27/2019 Last Documented On 3 12:56PM ; [facility] History of hematologic disorder B-12 and iron shots after last delivery 03/27/2019 Last Documented On 3 12:56PM ; [facility] Family History Includes: Family History addressed during this encounter Description Last Updated Maternal grandfather's history of diabet es mellitus MGF 03/29/2019 Last Documented On 3 12:56PM ; [facility] Spouse name: Thony 03/29/2019 Last Documented On 3 12:56PM ; [facility] Family history of hypertension mom and d ad 03/29/2019 Last Documented On 3 12:56PM ; [facility] Review of Systems Includes: Review [...] ve Last Documented On 4 10:17AM ; [facility] Chantix Allergy 03/17/2023 Active Last Documented On 4 10:17AM ; [facility] Encounters Encounter Provider Location Date Check-In Time Check-Out Time Diagnosis FOLLOW UP HENRRY TANNER MD [facility] 3 12:49PM 1:45PM Cervical Dysplasia--mode rate (Alessandro II),Cervical Dysplasia--venkata re (Alessandro III),Ventral Hernia Without Obstruction Or Gangrene Insurance Includes: Active Insurance Policies Plan Name Member ID Group # Subscriber Relationship Effect flo Dates 1 - [facility] [id number] THONY HIGGINS Clinical Notes Includes: Clinical Notes from this encounter * Progress note Date Encounter Last Documented by 04/26/2023 FOLLOW UP Last documented on 04/26/2023; 2:54 PM, HENRRY TANNER MD; [facility] Active Problems & Conditions - Amenorrhea - [...] + Curettage 06/16/17. : Baby thriving C/S [facility] 36- 5/7 weeks 6# 0oz Lawrence Hernandez [...]
--- OUTSIDE RECORDS SUMMARY | 2024-12-11 13:31 | XMS_ITS | Clinical Summary ---
Author Organization [facility] Address [address] [place] [address] Phone Care Team Providers Care Iridologist Name Role Phone HENRRY TANNER MD Unavailable [phone] Reason for Visit and Chief Complaint The Chief Complaint is: 2-3 weeks to review Leep results; Leep on 08/24/23 Problems Includes: Problems addressed during this encounter and other active Problems Current Visit Onset Date Resolved Date Provider Conditio n Status Cervical Dysplasia: Severe 09/21/2023 HENRRY TANNER MD Active Last Documented On 09/21/2023 5:17PM ; [facility] Note: Unchanged History of Abnormal Pap Smear 03/27/2019 Unknown HENRRY TANNER MD Resolved Last Documented On 10/29/2021 11:32AM ; [facility] Note: was Closed. History of Depression 03/27/2019 Unknown HENRRY TANNRE MD Resolved Last Documented On 10/29/2021 11:32AM ; [facility] Note: was Closed. History of Hematologic Disorders 03/27/2019 Unknown HENRRY TANNER MD Resolved Last Documented On 10/29/2021 11:32AM ; [facility] Note: was Closed. Past Visits Onset Date Resolved Date Provider Condition Status Anal Fissure 03/17/2023 ENDER TONEY B C Active Last Documented On 12:10PM ; [facility] Intervertebral Disc Degeneration 03/17/2023 CHAPO TONEY BC Active Last Documented On 3 12:09PM ; [facility] Ovarian Cyst 03/17/2023 ENDER TONEY B C Active Last Documented On 3 12:10PM ; [facility] Amenorrhea 03/25/2021 HENRRY TANNER MD Active Last Documented On 1 2:52PM ; [facility] Note: Unchanged Contact Dermatitis of Perineum 03/25/2021 HENRRY TANNER MD Active Last Documented On 1 2:52PM ; [facility] Note: Unchanged Oth mental disorders comp pr egnancy, second trimester 04/11/2019 HENRRY TANNER MD Active Last Documented On 9 2:33PM ; [facility] Note: Unchanged Plan of Treatment No Plan of Treatment Recorded Assessments Includes: Assessments from this encounter Findings - Severe cervical dysplasia (ALESSANDRO III) - Last Documented On 09/21/2023 5:19PM ; [facility] Medical Equipment - Implanted Devices Includes: Current Devices No Medical Equipment Recorded Medications Includes: Medications discussed during this encounter and other current Medications Current Medications (continue as prescribed) Veozah 45 MG Oral Tablet 09/21/2023 Provider: Diagnosis: Last Documented On 4 10:20AM By DOV MAYERS ; [facility] Albuterol Sulfate (5 MG/ML) 0.5% Inhalation Nebulization solution 03/03/2023 Provider: Diagnosis: Last Documented On 03/03/2023 12:59PM By Shalini Price ; [facility] Phenergan 25 mg Oral Tablet 03/03/2023 Provider: Diagnosis: Last Documented On 3 1:28PM By ENDER TESFAYE ; [facility] FLUoxetine HCl 20 MG Oral Capsule 07/21/2021 Provide r: MARIVEL LAW NP Diagnosis: Last Documented On 04/26/2023 1:03PM By Taye MAYERS ; [facility] Gabapentin 300 MG Oral Capsule 03/25/2021 Provider: Diagnosis: 2 capsules tid Last Documented On 1 2:06PM By DOV MAYERS ; [facility] Omeprazole 20 MG Oral Capsule Delayed Release 09/28/19 Provider: Diagnosis: Last Documented On 0 10:46AM By DOV MAYERS ; [facility] Past Medications on file Veozah 45 MG Oral Tablet 03/17/2023 - 06/15/2023 Provi alvin: ENDER FRANKLIN RN JOCELYN Diagnosis: Flushing One tablet daily Last Documented On 3 11:49AM By ENDER FRANKLIN GURU ; [facility] Sulfamethoxazole-Trimethopri m 800-160 MG Oral Tablet 03/03/2023 - 03/10/2023 Provider: ENDER TONEY Diagnosis: Furuncle, unspecified One tablet twice a day ONE TAB 2 TIMES A DAY WIT H FOOD Last Documented On 3 1:25PM By ENDER TESFAYE ; [facility] Medications Administered Includes: Administered Medications from this encounter No Administered Medications Recorded Vital Signs Includes: Vital Signs from this encounter Vital Name 09/21/2023 10:08A Blood Pressure Sitting (mmHg) 104/60 Temp-Oral (F) 98.2 Height (in) 66 Weight (lb) 148 Body Mass Index 23.9 Body Surface Area 1.8 Last Documented: On 09/21/2023 10:17A M ; [facility] Results Includes: Results discussed during this [...] 04/13/2023 Last Documented On 4 10:09AM ; [facility] Smoking status : Current everyday smoker 04/13/2023 Last Documented On 4 10:09AM ; [facility] Marital history 03/17/2023 Last Documented On 4 10:09AM ; [facility] Not using alcohol 03/17/2023 Last Documented On 4 10:09AM ; [facility] Not using drugs 03/17/2023 Last Documented On 4 10:09AM ; [facility] Sexually active with 1 partners in the l ast year 03/17/2023 Last Documented On 4 10:09AM ; [facility] control is being practiced BTL Last Documented On 4 10:09AM ; [facility] Sexually active 6 weeks 09/28 Last Documented On 4 10:09AM ; [facility] Procedures and Surgical History Includes: Procedures from this encounter Procedures Code Diagnosis Performing Provider Service L ocation Service Date Clinical summary provided to patient Last Documented On 4 5:14PM ; [facility] Surgical History Last Updated History of Loop electrode excision of ce rvix (LEEP) 08/24/23 TK 09/21/2023 Last Documented On 4 5:19PM ; [facility] Previous colposcopy 01/18/2019 Dr Anselmo Hernandez No Bx; 04/13/23 TCK 04/26/2023 Last Documented On 4 10:09AM ; [facility] History of tubal ligation bilateral salp ingectomy 04/13/2023 Last Documented On 4 10:09AM ; [facility] Surgical / procedural histor y Laparoscopic marsupialization of ovarian cyst x3 ~left and right hand carpal tunnel- 2008 ~epidural x 2- 202003/25/2021 Last Documented On 4 10:09AM ; [facility] Dilation + Curettage 06/16/17 03/29/2019 Last Documented On 4 10:09AM ; [facility] History of cholecystectomy 03/29/2019 Last Documented On 4 10:09AM ; [facility] Tonsillectomy with adenoidectomy 2018 Last Documented On 4 10:09AM ; [facility] History of surgery Tonseilectomy 019 Last Documented On 4 10:09AM ; [facility] Medical History Includes: Medical History addressed during this encounter Description Last Updated Last mammogram date: 05/04/2023 [facility] 09/21 Last Documented On 4 5:19PM ; [facility] section x 1 09/21/2023 Last Documented On 4 5:19PM ; [facility] Last pap smear date 03/17/2023 09/21/2023 Last Documented On 4 5:19PM ; [facility] LMP: 04/03/2023 and before that was 3 04/13/2023 Last Documented On 4 10:09AM ; [facility] Result: abnormal ASC-US HR HPV+ 04/13/20 Last Documented On 4 10:09AM ; [facility] Primary Care Provider: Mraivel slaughter NP 03/03/2023 Last Documented On 4 10:09AM ; [facility] Contraception: bilateral salpingectomy w ith c/s 03/25/2021 Last Documented On 4 10:09AM ; [facility] Para 5 03/25/2021 Last Documented On 4 10:09AM ; [facility] History of colonoscopy fiberoptic was pe rformed 2008 [facility] 03/25/2021 Last Documented On 4 10:09AM ; [facility] Baby thriving C/S [facility] 36- 5/7 weeks 6# 0wai Hernandez 09/28/2019 Last Documented On 4 10:09AM ; [facility] is bottle-feeding 09/28/2019 Last Documented On 4 10:09AM ; [facility] Result: normal 03/29/2019 Last Documented On 4 10:09AM ; [facility] Vaginal delivery x 4 03/29/2019 Last Documented On 4 10:09AM ; [facility] History of human papilloma virus infecti on 06/02/17 03/29/2019 Last Documented On 4 10:09AM ; [facility] A colonoscopy was performed 2009 019 Last Documented On 4 10:09AM ; [facility] Aborta 1 03/29/2019 Last Documented On 4 10:09AM ; [facility] 6 03/29/2019 Last Documented On 4 10:09AM ; [facility] History of Abnormal Pap Smear 11/29/2018: HGSIL; 01/18/2019: colp but no bx; 03/27/2019 Last Documented On 4 10:09AM ; [facility] History of depression depres raza dx'd at 13, meds since 19 y old: prior lexapro, effexor in the past, prozac: now for lthe last 10 yrs: pt likes; 03/27/2019 Last Documented On 4 10:09AM ; [facility] History of hematologic disorder B-12 and iron shots after last delivery 03/27/2019 Last Documented On 4 10:09AM ; [facility] Family History Includes: Family History addressed during this encounter Description Last Updated Maternal grandfather's history of diabet es mellitus MGF 03/29/2019 Last Documented On 4 10:09AM ; [facility] Spouse name: Thony 03/29/2019 Last Documented On 4 10:09AM ; [facility] Family history of hypertension mom and d ad 03/29/2019 Last Documented On 4 10:09AM ; [facility] Review of Systems Includes: Review of [...] ve Last Documented On 4 10:17AM ; [facility] Chantix Allergy 03/17/2023 Active Last Documented On 4 10:17AM ; [facility] Encounters Encounter Provider Location Date Check-In Time Check-Out Time Diagnosis FOLLOW UP HENRRY TANNER MD [facility] 4 10:01AM 10:44AM Cervical Dysplasia: Severe Insurance Includes: Active Insurance Policies Plan Name Member ID Group # Subscriber Relationship Effect flo Dates 1 - [facility] [id number] THONY HIGGINS Clinical Notes Includes: Clinical Notes from this encounter * Progress note Date Encounter Last Documented by 09/21/2023 FOLLOW UP Last documented on 09/21/2023; 5:19 PM, HENRRY TANNER MD; [facility] Active Problems & Conditions [...] hand carpal tunnel- 2008 epidural x 2- 2021. Previous colposcopy 01/18/2019 Dr Veronica Price-Julia No Bx; 04/13/23 TCK, Tonsillectomy with adenoidectomy, and Dilation + Curettage 06/16/17. Tests: A colonoscopy was performed 2009. Dietary: Infant is bottle-feeding. : Baby thriving C/S [facility] 36- 5/7 weeks 6# 0oz Lawrence [...] identification. Hysterectomy may be better done by [facility]oncology at one of the [facility]. Pt has familiarization with [facility] as she had her last c/s there with bilateral salpingectomy. We will start the consultation process for surgery there. Plan StartCited - Other Follow-up TCK Team will be sending pt to [facility]/oncology at [place]; return in 6 months for f/u from [facility] (30 min). PHY ORDER/COMMENT need to send referral to [facility]cology at [facility] U: ALESSANDRO 2-3 with positive margins on deeper LEEP tissue: pt already had bilat salpingectomy and at 43 wants hyst. EndCited Practice Management [[id number]] Established outpatient, medically appropriate H&P, low level decision making, 20-29 minutes.
--- OUTSIDE RECORDS SUMMARY | 2024-12-11 13:32 | XMS_ITS ---
Author Organization [facility] Address [address] [place] [address] Phone Care Team Providers Care Pediatric Occupational Therapist Name Role Phone FLORES OLIVEIRA, HENRRY Aguilera Unavailable [phone] Problems Includes: Active, inactive, and resolved Problems All Visits Onset Date Resolved Date Provider Condition S tatus Cervical Dysplasia: Severe 09/21/2023 HENRRY TANNER MD Active Last Documented On 09/21/2023 5:17PM ; [facility] Note: Unchanged Anal Fissure 03/17/2023 ENDER Sena JOCELYN MARTÍNEZ Active Last Documented On 3 12:10PM ; [facility] Intervertebral Disc Degeneration 03/17/2023 CHAPO FRANKLIN RN JOCELYN MARTÍNEZ Active Last Documented On 3 12:09PM ; [facility] Ovarian Cyst 03/17/2023 ENDER FRANKLIN RN JOCELYN B C Active Last Documented On 3 12:10PM ; [facility] Amenorrhea 03/25/2021 HENRRY TANNER MD Active Last Documented On 03/25/2021 2:52PM ; [facility] Note: Unchanged Contact Dermatitis of Perineum 03/25/2021 HENRRY TANNER MD Active Last Documented On 03/25/2021 2:52PM ; [facility] Note: Unchanged Oth mental disorders comp , second trimester 04/11/2019 HENRRY TANNER MD Active Last Documented On 04/11/2019 2:33PM ; [facility] Note: Unchanged Age 35+ During 03/27/2019 Unknown HENRRY CORTEZ MD Resolved Last Documented On 10/29/2021 11:32AM ; [facility] Note: was Closed. History of Abnormal Pap Smear 03/27/2019 Unknown HENRRY TANNER MD Resolved Last Documented On 10/29/2021 11:32AM ; [facility] Note: was Closed. History of Depression 03/27/2019 Unknown HENRRY TANNER MD Resolved Last Documented On 10/29/2021 11:32AM ; [facility] Note: was Closed. History of Hematologic Disorders 03/27/2019 Unknown HENRRY TANNER MD Resolved Last Documented On 10/29/2021 11:32AM ; [facility] Note: was Closed. Medical History Infections 03/27/2019 Unknown HENRRY LUGO MD Resolved Last Documented On 10/29/2021 11:32AM ; [facility] Note: was Closed. Smoking During 03/27/2019 Unknown HENRRY CORTEZ MD Resolved Last Documented On 10/29/2021 11:32AM ; [facility] Note: was Closed. Tobacco Use 03/27/2019 Unknown HENRRY TANNER MD Resolv ed Last Documented On 10/29/2021 11:32AM ; [facility] Note: was Closed. Plan of Treatment Findings Encounter Date Ordered Clinical summary pro vided to patient WELL WOMAN - ESTABLISHED PT with ENDER FRANKLIN RN JOCELYN 03/17/2023 Last Documented On 3 12:56PM ; [facility] Pending Tests Order Diagnosis Results Due Ordering P rovider Radiology @ other - Ultrasound Pelvic U/S w/TVT (TransVag) Unspecified ovarian cyst, unspecified side 05/05/23 ENDER FRANKLIN RN JOCELYN Last Documented On 3 8:24AM ; [facility] Lab RENAL FUNCTION PANEL 06/15/23 KAVYA FRANKLIN RN JOCELYN Last Documented On 3 11:52AM ; [facility] Instructions to patient Intervention and counseling on cessation of tobacco use Last Documented On 3 11:04AM ; [facility] Instructed to call if excess flo bleeding or abdominal/pelvic pain Last Documented On 3 11:14AM ; [facility] Instructions For Patient: Mo nthly Self Breast Exam Last Documented On 3 11:14AM ; [facility] Recommend diet and exercise at least 30 min three times per week Last Documented On 3 11:14AM ; [facility] Intervention and counseling on cessation of tobacco use Last Documented On 3 1:02PM ; [facility] Education and Decision Aids were provided [...] procedure Last Documented On 3 2:45PM ; [facility] INFORMED CONSENT DISCUSSION: Colposcopy was discussed in detail including risk of post procedure bleeding and infection. Patient is not to have anything in the vagina till all of the discharge quits following the procedure. Patient expressed understanding of the above and consented to the procedure Last Documented On 3 11:56AM ; [facility] Patient Education: Daily adam cium and vitamin D Last Documented On 3 11:14AM ; [facility] INFORMED CONSENT DISCUSSION: Colposcopy was discussed in detail including risk of post procedure bleeding, infection, and risk of pre term labor. Patient is not to have anything in the vagina till all of the disharge quits following the procedure. Patient expressed understanding of the above and consented to the procedure Last Documented On 9 10:42AM ; [facility] Assessments Includes: Assessments for all patient encounters Findings Encounter Date Severe cervical dysplasia (ALESSANDRO III) FOLLOW UP [facility] HENRRY TANNER MD 09/21/2023 Last Documented On 4 5:19PM ; [facility] Severe cervical dysplasia (ALESSANDRO III) PROC EDURE OFFICE with HENRRY TANNER MD 08/24/2023 Last Documented On 3 2:53PM ; [facility] Cervical dysplasia--moderate (ALESSANDRO II) FOLLOW UP with HENRRY TANNER MD 04/26/2023 Last Documented On 3 1:48PM ; [facility] Cervical dysplasia--severe (ALESSANDRO III) FOLLOW UP w ith HENRRY TANNER MD 04/26/2023 Last Documented On 3 1:48PM ; [facility] Ventral hernia without obstr uction or gangrene FOLLOW UP with HENRRY TANNER MD 04/26/2023 Last Documented On 3 1:48PM ; [facility] Hemorrhagic ovarian cyst CHART UPDATE with ENDER FRANKLIN RN [facility] 04/21/2023 Last Documented On 3 8:22AM ; [facility] [Atypical squamous cells of undetermined significance on cytologic smear of cervix (ASC-US)] abnormal Pap smear: atypical squamous cells of undetermined significance COLPOSCOPY with HENRRY TANNER MD 04/13/2023 Last Documented On 3 11:58AM ; [facility] Female pelvic pain WELL WOMAN - ESTABLI SHED PT with ENDER FRANKLIN RN [facility] 03/17/2023 Last Documented On 3 12:56PM ; [facility] Routine gynecological exam w ith abnormal findings WELL WOMAN - ESTABLISHED PT with ENDER FRANKLIN RN [facility] 03/17/2023 Last Documented On 3 12:56PM ; [facility] Screen malignant neoplasm cervix WELL WO MAN - ESTABLISHED PT with ENDER FRANKLIN RN JOCELYN 03/17/2023 Last Documented On 3 12:56PM ; [facility] Furuncle PROBLEM VISIT with ENDER FRANKLIN RN JOCELYN 03/03/2023 Last Documented On 3 1:34PM ; [facility] Skin disorder PROBLEM VISIT with ENDER FRANKLIN RN JOCELYN 03/03/2023 Last Documented On 3 1:34PM ; [facility] Amenorrhea PROBLEM VISIT with HENRRY Vergara MD 03/25/2021 Last Documented On 1 2:53PM ; [facility] Contact dermatitis of perineum PROBLEM VISIT trevor TANNER MD 03/25/2021 Last Documented On 1 2:53PM ; [facility] Routine history a nd physical POST VISIT with HENRRY TANNER MD 09/28/2019 Last Documented On 0 11:23AM ; [facility] Abnormal Pap smear: high gra de squamous intraepithelial lesion present COLPOSCOPY with HENRRY TANNER MD 03/29/2019 Last Documented On 9 10:43AM ; [facility] Instructions Includes: Instructions for all patient encounters Instructions to patient Intervention and counseling on cessation of tobacco use Last Documented On 3 11:04AM ; [facility] Instructed to call if excess flo bleeding or abdominal/pelvic pain Last Documented On 3 11:14AM ; [facility] Instructions For Patient: Mo nthly Self Breast Exam Last Documented On 3 11:14AM ; [facility] Recommend diet and exercise at least 30 min three times per week Last Documented On 3 11:14AM ; [facility] Intervention and counseling on cessation of tobacco use Last Documented On 3 1:02PM ; [facility] Education and Decision Aids were provided [...] procedure Last Documented On 3 2:45PM ; [facility] INFORMED CONSENT DISCUSSION: Colposcopy was discussed in detail including risk of post procedure bleeding and infection. Patient is not to have anything in the vagina till all of the discharge quits following the procedure. Patient expressed understanding of the above and consented to the procedure Last Documented On 3 11:56AM ; [facility] Patient Education: Daily adam cium [...] procedure Last Documented On 9 10:42AM ; [facility] Medical Equipment - Implanted Devices Includes: Current and historical Devices No Medical Equipment Recorded Medications Includes: Current and historical Medications Current Medications (continue as prescribed) Veozah 45 MG Oral Tablet 09/21/2023 Provider: Diagnosis: Last Documented On 4 10:20AM By DOV JOHNSON [facility] ; [facility] Albuterol Sulfate (5 MG/ML) 0.5% Inhalation Nebulization solution 03/03/2023 Provider: Diagnosis: Last Documented On 03/03/2023 12:59PM By Shalini Price ; [facility] Phenergan 25 mg Oral Tablet 03/03/2023 Provider: Diagnosis: Last Documented On 3 1:28PM By ENDER GOULD ; [facility] FLUoxetine HCl 20 MG Oral Capsule 07/21/2021 Provide r: MARIVEL LAW NP Diagnosis: Last Documented On 04/26/2023 1:03PM By Taye Bradley Jaja ; [facility] Gabapentin 300 MG Oral Capsule 03/25/2021 Provider: Diagnosis: 2 capsules tid Last Documented On 1 2:06PM By DOV JOHNSON Jaja ; [facility] Omeprazole 20 MG Oral Capsule Delayed Release 09/28/19 20 Provider: Diagnosis: Last Documented On 0 10:46AM By DOV JOHNSON Jaja ; [facility] Past Medications on file Veozah 45 MG Oral Tablet 03/17/2023 - 06/15/2023 Provi alvin: ENDER FRANKLIN RN JOCELYN Diagnosis: Flushing One tablet daily Last Documented On 3 11:49AM By ENDER TESFAYE ; [facility] Sulfamethoxazole-Trimethopri m 800-160 MG Oral Tablet 03/03/2023 - 03/10/2023 Provider: ENDER FRANKLIN RN DAWNA Diagnosis: Furuncle, unspecified One tablet twice a day ONE TAB 2 TIMES A DAY WIT H FOOD Last Documented On 3 1:25PM By ENDER TONEY- ; [facility] HYDROcodone-Acetaminophen 5-325 MG Oral Tablet 0 03/25/2021 - 03/03/2023 Provider: Diagnosis: Last Documented On 03/03/2023 12:58PM By Shalini Price ; [facility] Lisinopril-hydroCHLOROthiazi de 20-12.5 MG Oral Tablet 03/25/2021 - 03/03/2023 Provider: Diagnosis: Last Documented On 03/03/2023 12:57PM By Shalini Price ; [facility] traMADol HCl 50 MG Oral Tablet 03/25/2021 - 03/03/2023 Provider: Diagnosis: tid Last Documented On 03/03/2023 12:57PM By Shalini Price ; [facility] Methocarbamol 500 MG Oral Tablet 03/25/2021 - 08/24/20 Provider: Diagnosis: bid Last Documented On 3 2:05PM By DOV MAYERS ; [facility] PROzac 20 MG Oral Capsule 09/28/2019 - 04/26/2023 Provider: HENRRY Hannah Diagnosis: Other mental dis orders complicating the puerperium 1 capsule daily Last Documented On 04/26/2023 1:03PM By Taye MAYERS ; [facility] PROzac 20 MG Oral Capsule 08/02/2019 - 09/28/2019 Provider: HENRRY Hannah Diagnosis: Other mental dis orders complicating the puerperium 1 capsule daily Last Documented On 09/28/2019 11:22AM By HENRRY TANNER MD ; [facility] Zithromax Z-Ravin 250 MG Oral Tablet 05/12/2019 - 09/28/2019 Provider: HENRRY Hannah Diagnosis: Encounter for alvarez prvsn of normal , third trimester as directed Last Documented On 0 10:45AM By DOV MAYERS ; [facility] PROzac 20MG Oral Capsule 04/11/2019 - 08/02/2019 Provider: HENRRY Hannah Diagnosis: Oth mental disor ders comp , second trimester 1 capsule daily Last Documented On 08/02/2019 12:22PM By HENRRY TANNER MD ; [facility] Multivitamin + DHA 28-0.8 & 200MG Oral Miscellaneous 03/27/2019 - 09/28/2019 Provider: Diagnosis: 1 tablet daily Last Documented On 0 10:45AM By DOV MAYERS ; [facility] PROzac 20MG Oral Capsule 03/27/2019 - 04/11/2019 Provi alvin: Diagnosis: 1 capsule daily Last Documented On 04/11/2019 2:32PM By HENRRY TANNER MD ; [facility] Zantac 150 Maximum Strength Oral Tablet 03/27/2019 - 0 09/28/2019 Provider: Diagnosis: 1 tablet twice daily Last Documented On 0 10:45AM By DOV MAYERS ; [facility] Medications Administered Includes: Administered Medications in patient's chart Medications Administered Diagnosis Date Pro vider RhoGAM Ultra-Filtered Plus 1500 UNIT IM SOSY 05/26/2019 HENRRY TANNER MD Last Documented On 9 3:41PM By LORI TRAVIS LPN ; [facility] Results Includes: Results from 12/12/2023 through 12/11/2024 No Results Recorded For Specified Dates History of Present Illness History of Present Illness not supported for this document type No History of Present Illness Recorded Social History Description Last Updated Current smoker 08/24/2023 Last Documented On 3 2:53PM ; [facility] Tobacco use was 20 Smoked a pack a day prior to , down to 8-10 a day in preg, back up to one ppd since preg 08/24/2023 Last Documented On 3 2:53PM ; [facility] Sexually active 04/13/2023 Last Documented On 3 11:58AM ; [facility] Smoking status : Current everyday smoker 04/13/2023 Last Documented On 3 11:58AM ; [facility] Marital history 03/17/2023 Last Documented On 3 12:56PM ; [facility] Not using alcohol 03/17/2023 Last Documented On 3 12:56PM ; [facility] Not using drugs 03/17/2023 Last Documented On 3 12:56PM ; [facility] Sexually active with 1 partners in the l ast year 03/17/2023 Last Documented On 3 12:56PM ; [facility] control is being practiced BTL Last Documented On 3 12:56PM ; [facility] Sexually active 6 weeks 09/28 Last Documented On 0 11:23AM ; [facility] Procedures and Surgical History Surgical History Last Updated History of Loop electrode excision of ce rvix (LEEP) 08/24/23 TK 09/21/2023 Last Documented On 4 5:19PM ; [facility] Previous colposcopy 01/18/2019 Dr Anselmo Hernandez No Bx; 04/13/23 TCK 04/26/2023 Last Documented On 3 1:48PM ; [facility] History of tubal ligation bilateral salp ingectomy 04/13/2023 Last Documented On 3 11:58AM ; [facility] Surgical / procedural histor y Laparoscopic marsupialization of ovarian cyst x3 ~left and right hand carpal tunnel- 2008 ~epidural x 2- 202003/25/2021 Last Documented On 1 2:53PM ; [facility] Dilation + Curettage 06/16/17 03/29/2019 Last Documented On 9 10:43AM ; [facility] History of cholecystectomy 03/29/2019 Last Documented On 9 10:43AM ; [facility] Tonsillectomy with adenoidectomy 019 Last Documented On 9 10:43AM ; [facility] History of surgery 03/27/2019 Last Documented On 9 5:21PM ; [facility] Medical History Includes: Medical History in patient's chart Description Last Updated Last mammogram date: 05/04/2023 [facility] 09/21 Last Documented On 4 5:19PM ; [facility] section x 1 09/21/2023 Last Documented On 4 5:19PM ; [facility] Last pap smear date 03/17/2023 09/21/2023 Last Documented On 4 5:19PM ; [facility] LMP: 04/03/2023 and before that was 3 04/13/2023 Last Documented On 3 11:58AM ; [facility] Result: abnormal ASC-US HR HPV+ 04/13/20 23 Last Documented On 3 11:58AM ; [facility] A mammogram was performed 03/17/2023 Last Documented On 3 12:56PM ; [facility] Primary Care Provider: Marivel slaughter NP 03/03/2023 Last Documented On 3 1:34PM ; [facility] Contraception: bilateral salpingectomy w ith c/s 03/25/2021 Last Documented On 1 2:53PM ; [facility] Para 5 03/25/2021 Last Documented On 1 2:53PM ; [facility] History of colonoscopy fiberoptic was pe rformed 2008 [facility] 03/25/2021 Last Documented On 1 2:53PM ; [facility] History of cervical Pap smear 12/04/2018 03/25/2021 Last Documented On 1 2:53PM ; [facility] Baby thriving C/S [facility] 36- 5/7 weeks 6# 0oz Lawrence Hernandez 09/28/2019 Last Documented On 0 11:23AM ; [facility] is bottle-feeding 09/28/2019 Last Documented On 0 11:23AM ; [facility] Result: normal 03/29/2019 Last Documented On 9 10:43AM ; [facility] Vaginal delivery x 4 03/29/2019 Last Documented On 9 10:43AM ; [facility] History of human papilloma virus infecti on 06/02/17 03/29/2019 Last Documented On 9 10:43AM ; [facility] A colonoscopy was performed 2009 019 Last Documented On 9 10:43AM ; [facility] Aborta 1 03/29/2019 Last Documented On 9 10:43AM ; [facility] 6 03/29/2019 Last Documented On 9 10:43AM ; [facility] History of Abnormal Pap Smear 03/27/2019 Last Documented On 9 5:21PM ; [facility] History of depression 03/27/2019 Last Documented On 9 5:21PM ; [facility] History of hematologic disorder 03/27/20 19 Last Documented On 9 5:21PM ; [facility] Family History Includes: Family History in patient's chart Description Last Updated Maternal grandfather's history of diabet es mellitus MGF 03/29/2019 Last Documented On 9 10:43AM ; [facility] Spouse name: Thony 03/29/2019 Last Documented On 9 10:43AM ; [facility] Family history of hypertension mom and d ad 03/29/2019 Last Documented On 9 10:43AM ; [facility] Review of Systems Review of Systems not [...] ve Last Documented On 4 10:17AM ; [facility] Chantix Allergy 03/17/2023 Active Last Documented On 4 10:17AM ; [facility] Insurance Includes: Active Insurance Policies Plan Name Member ID Group # Subscriber Relationship Effect flo Dates 1 - [facility] [id number] THONY HIGGINS Clinical Notes Includes: Signed Clinical Notes starting from 09/18/2022 No Clinical Notes Recorded
== END 2024-12-11 12:53 | disposition home or self-care (01) ==
PROVIDERS: Emergency Provider Nurse Practitioner Family; PCP Physician Assistant
DX: A08.4 Viral intestinal infection, unspecified (principal); F41.8 Other specified anxiety disorders; K21.9 Gastro-esophageal reflux disease without esophagitis; F17.210 Nicotine dependence, cigarettes, uncomplicated; F12.920 Cannabis use, unspecified with intoxication, uncomplicated; Z20.822 Contact with and (suspected) exposure to COVID-19
CPT/HCPCS: 87426; 87804; 99213; G0463

== ENCOUNTER 2025-02-12 19:20 | Emergency (ER) | payer OTHER, SELFPAY ==
[2025-02-12 19:22] VITALS: BP 121/59; PULSE 74; RESP 20; TEMP 36.6; O2SAT 100
--- OUTSIDE RECORDS SUMMARY | 2025-02-12 19:22 | XMS_ITS | Clinical Summary ---
Author Organization [facility] Address [address] [place] [address] Care Team Providers Care Cleaner Housekeeping Name Role Phone Hugo Jaquez MD Unavailable [phone] Kimberly Jc NP Primary Care Provide r Allergies Active Allergy Reactions Criticality Noted Date Comments Bee Pollen Anaphylaxis High 11/08/2020 Metoclopramide Hallucinations Medium 09/01/2017 Medications FLUoxetine (PROzac) 20 mg capsuleIndication s:depression,and anxiety Take 1 capsule (20 mg total) by mouth shipping clerk crating before breakfast 019 Active naloxone (NARCAN) 4 mg/actuation spray,non-aerosol Administer 1 spray into affected nostril(s) as needed for opioid reversal or respiratory depression 1 each 021 Active Additional Information Patient taking differently:1 spray nasal As needed,opioid reversal, Indications: risk mitigation for opioid overdose, Informant: Self, Reported on 02/01/2025 omeprazole (PriLOSEC) 40 mg capsuleIndication s:Laryngeal spasm Take 1 capsule (40 mg total) by mouth daily 30 capsule 11 023 Active Additional Information Patient taking differently:40 mg oralDaily (early AM), Indications: Treatment of Non-Bleeding Gastric Disorder, Informant: Self, Reported on 02/01/2025 albuterol HFA (PROVENTIL HFA,VENTOLIN HFA,PROAIR HFA) 90 mcg/actuation inhalerIndication s:Acute Asthma Attack Inhale 2 puffs every 4 (four) hours as needed for wheezing or shortness of breath 024 Active estradioL (CLIMARA) 0.05 mg/24 hr APPLY 1 PATCH TOPICALLY TO THE SKIN 1 TIME A WEEK 4 patch 11 025 Active Additional Information Patient taking differently: 1 patch transdermal Weekly, Indications: Vasomotor Symptoms associated with Menopause, Informant: Self, Reported on 02/01/2025 losartan (COZAAR) 50 mg tabletIndications :hypertension Take 1 tablet (50 mg total) by mouth daily Patient stated she stopped this 3-4 weeks ago from today 01/29 Active LORazepam (ATIVAN) 0.5 mg tablet Take 1 tablet (0.5 mg total) by mouth as needed for anxiety (MRI) 025 Active cholecalciferol (VITAMIN D-3) 50,000 unit capsuleIndication s:Vitamin D Deficiency Take 1 capsule (50,000 Units total) by mouth once a week for 8 doses 8 capsule 025 2024 Active baclofen (LIORESAL) 10 mg tabletIndications :Muscle Spasticity of Spinal Origin Take 1 tablet (10 mg total) by mouth 3 (three) times a day 90 tablet 025 2024 Active gabapentin (NEURONTIN) 300 mg capsuleIndication s:Neuropathic Pain Take 3 capsules (900 mg total) by mouth 3 (three) times a day 270 capsule 025 2024 Active acetaminophen 500 mg capsule Take 2 capsules (1,000 mg total) by mouth every 8 (eight) hours as needed for pain Active lidocaine (LIDODERM) 5 % Place 2 patches on the skin daily for 12 hours Remove & discard patch within 12 hours or as directed by . 30 patch 025 2024 Active polyethylene glycol (MIRALAX) 17 gram/dose bulk powderIndications :constipation Take 17 g by mouth daily 510 g 025 2024 Active senna-docusate (PERICOLACE) 8.6-50 mgIndications:con stipation Take 1 tablet by mouth 2 (two) times a day 60 tablet 025 2024 Active oxyCODONE (ROXICODONE) 10 mg tabletIndications :Pain Take 1 tablet (10 mg total) by mouth every 4 (four) hours as needed for pain for up to 7 days 42 tablet 025 2024 Active gabapentin (NEURONTIN) 300 mg capsule TAKE 2 CAPSULES(600 MG) BY MOUTH THREE TIMES DAILY 180 capsule 3 021 2024 Discontinued(R eorder) baclofen (LIORESAL) 10 mg tabletIndications :Muscle Spasticity of Spinal Origin Take 1 tablet (10 mg total) by mouth 3 (three) times a day 024 2024 Discontinued Veozah tablet tablet Take 1 tablet (45 mg total) by mouth daily 024 2024 Discontinued(T herapy completed) promethazine (PHENERGAN) 25 mg tablet 024 2024 Discontinued(T herapy completed) ondansetron (ZOFRAN) 4 mg tabletIndications :n/v Take 1 tablet (4 mg total) by mouth every 8 (eight) hours as needed for nausea or vomiting 024 2024 Discontinued(T herapy completed) traMADoL (ULTRAM) 50 mg tabletIndications :Pain Take 1 tablet (50 mg total) by mouth every 6 (six) hours as needed for pain 024 2024 Discontinued(T herapy completed) acetaminophen (TYLENOL) 500 mg tablet Take 2 tablets (1,000 mg total) by mouth every 6 (six) hours as needed for pain 30 tablet 2 024 2024 Discontinued(T herapy completed) oxyCODONE (ROXICODONE) 5 mg immediate release tabletIndications :Pain Take 1 tablet (5 mg total) by mouth every 6 (six) hours as needed for pain 21 tablet 024 2024 Discontinued(T herapy completed) polyethylene glycol (MIRALAX) 17 gram/dose bulk powder Take 17 g by mouth daily 595 g 024 2024 Discontinued(T herapy completed) mupirocin (BACTROBAN) 2 % ointmentIndicatio ns:Methicillin-Re sistant S. Aureus Nasal Colonization Apply to each nostril 2 (two) times a day Apply pea sized amount into each nostril twice a day starting 5 days prior to surgery. 22 g 025 2024 Discontinued(S top Taking at Discharge) gabapentin (NEURONTIN) 300 mg capsuleIndication s:Neuropathic Pain Take 3 capsules (900 mg total) by mouth 3 (three) times a day 270 capsule 2 025 2024 Discontinued ondansetron ODT (ZOFRAN-ODT) 4 mg disintegrating tablet Take 1 tablet (4 mg total) by mouth every 8 (eight) hours as needed for nausea 025 2024 Discontinued(T herapy completed) hydroxychloroquin e (PLAQUENIL) 200 mg tabletIndications :Systemic Lupus Erythematosus Take 2 tablets (400 mg total) by mouth daily Patient stated she stopped taking this 12/20 due to increased depression 025 2024 Discontinued(A lternate therapy) HYDROcodone-aceta minophen (NORCO) 5-325 mg per tablet Take 1 tablet by mouth every 8 (eight) hours as needed for pain 025 2024 Discontinued(S top Taking at Discharge) celecoxib (CeleBREX) 100 mg capsuleIndication s:Pain Take 1 capsule (100 mg total) by mouth 2 (two) times a day 025 2024 Discontinued(S top Taking at Discharge) UNABLE TO FIND Take 1 each by mouth every morning Med Name: [employer] 3 energy supplement 2024 Discontinued(S top Taking at Discharge) nicotine (NICODERM CQ) 14 mgIndications:[facility] madeline Cessation Place 1 patch on the skin daily 2024 Discontinued(S top Taking at Discharge) oxyCODONE (ROXICODONE) 10 mg tabletIndications :Pain Take 1 tablet (10 mg total) by mouth every 4 (four) hours as needed for pain for up to 7 days 42 tablet 025 2024 Discontinued(R eorder) Active Problems Problem Noted Date Diagnosed Date Acute on chronic back pain 02/02/2025 Assessment & Plan (02/02/2025 9:22 AM CDT): --home regimen includes Celebrex, gabapentin, norco, and baclofen --stop celebrex --wean off of IV narcotics --inpatient oral regimen includes brice tylenol, gabapentin, baclofen, lidocaine patches, and prn oxycodone Lumbar stenosis with neurogenic claudication 12/2024 Assessment & Plan (02/04/2025 12:10 PM CDT): --s/p L1-2 decompression, discectomy, and interbody fusion on 02/01, closed with dermabond, drains x 1 --Reports improvement in preoperative pain --Post-op x-rays completed on 02/01 --therapy recs dispo to home --Patient will follow up with Dr. Yip outpatient Spondylolisthesis of lumbar region 01/16/2025 Other intervertebral disc de generation, 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 01/16/2025 Other intervertebral disc displacement, lumbosac ral region 01/16/2025 Other intervertebral disc de generation, lumbar region with discogenic back pain only 01/16/2025 High grade squamous intraepi thelial lesion (HGSIL), grade 3 ALESSANDRO, on biopsy of cervix 10/12/2023 Non-recurrent bilateral inguinal hernia 05/28/20 23 Laryngeal spasm 09/09/2022 Voice hoarseness 09/09/2022 Assessment & Plan (09/09/2022 12:22 PM PARAGLIDING INSTRUCTOR): Increase omeprazole to 40 mg daily Start [...] be retained placenta. Plan for delivery at [facility] Her placentation appears normal on US [...] and GA at presentation, did not offer [place] however we did equal opportunity counselor patient on recurrence risk of PTD. Anxiety disorder 04/12/2009 Overview (04/27/2019): On Prozac 20mg daily. Stable. S/p counseling of risk of respiratory depression. 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 BGS swab collected -GC/CT collected 06/21/19 [facility] visit: Contractions began this morning, are every 10 minutes, and more severe than they were before. Initial SVE 1/L/H, same as previous. Few contractions on toco. Repeat SVE 1/L/H. Patient reports spontaneous subjective improvement in intensity and frequency of contractions. No e/o PTL. Prec given. 06/28/19 [facility] visit: contractions initially Q10-15 minutes [...] sooner. Assessment & Plan (07/07/2019 1:36 PM PARAGLIDING INSTRUCTOR): Patient has not been getting 2x/weekly testing. [...] desire PP BTL, has both private and [place] medicaid- BTL papers signed 11/8. If she delivers at the time of her scheduled IOL they will not be mature. Patient aware. [x] Method of feeding: breast/bottle [x] Manager Corporate Strategy: [x] PP Depression Discussed: Type 2 diabetes mellitus 01/13/2014 Overview (12/04/2016): DMII WO CMP UNCNTRLD Hyperlipidemia 04/12/2009 04/27/2019 Encounters Date Type Department Care Team Description 02/01/2025 9:15 AM CDT Anesthesia Event [facility] Operating Room [address] [place] [address] Nash Gardiner MD Dippolito, Jenny Irene, NP 02/01/2025 8:30 AM CDT - 02/01/2025 1:30 PM CDT Surgery [facility] Operating Room [address] [place] [address] Adelso Yip MD FUSION SPINAL - POSTERIOR LUMBAR/THORACIC WITH INSTRUMENTATION - INTERBODY FUSION L1-2 decompression, discectomy, TLIF 02/01/2025 6:20 AM CDT - 02/04/2025 5:18 PM CDT Hospital Encounter [address] [address] Adelso Yip MD Lumbar stenosis with neurogenic claudication (Primary Dx); Other intervertebral disc degeneration, 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 Discharge Disposition: Discharge to home or self care 01/30/2025 Orders Only [facility] Neurosurgery [address] [facility] [address] [place] [phone] Adelso Yip MD 01/29/2025 3:30 PM CDT Pre-Admission Testing [facility] Center for Preoperative Assessment and Planning [facility] ([facility] [address] [place] [id number] Pre-op evaluation (Primary Dx); Spondylolisthesis of lumbar region; Other intervertebral disc degeneration, 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; Other intervertebral disc displacement, lumbosacral region; Other intervertebral disc degeneration, lumbar region with discogenic back pain only 01/19/2025 3:55 PM CDT - 01/19/2025 11:59 PM CDT Hospital Encounter [facility] [address] [place] [address] Other intervertebral disc degeneration, lumbar region with discogenic back pain only; Other intervertebral disc displacement, lumbosacral region; Spondylolisthesis of lumbar region; Other intervertebral disc degeneration, 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 Discharge Disposition: Discharge to home or self care 01/19/2025 3:55 PM CDT - 01/19/2025 11:59 PM CDT Hospital Encounter [facility] [address] [place] [address] Other cervical disc degeneration at C5-C6 level; Cord compression (HCC) Discharge Disposition: Discharge to home or self care 01/18/2025 Telephone [facility] [address] [place] [address] Carrie Cantu 01/17/2025 7:37 AM CDT - 01/17/2025 11:59 PM CDT Hospital Encounter [facility] Imaging and Radiiology [address] [place] [phone] Other osteoporosis without current pathological fracture Discharge Disposition: Discharge to home or self care 01/09/2025 9:00 AM CDT Office Visit [facility] Neurosurgery [address] [place] [address] Medical Office Building [address] [place] [address] Adelso Yip MD Other intervertebral disc degeneration, lumbar region with discogenic back pain only; Other intervertebral disc displacement, lumbosacral region; Spondylolisthesis of lumbar region; Other cervical disc degeneration at C5-C6 level; Other intervertebral disc degeneration, 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 01/09/2025 8:30 AM CDT - 01/09/2025 11:59 PM CDT Hospital Encounter [facility] Radiology [address] [place] [address] [address] [place] [phone] Low back pain, non-specific Discharge Disposition: Discharge to home or self care 01/09/2025 Telephone [facility] Neurosurgery [address] [place] [address] Medical Office Building [address] [place] [address] Adelso Yip MD 01/09/2025 Orders Only [facility] Neurosurgery [address] [place] [address] [address] [place] [address] Adelso Yip MD Other intervertebral disc degeneration, lumbar region with discogenic back pain only (Primary Dx); Other intervertebral disc displacement, lumbosacral region; Spondylolisthesis of lumbar region; Other cervical disc degeneration at C5-C6 level; Other intervertebral disc degeneration, 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; Other osteoporosis without current pathological fracture; Cord compression (HCC) 01/08/2025 1:50 PM CDT - 01/08/2025 11:59 PM CDT Hospital Encounter [facility] [address] [place] [id number] Discharge Disposition: Discharge to home or self care 01/04/2025 Orders Only [facility] Neurosurgery [address] [place] [address] [address] [place] [phone] Adelso Yip MD Low back pain, non-specific (Primary Dx) 12/22/2024 Telephone [facility] Scheduling [address] [place] [address] Soheila Bailey from Last 3 Months Immunizations Immunization Administration Dates Next Due COVID-19 mRNA ([employer]) 0.3 m L (30 mcg) vaccine (12 [...] 08/30/1980 - 08/29/1981 OVARIAN CYST SURGERY x2 HYSTERECTOMY W/ BILATERAL SALPINGOOPHORECTOMY 11/05/2023 Medical History Medical History Date Comments Hx [...] Date Smoking Tobacco: Every Day Cigarettes 1 32.5 Started: 1992 Passive Smoke Exposure: Past Smokeless Tobacco: Never Alcohol Use Standard Drinks/Week Comments No 0 (1 standard drink = 0.6 oz pur e alcohol) AUDIT-C Answer Date Recorded Q1: How often do you have a drink containing alcohol? Never 01/29/2025 Q2: How many drinks containi ng alcohol do you have on a typical day when you are drinking? Patient does not drink Q3: How often do you have si x or more drinks on one occasion? Never 01/29/2025 PHQ-2 Answer Date Recorded PHQ-2 Total Score (If total score is 3 or more points, staff should administer the PHQ-9) 0 01/10/2021 Personal Safety Answer Date Recorded Have you ever been in or are you currently in a harmful physical or emotional relationship or is someone making you feel afraid or unsafe? Denies 02/02/2025 Comments No Sex and Gender Information Value Date Recorded Sex Assigned at Not on file Legal Sex Female 6:40 PM PARAGLIDING INSTRUCTOR Gender Identity Not on file Sexual Orientation [...] Dinora GUPTA, Aleksandra Dorsey MD Complications:None Delivery Location:[facility] Main C ampus ([facility] L AND D PROCEDURE) Last Filed Vital Signs Vital Sign Reading Time Taken Comments Blood Pressure 106/58 02/04/2025 12:30 PM CDT Pulse 86 02/04/2025 12:30 PM CDT Temperature 37 C (98.6 F) 02/04/2025 12:30 PM CDT Respiratory Rate 16 02/04/2025 12:30 PM CDT Oxygen Saturation 99% 02/04/2025 12:30 PM CDT Inhaled Oxygen Concentration - - Weight 68.9 kg (152 lb) 02/02/2025 11:38 AM CDT Height 167.6 cm (5' 6) 02/02/2025 11:38 AM CDT Body Mass Index 24.53 02/02/2025 11:38 AM CDT Plan of Treatment Health Maintenance Due Date Last Done Comments Cervical Cancer Screening 1978 Colon Cancer Screening-Colonoscopy 1978 Hepatitis B Screening 1996 Regular Well Visit/Exam 18-64 1996 Depression Screening 01/10/2022 01/10/2021, 01/11/20 21 Covid-19 Vaccine ( - 2023- season) 2024 10/08/2023, 04/14/2021, 03/17/2021 [...] lifting, sitting with minimal to no pain. Medical Devices Implanted Type Area Publications Sales Representative Device Identifier Shelf Expiration Date Model / Serial / Lot [place] Spine Graft Bone Filler Gel Bio Dbm 10cc [id number] - [id number] Implanted:Qty: 1 on 02/01/2025 by Adelso Yip MD at [facility] N/A: Spine Lumbar [employer] [id number] 06/09/2027 [id number] / / [id number] [employer] Implant Spinal Sable 18x91fi 6-12mm 0 Deg 1172.2100s - [id number] Implanted:Qty: 1 on 02/01/2025 by Adelso Yip MD at [facility] N/A: Spine Lumbar [employer] [id number] 07/17/2034 1172.2100S / / [id number] [employer] Graft Bone Magnetos 2.5cc 1-2mm Granules In Moldable Putty [id number]-[id number] - [id number] Implanted:Qty: 1 on 02/01/2025 by Adelso Yip MD at [facility] N/A: Spine Lumbar [employer] 02/27/2029 [id number] / / Medtronic Inc Screw Spinal Pedicle Multiaxial Cannulated Cd Horizon Solera 6.5x45mm [place] Chromium [id number] - [id number] Implanted:Qty: 3 on 02/01/2025 by Adelso Yip MD at [facility] N/A: Spine Lumbar Medtronic Inc [id number] / / Medtronic Inc 6mm 45mm Multiaxial Spine Screw Bone Cocr 5.5mm Reddy [id number] - [id number] Implanted:Qty: 1 on 02/01/2025 by Adelso Yip MD at [facility] N/A: Spine Lumbar Medtronic Inc [id number] / / Medtronic Inc Cd Horizon Break Off Spinal Screw Set Titanium Nonsterile 5.5 Mm [id number] - [id number] Implanted:Qty: 4 on 02/01/2025 by Adelso Yip MD at [facility] N/A: Spine Lumbar Medtronic Inc [id number] / / Medtronic Inc 5.5mm 30mm Line Curve Reddy Spinal Titanium Nonsterile [id number] - [id number] Implanted:Qty: 2 on 02/01/2025 by Adelso Yip MD at [facility] N/A: Spine Lumbar Medtronic Inc [id number] / / Procedures Procedure Name Priority Date/Time Associated Diagnosis Comments XR SCOLIOSIS AP LAT IP Routine 02/02/2025 10:48 AM CDT EGFR STAT 02/02/2025 8:40 AM CDT DIFFERENTIAL AUTO STAT 02/02/2025 8:4 0 AM CDT COMPREHENSIVE METABOLIC PANEL STAT 02/02/2025 8:40 AM CDT CBC WITH AUTO DIFFERENTIAL STAT 02/02/2025 8:40 AM CDT XR SPINE LUMBAR 1 VIEW IP Routine 02/01/2025 4:06 PM CDT FL FLUOROSCOPY < 1 HOUR IP Routine 02/01/2025 4:06 PM CDT XR SPINE LUMBAR 1 VIEW IP Routine 02/01/2025 12:11 PM CDT VA AN PROCEDURE PLACEHOLDER Routine 02/01/2025 10:39 AM CDT VA AN PROCEDURE PLACEHOLDER Routine 02/01/2025 10:37 AM CDT VA AN ELECTIVE ENDOTRACHEAL AIRWAY Routine 02/01/2025 10:37 AM CDT XR SPINE LUMBAR 2 OR 3 VIEWS IP Routine 02/01/2025 10:29 AM CDT SPINAL CORD MONITORING 02/01/2025 9:20 AM CDT Spondylolisthesis of lumbar region Other intervertebral disc degeneration, 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 Other intervertebral disc displacement, lumbosacral region Other intervertebral disc degeneration, lumbar region with discogenic back pain only Case Notes 01/31@1221- Per Kelly via email move to start at 0830- DMF [email or web address]- Per Kelly via email add Dr. Valdovinos- DMF [email or web address]- Per Kelly via staff msg make first case - DMF [email or web address] email to [place] resource nurse and office staff about missing dpc. DMF FUSION SPINAL - POSTERIOR LUMBAR/THORACIC WITH INSTRUMENTATION - INTERBODY FUSION 02/01/2025 9:20 AM CDT Spondylolisthesis of lumbar region Other intervertebral disc degeneration, 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 Other intervertebral disc displacement, lumbosacral region Other intervertebral disc degeneration, lumbar region with discogenic back pain only Case Notes 01/31@1221- Per Kelly via email move to start at 0830- DMF [email or web address]- Per Kelly via email add Dr. Post DMF [email or web address]- Per Kelly via staff msg make first case - DMF [email or web address]-Sent email to [place] resource nurse and office staff about missing dpc. DMF EGFR Routine 01/29/2025 5:21 PM CDT Spondylolisthesis of lumbar region Other intervertebral disc degeneration, 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 Other intervertebral disc displacement, lumbosacral region Other intervertebral disc degeneration, lumbar region with discogenic back pain only DIFFERENTIAL AUTO Routine 01/29/2025 5:2 1 PM CDT Spondylolisthesis of lumbar region Other intervertebral disc degeneration, 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 Other intervertebral disc displacement, lumbosacral region Other intervertebral disc degeneration, lumbar region with discogenic back pain only PROTIME-INR Routine 01/29/2025 5:21 PM CDT Spondylolisthesis of lumbar region Other intervertebral disc degeneration, 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 Other intervertebral disc displacement, lumbosacral region Other intervertebral disc degeneration, lumbar region with discogenic back pain only CBC WITH AUTO DIFFERENTIAL Routine 01/29/2025 5:21 PM CDT Spondylolisthesis of lumbar region Other intervertebral disc degeneration, 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 Other intervertebral disc displacement, lumbosacral region Other intervertebral disc degeneration, lumbar region with discogenic back pain only VITAMIN D 25 HYDROXY Routine 01/29/2025 5:21 PM CDT Spondylolisthesis of lumbar region Other intervertebral disc degeneration, 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 Other intervertebral disc displacement, lumbosacral region Other intervertebral disc degeneration, lumbar region with discogenic back pain only BASIC METABOLIC PANEL Routine 01/29/2025 5:21 PM CDT Spondylolisthesis of lumbar region Other intervertebral disc degeneration, 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 Other intervertebral disc displacement, lumbosacral region Other intervertebral disc degeneration, lumbar region with discogenic back pain only TYPE AND SCREEN 14 DAY Routine 01/29/2025 5:21 PM CDT Pre-op evaluation CPAP APTT ALGORITHM Routine 01/29/2025 5 :21 PM CDT Pre-op evaluation URINALYSIS AND REFLEX TO MICROSCOPIC AND CULTURE Routine 01/29/2025 5:21 PM CDT Spondylolisthesis of lumbar region Other intervertebral disc degeneration, 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 Other intervertebral disc displacement, lumbosacral region Other intervertebral disc degeneration, lumbar region with discogenic back pain only CT LUMBAR SPINE WO CONTRAST Schedule Routine, Read Routine (OP Routine) 01/19/2025 5:03 PM CDT Other intervertebral disc degeneration, lumbar region with discogenic back pain only Other intervertebral disc displacement, lumbosacral region Spondylolisthesis of lumbar region Other intervertebral disc degeneration, 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 MRI CERVICAL SPINE WO CONTRAST Schedule Routine, Read Routine (OP Routine) 01/19/2025 4:26 PM CDT Other cervical disc degeneration at C5-C6 level Cord compression (HCC) DEXA AXIAL SKELETON BONE DENSITY 1 OR MORE SITES Schedule Routine, Read Routine (OP Routine) 01/17/2025 8:16 AM CDT Other osteoporosis without current pathological fracture XR SCOLIOSIS 6 OR MORE VIEWS Schedule Routine, Read Routine (OP Routine) 01/09/2025 8:51 AM CDT Low back pain, non-specific NEURO MR OUTSIDE REFERENCE Routine 01/08/2025 1:50 PM CDT HEPATITIS C ANTIBODY Routine 04/11/2019 from Last 3 Months or Most Recently Relevant to Health Maintenance Results * XR Scoliosis Ap and Lateral (02/02/2025 10:48 AM CDT) Anatomical Region Laterality Modality Spine N/A Computed Radiogr aphy 02/02/2025 11:0 1 AM CDT Impressions 02/02/2025 11:01 AM CDT 1. Unchanged combined anterior and posterior instrumented fusion at L1-L2 Electronically signed by: Sade Ordonez MD Narrative 02/02/2025 11:01 AM CDT EXAMINATION: XR SCOLIOSIS AP AND LATERAL HISTORY: Back pain. FINDINGS: Comparison to 02/01/2025. Unchanged combined anterior and posterior instrumented fusion at L1-L2. Hardware is intact. Mild residual dextrocurvature of the thoracic lumbar spine centered at L1 and levocurvature of the thoracic lumbar spine centered at T8. No significant coronal imbalance. Mild positive sagittal imbalance. Mild respiratory pelvic obliquity. Posterior surgical drain present. Moderate multilevel lumbar degenerative disease at the unfused segments. Grade 1 anterolisthesis of L5 on S1. Procedure Note Sade Ordonez MD - 02/02/2025 EXAMINATION: XR SCOLIOSIS AP AND LATERAL HISTORY: Back pain. FINDINGS: Comparison to 02/01/2025. Unchanged combined anterior and posterior instrumented fusion at L1-L2. Hardware is intact. Mild residual dextrocurvature of the thoracic lumbar spine centered at L1 and levocurvature of the thoracic lumbar spine centered at T8. No significant coronal imbalance. Mild positive sagittal imbalance. Mild respiratory pelvic obliquity. Posterior surgical drain present. Moderate multilevel lumbar degenerative disease at the unfused segments. Grade 1 anterolisthesis of L5 on S1. IMPRESSION: 1. Unchanged combined anterior and posterior instrumented fusion at L1-L2 Electronically signed by: Sade Ordonez MD Devika Valdovinos DO IMG XR PROCEDURES Final Result * eGFR (02/02/2025 8:40 AM CDT) eGFR 83 >=60 mL/min/1. 73 m2 Comment: Interpretive Data Reference Interval Normal >/= 90 mL/min/1.73m2 Mildly decreased* 60 - 89 mL/min/1.73m2 Mildly to moderately decreased 45 - 59 mL/min/1.73m2 Moderately to severely decreased 30 - 44 mL/min/1.73m2 Severely decreased 15 - 29 mL/min/1.73m2 Kidney Failure < 15 mL/min/1.73m2 *Relative to young adult level Estimated glomerular filtration rate is determined by the 2020 CKD-EPI equation recommended by the National Kidney Foundation (A Unifying Approach to GFR Estimation: Recommendations of the NKF-ASK Task Force on Reassessing the Inclusion of Race in Diagnosing Kidney Disease, JASN 2020). The CKD-EPI equation should not be used for patients with unstable renal function and has not been validated in children and those over 70. Current interpretive data was last reviewed 2021. Blood 02/02/2025 8:40 AM CDT 02/02/2025 8:57 AM CDT us Myra Fontenot DYNAMIC ETCHING PROCESSOR LAB BLOOD ORDERABLES Delaney miranda Result [facility] [place] [address] * (ABNORMAL) Differential, auto (02/02/2025 8:40 AM CDT) Neutrophil abs 11.61(H) 1.50 - 6.50 K/cumm Imm gran abs 0.06 0.00 - 0.10 K/cumm [facility] Lymphocyte abs 1.96 0.80 - 3.30 K/cumm [facility] Monocyte abs 0.89(H) 0.20 - 0.80 K/cumm [facility] Eosinophil abs 0.02 0.00 - 0.50 K/cumm [facility] Basophil abs 0.04 0.00 - 0.10 K/cumm [facility] Neutrophil pct 79.7 % [facility] Comment: Interpretive Data Percent cell count reference ranges are not reported, since discordance with absolute values may lead to misinterpretation of CBC data. Current Interpretive Data was last revised on 2017. Imm gran pct 0.4 % [facility] Comment: Interpretive Data Percent cell count reference ranges are not reported, since discordance with absolute values may lead to misinterpretation of CBC data. Current Interpretive Data was last revised on 2017. Lymphocyte pct 13.4 % [facility] Comment: Interpretive Data Percent cell count reference ranges are not reported, since discordance with absolute values may lead to misinterpretation of CBC data. Current Interpretive Data was last revised on 2017. Monocyte pct 6.1 % [facility] Comment: Interpretive Data Percent cell count reference ranges are not reported, since discordance with absolute values may lead to misinterpretation of CBC data. Current Interpretive Data was last revised on 2017. Eosinophil pct 0.1 % [facility] Comment: Interpretive Data Percent cell count reference ranges are not reported, since discordance with absolute values may lead to misinterpretation of CBC data. Current Interpretive Data was last revised on 2017. Basophil pct 0.3 % [facility] Comment: Interpretive Data Percent cell count reference ranges are not reported, since discordance with absolute values may lead to misinterpretation of CBC data. Current Interpretive Data was last revised on 2017. Blood 02/02/2025 8:40 AM CDT 02/02/2025 8:57 AM CDT Myra Fontenot NP LAB BLOOD ORDERABLES Delaney miranda Result [facility] Department [place] [address] * (ABNORMAL) CBC with auto differential (02/02/2025 8:40 AM CDT) WBC 14.58(H) 3.80 - 9.90 K/cumm Hgb 11.9 11.9 - 15.5 g/dL [facility] Hct 35.2(L) 35.6 - 45.5 % [facility] Plt 222 150 - 400 K/cumm [facility] MPV 10.6 9.1 - 12.3 fL [facility] RBC 4.00 3.90 - 5.20 M/cumm [facility] MCV 88.0 81.3 - 96.4 fL [facility] MCH 29.8 27.1 - 33.3 pg [facility] MCHC 33.8 32.3 - 35.7 g/dL [facility] RDW CV 13.5 11.1 - 14.9 % [facility] RDW SD 43.5 35.7 - 48.1 fL [facility] NRBC abs 0.00 0.00 - 0.01 K/cumm [facility] Blood 02/02/2025 8:40 AM CDT 02/02/2025 8:57 AM CDT Myra Fontenot DYNAMIC ETCHING PROCESSOR LAB BLOOD ORDERABLES Delaney miranda Result [facility] [place] [address] * (ABNORMAL) Comprehensive metabolic panel (02/02/2025 8:40 AM CDT) Sodium 139 135 - 145 mmol/L Potassium, pl 4.5 3.3 - 4.9 mmol/L [facility] Chloride 106 97 - 110 mmol/L [facility] CO2 26 22 - 32 mmol/L [facility] Anion gap 7 2 - 15 mmol/L [facility] BUN 7 6 - 25 mg/dL [facility] Creatinine 0.87 0.60 - 1.10 mg/dL [facility] Glucose 104 70 - 199 mg/dL [facility] Comment: Interpretive Data Fasting glucose >/= 126 mg/dl is diagnostic for diabetes. Fasting is defined as no caloric intake for at least 8 hours. Fasting glucose between 100 mg/dl to 125 mg/dl is diagnostic of prediabetes. In a patient with classic symptoms of hyperglycemia or hyperglycemic crisis, a random glucose >/= 200 mg/dl is diagnostic for diabetes. In the absence of unequivocal hyperglycemia, results should be confirmed by repeat testing. The classification and Diagnosis of Diabetes Diabetes Care 2021; 46: S19-S40. Current interpretive data was last revised 2022. Calcium 8.6 8.5 - 10.3 mg/dL [facility] Bilirubin, total 0.3 0.1 - 1.2 mg/dL [facility] Protein, pl 6.0(L) 6.5 - 8.5 g/dL [facility] Albumin 3.5 3.5 - 5.0 g/dL [facility] Alk phos 92 40 - 130 Units/L [facility] ALT 18 7 - 45 Units/L [facility] AST 58(H) 10 - 45 Units/L [facility] Blood 02/02/2025 8:40 AM CDT 02/02/2025 8:57 AM CDT us Myra Ayanakevin Fontenot DYNAMIC ETCHING PROCESSOR LAB BLOOD ORDERABLES Delaney miranda Result [facility] Department [place] [address] * XR Spine Lumbar 1 View (02/01/2025 4:06 PM CDT) Anatomical Region Laterality Modality Spine N/A Computed Radiogr aphy 02/01/2025 4:50 PM CDT Impressions 02/01/2025 4:50 PM CDT Anticipated postoperative changes of L1-L2 posterior decompression with posterior and interbody fusion. Electronically signed by: Chuy Kerr D.O. Narrative 02/01/2025 4:50 PM CDT EXAMINATION: XR SPINE LUMBAR 1 VIEW HISTORY: closure COMPARISON: Radiographs 02/02/2024 FINDINGS: Interval postoperative changes of L1-L2 posterior decompression with posterior and interbody fusion. Intact hardware. Surgical drain and postoperative soft tissue gas in the posterior spinal soft tissues. Normal vertebral body heights. Grade 1 L4 and L5 anterolisthesis with bilateral pars defects. Moderate L2-L3 and L5-S1 degenerative disc changes. Procedure Note Chuy Kerr DO - 02/01/2025 EXAMINATION: XR SPINE LUMBAR 1 VIEW HISTORY: closure COMPARISON: Radiographs 02/02/2024 FINDINGS: Interval postoperative changes of L1-L2 posterior decompression with posterior and interbody fusion. Intact hardware. Surgical drain and postoperative soft tissue gas in the posterior spinal soft tissues. Normal vertebral body heights. Grade 1 L4 and L5 anterolisthesis with bilateral pars defects. Moderate L2-L3 and L5-S1 degenerative disc changes. IMPRESSION: Anticipated postoperative changes of L1-L2 posterior decompression with posterior and interbody fusion. Electronically signed by: Chuy Kerr D.O. us Adelso Ypi MD IMG XR PROCEDURES Final Re sult * FL Fluoroscopy < 1 Hour (02/01/2025 4:06 PM CDT) Narrative [facility] - 02/01/2025 4:40 PM CDT The images from this study are not interpreted by Radiology. Please refer to the physician's procedure / OR operative note. us Adelso Yip MD IMG FLUOROSCOPY PROCEDURES Final Result [facility] * XR Spine Lumbar 1 View (02/01/2025 12:11 PM CDT) Anatomical Region Laterality Modality Spine N/A Computed Radiogr aphy 02/01/2025 12:2 7 PM CDT Impressions 02/01/2025 12:27 PM CDT 1. In progress instrumented spinal fusion with surgical instrumentation marking the L1 and L2 segments. 2. Unchanged moderate multilevel lumbar degenerative disc disease with L5 pars defects. Electronically signed by: Hiren Spencer M.D. Narrative 02/01/2025 12:27 PM CDT EXAMINATION: XR SPINE LUMBAR 1 VIEW HISTORY: intra op FINDINGS: Lateral intraoperative radiograph of the lumbar spine is read with comparison to same date radiographs obtained at 1014 hours. Surgical instrumentation is now present marking the L1 and L2 segments. Unchanged multilevel lumbar degenerative disc disease most pronounced at L2-L3 and L5-S1. Unchanged grade 1 anterolisthesis of L5 on S1 secondary to pars defects. Procedure Note Hiren Galaviz MD - 02/01/2025 EXAMINATION: XR SPINE LUMBAR 1 VIEW HISTORY: intra op FINDINGS: Lateral intraoperative radiograph of the lumbar spine is read with comparison to same date radiographs obtained at 1014 hours. Surgical instrumentation is now present marking the L1 and L2 segments. Unchanged multilevel lumbar degenerative disc disease most pronounced at L2-L3 and L5-S1. Unchanged grade 1 anterolisthesis of L5 on S1 secondary to pars defects. IMPRESSION: 1. In progress instrumented spinal fusion with surgical instrumentation marking the L1 and L2 segments. 2. Unchanged moderate multilevel lumbar degenerative disc disease with L5 pars defects. Electronically signed by: Hiren Spencer M.D. us Adelso Yip MD IMG XR PROCEDURES Final Re sult * [facility] AN PROCEDURE PLACEHOLDER (02/01/2025 10:39 AM CDT) Anastacia Davis CRNA - 02/01/2025 10:39 AM CDT Anastacia Davidson CRNA 02/01/2025 10:40 AM Peripheral IV Catheter Patient location: OR Staff: Supervising provider: Nash Gardiner MD Placed by: Other staff: Bettie Sarkar BSN Preprocedure prep: Prep solution: chlorhexadine PPE: gloves and provider hat/mask PIV line: Laterality: left Site: wrist Catheter size: 18 g Technique: direct visualization and palpatation Procedure details: good blood return and occlusive dressing applied Number of attempts: 2 Assessment: Events: patient tolerated procedure well with no complications us Nash Gardiner MD ANESTHESIA ORDERABLES Final Result * VA AN ELECTIVE ENDOTRACHEAL AIRWAY, [facility] AN PROCEDURE PLACEHOLDER (02/01/2025 10:37 AM CDT) Anastacia Davis CRNA - 02/01/2025 10:37 AM CDT Anastacia Davidson CRNA 02/01/2025 10:38 AM Airway Patient location: OR Urgency: elective Date/time: 02/01/2025 9:32 AM Indications for airway management: anesthesia Difficult airway: no Staff: Supervising provider: Nash Gardiner MD Placed by: AIRPLANE PILOT CHIEF: Anastacia Davidson CRNA Other staff: Bettie Sarkar BSN Emergent airway documentation: Risks and benefits discussed: yes Consent obtained: yes Consent given by: patient Airway prep: Preoxygenated: yes Patient position: sniffing Mask difficulty assessment: 0 - not attempted Spontaneous ventilation during airway: absent Sedation level during airway: GA Final airway details: Final airway type: endotracheal airway Tube type: ETT Cuffed: yes Technique used for successful ETT placement: video laryngoscopy Devices/Methods used in placement: stylet Insertion site: oral Blade type: Luz Marina Video blade type: Ramsey Blade size: 3 Cormack-Lehane (video): grade I - full view of glottis Initial cuff pressure: 29 cm H2O Cuff inflated with: air ETT to gums: 21 cm Placement verified by: auscultation Airway secured with: silk tape Number of attempts: 1 us Nash Gardiner MD ANESTHESIA ORDERABLES Final Result * XR Spine Lumbar 2 or 3 Views (02/01/2025 10:29 AM CDT) Anatomical Region Laterality Modality Spine N/A Computed Radiogr aphy 02/01/2025 10:4 3 AM CDT Impressions 02/01/2025 10:43 AM CDT Intraoperative lumbar spine radiographs with surgical marker device at the T12-L1 interspinous space. Electronically signed by: Beka Dennison M.D. Narrative 02/01/2025 10:43 AM CDT XR SPINE LUMBAR 2 OR 3 VIEWS HISTORY: Lumbar fusion. FINDINGS: 2 intraoperative views of the lumbar spine are obtained and compared with 01/09/2025. There is unchanged moderate multilevel lumbar degenerative disc disease with grade 2 L5 on S1 anterolisthesis and bilateral L5 pars intra-articularis defects. There is a surgical marker device placed at the T12-L1 interspinous space no additional findings are noted. Procedure Note Beka eDnnison MD - 02/01/2025 XR SPINE LUMBAR 2 OR 3 VIEWS HISTORY: Lumbar fusion. FINDINGS: 2 intraoperative views of the lumbar spine are obtained and compared with 01/09/2025. There is unchanged moderate multilevel lumbar degenerative disc disease with grade 2 L5 on S1 anterolisthesis and bilateral L5 pars intra-articularis defects. There is a surgical marker device placed at the T12-L1 interspinous space no additional findings are noted. IMPRESSION: Intraoperative lumbar spine radiographs with surgical marker device at the T12-L1 interspinous space. Electronically signed by: Beka Dennison M.D. us Adelso Yip MD IMG XR PROCEDURES Final Re sult * TYPE AND SCREEN 14 DAY (01/29/2025 5:21 PM CDT) ABO Rh B Negative Barbara, indirect Negative [facility] Comment:Patient has previous antibody history Blood 01/29/2025 5:21 PM CDT 01/29/2025 9:36 PM CDT Narrative [facility] - 01/29/2025 11:05 PM CDT Is this test being ordered in advance for a procedure?->Yes Expected date of procedure:->02/01/25 Has the patient been transfused in the past 3 months?->No Has the patient been in the past 3 months?->No us Debby Nam NP LAB BLOOD BANK TEST ORDERABL ES Final Result Performing Organization Address City/State/[facility] Co de Phone Number [facility] Department [place] [address] * eGFR (01/29/2025 5:21 PM CDT) eGFR 76 >=60 mL/min/1. 73 m2 Comment: Interpretive Data Reference Interval Normal >/= 90 mL/min/1.73m2 Mildly decreased* 60 - 89 mL/min/1.73m2 Mildly to moderately decreased 45 - 59 mL/min/1.73m2 Moderately to severely decreased 30 - 44 mL/min/1.73m2 Severely decreased 15 - 29 mL/min/1.73m2 Kidney Failure < 15 mL/min/1.73m2 *Relative to young adult level Estimated glomerular filtration rate is determined by the 2020 CKD-EPI equation recommended by the National Kidney Foundation (A Unifying Approach to GFR Estimation: Recommendations of the NKF-ASK Task Force on Reassessing the Inclusion of Race in Diagnosing Kidney Disease, JASN 2020). The CKD-EPI equation should not be used for patients with unstable renal function and has not been validated in children and those over 70. Current interpretive data was last reviewed 2021. Blood 01/29/2025 5:21 PM CDT 01/29/2025 5:53 PM CDT us Adelso Yip MD LAB BLOOD ORDERABLES Final Result [facility] [place] [address] * (ABNORMAL) Differential, auto (01/29/2025 5:21 PM CDT) Neutrophil abs 6.72(H) 1.50 - 6.50 K/cumm Imm gran abs 0.03 0.00 - 0.10 K/cumm [facility] Lymphocyte abs 2.40 0.80 - 3.30 K/cumm [facility] Monocyte abs 0.48 0.20 - 0.80 K/cumm [facility] Eosinophil abs 0.15 0.00 - 0.50 K/cumm [facility] Basophil abs 0.05 0.00 - 0.10 K/cumm [facility] Neutrophil pct 68.4 % [facility] Comment: Interpretive Data Percent cell count reference ranges are not reported, since discordance with absolute values may lead to misinterpretation of CBC data. Current Interpretive Data was last revised on 2017. Imm gran pct 0.3 % [facility] Comment: Interpretive Data Percent cell count reference ranges are not reported, since discordance with absolute values may lead to misinterpretation of CBC data. Current Interpretive Data was last revised on 2017. Lymphocyte pct 24.4 % [facility] Comment: Interpretive Data Percent cell count reference ranges are not reported, since discordance with absolute values may lead to misinterpretation of CBC data. Current Interpretive Data was last revised on 2017. Monocyte pct 4.9 % [facility] Comment: Interpretive Data Percent cell count reference ranges are not reported, since discordance with absolute values may lead to misinterpretation of CBC data. Current Interpretive Data was last revised on 2017. Eosinophil pct 1.5 % [facility] Comment: Interpretive Data Percent cell count reference ranges are not reported, since discordance with absolute values may lead to misinterpretation of CBC data. Current Interpretive Data was last revised on 2017. Basophil pct 0.5 % [facility] Comment: Interpretive Data Percent cell count reference ranges are not reported, since discordance with absolute values may lead to misinterpretation of CBC data. Current Interpretive Data was last revised on 2017. Blood 01/29/2025 5:21 PM CDT 01/29/2025 5:51 PM CDT us Adelso Yip MD LAB BLOOD ORDERABLES Final Result Performing Organization Address [facility] [place] [address] * CPAP aPTT algorithm (01/29/2025 5:21 PM CDT) aPTT 34 28 - 38 sec Comment: Interpretive Data Heparin therapeutic range: 66.0 - 100.0 seconds. Range based on correlation with therapeutic heparin activity range of 0.3 - 0.7 Units/mL. Current interpretive data was last revised on 2023. Blood 01/29/2025 5:21 PM CDT 01/29/2025 5:43 PM CDT us Debby Nam NP LAB BLOOD ORDERABLES Final R esult Performing Organization Address [facility] [place] [address] * Urinalysis reflex to microscopic and culture Urine, clean voided (01/29/2025 5:21 PM CDT) Color, ur Straw Yellow Clarity, ur Clear Clear [facility] Specific gravity, ur 1.006 1.003 - 1.030 [facility] pH, urine 6.0 [facility] Comment: Interpretive Data U rine pH is affected by diet, medications, systemic acid-base disturbances, and renal tubular function. pH may affect urinary stone formation. For example, urine pH below 6.0 may help reduce the tendency for calcium phosphate stones and pH greater than 6.0 may reduce the tendency for uric acid stone formation. Source: [facility] Current Interpretive Data was last revised on 2017 Protein, ur ql Negative Negative [facility] Glucose, ur ql Negative Negative [facility] Ketones, ur Negative Negative [facility] Bilirubin, ur Negative Negative [facility] Blood, ur Negative Negative [facility] Urobilinogen, ur <2.0 <2.0 mg/dL [facility] Nitrite, ur Negative Negative [facility] Leukocyte esterase, ur Negative Negative [facility] UA reflex comment Reflex conditions for microscopic UA and culture not met. [facility] Urine, clean voided 01/29/2025 5:21 PM CDT 01/29/2025 5:43 PM CDT Adelso Yip MD LAB MICROBIOLOGY - GENERAL ORDERABLES Final Result Performing Organization Address City/[facility] Co de Phone Number [facility] [place] [address] * CBC with auto differential (01/29/2025 5:21 PM CDT) WBC 9.83 3.80 - 9.90 K/cumm Hgb 14.5 11.9 - 15.5 g/dL [facility] Hct 42.0 35.6 - 45.5 % [facility] Plt 237 150 - 400 K/cumm [facility] MPV 10.5 9.1 - 12.3 fL [facility] RBC 4.75 3.90 - 5.20 M/cumm [facility] MCV 88.4 81.3 - 96.4 fL [facility] MCH 30.5 27.1 - 33.3 pg [facility] MCHC 34.5 32.3 - 35.7 g/dL [facility] RDW CV 13.6 11.1 - 14.9 % [facility] RDW SD 44.1 35.7 - 48.1 fL [facility] NRBC abs 0.00 0.00 - 0.01 K/cumm [facility] Blood 01/29/2025 5:21 PM CDT 01/29/2025 5:51 PM CDT Adelso Yip MD LAB BLOOD ORDERABLES Final Result Performing Organization Address City/State/[facility] Co de Phone Number [facility] [place] [address] * (ABNORMAL) Vitamin D 25 hydroxy (01/29/2025 5:21 PM CDT) Pathologist [facility] Vitamin D 25-OH 17(L) 30 - 80 ng/mL Blood 01/29/2025 5:21 PM CDT 01/29/2025 5:53 PM CDT Adelso Yip MD LAB BLOOD ORDERABLES Final Result Performing Organization Address [facility] Co de Phone Number [facility] [place] [address] * Protime-INR (01/29/2025 5:21 PM CDT) [facility] PT 10.7 9.7 - 13.0 sec INR 0.99 0.90 - 1.20 [facility] Comment: Interpretive data Oral anticoagulant therapeutic ranges: Venous thromboembolism prophylaxis or treatment: 2.0-3.0 CARDIOLOGY Standard range: 2.0-3.0 High-intensity range: 2.5-3.5 Refer to indication-specific guidelines for appropriate target ranges for prosthetic heart valve replacement. Current interpretive data was last revised on 2019. Blood 01/29/2025 5:21 PM CDT 01/29/2025 5:43 PM CDT Adelso Yip MD LAB BLOOD ORDERABLES Final Result Performing Organization Address [facility] Co de Phone Number [facility] [place] [address] * Basic metabolic panel (01/29/2025 5:21 PM CDT) Pathologist [facility] Sodium 138 135 - 145 mmol/L Potassium, pl 4.0 3.3 - 4.9 mmol/L [facility] Chloride 103 97 - 110 mmol/L [facility] CO2 26 22 - 32 mmol/L [facility] Anion gap 9 2 - 15 mmol/L [facility] BUN 8 6 - 25 mg/dL [facility] Creatinine 0.94 0.60 - 1.10 mg/dL [facility] Glucose 90 70 - 199 mg/dL [facility] Comment: Interpretive Data Fasting glucose >/= 126 mg/dl is diagnostic for diabetes. Fasting is defined as no caloric intake for at least 8 hours. Fasting glucose between 100 mg/dl to 125 mg/dl is diagnostic of prediabetes. In a patient with classic symptoms of hyperglycemia or hyperglycemic crisis, a random glucose >/= 200 mg/dl is diagnostic for diabetes. In the absence of unequivocal hyperglycemia, results should be confirmed by repeat testing. The classification and Diagnosis of Diabetes Diabetes Care 2021; 46: S19-S40. Current interpretive data was last revised 2022. Calcium 9.1 8.5 - 10.3 mg/dL [facility] Blood 01/29/2025 5:21 PM CDT 01/29/2025 5:53 PM CDT us Adelso Yip MD LAB BLOOD ORDERABLES Final Result [facility] Department [place] [address] * CT Lumbar Spine WO Contrast (01/19/2025 5:03 PM CDT) Anatomical Region Laterality Modality Spine N/A Computed Tomogra phy 01/20/2025 9:52 PM CDT Narrative 01/20/2025 9:55 PM CDT EXAM DESCRIPTION: CT LUMBAR SPINE WO CONTRAST REASON FOR STUDY: lumbar pain Low back pain ongoing for more than 2 years. Pain radiates into both legs, numbness in both legs. TECHNIQUE: Axial images acquired through the lumbar spine without intravenous contrast. Reconstructed coronal and sagittal MPR images reviewed. All images stored on PACS. Automated exposure control was used as a dose optimization technique for this examination. COMPARISON: None FINDINGS: VERTEBRAE: Grade 1 anterolisthesis at L5-S1 unchanged. Bilateral L5 pars defects. Advanced disc disease L2-3 and L5-S1, moderate disease at L1-2, mild disease at other levels. Moderate facet arthropathy. No fracture, malalignment, or suspicious osseous lesion is seen. Disc bulge L1-2 severely narrows the central canal. Moderate left-sided neural foraminal narrowing at L2-3 and L5-S1. OTHER OSSEOUS: Unremarkable. SOFT TISSUES: Unremarkable. IMPRESSION: No acute abnormality identified. Severe central canal stenosis at L1-2 secondary to disc bulge. Moderate left-sided neural foraminal narrowing at L2-3 and L5-S1. Bilateral L5 pars defects with grade 1 anterolisthesis at L5-S1. THIS IS AN ELECTRONICALLY VERIFIED FINAL REPORT 01/20/2025 9:55 PM - Electronically signed by Samm Gaspar M.D. AR: DONA Report ID: [id number] Reading Location: [id number] Procedure Note Samm Gaspar MD - 01/20/2025 EXAM DESCRIPTION: CT LUMBAR SPINE WO CONTRAST REASON FOR STUDY: lumbar pain Low back pain ongoing for more than 2 years. Pain radiates into both legs, numbness in both legs. TECHNIQUE: Axial images acquired through the lumbar spine withoutintravenous contrast. Reconstructed coronal and sagittal MPR images reviewed. Allimages stored on PACS. Automated exposure control was used as a dose optimization technique forthis examination. COMPARISON: None FINDINGS: VERTEBRAE: Grade 1 anterolisthesis at L5-S1 unchanged. Bilateral L5pars defects. Advanced disc disease L2-3 and L5-S1, moderate disease at L1-2,mild disease at other levels. Moderate facet arthropathy. No fracture, malalignment, or suspicious osseous lesion is seen. Disc bulge L1-2severely narrows the central canal. Moderate left-sided neural foraminal narrowingat L2-3 and L5-S1. OTHER OSSEOUS: Unremarkable. SOFT TISSUES: Unremarkable. IMPRESSION: No acute abnormality identified. Severe central canal stenosis at L1-2 secondary to disc bulge. Moderate left-sided neural foraminal narrowing at L2-3 and L5-S1. Bilateral L5 pars defects with grade 1 anterolisthesis at L5-S1. THIS IS AN ELECTRONICALLY VERIFIED FINAL REPORT 01/20/2025 9:55 PM - Electronically signed by Samm Gaspar M.D. AR: DONA Report ID: [id number] Reading Location: [id number] us Adelso Yip MD IMG CT PROCEDURES Final Re sult * MRI Cervical Spine WO Contrast (01/19/2025 4:26 PM CDT) Anatomical Region Laterality Modality Spine N/A Magnetic Resonan ce 01/23/2025 7:50 AM CDT Narrative 01/23/2025 7:56 AM CDT EXAM DESCRIPTION: MRI CERVICAL SPINE WO CONTRAST REASON FOR STUDY: cord compression pain in her neck and pain that shoots down her arms that has worsened over the last few weeks. TECHNIQUE: Sagittal and Axial imaging includes T1, T2, STIR and gradient echo sequences. COMPARISON: None available. FINDINGS: Multiple of the sequences are degraded by motion related artifact. ALIGNMENT: Straightening of the cervical lordosis. Grade 1 retrolisthesis of C4 on C5. VERTEBRAE: No gross acute compression fracture in the cervical spine. If trauma is suspected then a CT has higher sensitivity for spinal fractures and can be obtained as clinically indicated. Multilevel endplate degenerative changes, most noticeable at C4-C5 and C5-C6. DISCS: Multilevel disc desiccation and height loss. HARDWARE: None in the spine. CORD: Not adequately visualized due to extensive motion and pulsation artifact. If there is high suspicion for cord pathology then consider a repeat MRI with attention to minimize artifact and acquisition additional axial T2 weighted sequence. INDIVIDUAL LEVELS: C2-C3: Tiny central disc protrusion and thickened ligamentum flavum. No significant spinal canal or neural foraminal narrowing. C3-C4: Posterior disc osteophyte complex without significant spinal canal stenosis. Uncovertebral spurring and facet arthropathy with moderate right and mild left foraminal narrowing. C4-C5: Posterior disc osteophyte complex and thickened ligamentum flavum. Moderate spinal canal stenosis. Uncovertebral spurring and facet arthropathy with moderate foraminal narrowing. C5-C6: Posterior disc osteophyte complex without significant spinal canal stenosis. Uncovertebral spurring and facet arthropathy with moderate right and no significant left neural foraminal narrowing. C6-C7: Posterior disc osteophyte complex without significant spinal canal stenosis. Uncovertebral spurring and facet arthropathy with [id number] right and mild proximal left neural foraminal narrowing. C7-T1: No significant disc bulge, spinal canal or neural foraminal narrowing. There is bilateral facet arthropathy. UPPER THORACIC: Incompletely imaged. Multilevel degenerative changes without high-grade spinal canal stenosis. IMPRESSION: 1. Motion degraded examination. 2. Multilevel cervical disc degeneration with thickened ligamentum flavum, uncovertebral spurring and facet arthropathy as described. The spinal canal narrowing is most noticeable at C4-C5. 3. Varying degrees of bilateral neural foraminal stenosis and additional findings as above. THIS IS AN ELECTRONICALLY VERIFIED FINAL REPORT 01/23/2025 7:56 AM - Electronically signed by Luke Tyson D.O. AP: AP Report ID: [id number] Reading Location: [place] [id number] Procedure Note Luke Tyson, DO - 01/23/2025 EXAM DESCRIPTION: MRI CERVICAL SPINE WO CONTRAST REASON FOR STUDY: cord compression pain in her neck and pain that shoots down her arms that has worsened overthe last few weeks. TECHNIQUE: Sagittal and Axial imaging includes T1, T2, STIR and gradientecho sequences. COMPARISON: None available. FINDINGS: Multiple of the sequences are degraded by motion related artifact. ALIGNMENT: Straightening of the cervical lordosis. Grade 1retrolisthesis of C4 on C5. VERTEBRAE: No gross acute compression fracture in the cervical spine.If trauma is suspected then a CT has higher sensitivity for spinal fracturesand can be obtained as clinically indicated. Multilevel endplate degenerative changes, most noticeable at C4-C5 and C5-C6. DISCS: Multilevel disc desiccation and height loss. HARDWARE: None in the spine. CORD: Not adequately visualized due to extensive motion and pulsation artifact. If there is high suspicion for cord pathology then consider a repeat MRI with attention to minimize artifact and acquisition additional axial T2 weighted sequence. INDIVIDUAL LEVELS: C2-C3: Tiny central disc protrusion and thickened ligamentum flavum. No significant spinal canal or neural foraminal narrowing. C3-C4: Posterior disc osteophyte complex without significant spinal canal stenosis. Uncovertebral spurring and facet arthropathy with moderateright and mild left foraminal narrowing. C4-C5: Posterior disc osteophyte complex and thickened ligamentum flavum. Moderate spinal canal stenosis. Uncovertebral spurring and facetarthropathy with moderate foraminal narrowing. C5-C6: Posterior disc osteophyte complex without significant spinal canal stenosis. Uncovertebral spurring and facet arthropathy with moderateright and no significant left neural foraminal narrowing. C6-C7: Posterior disc osteophyte complex without significant spinal canal stenosis. Uncovertebral spurring and facet arthropathy [id number] right and mild proximal left neural foraminal narrowing. C7-T1: No significant disc bulge, spinal canal or neural foraminalnarrowing. There is bilateral facet arthropathy. UPPER THORACIC: Incompletely imaged. Multilevel degenerative changes without high-grade spinal canal stenosis. IMPRESSION: 1. Motion degraded examination. 2. Multilevel cervical disc degeneration with thickened ligamentumflavum, uncovertebral spurring and facet arthropathy as described. The spinalcanal narrowing is most noticeable at C4-C5. 3. Varying degrees of bilateral neural foraminal stenosis and additional findings as above. THIS IS AN ELECTRONICALLY VERIFIED FINAL REPORT 01/23/2025 7:56 AM - Electronically signed by Luke Tyson D.O. AP: AP Report ID: [id number] Reading Location: [place] [address] Adelso Yip MD [facility] MRI PROCEDURES Final R esult * DEXA Axial Skeleton Bone Density Multi Site (01/17/2025 8:16 AM CDT) Anatomical Region Laterality Modality Body N/A Other 01/17/2025 9:56 AM CDT Impressions 01/17/2025 9:56 AM CDT Normal bone mineral density of lumbar spine at L1-L4, total left hip and left femoral neck. Electronically signed by: Tom Porras II, D.O. Narrative 01/17/2025 9:56 AM CDT Examination: Bone densitometry of the lumbar spine and the left hip History: Osteoporosis screening. Comparison: No priors available for comparison. Findings: The bone densitometry of the L1-L4 region, the left femoral neck and the total left hip was calculated using dual-energy x-ray absorptiometry. Menopausal status: Post menopausal Summary: Bone mineral density (BMD) of the lumbar spine (L1-4): T-score 1.7 Bone mineral density (BMD) of the left femoral neck: T-score -0.3 Bone mineral density (BMD) of the total left hip: T-score 1.1 Procedure Note Tom Porras II, - 01/17/2025 Examination: Bone densitometry of the lumbar spine and the left hip History: Osteoporosis screening. Comparison: No priors available for comparison. Findings: The bone densitometry of the L1-L4 region, the left femoral neck and the total left hip was calculated using dual-energy x-ray absorptiometry. Menopausal status: Post menopausal Summary: Bone mineral density (BMD) of the lumbar spine (L1-4): T-score 1.7 Bone mineral density (BMD) of the left femoral neck: T-score -0.3 Bone mineral density (BMD) of the total left hip: T-score 1.1 IMPRESSION: Normal bone mineral density of lumbar spine at L1-L4, total left hip and left femoral neck. Electronically signed by: Tom Porras II, D.O. Adelso Yip MD IM DXA PROCEDURES Final R esult * XR Scoliosis 6 or More Views (01/09/2025 8:51 AM CDT) Anatomical Region Laterality Modality Spine N/A Computed Radiogr aphy 01/09/2025 8:57 AM CDT Impressions 01/09/2025 8:57 AM CDT 1. Mild lumbar dextroscoliosis with mild left superior pelvic obliquity and mild anterior sagittal imbalance. 2. Progressive multilevel lumbar degenerative disc disease, worse and severe at L5-S1, with adynamic grade 2 anterolisthesis of L5 on S1. Electronically signed by: Binh Solano D.O. Narrative 01/09/2025 8:57 AM CDT EXAMINATION: XR SCOLIOSIS 6 OR MORE VIEWS HISTORY: lumbar pain COMPARISON: 12/16/2020 FINDINGS: Mild lumbar dextroscoliosis centered at L2. No significant coronal imbalance. Mild left superior pelvic obliquity. Mild anterior sagittal imbalance. Bilateral L5 pars defects with adynamic grade 2 anterolisthesis of L5 on S1. Hypomobility of the lumbar spine on flexion and extension. Progressive multilevel lumbar degenerative disc disease, worst and severe at L5-S1. Cholecystectomy clips. Procedure Note Binh Solano DO - 01/09/2025 EXAMINATION: XR SCOLIOSIS 6 OR MORE VIEWS HISTORY: lumbar pain COMPARISON: 12/16/2020 FINDINGS: Mild lumbar dextroscoliosis centered at L2. No significant coronal imbalance. Mild left superior pelvic obliquity. Mild anterior sagittal imbalance. Bilateral L5 pars defects with adynamic grade 2 anterolisthesis of L5 on S1. Hypomobility of the lumbar spine on flexion and extension. Progressive multilevel lumbar degenerative disc disease, worst and severe at L5-S1. Cholecystectomy clips. IMPRESSION: 1. Mild lumbar dextroscoliosis with mild left superior pelvic obliquity and mild anterior sagittal imbalance. 2. Progressive multilevel lumbar degenerative disc disease, worse and severe at L5-S1, with adynamic grade 2 anterolisthesis of L5 on S1. Electronically signed by: Binh Solano D.O. Adelso Yip MD IM XR PROCEDURES Final Re sult * Neuro MR Outside Reference (01/08/2025 1:50 PM CDT) Impressions RAD_PACS_[facility] - 01/08/2025 1:50 PM CDT These images are for Reference purposes only and have not been reviewed by [facility] Radiology. There will be no report generated by a [facility] Radiologist. Narrative RAD_PACS_[facility] - 01/08/2025 1:50 PM CDT EXAMINATION: Images For Reference Purposes Only Adelso Yip MD IMG MRI PROCEDURES Final R esult [facility]_PACS_[facility] * Hepatitis C antibody (04/11/2019) SCRIBED HCV ab non-reacti ve Blood specimen (specimen) Hugo Jaquez MD LAB MICROBIOLOGY - GENERAL OR DERABLES Final Result from Last 3 Months or Most Recently Relevant to Health Maintenance Insurance Member Subscriber Plan / Payer (Ef fective 2021-Present) Name:Barbra Mendez Relation to Subscriber:Spouse Name:THONY MENDEZ Date of :1971 (Home) Address: [address] [place] [address] Payer ID:[id number] (NAIC) Type: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 ADVANCE DIRECTIVE 11/05/2023 6:51 AM * Full Code (Latest Code Status on File) Date Activated Date Inactivated Comments 02/01/2025 9:03 PM 02/04/2025 9:23 PM * Full Code Date Activated Date Inactivated Comments 07/13/2019 11:56 AM 07/16/2019 6:50 PM * Full Code Date Activated Date Inactivated Comments 07/13/2019 9:24 AM 07/13/2019 11:56 AM Full CPR in case of cardiopulmonary arrest * Full Code Date Activated Date Inactivated Comments 06/17/2019 7:53 PM 06/18/2019 5:47 AM Full CPR i n case of cardiopulmonary arrest Care Teams Cleaner Housekeeping Relationship Specialty Start Date End Date Kimberly Jc NP [address] [place] [address] PCP - General Emergency Medicine 11/22/20 Hugo Jaquez MD Summer Intern Obstetrics and Gynecology 04/12/19
--- OUTSIDE RECORDS SUMMARY | 2025-02-12 19:22 | XMS_ITS | Encounter Summary ---
Author Organization [facility] Address [address] [facility] [address] Phone Care Team Providers Care Terrazzo Roller Name Role Phone Kimberly Jc APRN, KIRILL Primary Care P rovider Mack Owens MD Unavailable Timmy Ibarra Primary Care Provider Francisco Javier Ivey MD Unavailable [phone] Reason for Visit * Reason Comments Medication Refill Encounter Details Date Type Department Care Team (Late st Contact Info) Description 11/18/2022 Refill [facility] - Primary Care - [place] [address] [place] [address] Kimberly Jc APRN, PHOTOGRAPHIC PROCESS WORKER [address] [place] [address] Medication Refill Social History Tobacco [...] Miscellaneous Notes * Telephone Encounter - Ranjana Hernandez, JACINDA - 11/18/2022 11:19 AM CDT gabapentin (NEURONTIN) 300 MG Capsule 270 Capsule 1 08/06/2022 Refill too soon documented in this encounter Plan of Treatment Not on file documented as of this encounter Visit Diagnoses Not on filedocumented in this encounter Additional Health Concerns Assessment Noted Time PHQ-9 Depression Total Score: 0 06/10/20 18 9:00 AM CDT documented as of this encounter Care Teams Terrazzo Roller Relationship Specialty Start Date End Date Kimberly Jc APRN, PHOTOGRAPHIC PROCESS WORKER [address] [place] [address] PCP - General Advanced Practice Nurse 02/14/20 Timmy Ibarra, PAC [address] [place] [id number] PCP - General Physician Campus Security Officer 02/17/24 Mack Owens MD [address] [address] Consulting Physician Colon and Rectal Surgery 11/23/22 Francisco Javier Ivey MD [address] [place] [address] Consulting Physician Neurological Surgery 03/07/24 documented as of this encounter
--- OUTSIDE RECORDS SUMMARY | 2025-02-12 19:22 | XMS_ITS | Encounter Summary ---
Author Organization [facility] Address [address] [place] [address] Phone Care Team Providers Care Blade Groover Name Role Phone Mack Owens MD Unavailable Timmy Ibarra PAC Primary Care Provider Francisco Javier Ivey MD Unavailable [phone] Reason for Visit * Reason Onset Date Comments Flank Pain 02/12/2025 Urinary Frequency 02/12/2025 Encounter Details Date Type Department Care Team (Late st Contact Info) Description 02/12/2025 [facility] [address] [place] [address] Timmy Ibarra, PAC [address] [place] [address] Flank Pain; Urinary Frequency Social History Tobacco Use Types Packs/Day Years Used Date Smoking Tobacco: Every Day Cigarettes 1 32.5 Started: 1992 Smokeless Tobacco: Never Comments:Down to quarter pac k Alcohol Use Standard Drinks/Week Comments No 0 (1 standard drink = 0.6 oz pur e alcohol) [facility] Utilities Answer Date Recorded In the past 12 months has [employer] electric, gas, oil, or water company threatened to shut off services in your home? Yes 10/12/2024 Social Connection and Isolation Panel Answer Date Recorded In a typical week, how many times do you talk on the phone with family, friends, or neighbors? More than three times a week 10/12/2024 How often do you get togethe r with friends or relatives? Once a week 10/12/2024 How often do you attend chur or taoism services? Never 10/12/2024 Do you belong to any clubs o r organizations such as adventist groups, unions, fraternal or athletic groups, or [...] Total Score - Questions 1-9 0 09/30 [facility] - [...] place to sleep or slept in a detention (including now)? No 09/03/2023 Housing Stability Vital Sign Answer Mike e Recorded In the last 12 months, was t here a time when you were not able to pay the mortgage or rent on time? Yes 10/12/2024 In the past 12 months, how m any times have you moved where you were living? 0 10/12/2024 At any time in the past 12 m [facility], were you homeless or living in a detention (including now)? No 10/12/2024 Education Answer Date [...] encounter Miscellaneous Notes * Telephone Encounter - Bharat Weiner RN - 02/12/2025 5:50 PM CDT SITUATION: Bilateral flank pain, bladder pain/pressure BACKGROUND: Barbra contacting PCP office. Spinal Fusion-02[facility] ASSESSMENT: Symptom Description / Location: Onset-3-4 days ago Patient states the symptoms have gotten worse since onset Caller denies blood in urine Patient reports strong smelling urine Patient reports having small stools since surgery. Patient reports having 2 bowel movements since surgery. Been taking miralax daily. Patient reports still passing flatus. Patient states the space between the incision and the top of the buttcrack is numb. Pain: 6/10 Fever: Denies fever. Patient reports having sweats yesterday Treatment / Response: Oxycodone, pushing fluids, heating pad to abdomen with some relief. LMP: Hysterectomy RECOMMENDATION: Dispositions for Encounter:See PCP or video visit within 24 hours, See HCP ( or PCP triage or videovisit) within 4 hours. Reason for Disposition: [1] MILD- MODERATE pain AND [2] constant AND [3] present > 2 hours MODERATE pain (e.g., interferes with normal activities or awakens from sleep) . Protocols Used: Flank Pain-A-AH Pelvic Pain - Female-A-AH Caller agreeable to disposition: See HCP Within 24 hours. Care advice provided per triage guideline. Caller verbalized understanding. Due to office unavailability within disposition, advised for patient to be seen at prompt care or urgent care. Caller agreeable to prompt care/urgent care. - See care advice and disposition for Guideline. First positive answer recorded, all responses to prior questions were negative. If symptoms increase, change or if new symptoms develop, call your health care provider or call back. Recommendations were based on caller information and is not a diagnosis. Verified and reviewed all triage information with caller. 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
--- OUTSIDE RECORDS SUMMARY | 2025-02-12 19:22 | XMS_ITS | Referral Summary ---
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 Discharge Disposition: Discharge to home or self care 02/01/2025 8:30 AM CDT - 02/01/2025 1:30 PM CDT Surgery [facility] Operating Room [address] [place] [address] Adelso Yip MD FUSION SPINAL - POSTERIOR LUMBAR/THORACIC WITH INSTRUMENTATION - INTERBODY FUSION L1-2 decompression, discectomy, TLIF 02/01/2025 9:15 AM CDT Anesthesia Event [facility] Operating Room [address] [place] [address] Nash Gardiner MD Dippolito, Jenny Irene, SURGICAL SERVICES MANAGER 01/30/2025 Orders Only [facility] Neurosurgery [address] [facility] Office Building [address] [place] [address] Adelso Yip MD 01/29/2025 3:30 PM CDT Pre-Admission Testing [facility] Center for Preoperative Assessment and Planning [facility] ([address] [address] Pre-op evaluation (Primary Dx); Spondylolisthesis of lumbar region; Other intervertebral disc degeneration, 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; Other intervertebral disc displacement, lumbosacral region; Other intervertebral disc degeneration, lumbar region with discogenic back pain only 01/19/2025 3:55 PM CDT - 01/19/2025 11:59 PM CDT Hospital Encounter [facility] [address] [place] [address] Other intervertebral disc degeneration, lumbar region with discogenic back pain only; Other intervertebral disc displacement, lumbosacral region; Spondylolisthesis of lumbar region; Other intervertebral disc degeneration, 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 Discharge Disposition: Discharge to home or self care 01/19/2025 3:55 PM CDT - 01/19/2025 11:59 PM CDT Hospital Encounter [facility] 1 [place] [address] Other cervical disc degeneration at C5-C6 level; Cord compression (HCC) Discharge Disposition: Discharge to home or self care 01/18/2025 Telephone [facility] [address] [place] [address] Carrie Cantu 01/17/2025 7:37 AM CDT - 01/17/2025 11:59 PM CDT Hospital Encounter [facility] and Radiiology [address] [place] [phone] Other osteoporosis without current pathological fracture Discharge Disposition: Discharge to home or self care 01/09/2025 Telephone [facility] Neurosurgery [facility] Office Building [address] [place] [phone] Adelso Yip MD 01/09/2025 Orders Only [facility] Neurosurgery [address] Medical Office Building [address] [place] [phone] Adelso Yip MD Other intervertebral disc degeneration, lumbar region with discogenic back pain only (Primary Dx); Other intervertebral disc displacement, lumbosacral region; Spondylolisthesis of lumbar region; Other cervical disc degeneration at C5-C6 level; Other intervertebral disc degeneration, 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; Other osteoporosis without current pathological fracture; Cord compression (HCC) 01/09/2025 8:30 AM CDT - 01/09/2025 11:59 PM CDT Hospital Encounter [facility] Radiology [address] [place] [address] [address] [place] [phone] Low back pain, non-specific Discharge Disposition: Discharge to home or self care 01/09/2025 9:00 AM CDT Office Visit [facility] Neurosurgery [address] [place] [address] Office [facility] [address] [phone] Adelso Yip MD Other intervertebral disc degeneration, lumbar region with discogenic back pain only; Other intervertebral disc displacement, lumbosacral region; Spondylolisthesis of lumbar region; Other cervical disc degeneration at C5-C6 level; Other intervertebral disc degeneration, 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 01/08/2025 1:50 PM CDT - 01/08/2025 11:59 PM CDT Hospital Encounter [facility] [address] [place] [address] Discharge Disposition: Discharge to home or self care 01/04/2025 Orders Only [facility] Neurosurgery [address] [place] [address] Medical Office Building [address] [place] [phone] Adelso Yip MD Low back pain, non-specific (Primary Dx) 12/22/2024 Telephone [facility] Scheduling [address] [place] [address] Soheila Bailey from Last 3 Months Allergies Active Allergy Reactions Criticality Noted Date Comments Bee Pollen Anaphylaxis High 11/08/2020 Metoclopramide Hallucinations Medium 09/01/2017 Medications FLUoxetine (PROzac) 20 mg capsuleIndication s:depression,and anxiety Take 1 capsule (20 mg total) by mouth parts identifier before breakfast 019 Active naloxone (NARCAN) 4 [...] 8 (eight) hours as needed for nausea 2024 Discontinued(T herapy completed) hydroxychloroquin e (PLAQUENIL) 200 mg tabletIndications :Systemic Lupus Erythematosus Take 2 tablets (400 mg total) by mouth daily Patient stated she stopped taking this 12/20 due to increased depression 2024 Discontinued(A lternate therapy) HYDROcodone-aceta minophen (NORCO) 5-325 mg per tablet Take 1 tablet by mouth every 8 (eight) hours as needed for pain 2024 Discontinued(S top Taking at Discharge) celecoxib (CeleBREX) 100 mg capsuleIndication s:Pain Take 1 capsule (100 mg total) by mouth 2 (two) times a day 025 2024 Discontinued(S top Taking at Discharge) UNABLE TO FIND Take 1 each by mouth every morning Med Name: Felecia Escalante energy supplement 2024 Discontinued(S top Taking at Discharge) nicotine (NICODERM CQ) 14 mgIndications:Smo madeline Cessation Place 1 patch on the [...] 09/09/2022 Assessment & Plan (09/09/2022 12:22 PM ZIPPER MEASURER): Increase omeprazole to 40 mg daily Start [...] be retained placenta. Plan for delivery at [facility] Her placentation appears normal on US [...] and GA at presentation, did not offer [place] however we did chief counsel patient on recurrence risk of PTD. Anxiety disorder 04/12/2009 Overview (04/27/2019): On Prozac 20mg daily. Stable. S/p counseling of risk of respiratory depression. Assessment & Plan (07/07/2019 1:34 PM ZIPPER MEASURER): Reports mood has been good on current [...] this time given patient is not making change director several OSH checks and admission exam -No indication for PCN at this time. BGS swab collected -GC/CT collected 06/21/19 [facility] visit: Contractions began this morning, are every 10 minutes, and more severe than they were before. Initial SVE 1/L/H, same as previous. Few contractions on toco. Repeat SVE 1/L/H. Patient reports spontaneous subjective improvement in intensity and frequency of contractions. No e/o PTL. Prec given. 06/28/19 [facility] visit: contractions initially Q10-15 minutes [...] sooner. Assessment & Plan (07/07/2019 1:36 PM ZIPPER MEASURER): Patient has not been getting 2x/weekly testing. [...] Overview (07/07/2019): [x] Co-management vs. [] Full [facility] Care; Referring Provider: Hugo Jaquez [x] [...] aware. [x] Method of feeding: breast/bottle [x] Hand Nailer: [x] PP Depression Discussed: Type 2 diabetes mellitus 01/13/2014 Overview (12/04/2016): DMII WO CMP UNCNTRLD Hyperlipidemia 04/12/2009 04/27/2019 Immunizations Immunization Administration Dates Next Due COVID-19 mRNA (Wealth Access) 0.3 m L (30 mcg) vaccine (12 [...] on file Legal Sex Female 6:40 PM ZIPPER MEASURER Gender Identity Not on file Sexual Orientation [...] 02/02/2025 11:38 AM CDT Plan of Treatment Not on file Goals Goal Patient Goal Type Associated Problems Recent Progress Patient-Stated? Author [facility] No Kolton Bowden, RN Note: Bending, standing, lifting, sitting with minimal to no pain. Medical Devices Implanted Type Area Clinical Documentation Improvement Specialist Device Identifier Shelf Expiration Date Model / Serial / Lot Bianka Spine Graft Bone Filler Gel Bio Dbm 10cc [id number] - [id number] Implanted:Qty: 1 on 02/01/2025 by Adelso Yip MD at [facility] N/A: Spine Lumbar Bianka Spine [id number] 06/09/2027 [id number] / / [id number] Gl[employer] Implant Spinal Sable [id number] 6-12mm 0 Deg 1172.2100s - [id number] Implanted:Qty: 1 on 02/01/2025 by Adelso Yip MD at [facility] N/A: Spine Lumbar [employer] [id number] 07/17/2034 1172.2100S / / [id number] New Age [employer] Graft Bone Magnetos 2.5cc 1-2mm Granules In Moldable Putty [id number]-[id number] - [id number] Implanted:Qty: 1 on 02/01/2025 by Adelso Yip MD at [facility] N/A: Spine Lumbar [employer] 02/27/2029 [id number] / / Medtronic Inc Screw Spinal Pedicle Multiaxial Cannulated Cd Horizon Solera 6.5x45mm [place] Chromium [id number] - [id number] Implanted:Qty: 3 on 02/01/2025 by Adelso Yip MD at [facility] N/A: Spine Lumbar Medtronic Inc [id number] / / Medtronic Inc 6mm 45mm Multiaxial Spine Screw Bone Cocr 5.5mm Reddy [id number] - [id number] Implanted:Qty: 1 on 02/01/2025 by Adelso Yip MD at [facility] N/A: Spine Lumbar Medtronic Inc [id number] / / Medtronic Inc Cd Horizon Break Off Spinal Screw Set Titanium Nonsterile 5.5 Mm [id number] - [id number] Implanted:Qty: 4 on 02/01/2025 by Adelso Yip MD at [facility] N/A: Spine Lumbar Medtronic Inc [id number] / / Medtronic Inc 5.5mm 30mm Line Curve Reddy Spinal Titanium Nonsterile [id number] - [id number] Implanted:Qty: 2 on 02/01/2025 by Adelso Yip MD at [facility] N/A: Spine Lumbar Medtronic Inc [id number] / / Procedures Procedure Name Priority Date/Time [...] VIEW IP Routine 02/01/2025 12:11 PM CDT HI AN PROCEDURE PLACEHOLDER Routine 02/01/2025 10:39 AM CDT HI AN PROCEDURE PLACEHOLDER Routine 02/01/2025 10:37 AM CDT HI AN ELECTIVE ENDOTRACHEAL AIRWAY Routine 02/01/2025 10:37 [...] L1-L2 Electronically signed by: Sade Ordonez MD Daniajuany Valdovinos DO IMG XR PROCEDURES Final Result [...] 02/02/2025 8:57 AM CDT us Myra Fontenot SURGICAL SERVICES MANAGER LAB BLOOD ORDERABLES Delaney l Result [facility] [place] [address] * (ABNORMAL) Differential, auto (02/02/2025 8:40 AM CDT) Neutrophil abs 11.61(H) 1.50 - 6.50 K/cumm Imm gran abs 0.06 0.00 - 0.10 K/cumm [facility] Lymphocyte abs 1.96 0.80 - 3.30 K/cumm [facility] Monocyte abs 0.89(H) 0.20 - 0.80 K/cumm [facility] Eosinophil abs 0.02 0.00 - 0.50 K/cumm [facility] Basophil abs 0.04 0.00 - 0.10 K/cumm [facility] Neutrophil pct 79.7 % [facility] Comment: Interpretive Data Percent cell count reference ranges are not reported, since discordance with absolute values may lead to misinterpretation of CBC data. Current Interpretive Data was last revised on 2017. Imm gran pct 0.4 % [facility] Comment: Interpretive Data Percent cell count reference ranges are not reported, since discordance with absolute values may lead to misinterpretation of CBC data. Current Interpretive Data was last revised on 2017. Lymphocyte pct 13.4 % [facility] Comment: Interpretive Data Percent cell count reference ranges are not reported, since discordance with absolute values may lead to misinterpretation of CBC data. Current Interpretive Data was last revised on 2017. Monocyte pct 6.1 % [facility] Comment: Interpretive Data Percent cell count reference ranges are not reported, since discordance with absolute values may lead to misinterpretation of CBC data. Current Interpretive Data was last revised on 2017. Eosinophil pct 0.1 % [facility] Comment: Interpretive Data Percent cell count reference ranges are not reported, since discordance with absolute values may lead to misinterpretation of CBC data. Current Interpretive Data was last revised on 2017. Basophil pct 0.3 % [facility] Comment: Interpretive Data Percent cell count reference ranges are not reported, since discordance with absolute values may lead to misinterpretation of CBC data. Current Interpretive Data was last revised on 2017. Blood 02/02/2025 8:40 AM CDT 02/02/2025 8:57 AM CDT Myra Fontenot NP LAB BLOOD ORDERABLES Delaney miranda Result [facility] Department [place] [address] * (ABNORMAL) CBC with auto differential (02/02/2025 8:40 AM CDT) [facility] WBC 14.58(H) 3.80 - 9.90 K/cumm Hgb 11.9 11.9 - 15.5 g/dL [facility] Hct 35.2(L) 35.6 - 45.5 % [facility] Plt 222 150 - 400 K/cumm [facility] MPV 10.6 9.1 - 12.3 fL [facility] RBC 4.00 3.90 - 5.20 M/cumm [facility] MCV 88.0 81.3 - 96.4 fL [facility] MCH 29.8 27.1 - 33.3 pg [facility] MCHC 33.8 32.3 - 35.7 g/dL [facility] RDW CV 13.5 11.1 - 14.9 % [facility] RDW SD 43.5 35.7 - 48.1 fL [facility] NRBC abs 0.00 0.00 - 0.01 K/cumm [facility] Blood 02/02/2025 8:40 AM CDT 02/02/2025 8:57 AM CDT Myra Fontenot NP LAB BLOOD ORDERABLES Delaney miranda Result [facility] Department [place] [address] * (ABNORMAL) Comprehensive metabolic panel (02/02/2025 8:40 AM CDT) [facility] Sodium 139 135 - 145 mmol/L Potassium, pl 4.5 3.3 - 4.9 mmol/L [facility] Chloride 106 97 - 110 mmol/L [facility] CO2 26 22 - 32 mmol/L [facility] Anion gap 7 2 - 15 mmol/L [facility] BUN 7 6 - 25 mg/dL [facility] Creatinine 0.87 0.60 - 1.10 mg/dL [facility] Glucose 104 70 - 199 mg/dL [facility] Comment: Interpretive Data Fasting glucose >/= 126 [...] 2022. Calcium 8.6 8.5 - 10.3 mg/dL [facility] Bilirubin, total 0.3 0.1 - 1.2 mg/dL [facility] Protein, pl 6.0(L) 6.5 - 8.5 g/dL [facility] Albumin 3.5 3.5 - 5.0 g/dL [facility] Alk phos 92 40 - 130 Units/L [facility] ALT 18 7 - 45 Units/L [facility] AST 58(H) 10 - 45 Units/L [facility] Blood 02/02/2025 8:40 AM CDT 02/02/2025 8:57 AM CDT Myra Fontenot NP LAB BLOOD ORDERABLES Delaney miranda Result [facility] Department [place] [address] * XR Spine Lumbar 1 View (02/01/2025 [...] fusion. Electronically signed by: Chuy Kerr D.O. Adelso Yip MD IMG XR PROCEDURES Final Re sult * FL Fluoroscopy < 1 Hour (02/01/2025 4:06 PM CDT) Narrative [id number] - 02/01/2025 4:40 PM CDT The images from this study are not interpreted by Radiology. Please refer to the physician's procedure / OR operative note. us Adelso Yip MD IM FLUOROSCOPY PROCEDURES Final Result Performing Organization Address City/State/[facility] Co de Phone Number [email or web address] * XR Spine Lumbar 1 View [...] IMG XR PROCEDURES Final Re sult * HI AN PROCEDURE PLACEHOLDER (02/01/2025 10:39 AM CDT) [...] Gardiner MD ANESTHESIA ORDERABLES Final Result * HI AN ELECTIVE ENDOTRACHEAL AIRWAY, HI AN PROCEDURE PLACEHOLDER (02/01/2025 10:37 AM CDT) Anastacia Davis CRNA - 02/01/2025 10:37 AM CDT Anastacia Davidson CRNA 02/01/2025 10:38 AM Airway Patient location: OR Urgency: elective Date/time: 02/01/2025 9:32 AM Indications for airway management: anesthesia Difficult airway: no Staff: Supervising provider: Nash Gardiner MD Placed by: ACCESS SERVICES ASSISTANT: Anastacia Davidson CRNA Other staff: Bettie Sarkar [...] additional findings are noted. Procedure Note Beka Dennison MD - 02/01/2025 XR SPINE LUMBAR 2 [...] space. Electronically signed by: Beka Dennison M.D. Adelso Yip MD IMG XR PROCEDURES Final Re sult * TYPE AND SCREEN 14 DAY (01/29/2025 5:21 PM CDT) Pathologist [facility] ABO Rh B Negative Barbara, indirect Negative [facility] Comment:Patient has previous antibody history Blood 01/29/2025 5:21 PM CDT 01/29/2025 9:36 PM CDT Narrative [facility] - 01/29/2025 11:05 PM CDT Is this test being ordered in advance for a procedure?->Yes Expected date of procedure:->02/01/25 Has the patient been transfused in the past 3 months?->No Has the patient been in the past 3 months?->No Debby Nam SURGICAL SERVICES MANAGER LAB BLOOD BANK TEST ORDERABL ES Final Result [facility] Department [place] [address] * eGFR (01/29/2025 5:21 PM CDT) Pathologist [facility] eGFR 76 >=60 mL/min/1. 73 m2 Comment: [...] Yip MD LAB BLOOD ORDERABLES Final Result [facility] Department [place] [address] * (ABNORMAL) Differential, auto (01/29/2025 5:21 PM CDT) Neutrophil abs 6.72(H) 1.50 - 6.50 K/cumm Imm gran abs 0.03 0.00 - 0.10 K/cumm [facility] Lymphocyte abs 2.40 0.80 - 3.30 K/cumm [facility] Monocyte abs 0.48 0.20 - 0.80 K/cumm [facility] Eosinophil abs 0.15 0.00 - 0.50 K/cumm [facility] Basophil abs 0.05 0.00 - 0.10 K/cumm [facility] Neutrophil pct 68.4 % [facility] Comment: Interpretive Data Percent cell count reference ranges are not reported, since discordance with absolute values may lead to misinterpretation of CBC data. Current Interpretive Data was last revised on 2017. Imm gran pct 0.3 % [facility] Comment: Interpretive Data Percent cell count reference ranges are not reported, since discordance with absolute values may lead to misinterpretation of CBC data. Current Interpretive Data was last revised on 2017. Lymphocyte pct 24.4 % [facility] Comment: Interpretive Data Percent cell count reference ranges are not reported, since discordance with absolute values may lead to misinterpretation of CBC data. Current Interpretive Data was last revised on 2017. Monocyte pct 4.9 % [facility] Comment: Interpretive Data Percent cell count reference ranges are not reported, since discordance with absolute values may lead to misinterpretation of CBC data. Current Interpretive Data was last revised on 2017. Eosinophil pct 1.5 % [facility] Comment: Interpretive Data Percent cell count reference ranges are not reported, since discordance with absolute values may lead to misinterpretation of CBC data. Current Interpretive Data was last revised on 2017. Basophil pct 0.5 % [facility] Comment: Interpretive Data Percent cell count reference ranges are not reported, since discordance with absolute values may lead to misinterpretation of CBC data. Current Interpretive Data was last revised on 2017. Blood 01/29/2025 5:21 PM CDT 01/29/2025 5:51 PM CDT us Adelso Yip MD LAB BLOOD ORDERABLES Final Result [facility] Department [place] [address] * CPAP aPTT algorithm (01/29/2025 5:21 PM [...] ORDERABLES Final R esult Performing Organization Address City/[facility]/ZIP Co de Phone Number [facility] [place] [address] * Urinalysis reflex to microscopic and culture Urine, clean voided (01/29/2025 5:21 PM CDT) Color, ur Straw Yellow Clarity, ur Clear Clear [facility] Specific gravity, ur 1.006 1.003 - 1.030 [facility] pH, urine 6.0 [facility] Comment: Interpretive Data U rine pH is affected by diet, medications, systemic acid-base disturbances, and renal tubular function. pH may affect urinary stone formation. For example, urine pH below 6.0 may help reduce the tendency for calcium phosphate stones and pH greater than 6.0 may reduce the tendency for uric acid stone formation. Source: [facility] Current Interpretive Data was last revised on 2017 Protein, ur ql Negative Negative [facility] Glucose, ur ql Negative Negative [facility] Ketones, ur Negative Negative [facility] Bilirubin, ur Negative Negative [facility] Blood, ur Negative Negative [facility] Urobilinogen, ur <2.0 <2.0 mg/dL [facility] Nitrite, ur Negative Negative [facility] Leukocyte esterase, ur Negative Negative [facility] UA reflex comment Reflex conditions for microscopic UA and culture not met. [facility] Urine, clean voided 01/29/2025 5:21 PM CDT 01/29/2025 5:43 PM CDT Adelso Yip MD LAB MICROBIOLOGY - GENERAL ORDERABLES Final Result Performing Organization Address [facility]/ZIP Co de Phone Number DEVIN ADAMS [facility] Department [place] [address] * CBC with auto differential (01/29/2025 5:21 PM CDT) WBC 9.83 3.80 - 9.90 K/cumm Hgb 14.5 11.9 - 15.5 g/dL [facility] Hct 42.0 35.6 - 45.5 % [facility] Plt 237 150 - 400 K/cumm [facility] MPV 10.5 9.1 - 12.3 fL [facility] RBC 4.75 3.90 - 5.20 M/cumm [facility] MCV 88.4 81.3 - 96.4 fL [facility] MCH 30.5 27.1 - 33.3 pg [facility] MCHC 34.5 32.3 - 35.7 g/dL [facility] RDW CV 13.6 11.1 - 14.9 % [facility] RDW SD 44.1 35.7 - 48.1 fL [facility] NRBC abs 0.00 0.00 - 0.01 K/cumm [facility] Blood 01/29/2025 5:21 PM CDT 01/29/2025 5:51 PM CDT Adelso Yip MD LAB BLOOD ORDERABLES Final Result Performing Organization Address City/[facility]/ZIP Co de Phone Number [facility] Department [place] [address] * (ABNORMAL) Vitamin D 25 hydroxy (01/29/2025 5:21 PM CDT) [facility] Vitamin D 25-OH 17(L) 30 - 80 ng/mL Blood 01/29/2025 5:21 PM CDT 01/29/2025 5:53 PM CDT Adelso Yip MD LAB BLOOD ORDERABLES Final Result [facility] Department [place] [address] * Protime-INR (01/29/2025 5:21 PM CDT) [facility] PT 10.7 9.7 - 13.0 sec INR 0.99 0.90 - 1.20 [facility] Comment: Interpretive data Oral anticoagulant therapeutic ranges: Venous thromboembolism prophylaxis or treatment: 2.0-3.0 CARDIOLOGY Standard range: 2.0-3.0 High-intensity range: 2.5-3.5 Refer to indication-specific guidelines for appropriate target ranges for prosthetic heart valve replacement. Current interpretive data was last revised on 2019. Blood 01/29/2025 5:21 PM CDT 01/29/2025 5:43 PM CDT Adelso Yip MD LAB BLOOD ORDERABLES Final Result [facility] [place] [address] * Basic metabolic panel (01/29/2025 5:21 PM CDT) Sodium 138 135 - 145 mmol/L Potassium, pl 4.0 3.3 - 4.9 mmol/L [facility] Chloride 103 97 - 110 mmol/L [facility] CO2 26 22 - 32 mmol/L [facility] Anion gap 9 2 - 15 mmol/L [facility] BUN 8 6 - 25 mg/dL [facility] Creatinine 0.94 0.60 - 1.10 mg/dL [facility] Glucose 90 70 - 199 mg/dL [facility] Comment: Interpretive Data Fasting glucose >/= 126 [...] 2022. Calcium 9.1 8.5 - 10.3 mg/dL [facility] Blood 01/29/2025 5:21 PM CDT 01/29/2025 5:53 PM CDT Adelso Yip MD LAB BLOOD ORDERABLES Final Result [facility] [place] [address] * CT Lumbar Spine WO Contrast (01/19/2025 [...] Samm Gaspar M.D. AR: DONA Report ID: [id number] Reading Location: [id number] Procedure Note Samm Gaspar MD - 01/20/2025 [...] Samm Gaspar M.D. AR: DONA Report ID: [id number] Reading Location: [id number] Adelso Yip MD IMG CT PROCEDURES Final [...] stenosis. Uncovertebral spurring and facet arthropathy with ipgo-oc-uxwwjlze right and mild proximal left neural foraminal [...] Luke Tyson D.O. AP: AP Report ID: [id number] Reading Location: [place] [address] Procedure Note Luke Tyson, DO - 01/23/2025 [...] canal stenosis. Uncovertebral spurring and facet arthropathy qhnrmoev-ty-gaplproa right and mild proximal left neural foraminal [...] Luke Tyson D.O. AP: AP Report ID: [id number] Reading Location: [id number] us Adelso Yip MD IMG MRI PROCEDURES Final R esult * DEXA [...] T-score 1.1 Procedure Note Tom Porras II, DO - 01/17/2025 Examination: Bone densitometry of the [...] Electronically signed by: Tom Porras II, D.O. us Adelso Yip MD IMG DXA PROCEDURES Final R esult * XR [...] by: Binh Solano D.O. Adelso Yip MD IMG XR PROCEDURES Final Re sult * Neuro MR Outside Reference (01/08/2025 1:50 PM CDT) Impressions [facility] - 01/08/2025 1:50 PM CDT These images are for Reference purposes only and have not been reviewed by [facility] Radiology. There will be no report generated by a [facility] Radiologist. Narrative RAD_PACS_[facility] - 01/08/2025 1:50 PM CDT EXAMINATION: Images For Reference Purposes Only us Adelso Yip MD IMG MRI PROCEDURES Final R esult [facility] * Hepatitis C antibody (04/11/2019) SCRIBED HCV ab non-reacti ve Blood specimen (specimen) Hugo Jaquez MD LAB MICROBIOLOGY - GENERAL OR DERABLES Final Result from Last 3 Months or Most Recently Relevant to Health Maintenance Insurance Advance Directives For more information, please contact: [phone] Documents on File Type Date Recorded Patient Help Desk Internship Expl anation ADVANCE DIRECTIVE 11/05/2023 6:51 AM [...] n case of cardiopulmonary arrest Care Teams Car Blocker Relationship Specialty Start Date End Date Kimberly Jc NP [address] [place] [address] PCP - General Emergency Medicine 11/22/20 Hugo Jaquez MD Principal Bioinformatics Specialist Obstetrics and Gynecology 04/12/19
--- OUTSIDE RECORDS SUMMARY | 2025-02-12 19:22 | XMS_ITS | Encounter Summary ---
Author Organization [facility] Address [address] [facility] [place] [address] Phone Care Team Providers Care Crown Assembly Machine Set Up Mechanic Name Role Phone Mack Owens MD Unavailable Timmy Ibarra [facility] Primary Care Provider Francisco Javier Ivey MD Unavailable [phone] Reason for Visit * Reason Comments Medication Refill Encounter Details Date Type Department Care Team (Late st Contact Info) Description 02/12/2025 Refill [facility] - Primary Care - [place] [address] [place] [address] Timmy Ibarra, [facility] [address] [place] [address] Medication Refill Social History Tobacco Use Types Packs/Day Years Used Date Smoking Tobacco: Every Day Cigarettes 1 32.5 Started: 1994 Smokeless Tobacco: Never Comments:Down to quarter pac k Alcohol Use Standard Drinks/Week Comments No 0 (1 standard drink = 0.6 oz pur e alcohol) [facility] Utilities Answer Date Recorded In the [...] How often do you attend chur or roman catholic services? Never 10/12/2024 Do you belong to any clubs o r organizations such as moravian groups, unions, fraternal or athletic groups, or [...] Total Score - Questions 1-9 0 09/30 [facility] of Occupat ional [facility] - Occupational Stress Questionnaire Answer Date [...] place to sleep or slept in a senior care (including now)? No 09/03/2023 Housing Stability Vital [...] time in the past [address] [facility], were you homeless or living in a senior care (including now)? No 10/12/2024 Education Answer Date [...] encounter Miscellaneous Notes * Telephone Encounter - Timmy Ibarra PAC - 02/12/2025 4:38 PM CDT Refill approved. * Telephone Encounter - Mariam Bo RN - 02/12/2025 4:32 PM CDT Medication failed the protocol, provider to review and approve the medication order if appropriate. Requested Prescriptions Pending Prescriptions Disp Refills baclofen (LIORESAL) 10 MG Tablet [Pharmacy Med Name: BACLOFEN 10MG TABLETS] 270 Tablet 0 Sig: TAKE 1 TABLET BY MOUTH THREE TIMES DAILY Not Delegated - Muscle Relaxants Protocol Failed - 02/12/2025 4:32 PM Failed - This refill cannot be delegated Passed - Visit with relevant provider in past 12 months or upcoming 90 days Recent Visits Date Type Provider Dept 10/12/24 Office Visit [facility] 06/22/24 Office [facility] 06/15/24 Office Visit Timmy Ibarra, PAC [facility] 05/19/24 Office Visit Timmy Ibarra, [facility] Showing recent visits within past 365 [...] Total Score: 0 10/12/19 25 1:31 PM WEB MARKETING STRATEGIST documented as of this encounter Care Teams Crown Assembly Machine Set Up Mechanic Relationship Specialty Start Date End Date Timmy Ibarra PAC [address] [place] [phone] PCP - General Physician Flash Ranging Crewmember 02/17/24 Mack Owens MD [address] [address] Consulting Physician Colon and Rectal Surgery 11/23/22 Francisco Javier Ivey MD [address] [place] [address] Consulting Physician Neurological Surgery 03/07/24 documented as of this encounter
--- OUTSIDE RECORDS SUMMARY | 2025-02-12 19:22 | XMS_ITS | Encounter Summary ---
Author Organization [facility] Healthcare Address [facility] [place] [address] Care Team Providers Care Stock Speculator Name Role Phone Hugo Jaquez MD Unavailable [phone] Kimberly Jc NP Primary Care Provide r Encounter Details Date Type Department Care Team (Late st Contact Info) Description 12/18/2020 Telephone [facility] [address] [facility], [facility] [address] [place] [address] Vitaly Lopez MD [address] [place] [address] [address] [place] [address] Social History Tobacco Use Types Packs/Day Years [...] on file Legal Sex Female 6:40 PM TOOL/DIE MAKER Gender Identity Not on file Sexual Orientation Not on file documented as of this encounter Plan of Treatment Not on file documented as of this encounter Visit Diagnoses Not on filedocumented in this encounter Care Teams Stock Speculator Relationship Specialty Start Date End Date Kimberly Jc NP [address] [place] [address] PCP - General Emergency Medicine 11/22/20 Hugo Jaquez MD Marketing Support Coordinator Obstetrics and Gynecology 04/12/19 documented as of this encounter
--- OUTSIDE RECORDS SUMMARY | 2025-02-12 19:22 | XMS_ITS | Encounter Summary ---
Author Organization [facility] Healthcare Address [facility] [place] [address] Care Team Providers Care Freelance Art Director Name Role Phone Hugo Jaquez MD Primary Care Provider Hugo Jaquez MD Unavailable [phone] Kimberly cJ NP Primary Care Provide r Kimberly Jc NP Primary Care Provide r Encounter Details Date Type Department Care Team (Late st Contact Info) Description 07/16/2019 Documentation [facility] Social Work [address] [place] [id number] Jazmyn Levy LCSW Social History Tobacco Use [...] on file Legal Sex Female 6:40 PM SURGICAL RN Gender Identity Not on file Sexual [...] B12 deficiency, cervical dysplasia, and anxiety disorder. FIG WASHER at [facility] in [place], [place] with Dr. Hugo Jaquez and pt will call tomorrow 07/17 to make an appointment. Medical insurance coverage is through [facility] [employer] and Medicaid [place]. Information Baby boy was born on [birth year]2019 at EGA 36.5 weeks and named baby Lawrence Hernandez. Delivery was . weighed 5lbs 5oz. [place] will be breast feed. This is mother's fifth child. Patient has a 19 year old girl, 11 year old boy, 8 year old, 15 month old, and . Pt???s 19 year old lives in [place] with her grandmother (pt???s mother). Social History Current address is [address] [place] [address], [facility] where she lives with spouse, Juan Mendez([phone]), and four children. Currently [phone] is the best phone number for future contact. Income source for the household is from employment. Juan works web consultant 4; 12 hour shifts at [employer]. 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 Pt???s sister and Aunt are able to provide assistance with children. Father of the baby, Juan Mendez, phone number [phone]. FOB is supportive and lives in household. [...] support and additional needs should they arise. Retail Sales Advisor informed MOB of hotline due to positive THC and possible follow up from [place] [facility]. MOB voiced understanding. Jazmyn Levy LCSW PRN ICAL RN * Plan of Care - Jazmyn Levy MSW - 07/16/2019 3:07 PM CST CLARENCE made hotline call to [place] [facility] at . Intake change director was Charles Wilkinson and report #[id number]. Charles discussed no action would be taken, but it would be noted in the system if there is any other cases open. Jazmyn Levy LCSW PRN ICAL RN documented in this encounter Plan of Treatment Not on file documented as of this encounter Visit Diagnoses Not on filedocumented in this encounter Care Teams Freelance Art Director Relationship Specialty Start Date End Date Hugo Jaquez MD PCP - General 03/16/19 11/18/20 Kimberly Jc NP [address] [place] [address] PCP - General Emergency Medicine 11/22/20 Kimberly Jc NP [address] [place] [address] PCP - General 11/19/20 11/21/20 Hugo Jaquez MD Motion Picture Scene Builder Obstetrics and Gynecology 04/12/19 documented as of this encounter
--- OUTSIDE RECORDS SUMMARY | 2025-02-12 19:23 | XMS_ITS | Encounter Summary ---
Author Organization [facility] Address [address] [facility] [place] [place] [address] Phone Care Team Providers Care Wire Rigger Name Role Phone Kimberly cJ APRN, KIRILL Primary Care P rovider Mack Owens MD Unavailable Timmy Ibarra Primary Care Provider [phone] Francisco Javier Ivey MD Unavailable Reason for Visit * Reason Comments Medication Refill Encounter Details Date Type Department Care Team (Late st Contact Info) Description 03/04/2023 Refill [facility] - Primary Care - [place] [address] [place] [address] Kimberly Jc APRN, AOC AADC OPERATIONS STAFF OFFICER [address] [place] [address] Medication Refill Social History Tobacco Use Types Packs/Day Years Used Date Smoking Tobacco: Every Day Cigarettes 1.5 32.5 Started: 1994 Smokeless Tobacco: Never Alcohol Use [...] documented as of this encounter Care Teams Wire Rigger Relationship Specialty Start Date End Date Kimberly Jc APRN, AOC AADC OPERATIONS STAFF OFFICER [address] [place] [address] PCP - General Advanced Practice Nurse 02/14/20 Timmy Ibarra, PAC [address] [place] [phone] PCP - General Physician Admissions Nurse 02/17/24 Mack Owens MD [address] [address] Consulting Physician Colon and Rectal Surgery 11/23/22 Francisco Javier Ivey MD [address] [place] [address] Consulting Physician Neurological Surgery 03/07/24 documented as of this encounter
--- OUTSIDE RECORDS SUMMARY | 2025-02-12 19:23 | XMS_ITS | Encounter Summary ---
Author Organization [facility] Address [address] [place] [address] [facility] [place] [address] Phone Care Team Providers Care Bankruptcy Assistant Name Role Phone Kimberly Jc APRN, KIRILL Primary Care P rovider Mack Owens MD Unavailable Timmy Ibarra Primary Care Provider [phone] Francisco Javier Ivey MD Unavailable Reason for Visit * Reason Comments Medication Refill Encounter Details Date Type Department Care Team (Late st Contact Info) Description 08/06/2022 Refill [facility] - Primary Care - [place] [address] [place] [address] Kimberly Jc APRN, DATA MANAGER [address] [place] [address] Medication Refill Social History Tobacco [...] Coronavirus/COVID-19? No / Unsure 07/30/2022 11:58 AM SENIOR COUNSEL COMMERCIAL documented as of this encounter Miscellaneous Notes * Telephone Encounter - Linda Miles RN - 08/06/2022 11:47 AM SENIOR COUNSEL COMMERCIAL Duplicate request. OR COUNSEL COMMERCIAL documented in this encounter Plan of Treatment Not on file documented as of this encounter Visit Diagnoses Not on filedocumented in this encounter Additional Health Concerns Assessment Noted Time PHQ-9 Depression Total Score: 0 06/10/20 18 9:00 AM CDT documented as of this encounter Care Teams Bankruptcy Assistant Relationship Specialty Start Date End Date Kimberly Jc, POLICY ADVISOR, DATA MANAGER [address] [place] [address] PCP - General Advanced Practice Nurse 02/14/20 Timmy Ibarra, PAC [address] [place] [address] PCP - General Physician Waredresser 02/17/24 Mack Owens MD [address] [address] Consulting Physician Colon and Rectal Surgery 11/23/22 Francisco Javier Ivey MD [address] [place] [address] Consulting Physician Neurological Surgery 03/07/24 documented as of this encounter
--- OUTSIDE RECORDS SUMMARY | 2025-02-12 19:23 | XMS_ITS ---
Author Organization [facility] Address [address] [place] [address] Care Team Providers Care Demolition Hammer Operator Name Role Phone Hugo Jaquez MD Unavailable [phone] Kimberly Jc NP Primary Care Provide [...] 09/09/2022 Assessment & Plan (09/09/2022 12:22 PM CAR DISTRIBUTOR): Increase omeprazole to 40 mg daily Start [...] placenta. Plan for delivery at [facility] Her placentation appears normal on US [...] and GA at presentation, did not offer [place] however we did youth counselor patient on recurrence risk of PTD. Anxiety disorder 04/12/2009 Overview (04/27/2019): On Prozac 20mg daily. Stable. S/p counseling of risk of respiratory depression. Assessment & Plan (07/07/2019 1:34 PM CAR DISTRIBUTOR): Reports mood has been good on current dose. Assessment & Plan (05/25/2019 1:21 PM CDT): Reports mood has been good Current Treatment and Therapy Plans No current plan information found. Past Treatment and Therapy Plans No past plan information found. Lifetime Dose Tracking * Chemical Lifetime Dose Automatic Entry Manual Entr y Fluoro Time 3.143 minutes 3.143 minutes 0 minutes Air kerma at the reference point (Ka,r) 90.508 mGy 9 0.508 mGy 0 mGy Resolved Problems Problem Noted [...] this time given patient is not making ticket dispenser changer several OSH checks and admission exam -No indication for PCN at this time. BGS swab collected -GC/CT collected 06/21/19 [facility] visit: Contractions began this morning, are every 10 minutes, and more severe than they were before. Initial SVE 1/L/H, same as previous. Few contractions on toco. Repeat SVE 1/L/H. Patient reports spontaneous subjective improvement in intensity and frequency of contractions. No e/o PTL. Prec given. 06/28/19 [facility] visit: contractions initially Q10-15 minutes in [...] sooner. Assessment & Plan (07/07/2019 1:36 PM CAR DISTRIBUTOR): Patient has not been getting 2x/weekly testing. [...] desire PP BTL, [place] both [place] and [place] medicaid- BTL papers signed 07/07. If she delivers at the time of her scheduled IOL they will not be mature. Patient aware. [x] Method of feeding: breast/bottle [x] Workforce Analyst: [x] PP Depression Discussed: Type 2 diabetes mellitus 01/13/2014 Overview (12/04/2016): DMII WO CMP UNCNTRLD Hyperlipidemia 04/12/2009 04/27/2019
--- OUTSIDE RECORDS SUMMARY | 2025-02-12 19:23 | XMS_ITS | Encounter Summary ---
Author Organization [facility] Address [address] [place] [address] Phone Care Team Providers Care Senior Computer Specialist Name Role Phone Kimberly Jc APRN, KIRILL Primary Care P rovider Mack Owens MD Unavailable Timmy Ibarra Primary Care Provider Francisco Javier Ivey MD Unavailable Reason for Visit * Reason Comments Medication Refill Encounter Details Date Type Department Care Team (Late st Contact Info) Description 05/11/2022 Refill [facility] Group - Primary Care - [place] [address] [place] [address] Kimberly Jc APRN, SENIOR SYSTEMS PROGRAMMER [address] [place] [address] Medication Refill Social History Tobacco [...] documented as of this encounter Care Teams Senior Computer Specialist Relationship Specialty Start Date End Date Kimberly Jc APRN, SENIOR SYSTEMS PROGRAMMER [address] [place] [address] PCP - General Advanced Practice Nurse 02/14/20 Timmy Ibarar PAC [address] [place] [address] PCP - General Physician Preschool Principal 02/17/24 Mack Owens MD [address] [address] Consulting Physician Colon and Rectal Surgery 11/23/22 Francisco Javier Ivey MD [address] [place] [address] Consulting Physician Neurological Surgery 03/07/24 documented as of this encounter
--- OUTSIDE RECORDS SUMMARY | 2025-02-12 19:23 | XMS_ITS | Encounter Summary ---
Author Organization [facility] Address [address] [facility] [place] [address] Phone Care Team Providers Care Motor And Generator Assembler Name Role Phone Kimberly Jc APRN, KIRILL Primary Care P rovider Mack Owens MD Unavailable Timmy Ibarra Primary Care Provider Francisco Javier Ivey MD Unavailable [phone] Reason for Visit * Reason Comments Medication Refill Encounter Details Date Type Department Care Team (Late st Contact Info) Description 05/06/2022 Refill [facility] - Primary Care - [place] [address] [place] [address] Kimberly Jc APRN, CAMPAIGN MARKETING MANAGER [address] [place] [address] Medication Refill Social History Tobacco [...] documented as of this encounter Care Teams Motor And Generator Assembler Relationship Specialty Start Date End Date Kimberly Jc APRN, CAMPAIGN MARKETING MANAGER [address] [place] [address] PCP - General Advanced Practice Nurse 02/14/20 Timmy Ibarra PAC [address] [place] [phone] PCP - General Physician Dedicated Intermodal Truck Driver 02/17/24 Mack Owens MD [address] [address] Consulting Physician Colon and Rectal Surgery 11/23/22 Francisco Javier Ivey MD [address] [place] [address] Consulting Physician Neurological Surgery 03/07/24 documented as of this encounter
--- OUTSIDE RECORDS SUMMARY | 2025-02-12 19:23 | XMS_ITS | Encounter Summary ---
Author Organization [facility] Address [address] [facility] [place] [address] Phone Care Team Providers Care Network Systems Engineer Name Role Phone Kimberly Jc APRN, CNP Primary Care P rovider Mack Owens MD Unavailable Timmy Ibarra [facility] Primary Care Provider Francisco Javier Ivey MD Unavailable Reason for Visit * Reason Comments Medication Refill Encounter Details Date Type Department Care Team (Late st Contact Info) Description 01/19/2024 Refill [facility] - Primary Care - [place] [address] [place] [address] Kimberly Jc APRN SUPERVISOR CARBON PAPER COATING [address] [place] [address] Medication Refill Social History Tobacco Use Types Packs/Day Years Used Date Smoking Tobacco: Every Day Cigarettes 1.5 32.5 Started: 1994 Smokeless Tobacco: Never Comments:Down to quarter pac k Alcohol Use Standard Drinks/Week Comments No 0 (1 standard drink = 0.6 oz pur e alcohol) [facility] Utilities Answer Date Recorded In the past 12 months has [employer] electric, gas, oil, or water company threatened to shut off services in your home? Yes 09/03/2023 Social Connection and Isolation Panel Answer Date Recorded In a typical week, how many times do you talk on the phone with family, friends, or neighbors? More than three times a week 09/03/2023 How often do you get togethe r with friends or relatives? Once a week 09/03/2023 How often do you attend chur ch or sabianism services? Never 09/03/2023 Do you belong to any clubs o r organizations such as zoroastrianism groups, unions, fraternal or athletic groups, or [...] Answer Date Recorded PHQ-2 Score 0 05/13/2019 [facility] of Occupat ional [facility] - Occupational Stress Questionnaire Answer Date [...] in a mcc (including now)? No 09/03/2023 Education Answer Date [...] Dept 10/20/23 Office Visit Timmy Ibarra, PAC [facility] 10/08/23 Office Visit Timmy Ibarra, PAC [facility] 09/03/23 Office Visit Timmy Ibarra, PAC [facility] 07/29/23 Office Visit Arcelia Leija Shalini, [facility] 06/17/23 Office Visit Arcelia Leija Shalini, PAC [facility] 02/22/23 Office Visit Kimberly Jc APRN, KIRILL [facility] Showing recent visits within past 365 days [...] documented as of this encounter Care Teams Network Systems Engineer Relationship Specialty Start Date End Date Kimberly Jc APRN, KIRILL [address] [place] [address] PCP - General Advanced Practice Nurse 02/14/20 Timmy Ibarra PAC [address] [place] [address] PCP - General Physician Economics Department Chair 02/17/24 Mack Owens MD [address] [address] Consulting Physician Colon and Rectal Surgery 11/23/22 Francisco Javier Ivey MD [address] [place] [address] Consulting Physician Neurological Surgery 03/07/24 documented as of this encounter
--- OUTSIDE RECORDS SUMMARY | 2025-02-12 19:23 | XMS_ITS | Encounter Summary ---
Author Organization [facility] Address [address] [facility] [place] [address] Phone Care Team Providers Care Health Technical Writer Name Role Phone Kimberly Jc APRN, KIRILL Primary Care P rovider Mack Owens MD Unavailable Timmy Ibarra Primary Care Provider [phone] Francisco Javier Ivey MD Unavailable Reason for Visit * Reason Comments Medication Refill Encounter Details Date Type Department Care Team (Late st Contact Info) Description 05/04/2022 Refill [facility] - Primary Care - [place] [address] [place] [address] Kimberly Jc APRN, COMMUNITY ORGANIZATION WORKER [address] [place] [address] Medication Refill Social History Tobacco [...] documented as of this encounter Care Teams Health Technical Writer Relationship Specialty Start Date End Date Kimberly Jc APRN, COMMUNITY ORGANIZATION WORKER [address] [place] [address] PCP - General Advanced Practice Nurse 02/14/20 Timmy Ibarra, PAC [address] [place] [address] PCP - General Physician Registered Nurse Maternal Child 02/17/24 Mack Owens MD [address] [address] Consulting Physician Colon and Rectal Surgery 11/23/22 Francisco Javier Ivey MD [address] [place] [address] Consulting Physician Neurological Surgery 03/07/24 documented as of this encounter
--- OUTSIDE RECORDS SUMMARY | 2025-02-12 19:23 | XMS_ITS | Clinical Summary ---
Author Organization [facility] Address [address] [place] [address] Phone Care Team Providers Care Brush Fabrication Supervisor Name Role Phone Mack Owens MD Unavailable Timmy Ibarra Primary Care Provider Francisco Javier Ivey MD Unavailable Allergies Active Allergy Reactions Criticality Noted Date [...] Active Additional Information Patient not taking.Reported on 02/12/2025 losartan (COZAAR) 50 MG TabletIndicatio ns:Primary hypertension Take 1 Tablet by mouth daily. 90 Tablet 3 06/15/20 24 Active Additional Information Patient not taking.Reported on 02/12/2025 gabapentin (NEURONTIN) 300 MG Capsule TAKE 2 [...] COUGH 8.5 g 2 11/29/19 25 Active LORazepam (ATIVAN) 0.5 MG TabletIndicatio ns:Claustrophob ia Take one tablet 60 min prior to MRI 1 Tablet 01/17/20 25 Active celecoxib (CeleBREX) 100 MG CapsuleIndicati ons:Pain in both hands TAKE 1 CAPSULE BY MOUTH TWICE DAILY 90 Capsule 1 01/24/20 25 Active baclofen (LIORESAL) 10 MG TabletIndicatio ns:Chronic left-sided low back pain with left-sided sciatica TAKE 1 TABLET BY MOUTH THREE TIMES DAILY 270 Tablet 02/13/20 25 Active oxyCODONE 10 MG Tablet Take 10 mg by mouth every 4 hours as needed for Moderate or more severe pain. Active Cholecalciferol (VITAMIN D-3 PO) Take 1 Tablet by mouth every 14 days. Active celecoxib (CeleBREX) 100 MG CapsuleIndicati ons:Pain in both hands Take 1 Capsule by mouth 2 times daily. 90 Capsule 1 10/26/19 25 2024 Discontinued baclofen (LIORESAL) 10 MG TabletIndicatio ns:Chronic left-sided low back pain with left-sided sciatica TAKE 1 TABLET BY MOUTH THREE TIMES DAILY 270 Tablet 12/05/19 25 2024 Discontinued ALPRAZolam (XANAX) 0.5 MG TabletIndicatio ns:Claustrophob ia Take 1 tablet 1 hour prior to MRI 1 Tablet 01/17/20 25 2024 Discontinued(A lternate therapy) Active Problems Problem Noted Date Diagnosed Date [...] Encounters Date Type Department Care Team Description 02/12/2025 Nurse Triage [facility] Center [address] [place] [address] Timmy Ibarra, PAC Flank Pain; Urinary Frequency 02/12/20[facility] [place] [address] [place] [address] Timmy Ibarra, PAC Medication Refill 01/23/2025 Refill [facility] [place] [address] [place] [phone] Timmy Ibarra, PAC Medication Refill 01/16/2025 [facility] [address] [place] [address] Timmy Ibarra, PAC Medication Management 12/28/2024 [facility]phone [facility] [place] [address] [place] [address] Timmy bIarra, PAC Referral 12/03/2024 [facility] [place] [address] [place] [address] Timmy Ibarra, PAC Medication Refill 11/28/2024 10:44 AM CDT - 11/28/2024 11:59 PM CDT [facility] [address] [place] [id number] Timmy Ibarra, PAC Discharge Disposition: Discharged to home or Selfcare 11/28/2024 Results [facility] [place] [address] [place] [address] Timmy Ibarra, PAC MRI L-SPINE W/O CONTRAST 11/27/2024 [facility] [place] [address] [place] [address] Kimberly Jc APRN, ADVENTURE GUIDE Medication Refill 11/27/2024 Travel 11/26/2024 Refill [facility] [place] [address] [place] [address] Timmy Ibarra, PAC Medication Refill 11/13/2024 Refill [facility] [place] [address] [place] [address] Timmy Ibarra, PAC Medication Refill from Last 3 Months Immunizations Immunization Administration Dates Next Due Covid-19, Mrna, Lnp-s, PF, 1 00 mcg/0.5 mL Dose (Moderna) 04/14/2021,03/17/2021 Covid-19, Mrna, Lnp-s, Pf, Greg-sucrose, 30 Mcg/0.3 Ml (Pfizer) 10/08/2023 Influenza Vaccine greater than 3 yrs 05/25/2019 Influenza Vaccine, Quadrivalent, PF 12/2023,06/30/2021,10/03/2020,06/10 Influenza, Injectable, Mdck,quadrivalent,with Preservative 05/25/2019 Influenza, Seasonal, Injecta ble, Undefined 01/06/2012 Influenza, Trivalent, Adjuvanted, PF 01/06/2012 Influenza,Split Virus,Trivalent,Injectable,PF 05/19/2024 Pneumococcal Vaccine Adult - 23 Valent 8,01/06/2012 Pneumococcal conjugate PCV20 , polysaccharide MBE014 conjugate, adjuvant, PF 10/08/2023 RHO(D) Immune Globulin- [...] 1 32.5 Started: 1994 Smokeless Tobacco: Never Tobacco Cessation:Ready to Q uit: Not Asked; Counseling Given: Not Answered Comments:Down to quarter pack Alcohol Use Standard Drinks/Week Comments No 0 (1 standard drink = 0.6 oz pur e alcohol) [facility] Utilities Answer Date Recorded In the past 12 months has th e electric, gas, oil, or water company [...] often do you attend chur ch or latter-day services? Never 10/12/2024 Do you belong to any clubs o r organizations such as scientology groups, unions, fraternal or athletic groups, or [...] Total Score - Questions 1-9 0 09/30 [facility] [place] of Occupat ional Health - Occupational Stress [...] place to sleep or slept in a group home (including now)? No 09/03/2023 Housing Stability [...] were you homeless or living in a group home (including now)? No 10/12/2024 Education Answer [...] Comments Blood Pressure 174/88 10/12/2024 1:31 PM NEWS REPORTER Pulse 76 10/12/2024 1:31 PM NEWS REPORTER Temperature 36.9 C (98.4 F) 10/12/2024 1:31 PM NEWS REPORTER Respiratory Rate 18 10/12/2024 1:31 PM NEWS REPORTER Oxygen Saturation 98% 10/12/2024 1:31 PM NEWS REPORTER Inhaled Oxygen Concentration - - Weight 69.4 kg (153 lb) 10/12/2024 1:31 PM NEWS REPORTER Height 167.6 cm (5' 6) 06/09/2024 12:08 PM CDT Body Mass Index 24.69 06/09/2024 12:08 PM CDT Plan of Treatment Health Maintenance Due Date Last Done Comments Hepatitis B Immunization (1 of 3 - 19+ 3-dose series) 1997 Cologuard 2023 Immunochemical Fecal Occult Blood 2023 SARS-COV-2 Immunization ( season) 2024 10/08/2023, 04/14/2021, 03/17/2021 Mammogram 05/04/2024 05/04/2023 Colonoscopy 08/05/2028 08/05/2023, 08/05/2023 Colorectal Cancer Screening 08/05/2028 Td Immunization Every 10 Years (Adults With 1 Tdap) 05/25/2029 05/25/2019, 04/16/2018, 10/08/2010, Additional history exists Respiratory Syncytial Virus (RSV) Immunization (Adult) (1 - 1-dose 75+ series) 2053 Cervical Cancer Screening (CCS) Discontinued Pap Smear Discontinued 06/11/2018 DTaP/Tdap/Td Immunization Discontinued 2018, 04/16/2018, 10/08/2010, Additional history exists Discussion re Starting/Frequency of Mammograms Completed 05/04/2023 Pneumococcal Immunization Combined Completed 10/08/2023, 06/10/2018, 01/06/2012 Influenza Immunization Completed , 09/03/2023, 06/30/2021, Additional history exists Hepatitis C Virus (HCV) Screening Completed 11/07/2024 HPV/Cotest Discontinued Human Papillomavirus (HPV) Immunization Aged Out No longer eligible based on patient's age to complete this topic Meningococcal Immunization (ACWY) Aged Out No longer eligible based on patient's age to complete this topic Rotavirus Immunization Aged Out No lo nger eligible based on patient's age to complete this topic Medical Devices Implanted Type Area Engineer Technical Staff Device Identifier Shelf Expiration Date Model / Serial / Lot Staple Tacker Optifix At - [id number] Implanted:Qty : 1 on 05/28/2023 by Mack Owens MD at [facility] IMPLANT Bilateral: Inguinal [employer] 10/27/2024 [id number] / [id number] / [id number] Mesh Srg 3dmax 6x4in Groin Left Contour Seal Edge Strl Polyp Lg 3d Curve Lapscp Inguinal Hernia - [id number] Implanted:Qty : 1 on 05/28/2023 by Mack Owens MD at [facility] IMPLANT Left: Inguinal [employer] 10/27/2027 [id number] / [id number] / [id number] Mesh Srg 3dmax 6x4in Groin Right Contour Seal Edge Strl Polyp Lg 3d Curve Lapscp Inguinal Hernia - [id number] Implanted:Qty : 1 on 05/28/2023 by Mack Owens MD at [facility] IMPLANT Left: Inguinal [employer] 06/26/2025 [id number] / [id number] / [id number] Procedures Procedure Name Priority Date/Time Associated Diagnosis Comments MRI L-SPINE W/O CONTRAST Routine 11/28/2024 11:29 AM CDT Acute bilateral low back pain with bilateral sciatica HEPATITIS PANEL ACUTE (AHP) Today 11/07/2024 1:26 [...] of facet synovitis. Marked compromise of the utey-jzehpdv-nefv-right lateral recesses, noting combination of disc and [...] to the left. Slight compromise of the tyqw-kyheisv-ngbl-right lateral recesses. No spinal canal stenosis. Severe [...] Javi Oliveros M.D. EMILIO: EMILIO Report ID: [id number] Reading Location: [id number] Procedure Note Javi Oliveros MD - 11/28/2024 [...] of facet synovitis. Marked compromise of the zloe-uwumnew-vcmk-right lateral recesses, noting combination of disc and [...] to the left. Slight compromise of the dpoz-xjlhyqu-qbyu-right lateral recesses. No spinal canal stenosis. Severe [...] Javi Oliveros M.D. EMILIO: EMILIO Report ID: [id number] Reading Location: [id number] IMPRESSION: 1. Numbering schema as discussed above. [...] Spine Surgery follow-up recommended for further evaluation. us Timmy Ibarra PAC IMG MR ORDERABLES Final Resu lt * HEPATITIS PANEL ACUTE (AHP) (11/07/2024 1:26 PM CDT) HEPATITIS A IGM ANTIBODY NON DETECTED NON DETECTED 11/07/2024 9:54 PM CDT [facility] Comment: IGM Antibodies to HAV not detected. Does not exclude early acute or recovered HAV infection. HEP B CORE AB (IGM) NON DETECTED NON DETECTED 11/07/2024 9:54 PM CDT [facility] Comment:IGM anti-HBC not det ected. Does not exclude the possibility of exposure to or infection with HBV. HEPATITIS B SURFACE ANTIGEN NON DETECTED NON DETECTED 11/07/2024 9:54 PM CDT [facility] Comment:A nonreactive test r esult does not [...] 0.21 <1 S/CO 11/07/2024 9:54 PM CDT [facility] Comment: Signal/Cutoff ratio < 0.79 is Nondetected Signal/Cutoff ratio 0.80-0.99 is Grayzone Signal/Cutoff ratio > 0.99 is Detected Supplemental assays are recommended if signal/cutoff ratio is >/=1.00. Signal/cutoff ratio result >/= 5.00 is 97% predictive of positivity for recombinant immunoblot assay (RIBA) and will be reported to the [place] Department of Public [facility] as required. Blood Venipuncture / Unknown 11/07/2024 1:26 PM CDT 11/07/2024 1:51 PM CDT us Meeta Puri MD HEMATOLOGY ORDERABLES Final Re sult [facility] [address] [place] [address], [place] * BRENNAN DIAG BILATERAL DIGITAL W [...] made to exams dated: 10/05/2012 and 12/20/2012 [facility]. BREAST TISSUE:The tissue of both breasts is [...] signed by: Cain Donohue M.D. ll/:05/04/2023 14:50:03 Louver Door Assembler(s): RT Sisi(R)(M), [facility]; Cathy Clarke RDMS OBGYN, [facility] letter sent: Normal Exam Reading location: [place] [...] copy. Current study was also evaluated with [employer] version 7.2. 2D digital mammographic views, as [...] made to exams dated: 10/05/2012 and 12/20/2012 [facility]. BREAST TISSUE:The tissue of both breasts is [...] signed by: Cain Donohue M.D. ll/:05/04/2023 14:50:03 Louver Door Assembler(s): RT Sisi(R)(M), [facility]; Cathy Clarke, RDMS OBGYN, [facility] letter sent: Normal Exam Reading location: [place] OVERALL STUDY BIRADS: 2 Benign us Cynthia Serrano APRN, ADVENTURE GUIDE IMG MAMMO ORDERABLES Fi nal Result from Last 3 Months or Most Recently Relevant to Health Maintenance Insurance [facility] Advance Directives * Full Code (Latest Code Status on File) Date Activated Date Inactivated Comments 04/01/2018 5:30 PM 04/02/2018 12:35 AM CPR-Full Flora tment: FULL ARREST: Attempt Resuscitation/CPR wit intubation and mechanical ventilation. PRE-ARREST: Use entire range of life support measures to stabilize the patient. Care Teams Brush Fabrication Supervisor Relationship Specialty Start Date End Date Timmy Ibarra, PAC [address] [place] [phone] PCP - General Physician Baling Machine Tender 02/17/24 Mack Owens MD [address] [address] Consulting Physician Colon and Rectal Surgery 11/23/22 Francisco Javier Ivey MD [address] [place] [address] Consulting Physician Neurological Surgery 03/07/24
--- OUTSIDE RECORDS SUMMARY | 2025-02-12 19:23 | XMS_ITS | Encounter Summary ---
Author Organization [facility] Address [address] [facility] [facility] [place] [address] Phone Care Team Providers Care Heel Breaster Name Role Phone Kimberly Jc APRN, CNP Primary Care P rovider Mack Owens MD Unavailable Timmy Ibarra [facility] Primary Care Provider [phone] Francisco Javier Ivey MD Unavailable [phone] Reason for Visit * Reason Comments Medication Refill Encounter Details Date Type Department Care Team (Late st Contact Info) Description 11/07/2023 Refill [facility] - Primary Care - [place] [address] [place] [address] Kimberly Jc APRN PULVERIZER [address] [place] [address] Medication Refill Social History Tobacco Use Types Packs/Day Years Used Date Smoking Tobacco: Every Day Cigarettes 1.5 32.5 Started: 1994 Smokeless Tobacco: Never Comments:Down to quarter pac k Alcohol Use Standard Drinks/Week Comments No 0 (1 standard drink = 0.6 oz pur e alcohol) [facility] Utilities Answer Date Recorded In the past 12 months has [employer] electric, gas, oil, or water company threatened [...] often do you attend chur ch or samaritan services? Never 09/03/2023 Do you belong to [...] Answer Date Recorded PHQ-2 Score 0 05/13/2019 [facility]at [facility] - Occupational Stress Questionnaire Answer Date [...] place to sleep or slept in a retirement (including now)? No 09/03/2023 Education Answer Date [...] documented as of this encounter Care Teams Heel Breaster Relationship Specialty Start Date End Date Kimberly Jc APRN, PULVERIZER [address] [place] [address] PCP - General Advanced Practice Nurse 02/14/20 Timmy Ibarra PAC [address] [place] [address] PCP - General Physician Student Liaison Officer 02/17/24 Mack Owens MD [address] [address] Consulting Physician Colon and Rectal Surgery 11/23/22 Francisco Javier Ivey MD [address] [place] [address] Consulting Physician Neurological Surgery 03/07/24 documented as of this encounter
--- OUTSIDE RECORDS SUMMARY | 2025-02-12 19:23 | XMS_ITS | Encounter Summary ---
Author Organization [facility] Address [address] [place] [address] Phone Care Team Providers Care Knocker Out Name Role Phone Kimberly Jc APRN, CNP Primary Care P rovider Mack Owens MD Unavailable Timmy Ibarra Primary Care Provider Francisco Javier Ivey MD Unavailable [phone] Reason for Visit * Reason Comments Medication Refill Encounter Details Date Type Department Care Team (Late st Contact Info) Description 02/01/2024 Refill [facility] - Primary Care - [place] [address] [place] [address] [facility] [address] [place] [address] Medication Refill Social History Tobacco Use Types Packs/Day Years Used Date Smoking Tobacco: Every Day Cigarettes 1.5 32.5 Started: 1994 Smokeless Tobacco: Never Comments:Down to quarter pac k Alcohol Use Standard Drinks/Week Comments No 0 (1 standard drink = 0.6 oz pur e alcohol) [facility] Utilities Answer Date Recorded In the past 12 months has [employer] electric, gas, oil, or water company threatened [...] often do you attend chur ch or tenriism services? Never 09/03/2023 Do you belong to any clubs o r organizations such as roman catholic groups, unions, fraternal or athletic groups, or [...] Dept 10/20/23 Office Visit Timmy Ibarra, PAC [facility] 10/08/23 Office Visit [facility]bar[facility], PAC [facility] 09/03/23 Office Visit Timmy Ibarra, PAC [facility] 07/29/23 Office Visit Arcelia Leija, PAC [facility] 06/17/23 Office Visit Arcelia Leija, PAC [facility] 02/22/23 Office Visit Kimberly Jc APRN, CNP [facility] Showing recent visits within past 365 [...] documented as of this encounter Care Teams Knocker Out Relationship Specialty Start Date End Date Kimberly Jc APRN, CNP [address] [place] [address] PCP - General Advanced Practice Nurse 02/14/20 Timmy Ibarra, PAC [address] [place] [address] PCP - General Physician Community Health Advisor 02/17/24 Mack Owens MD [address] [address] Consulting Physician Colon and Rectal Surgery 11/23/22 Francisco Javier Ivey MD [address] [place] [address] Consulting Physician Neurological Surgery 03/07/24 documented as of this encounter
--- OUTSIDE RECORDS SUMMARY | 2025-02-12 19:23 | XMS_ITS | Encounter Summary ---
Author Organization [facility] Address [address] [facility] [place] [address] Phone Care Team Providers Care Poultry Packer Name Role Phone Kimberly Jc APRN, KIRILL Primary Care P rovider Mack Owens MD Unavailable Timmy Ibarra Primary Care Provider [phone] Francisco Javier Ivey MD Unavailable Reason for Visit * Reason Comments Medication Refill Encounter Details Date Type Department Care Team (Late st Contact Info) Description 03/04/2023 Refill [facility] - Primary Care - [place] [address] [place] [address] Kimberly Jc APRN, AIRCRAFT SALES REPRESENTATIVE [address] [place] [address] Medication Refill Social History Tobacco [...] documented as of this encounter Care Teams Poultry Packer Relationship Specialty Start Date End Date Kimberly Jc APRN, AIRCRAFT SALES REPRESENTATIVE [address] [place] [address] PCP - General Advanced Practice Nurse 02/14/20 Timmy Ibarra, PAC [address] [place] [address] PCP - General Physician Sanitation Truck Driver 02/17/24 Mack Owens MD [address] [address] Consulting Physician Colon and Rectal Surgery 11/23/22 Francisco Javier Ivey MD [address] [place] [address] Consulting Physician Neurological Surgery 03/07/24 documented as of this encounter
--- OUTSIDE RECORDS SUMMARY | 2025-02-12 19:23 | XMS_ITS | Encounter Summary ---
Author Organization [facility] Address [address] [place] [address] Phone Care Team Providers Care Library Services Dean Name Role Phone Kimberly Jc APRN, KIRILL Primary Care P rovider Mack Owens MD Unavailable Timmy Ibarra Primary Care Provider Francisco Javier Ivey MD Unavailable [phone] Reason for Visit * Reason Comments Medication Refill Encounter Details Date Type Department Care Team (Late st Contact Info) Description 01/12/2022 Refill [facility] - Primary Care - [place] [address] [place] [address] Kimberly Jc APRN, HEATING TECHNICIAN [address] [place] [address] Medication Refill Social History Tobacco [...] documented as of this encounter Care Teams Library Services Dean Relationship Specialty Start Date End Date Kimberly Jc APRN, HEATING TECHNICIAN [address] [place] [address] PCP - General Advanced Practice Nurse 02/14/20 Timmy Ibarra PAC [address] [place] [address] PCP - General Physician Oracle Ebs Developer 02/17/24 Mack Owens MD [address] [address] Consulting Physician Colon and Rectal Surgery 11/23/22 Francisco Javier Ivey MD [address] [place] [address] Consulting Physician Neurological Surgery 03/07/24 documented as of this encounter
--- OUTSIDE RECORDS SUMMARY | 2025-02-12 19:23 | XMS_ITS | Encounter Summary ---
Author Organization [facility] Address [address] [facility] [place] [address] Phone Care Team Providers Care Television Installer Helper Name Role Phone Kimberly Jc APRN, CNP Primary Care P rovider Mack Owens MD Unavailable Timmy Ibarra [facility] Primary Care Provider Francisco Javier Ivey MD Unavailable Reason for Visit * Reason Comments Medication Refill Encounter Details Date Type Department Care Team (Late st Contact Info) Description 10/07/2023 Refill [facility] [address] [phone] Mack Owens MD [address] [address] Medication Refill Social History Tobacco Use Types Packs/Day Years Used Date Smoking Tobacco: Every Day Cigarettes 1.5 32.5 Started: 1994 Smokeless Tobacco: Never Comments:Down to quarter pac k Alcohol Use Standard Drinks/Week Comments No 0 (1 standard drink = 0.6 oz pur e alcohol) [facility] Utilities Answer Date Recorded In the past 12 months has [employer] electric, gas, oil, or water company threatened [...] often do you attend chur ch or mormon services? Never 09/03/2023 Do you belong to any clubs o r organizations such as druze groups, unions, fraternal or athletic groups, or [...] Answer Date Recorded PHQ-2 Score 0 05/13/2019 [facility] - [facility]ational Stress Questionnaire Answer Date [...] place to sleep or slept in a custodial (including now)? No 09/03/2023 Education Answer Date [...] Sydni Lindsey RN - 10/08/2023 8:21 AM BOAT OUTFITTING SUPERVISOR Spoke with patient via telephone call, patient stated that she has an appt with PCP today and will request refill from her. OUTFITTING SUPERVISOR documented in this encounter Plan of Treatment Not on file documented as of this encounter Visit Diagnoses Diagnosis Non-recurrent bilateral inguinal hernia without obstruction or gangrene documented in this encounter Additional Health Concerns Assessment Noted Time PHQ-9 Depression Total Score: 0 06/10/20 18 9:00 AM CDT documented as of this encounter Care Teams Television Installer Helper Relationship Specialty Start Date End Date Kimberly Jc APRN, FICTION AND NONFICTION PROSE WRITER [address] [place] [address] PCP - General Advanced Practice Nurse 02/14/20 Timmy Ibarra, PAC [address] [place] [address] PCP - General Physician Digital Account Director 02/17/24 Mack Owens MD [address] [address] Consulting Physician Colon and Rectal Surgery 11/23/22 Francisco Javier Ivey MD [address] [place] [address] Consulting Physician Neurological Surgery 03/07/24 documented as of this encounter
--- OUTSIDE RECORDS SUMMARY | 2025-02-12 19:23 | XMS_ITS | Encounter Summary ---
Author Organization [facility] Address [address] [facility] [place] [address] Phone Care Team Providers Care Special Assemblies Supervisor Name Role Phone Mack Owens MD Unavailable Timmy Ibarra [facility] Primary Care Provider [phone] Francisco Javier Ivey MD Unavailable Reason for Visit * Reason Comments Medication Refill Encounter Details Date Type Department Care Team (Late st Contact Info) Description 10/05/2024 Refill [facility] Primary Care - [place] [address] [place] [address] Timmy Ibarra, [facility] [address] [place] [address] Medication Refill Social History Tobacco Use Types Packs/Day Years Used Date Smoking Tobacco: Every Day Cigarettes 1 32.5 Started: 1992 Smokeless Tobacco: Never Comments:Down to quarter pac k Alcohol Use Standard Drinks/Week Comments No 0 (1 standard drink = 0.6 oz pur e alcohol) [facility] Utilities Answer Date Recorded In the past 12 months has e electric, gas, oil, or water company threatened to shut off services in your home? Yes 03/05/2024 Social Connection and Isolation Panel Answer Date Recorded In a typical week, how many times do you talk on the phone with family, friends, or neighbors? Twice a week 03/05/2024 How often do you get together with friends or re latives? Once a week 03/05/2024 How often do you attend buddhist or sikhism serv ices? Never 03/05/2024 Do you belong to any clubs o r organizations such as buddhist groups, unions, fraternal or athletic groups, or [...] Total Score - Questions 1-9 0 05/30 [facility] - Occupational Stress [...] place to sleep or slept in a fci (including now)? No 09/03/2023 Housing Stability Vital [...] time in the past 12 m [facility], were you homeless or living in a fci (including now)? No 03/05/2024 Education Answer Date [...] Ara Hanna RN - 10/05/2024 3:45 PM ELECT[employer] W[employer]DER duplicate TRIC ARC WELDER documented in this encounter Plan of Treatment Not on file documented as of this encounter Visit Diagnoses Diagnosis Bronchitis Bronchitis, not specified as acute or chronic Acute cough SOB (shortness of breath) Shortness of breath documented in this encounter Additional Health Concerns Assessment Noted Time PHQ-9 Depression Total Score: 0 06/15/20 24 9:15 AM CDT documented as of this encounter Care Teams Special Assemblies Supervisor Relationship Specialty Start Date End Date Timmy Ibarra, PAC [address] [place] [id number] PCP - General Physician Sanding Machine Tender Automatic 02/17/24 Mack Owens MD [address] [address] Consulting Physician Colon and Rectal Surgery 11/23/22 Francisco Javier Ivey MD [address] [place] [address] Consulting Physician Neurological Surgery 03/07/24 documented as of this encounter
--- NOTE | 2025-02-12 19:38 | ED.FEMALEGU ---
HPI - Female Genitourinary General Chief complaint: Urogenital-Female Stated complaint: Urinary Problems Time Seen by Provider: 02/12/25 19:39 Source: patient Mode of arrival: ambulatory Limitations: no limitations History of Present Illness HPI Narrative: 44 yo F presents with c/o ABD bloating, urinary frequency for 2 days. Recently had lumbar fusion. States back pain has been controlled with oxycodone and baclofen. Ambulatory with walker. States she had catheter placed during surgery. Concerned she may have UTI. Also states has been constipated. Recently started miralax. Was able to have small BM prior to arrival. denies incontinence of bowel or bladder. all systems reviewed and negative except as noted above. Related Data Home Medications ?Medication ?Instructions ?Recorded ?Confirmed ?Last Taken ?Type fluoxetine 20 mg capsule 20 mg PO DAILY 04/15/20 10/23/24 Unknown History baclofen 10 mg tablet 10 mg PO TID 07/29/22 10/23/24 Unknown History gabapentin 300 mg capsule 300 mg PO TID 07/29/22 10/23/24 Unknown History omeprazole 40 mg capsule,delayed 40 mg PO DAILY 09/24/22 10/23/24 Unknown History release albuterol sulfate 90 mcg/actuation inhalation 10/23/24 Unknown History aerosol inhaler celecoxib 100 mg capsule mg 10/23/24 Unknown History estradiol 0.05 mg/24 hr weekly 10/23/24 Unknown History transdermal patch oxycodone 10 mg tablet mg 02/12/25 Unknown History Allergies Allergy/AdvReac Type Severity Reaction Status Date / Time bee pollen Allergy Unknown Unknown Verified 02/12/25 19:34 metoclopramide (From Reglan) Allergy Hallucinati Verified 02/12/25 19:34 ng Review of Systems Review of Systems: CONSTITUTIONAL: Denies fever, chills, or sweats. EYES: Denies visual changes, redness, or discharge. ENT: Denies rhinorrhea, congestion, sore throat, or otalgia. CARDIOVASCULAR: Denies chest pain, palpitations, or edema. RESPIRATORY: Denies cough or dyspnea. GASTROINTESTINAL: Reports abdominal bloating. Denies nausea, vomiting, or diarrhea. GENITOURINARY: reports urinary frequency. Denies dysuria , hematuria SKIN: Denies rash or itching. MUSCULOSKELETAL: Denies back pain, joint pain, or myalgia. NEUROLOGIC: Denies headache, numbness, or weakness. PSYCHIATRIC: Denies anxiety or depression. All other systems reviewed are negative, except as documented in HPI. [facility] Past Medical History Medical History Anxiety Bipolar disorder Bronchitis Cervical lesion Depression Gastric ulcer GERD (gastroesophageal reflux disease) Gestational diabetes Surgical History Surgical History H/O hernia repair History of orthopedic surgery R CTRx2, right ulnar nerve transposition, L CTR Right knee patella fracture Hx of cholecystectomy Hx of tonsillectomy Family History Family History Mother Family history non-contributory Social History Social History Smoking packs per day: 0.5 Smoking cigarettes per day: 10.0 Smoking status: Current every day smoker Tobacco type: cigarettes Substance use: current Substance use type: marijuana Other substance usage details: social use marijuana Living arrangements: with family Gender identity (if verbalized by the patient): Female Sexual Orientation (if Verbalized by the Patient): Straight or Heterosexual Spiritual care concerns: No Comments reviewed Exam Narrative: GENERAL: This is a well-nourished, well-developed patient, in no apparent distress. HEAD: normocephalic, atraumatic. EYES: PERRL. Sclera clear/white. Vision is grossly intact. EARS: External ears normal NOSE: External nose normal NECK: Neck supple, non-tender without lymphadenopathy, masses or thyromegaly. CARDIOVASCULAR: Regular rate and rhythm without murmurs, gallops, or rubs. RESPIRATORY: Clear to auscultation. Breath sounds equal bilaterally. No wheezes, rales, or rhonchi. GASTROINTESTINAL: Abdomen soft, non-tender, mildly distended. Bowel sounds are active. SKIN: warm, Dry, intact with no suspicious lesions or rash, good texture and turgor. NEURO: awake, alert, and oriented to person, place and time. There were no obvious focal neurologic abnormalities. EXTREMITIES: No joint tenderness, effusion, or edema noted. No calf tenderness. Negative Homans sign bilaterally. BACK: incision with steri strips in place to lumbar spine, midline. Course Course Level of Care: Express Care Visit Vital Signs Vital signs: Vital Signs Temperature 36.6 C 02/12/25 19:22 Pulse Rate 74 02/12/25 19:22 Respiratory Rate 20 02/12/25 19:22 Blood Pressure 121/59 L 02/12/25 19:22 Pulse Oximetry 100 02/12/25 19:22 Oxygen Delivery Room Air 02/12/25 19:22 Temperature 36.6 C 02/12/25 19:22 Pulse Rate 74 02/12/25 19:22 Respiratory Rate 20 02/12/25 19:22 Blood Pressure 121/59 L 02/12/25 19:22 Pulse Oximetry 100 02/12/25 19:22 Oxygen Delivery Room Air 02/12/25 19:22 reviewed MDM - Female Genitourinary MDM Narrative Medical decision making narrative: urinalysis normal. urine culture ordered. BMs normal, mild distention. Taking oxycodone after surgery. States last good BM was prior to surgery. Was able to pass small amount of stool prior to arrival. Does feel some pressure off abdomen and bowels moving since having BM today. Recommend increase miralax, fiber and start stool softener. Will call her surgery for any changes or worsening of symptoms. Pt is well appearing, nontoxic. Up and moving about well with walker. Differential Diagnosis Differential diagnosis: Likely urinary tract infection and other (constipation) Lab Data Labs: Lab Results 02/12/25 Range/Units 19:40 POC Urine Color Light/pale POC Urine Clarity Clear POC Urine pH 5.5 POC Ur Specif Kim 1.010 POC Urine Protein Trace (Negative) POC Ur Glucose (UA) Negative (Negative) POC Urine Ketones Negative (Negative) POC Urine Blood Negative (Negative) POC Urine Nitrite Negative (Negative) POC Urine Bilirubin Negative (Negative) POC Urine Urobilinogen 0.2 POC U Leukocyte Esteras Negative (Negative) Discharge Plan Discharge Clinical Impression: Constipation Patient Disposition: Home Condition: Stable Instructions: Constipation (ED) Additional Instructions: your urinalysis was normal today. A urine culture was ordered and results will take 48-72 hours. If your urine culture shows a positive result we will call you at that time and prescribed an antibiotic. increase MiraLax to twice a day. Take stool softener as prescribed. Drink at least 64 oz of water a day. Increase fiber in diet. If you are having severe pain, loss of bowel or bladder go to the ER. Patient Language: Indonesian Prescriptions: New docusate sodium [Colace] 100 mg capsule 100 mg PO BID 30 Days Qty: 60 0RF No Action fluoxetine 20 mg capsule 20 mg PO DAILY baclofen 10 mg tablet 10 mg PO TID gabapentin 300 mg capsule 300 mg PO TID omeprazole 40 mg capsule,delayed release(DR/EC) 40 mg PO DAILY estradiol 0.05 mg/24 hr patch weekly albuterol sulfate 90 mcg/actuation HFA aerosol inhaler INHALATION celecoxib 100 mg capsule oxycodone 10 mg tablet Follow-up/Referrals: UNKNOWN,DOCTOR [Primary Care Provider] - Time of Disposition: 19:48
[2025-02-12 19:44] LABS: EDUAAPPEAR Clear; EDUABILI Negative (Negative); EDUABLOOD Negative (Negative); EDUACOLOR1 Light/Pale; EDUAGLUCOSE Negative (Negative); EDUAKETONE Negative (Negative); EDUALEUKO Negative (Negative); EDUANITRATE Negative (Negative); EDUAPH 5.5; EDUAPROTEIN Trace (Negative); EDUAUROBILI 0.2
== END 2025-02-12 19:52 | disposition home or self-care (01) ==
PROVIDERS: Emergency Provider Nurse Practitioner Family
DX: K59.00 Constipation, unspecified (principal); F17.210 Nicotine dependence, cigarettes, uncomplicated; F12.90 Cannabis use, unspecified, uncomplicated; K21.9 Gastro-esophageal reflux disease without esophagitis; F41.9 Anxiety disorder, unspecified; F32.A Depression, unspecified
CPT/HCPCS: 81003; 87086; 99213; G0463